=== PATIENT | male | born 1950 | race Caucasian/White ===

== ENCOUNTER 2017-04-18 18:11 | Inpatient (IN) | payer OTHER ==
[2017-04-18 19:18] LABS: ABS Basophils 0.1 10^3/ul (0-0.2); ABS Eosinophils 0.4 10^3/ul (0-0.6); ABS Lymphocytes 1.5 10^3/ul (1.0-4.8); ABS Monocytes 0.9 10^3/ul (0-0.8); ABS Neutrophils 6.5 10^3/ul (1.5-7.7); ABS Nucleated RBC 0 10^3/ul; Eosinophil % 4.6 % (0-6); Hematocrit 40 % (42-52); Hemoglobin 13.8 g/dl (14.0-18.0); Lymphocyte % 16.1 % (25-47); Mean Corpuscular HGB Conc 35 g/dl (31-36); Mean Corpuscular Hemoglobin 31 pg (27-31); Mean Corpuscular Volume 90 fL (80-94); Mean Platelet Volume 7 um3 (7.4-10.4); Nucleated Red Blood Cells % 0; Platelet Count 283 10^3/ul (150-450); Red Blood Count 4.44 10^6/ul (4.0-5.4); Red Cell Distribution Width 14 % (10.5-15); White Blood Count 9.4 10^3/ul (3.5-10.8)
[2017-04-18 19:33] LABS: EGFR Non-African American 71.7 (>60)
[2017-04-18 20:55] LABS: Urine Appearance Clear; Urine Blood Negative (Negative); Urine Color Yellow; Urine Ketones Negative (Negative); Urine Protein Negative (Negative); Urine Specific Gravity 1.019 (1.010-1.030); Urine Urobilinogen Negative (Negative)
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
[2017-04-19] MEDS ORDERED: Ibuprofen TAB* 600 MG PO PRN (11:33)
[2017-04-19] MEDS ORDERED: Nitroglycerin TAB 0.4 MG* 0.4 MG TAB SL PRN (11:33)
[2017-04-19] MEDS ORDERED: Haloperidol TAB* 5 MG PO PRN (11:35)
--- NOTE | 2017-04-19 12:16 | ED ---
Funmi Anderson Julia, scribed for Yehuda Santana MD on 04/19/17 at 1141 . Progress - Progress Note Progress Note: Patient is signed out from Dr. Salcedo at shift change. This patient will no longer require transfer and will be admitted to the mental health unit at [facility]. - Consult/PCP Time Called: 18:14 Re-Evaluation - Re-Evaluation First Eval (Dr. Salcedo) Re-Evaluation Time: 05:00 Change: Improved - resting comfortably at 0500 First Eval Change: Improved - resting comfortably at 0500 Course/Dx - Course Course Of Treatment: Patient was signed out from Dr. Salcedo at 07:00. At 11:45 , Patient is no longer being transferred and will be admitted to [facility] Mental Health Unit instead. - Diagnoses Provider Diagnoses: Acute psychosis, Chronic schizophrenia, Non compliance w medication regimen The documentation as recorded by the Funmi miranda Julia accurately reflects the service I personally performed and the decisions made by , Yehuda Santana MD.
[2017-04-19] MEDS: Acetaminophen TAB* 325 MG PO PRN (15:11)
--- NOTE | 2017-04-19 16:20 | PN ---
MHU: Group Therapy Note - Service Type Service Type: [id number] Group Psychotherapy - Medication Education Group: Patient joined group and was intermittently in room. Patient asked questions that were not particularly on topic.
[2017-04-19] MEDS: clonazePAM TAB(*) 0.5 MG PO SCH (20:54)
[2017-04-19] MEDS: Multivitamins/Minerals TAB PO SCH (20:54)
[2017-04-19] MEDS: Atorvastatin* 10 MG TAB PO SCH (20:54)
[2017-04-20] MEDS: Acetaminophen TAB* 325 MG PO PRN (03:56)
[2017-04-20] MEDS ORDERED: hydrOXYzine HCL TAB* 50 MG ONE (04:18)
[2017-04-20] MEDS: Multivitamins/Minerals TAB PO SCH ×2 (09:16→21:42)
[2017-04-20] MEDS: Aspirin Low Dose CHEW TAB* 81 MG PO SCH (09:16)
[2017-04-20] MEDS: Cholecalciferol TAB* 1000 UNITS PO SCH (09:16)
[2017-04-20] MEDS: clonazePAM TAB(*) 0.5 MG PO SCH ×2 (09:17→21:46)
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
[2017-04-20] MEDS ORDERED: hydrOXYzine HCL TAB* 50 MG PO PRN (11:38)
[2017-04-20] MEDS ORDERED: traZODone TAB* 50 MG TAB PO PRN (14:06)
[2017-04-20] MEDS: Paliperidone ER TAB* 1.5 MG TAB.ER PO SCH (21:41)
[2017-04-20] MEDS: Atorvastatin* 10 MG TAB PO SCH (21:42)
[2017-04-20] MEDS: traZODone TAB* 50 MG TAB PO SCH (21:42)
[2017-04-21] MEDS: Al Hydrox/Mg Hydrox/Simet LIQ* 30 ML UDC PO PRN (04:45)
[2017-04-21] MEDS: Cholecalciferol TAB* 1000 UNITS PO SCH (09:28)
[2017-04-21] MEDS: Aspirin Low Dose CHEW TAB* 81 MG PO SCH (09:28)
[2017-04-21] MEDS: Multivitamins/Minerals TAB PO SCH ×2 (09:28→21:04)
[2017-04-21] MEDS: clonazePAM TAB(*) 0.5 MG PO SCH ×3 (09:29→21:06)
--- NOTE | 2017-04-21 14:06 | PN ---
Subjective - Subjective Date of Service: 04/21/17 Service Type: [id number] Hosp care 15 min low complexity Subjective: Gutierrez is in the milieu pacing and at times on the phone. Intrussive with poor boundary. Says he is feeling depressed today and subdued. No reports of anger, SI, HI or aggression. Tolerating Invega well. Slept well but found to be playing with his lunch. Objective - Appearance Appearance: Obese Dysmorphic Features: No Hygiene: Mal-odorous Grooming: Disheveled - Behavior Psychomotor Activities: Abnormal-Increased Exhibits Abnormal Movement: No - Attitude and Relatedness Attitude and Relatedness: Guarded Eye Contact: Fair - Speech Quality: Unpressured Latencies: Normal Quantity: Terse - Mood Patient's Decription of Mood: "Fine" - Affect Observed Affect: Depressed Affect Consistent with: Dysphoria - Thought Process Patient's Thought Process: Coherent, Impoverished Thought Content: No Passive Wish, No Suicidal Planning, No Homicidal Ideation, No Paranoid Ideation - Sensorium Experiencing Hallucinations: No, Sensorium is Clear Type of Hallucinations: Visual: No, Auditory: No, Command: No - Level of Consciousness Level of Consciousness: Alert Orientation: Yes Intact, Yes Orientated to Time, Yes Orientated to Place, Yes Orientated to Person - Impulse Control Impulse Control: Tenuous - Insight and Judgement Insight and Judgement: Poor - Group Participation Particating in Group Activities: No - Medication Management Medication Management Adherence: Yes Assessment - Assessment Merits Inpatient Hospitalization: For Stabilization, Pending Safe DC Plan Clinical Impression: Still disorganized in thoughts and behavior but taking meds as prescribed. Plan - Plan Treatment Plan: Name: GUTIERREZ BOYD Birthdate: 1950 [id number] Continued Medication Management: Continue Outpt Medication Medications: Current Medications Acetaminophen (Tylenol Tab*) 650 mg PO Q6H PRN PRN Reason: PAIN - MILD Last Admin: 04/20/17 03:56 Dose: 650 mg Al Hydrox/Mg Hydrox/Simethicone (Maalox Plus*) 30 ml PO Q4H PRN PRN Reason: INDIGESTION Last Admin: 04/21/17 04:45 Dose: 30 ml Aspirin (Aspirin Low Dose Tab*) 81 mg PO DAILY [facility] Last Admin: 04/21/17 09:28 Dose: 81 mg Atorvastatin Calcium (Lipitor*) 10 mg PO BEDTIME [facility] Last Admin: 04/20/17 21:42 Dose: 10 mg Cholecalciferol (Vitamin D Tab*) 1,000 units PO DAILY [facility] Last Admin: 04/21/17 09:28 Dose: 1,000 units Clonazepam (Klonopin Tab(*)) 0.5 mg PO BID [facility] Last Admin: 04/21/17 09:29 Dose: Not Given Haloperidol (Haldol Tab*) 5 mg PO Q6H PRN PRN Reason: AGITATION Hydroxyzine HCl (Atarax Tab*) 50 mg PO Q4H PRN PRN Reason: anxiety/agitation Ibuprofen (Motrin Tab*) 600 mg PO Q6H PRN PRN Reason: PAIN Multivitamins/Minerals (Theragran/Minerals Tab*) 1 tab PO BID [facility] Last Admin: 04/21/17 09:28 Dose: 1 tab Nitroglycerin (Nitroglycerin Tab 0.4 Mg*) 0.4 mg SL Q5M PRN PRN Reason: PAIN - CHEST Paliperidone (Invega Er*) 1.5 mg PO BEDTIME [facility] Stop: 04/21/17 21:01 Last Admin: 04/20/17 21:41 Dose: 1.5 mg Paliperidone (Invega Er Tab*) 3 mg PO BEDTIME [facility] Trazodone HCl (Desyrel Tab*) 50 mg PO BEDTIME [facility] Last Admin: 04/20/17 21:42 Dose: 50 mg Trazodone HCl (Desyrel Tab*) 50 mg PO ONCE PRN PRN Reason: INSOMNIA - Discharge Plan Discharge Plan: Outpatient Follow Up Out[facility]
[2017-04-21] MEDS: Atorvastatin* 10 MG TAB PO SCH (21:03)
[2017-04-21] MEDS: traZODone TAB* 50 MG TAB PO SCH (21:04)
[2017-04-21] MEDS: Paliperidone ER TAB* 1.5 MG TAB.ER PO SCH (21:04)
[2017-04-22] MEDS: Cholecalciferol TAB* 1000 UNITS PO SCH (09:01)
[2017-04-22] MEDS: Multivitamins/Minerals TAB PO SCH ×2 (09:01→22:02)
[2017-04-22] MEDS: Aspirin Low Dose CHEW TAB* 81 MG PO SCH (09:01)
[2017-04-22] MEDS: clonazePAM TAB(*) 0.5 MG PO SCH ×2 (09:03→22:03)
[2017-04-22] MEDS: Al Hydrox/Mg Hydrox/Simet LIQ* 30 ML UDC PO PRN (19:04)
[2017-04-22] MEDS: Acetaminophen TAB* 325 MG PO PRN (19:04)
[2017-04-22] MEDS ORDERED: Paliperidone ER TAB* 3 MG TAB.ER PO SCH (21:00)
[2017-04-22] MEDS: traZODone TAB* 50 MG TAB PO SCH (22:02)
[2017-04-22] MEDS: Atorvastatin* 10 MG TAB PO SCH (22:02)
[2017-04-23] MEDS: Multivitamins/Minerals TAB PO SCH ×2 (08:54→20:57)
[2017-04-23] MEDS: Aspirin Low Dose CHEW TAB* 81 MG PO SCH (08:54)
[2017-04-23] MEDS: Cholecalciferol TAB* 1000 UNITS PO SCH (08:54)
[2017-04-23] MEDS: clonazePAM TAB(*) 0.5 MG PO SCH (08:56)
--- NOTE | 2017-04-23 09:51 | PN ---
Subjective - Subjective Subjective: Psychiatric Attending Progress Note: uneventful weekend. no aggressive behavior observed. Patient has been cooperative and attending groups. He continues to exhibit marked thought disorder. logical and relevant responses occurr equally with illogic, irrelevant constructs. no evidence of manic or depressed mood. denie auditory or visual hallucionations but can be seen mumbling to himself at times as if he were responding to internal stimuli. Patient is fully alert and oriented in all spheres. He has some over valued ideas with regard to the bad quality of air in the hospital. Patient denies suicidal or homicidal ideation. There are no overt persecutory delusions or bizarre delusions elicited during today's interview. He continues to have relatively poor hygiene. He is eating and drinking adequately. Patient is reported to be sleeping 2 to 3 hours per night but when asked patient states he has been sleeping 6 to 7 hours nightly Patient had visit from his Brother Timmy and brother's over the weekend. He also had phone contact with another brother of his. Patient wishes to return to [facility] without going to the [facility]. he agrees to take MORENO Invega Sustenna once we have titrated him up to 6 mg daily. Impression: Scizophrenia acute exacerbation Medication nonadherence PTSD (by history) Coronary artery Disease Hyperlipidemia Hypertension PLAN: currently on 2pc status Q15 min observation status individual, group, Milieu patient would like to return to [facility] if that is an option Invega 4.5 mg Tonight X 1 then go to 6 mg QHS Will give first dose of Invega Sustenna on . hydroxyzine 50 mg Q4h prn anxiety/insomnia Trazodone 50 mg QHS for insomnia. May repeat X 1 prn after one hour for persistent insomnia continue outpatient non psychiatric medications unchanged which include Lipitor, Vitamin D, Aspirin, NTG Tab PRN, tylenol and motrin Q4h prn pain d/c klonopin
[2017-04-23] MEDS: Acetaminophen TAB* 325 MG PO PRN (13:36)
[2017-04-23] MEDS: Atorvastatin* 10 MG TAB PO SCH (20:57)
[2017-04-23] MEDS: Paliperidone ER TAB* 6 MG TAB.ER PO SCH (20:57)
[2017-04-23] MEDS: traZODone TAB* 50 MG TAB PO SCH (20:58)
[2017-04-24] MEDS: Aspirin Low Dose CHEW TAB* 81 MG PO SCH (08:34)
[2017-04-24] MEDS: Multivitamins/Minerals TAB PO SCH ×2 (08:34→21:38)
[2017-04-24] MEDS: Cholecalciferol TAB* 1000 UNITS PO SCH (08:34)
--- NOTE | 2017-04-24 16:06 | PN ---
Subjective - Subjective Subjective: PSYCHIATRIC ATTENDING PROGRESS NOTE Compliant with Invega and denies any side effects. staff report patient paces throughout the unit and can be somewhat intrusive. no aggression, agitation, or bizarre behaviors Patient has good appetite and is taking adequate fluid intake. His brother has been visiting him regularly on the unit. I spoke with Brother Efraín Rodriguez today for 15 minute phone conversation. Brother reports that patient moved back in to the [facility] about one year ago after a lengthy hospitalization in [place]. Prior to that hospitalization he had stopped taking medication for many months which resulted in psychotic decompensation. Patient was started on Abilify Mantenna monthly MORENO which he took for about 8 to 9 months before discontinuing it about 4 months ago. Brother reports that he had a very good response to the monthly Abilify and was more stable then he had been in many years. Patient then met a woman at the Day program that he attends and stopped his Abilify because he attributed sexual performance difficulties incorrectly to his Abilify. Brother would like to see beth back on his Abilify. He is patient's conservator. He also asked me about "forced medication treatment against objection as an outpatient" I told him that a atmospheric physicist can order mandatory treatment but that he should speak with drug abuse social worker or a senior care provider about this option. MSE: unchanged from yesterday speech hyperverbal, normal rate and volume. mood: euthymic affect: blunted, bizarre TP: disorganized, irrelevant and at times illogic. at other times patient responds logically and relevantly. denies AH,VH, SI,HI Alert and fully oriented insight poor judgment: impaired Impression: Schizophrenia PTSD Plan: Invega 6 mg po QHS Trazodone 50 mg qhs patient is awaiting transfer to [facility].
[2017-04-24] MEDS: Paliperidone ER TAB* 6 MG TAB.ER PO SCH (21:38)
[2017-04-24] MEDS: traZODone TAB* 50 MG TAB PO SCH (21:38)
[2017-04-24] MEDS: Atorvastatin* 10 MG TAB PO SCH (21:38)
[2017-04-25] MEDS: Cholecalciferol TAB* 1000 UNITS PO SCH (08:54)
[2017-04-25] MEDS: Aspirin Low Dose CHEW TAB* 81 MG PO SCH (08:54)
[2017-04-25] MEDS: Multivitamins/Minerals TAB PO SCH ×2 (08:54→21:57)
[2017-04-25] MEDS ORDERED: Nicotine GUM* 2 MG PO PRN (10:24)
[2017-04-25] MEDS ORDERED: Nicotine Inhaler* 10 MG AMP INH PRN (10:24)
[2017-04-25] MEDS ORDERED: Mouth Piece, Nicotine* 1 EACH CARTRIDGE INH PRN (10:24)
--- NOTE | 2017-04-25 10:25 | PN ---
Subjective - Subjective Subjective: psychiatric attending progress note Per staff patient has been staring and making inappropriate remarks with sexual theme. This has made at least one female patient feel uncomfortable. patient continues to be disorganized in thought process, intrusive (walks up to people and begins talking about something randomly). denies side effects from medication at this time. per asphalt plant worker, [place] system does not have availability for this patient at this time. complains of left heel pain. PE: 1 to 2 + pitting edema bilaterally lower extemities left greater than right heel shows excoriation but no open sores or ulcers. mild swelling and redness of heel. no evidence of active infection. patient reports that he has had pitting edema left greater than right for many years. MSE; poor hygiene disheveled speech: at times dysarthric, poorly articulated mood: no evidence of dysphoria or aime. patient has not been irritible which was reported prior to admission affect: bizarre TP: disorganized, with illogic and irrelevant constructs. preoccupied with sexually related topics TC: denies AH,VH but can be seen muttering/mumling to self while pacing on unit. talks of air quality being poor here overvalued ideas fully alert and oriented insight fair. does agree he needs to be back on a medication for his mental illness judgment: impaired by psychosis Impression: Schizophrenia with acute exacerbation of both positive and negative symptoms since discontinuing MORENO Abilify 4 months ago Patient has significant thought disorder. Intrusiveness, and sexually inappropriate behaviors/verbalizations are target symptoms and patient cannot function in the community safely until those symptoms have remitted. Plan: Invega 6 mg po tonight tomorrow will give first Invega Sustenna injection of 234 mg IM moisturizing cream bilateral feet and heels BID Start HCTZ 12. 5 mg QAM for pitting edema and systolic hypertension behavioral contract with regard to refraining from inappropriate comments of a sexual nature. Plan - Plan Treatment Plan: Name: DEYANIRA BYOD Birthdate: 1950 [id number] Medications: Current Medications Acetaminophen (Tylenol Tab*) 650 mg PO Q6H PRN PRN Reason: PAIN - MILD Last Admin: 04/23/17 13:36 Dose: 650 mg Al Hydrox/Mg Hydrox/Simethicone (Maalox Plus*) 30 ml PO Q4H PRN PRN Reason: INDIGESTION Last Admin: 04/22/17 19:04 Dose: 30 ml Aspirin (Aspirin Low Dose Tab*) 81 mg PO DAILY [facility] Last Admin: 04/25/17 08:54 Dose: 81 mg Atorvastatin Calcium (Lipitor*) 10 mg PO BEDTIME [facility] Last Admin: 04/24/17 21:38 Dose: 10 mg Cholecalciferol (Vitamin D Tab*) 1,000 units PO DAILY [facility] Last Admin: 04/25/17 08:54 Dose: 1,000 units Device (Nicotine Mouth Piece*) 1 each INH .USE WITH NICOTROL PRN PRN Reason: CRAVING Haloperidol (Haldol Tab*) 5 mg PO Q6H PRN PRN Reason: AGITATION Hydroxyzine HCl (Atarax Tab*) 50 mg PO Q4H PRN PRN Reason: anxiety/agitation Ibuprofen (Motrin Tab*) 600 mg PO Q6H PRN PRN Reason: PAIN Multivitamins/Minerals (Theragran/Minerals Tab*) 1 tab PO BID [facility] Last Admin: 04/25/17 08:54 Dose: 1 tab Nicotine (Nicotine Inhaler*) 10 mg INH Q2H PRN PRN Reason: CRAVING Nicotine Polacrilex (Nicotine Gum*) 2 mg PO Q2H PRN PRN Reason: CRAVING Nitroglycerin (Nitroglycerin Tab 0.4 Mg*) 0.4 mg SL Q5M PRN PRN Reason: PAIN - CHEST Paliperidone (Invega Er Tab*) 6 mg PO BEDTIME [facility] Last Admin: 04/24/17 21:38 Dose: 6 mg Trazodone HCl (Desyrel Tab*) 50 mg PO BEDTIME [facility] Last Admin: 04/24/17 21:38 Dose: 50 mg Trazodone HCl (Desyrel Tab*) 50 mg PO ONCE PRN PRN Reason: INSOMNIA
[2017-04-25] MEDS: Atorvastatin* 10 MG TAB PO SCH (21:56)
[2017-04-25] MEDS: Paliperidone ER TAB* 6 MG TAB.ER PO SCH (21:57)
[2017-04-25] MEDS: traZODone TAB* 50 MG TAB PO SCH (21:57)
[2017-04-25] MEDS: Moisturizing CREAM* 120 GM JAR TOPICAL SCH (21:58)
[2017-04-26] MEDS: Al Hydrox/Mg Hydrox/Simet LIQ* 30 ML UDC PO PRN (06:47)
[2017-04-26] MEDS ORDERED: Paliperidone SUSTENNA* 234 MG/1.5 ML IM ONE (09:00)
[2017-04-26] MEDS: Hydrochlorothiazide TAB* 25 MG PO SCH (09:13)
[2017-04-26] MEDS: Cholecalciferol TAB* 1000 UNITS PO SCH (09:13)
[2017-04-26] MEDS: Aspirin Low Dose CHEW TAB* 81 MG PO SCH (09:14)
[2017-04-26] MEDS: Multivitamins/Minerals TAB PO SCH ×2 (09:14→20:27)
[2017-04-26] MEDS: Moisturizing CREAM* 120 GM JAR TOPICAL SCH (09:15)
--- NOTE | 2017-04-26 11:36 | PN ---
Subjective - Subjective Subjective: PSYCHIATRIC ATTENDING PROGRESS NOTE Continues to be disorganized, irrelevant, intrusive no aggressive behavior or agitation has been exhibited since patient was admitted to our unit. Patient is agreeable to current medication treatment plan of taking second Invega injection on Sunday04/03/2017 MSE: poor ADL's speech: low volume, dysarthric mood: euthymic affect: bizarre TP: disorganized, irrelevant and illogic constructs TC: denies AH,VH. denies SI,HI insight poor judgment impaired Impression: Schizophrenia: acute decompensation medication nonadherence Plan: as above
[2017-04-26] MEDS: Atorvastatin* 10 MG TAB PO SCH (20:28)
[2017-04-26] MEDS: traZODone TAB* 50 MG TAB PO SCH (20:28)
[2017-04-27] MEDS: Moisturizing CREAM* 120 GM JAR TOPICAL SCH ×3 (02:00→22:08)
[2017-04-27] MEDS: Al Hydrox/Mg Hydrox/Simet LIQ* 30 ML UDC PO PRN ×2 (06:25→10:32)
[2017-04-27] MEDS: Cholecalciferol TAB* 1000 UNITS PO SCH (08:51)
[2017-04-27] MEDS: Multivitamins/Minerals TAB PO SCH ×3 (08:51→22:34)
[2017-04-27] MEDS: Aspirin Low Dose CHEW TAB* 81 MG PO SCH (08:51)
[2017-04-27] MEDS: Hydrochlorothiazide TAB* 25 MG PO SCH (08:51)
--- NOTE | 2017-04-27 11:04 | PN ---
Subjective - Subjective Subjective: Psychiatric Attending progress note: continues to be quite disorganized and unable to engage in group due to being incoherent, and irrelevant which is disruptive to group. no hypersexual remarks or behavior noted today. continues to have poor insight about need for medication but gives consent to be treated with invega as he knows placement is contingent on him receiving MORENO antipsychotic treatment. MSE: as above edema diminished since starting HCTZ daily Vitals have been stable including BP Impression/Plan Schizophrenia To give Invega Sustenna injection number 2 on 04/30/2017 increase Trazodone to 100 mg qhs as patient is not sleeping through the night. continue all other meds unchanged.
[2017-04-27] MEDS: traZODone TAB* 50 MG TAB PO SCH ×2 (22:08→22:36)
[2017-04-27] MEDS: Atorvastatin* 10 MG TAB PO SCH ×2 (22:08→22:34)
[2017-04-28] MEDS: Multivitamins/Minerals TAB PO SCH ×2 (08:50→20:29)
[2017-04-28] MEDS: Aspirin Low Dose CHEW TAB* 81 MG PO SCH (08:50)
[2017-04-28] MEDS: Hydrochlorothiazide TAB* 25 MG PO SCH (08:50)
[2017-04-28] MEDS: Cholecalciferol TAB* 1000 UNITS PO SCH (08:50)
[2017-04-28] MEDS: Moisturizing CREAM* 120 GM JAR TOPICAL SCH ×2 (08:53→20:31)
[2017-04-28] MEDS: Al Hydrox/Mg Hydrox/Simet LIQ* 30 ML UDC PO PRN (11:11)
[2017-04-28] MEDS: traZODone TAB* 50 MG TAB PO SCH (20:29)
[2017-04-28] MEDS: Atorvastatin* 10 MG TAB PO SCH (20:30)
[2017-04-29 06:25] LABS: ABS Basophils 0.1 10^3/ul (0-0.2); ABS Eosinophils 0.5 10^3/ul (0-0.6); ABS Lymphocytes 1.3 10^3/ul (1.0-4.8); ABS Monocytes 0.9 10^3/ul (0-0.8); ABS Neutrophils 4.9 10^3/ul (1.5-7.7); ABS Nucleated RBC 0 10^3/ul; Eosinophil % 6.9 % (0-6); Hematocrit 39 % (42-52); Hemoglobin 13.4 g/dl (14.0-18.0); Lymphocyte % 16.9 % (25-47); Mean Corpuscular HGB Conc 34 g/dl (31-36); Mean Corpuscular Hemoglobin 31 pg (27-31); Mean Corpuscular Volume 90 fL (80-94); Mean Platelet Volume 7 um3 (7.4-10.4); Nucleated Red Blood Cells % 0; Platelet Count 268 10^3/ul (150-450); Red Blood Count 4.36 10^6/ul (4.0-5.4); Red Cell Distribution Width 14 % (10.5-15); White Blood Count 7.7 10^3/ul (3.5-10.8)
[2017-04-29 06:40] LABS: EGFR Non-African American 69.4 (>60)
[2017-04-29] MEDS: Moisturizing CREAM* 120 GM JAR TOPICAL SCH ×2 (09:15→19:23)
[2017-04-29] MEDS: Hydrochlorothiazide TAB* 25 MG PO SCH (09:15)
[2017-04-29] MEDS: Cholecalciferol TAB* 1000 UNITS PO SCH (09:15)
[2017-04-29] MEDS: Multivitamins/Minerals TAB PO SCH ×2 (09:15→19:23)
[2017-04-29] MEDS: Aspirin Low Dose CHEW TAB* 81 MG PO SCH (09:16)
[2017-04-29] MEDS: Al Hydrox/Mg Hydrox/Simet LIQ* 30 ML UDC PO PRN (10:54)
[2017-04-29] MEDS: Acetaminophen TAB* 325 MG PO PRN (19:21)
[2017-04-29] MEDS: traZODone TAB* 50 MG TAB PO SCH ×3 (19:22→19:28)
[2017-04-29] MEDS: Atorvastatin* 10 MG TAB PO SCH (19:22)
[2017-04-30] MEDS: Moisturizing CREAM* 120 GM JAR TOPICAL SCH ×2 (00:26→09:43)
[2017-04-30] MEDS: Multivitamins/Minerals TAB PO SCH ×2 (09:02→20:41)
[2017-04-30] MEDS: Hydrochlorothiazide TAB* 25 MG PO SCH (09:02)
[2017-04-30] MEDS: Cholecalciferol TAB* 1000 UNITS PO SCH (09:02)
[2017-04-30] MEDS: Aspirin Low Dose CHEW TAB* 81 MG PO SCH (09:03)
[2017-04-30] MEDS: Al Hydrox/Mg Hydrox/Simet LIQ* 30 ML UDC PO PRN (10:32)
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
[2017-04-30] MEDS: traZODone TAB* 50 MG TAB PO SCH (20:41)
[2017-04-30] MEDS: Atorvastatin* 10 MG TAB PO SCH (20:41)
[2017-05-01] MEDS: Moisturizing CREAM* 120 GM JAR TOPICAL SCH ×3 (01:15→20:55)
[2017-05-01] MEDS: Hydrochlorothiazide TAB* 25 MG PO SCH (09:08)
[2017-05-01] MEDS: Multivitamins/Minerals TAB PO SCH ×2 (09:09→20:54)
[2017-05-01] MEDS: Cholecalciferol TAB* 1000 UNITS PO SCH (09:09)
[2017-05-01] MEDS: Aspirin Low Dose CHEW TAB* 81 MG PO SCH (09:09)
[2017-05-01] MEDS: Acetaminophen TAB* 325 MG PO PRN ×2 (09:41→18:33)
[2017-05-01] MEDS: Al Hydrox/Mg Hydrox/Simet LIQ* 30 ML UDC PO PRN (16:16)
[2017-05-01] MEDS: traZODone TAB* 50 MG TAB PO SCH (20:54)
[2017-05-01] MEDS: Atorvastatin* 10 MG TAB PO SCH (20:54)
[2017-05-02] MEDS: Al Hydrox/Mg Hydrox/Simet LIQ* 30 ML UDC PO PRN ×2 (00:48→19:09)
[2017-05-02] MEDS: Moisturizing CREAM* 120 GM JAR TOPICAL SCH ×3 (01:23→21:21)
[2017-05-02] MEDS ORDERED: Paliperidone SUSTENNA* 156 MG/1 ML IM ONE (09:00)
[2017-05-02] MEDS: Hydrochlorothiazide TAB* 25 MG PO SCH (09:03)
[2017-05-02] MEDS: Multivitamins/Minerals TAB PO SCH ×2 (09:03→21:21)
[2017-05-02] MEDS: Aspirin Low Dose CHEW TAB* 81 MG PO SCH (09:03)
[2017-05-02] MEDS: Cholecalciferol TAB* 1000 UNITS PO SCH (09:03)
--- NOTE | 2017-05-02 12:05 | PN ---
Subjective - Subjective Subjective: psychiatric attending progress note s/p Invega Injection 156 mg IM today (injection number two) patient has been attending groups. He continues to be disorganized in his behavior, paces the halls, and indiscriminantly approaches people and begin talking about random topics. He has been less preoccupied with sexual theme. His mood is overall pleasant and not irritable. there has been no indication of explosive behavior,anger, or aggression. patient sleeping through the night since starting the Invega one week ago Gutierrez has not had any complaints of side effects. denies nausea, vomiting, abdomnial pain, muscle rigidity, agitation, dry mouth, constipation, dizziness, BP has been stable HR also has been stable patient has been somewhat more sedated during the day today and I noticed he fell asleep at afternoon group. This may be secondary to Invega injectinon which he received today still with pitting edema left greater than right leg no sob, chest pain, tachypnea, wheezing Impression: schizophrenia bilateral leg edema mild hypertension history of CAD not symptomatic Plan: s/p Invega injecton # 2 increase HCTZ to 25 mg daily likely patient will be ready to return to [facility] by next week Assessment - Assessment Inpatient DSM-V Dx: F25.0
[2017-05-02] MEDS: Acetaminophen TAB* 325 MG PO PRN (15:35)
[2017-05-02] MEDS: traZODone TAB* 50 MG TAB PO SCH (21:20)
[2017-05-02] MEDS: Atorvastatin* 10 MG TAB PO SCH (21:21)
[2017-05-03] MEDS: Aspirin Low Dose CHEW TAB* 81 MG PO SCH (08:20)
[2017-05-03] MEDS: Multivitamins/Minerals TAB PO SCH ×2 (08:20→20:45)
[2017-05-03] MEDS: Hydrochlorothiazide TAB* 25 MG PO SCH (08:20)
[2017-05-03] MEDS: Cholecalciferol TAB* 1000 UNITS PO SCH (08:20)
[2017-05-03] MEDS: Moisturizing CREAM* 120 GM JAR TOPICAL SCH ×2 (08:21→21:30)
--- NOTE | 2017-05-03 11:16 | PN ---
Subjective - Subjective Subjective: Psychiatric Attending Progress Note met with Gutierrez X 20 min today. He was somewhat more organized but then derails and begins talking about irrelevant and unrelated topic. He is easily brought back to topic. His hygiene remains very poor. His mood, thought continues to be pleasant, cheerful and not at all irritable or angry or agitated. Patient does report that he feels that his thoughts are "obsessive" and "racy". he reports that he is having difficulty staying on task because he will get a certain thought in his head and he will feel compelled to act on it. As an example he tells me that, while eating a meal he could not get the thought of painting with water colors out of his head. Very bothered by intrusive thoughts. We talked about klonopin which we stopped on admission. He reports that hewas on this medication for 14 years and that it was only in the past 8 months that he began to "cheek the medication" intermittently It has only been in the past two weeks that he has been off the klonopin completely. I suggested that patient's psychomotor increase may be withdrawal symptoms related to discontinuation of klonopin He was receptive to restarting klonopin at lower dose and tapering medication at a slower pace. Objective - Appearance Appearance: Well Developed/Nourished Dysmorphic Features: No Hygiene: Dirty Grooming: Disheveled - Behavior Psychomotor Activities: Abnormal-Increased - Attitude and Relatedness Attitude and Relatedness: Psychotically Related Eye Contact: Poor - Speech Quality: Unpressured Latencies: Normal Quantity: Copious - Mood Patient's Decription of Mood: "Good" - Affect Observed Affect: Non-labile Affect Consistent with: Euthymia - Thought Process Patient's Thought Process: Disorganized, Loose Associations, Tangential Thought Content: No Passive Wish, No Suicidal Planning, No Homicidal Ideation, No Paranoid Ideation - Sensorium Experiencing Hallucinations: No, Sensorium is Clear Type of Hallucinations: Visual: No, Auditory: No, Command: No - Level of Consciousness Level of Consciousness: Alert Orientation: Yes Intact, Yes Orientated to Time, Yes Orientated to Place, Yes Orientated to Person - Impulse Control Impulse Control: Intact - Insight and Judgement Insight and Judgement: Impaired - Group Participation Particating in Group Activities: Yes - Medication Management Medication Management Adherence: Yes Assessment - Assessment Inpatient DSM-V Dx: F25.0 Clinical Impression: 66 yo with schizophrenia. patient received 2 nd of two Invega injections yesterday. He is reporting racing thoughts, restlessness, excessive speech. This could represent hypomania or could be withdrawal effects of discontinuation of klonopin which he has been on for 14 years. Plan - Plan Treatment Plan: Plan: restart Klonopin 0.25 mg BID and 0.5 mg QHS Invega q 4 weeks. next dose of 117 mg due on 05/29/2017 HCTZ 25 mg daily for Lower extremity edema discharge planning per social work professor will be [facility] Medications: Current Medications Acetaminophen (Tylenol Tab*) 650 mg PO Q6H PRN PRN Reason: PAIN - MILD Last Admin: 05/02/17 15:35 Dose: 650 mg Al Hydrox/Mg Hydrox/Simethicone (Maalox Plus*) 30 ml PO Q4H PRN PRN Reason: INDIGESTION Last Admin: 05/02/17 19:09 Dose: 30 ml Aspirin (Aspirin Low Dose Tab*) 81 mg PO DAILY [facility] Last Admin: 05/03/17 08:20 Dose: 81 mg Atorvastatin Calcium (Lipitor*) 10 mg PO BEDTIME [facility] Last Admin: 05/02/17 21:21 Dose: 10 mg Cholecalciferol (Vitamin D Tab*) 1,000 units PO DAILY [facility] Last Admin: 05/03/17 08:20 Dose: 1,000 units Device (Nicotine Mouth Piece*) 1 each INH .USE WITH NICOTROL PRN PRN Reason: CRAVING Haloperidol (Haldol Tab*) 5 mg PO Q6H PRN PRN Reason: AGITATION Hydrochlorothiazide (Hydrodiuril Tab*) 25 mg PO DAILY [facility] Last Admin: 05/03/17 08:20 Dose: 25 mg Hydroxyzine HCl (Atarax Tab*) 50 mg PO Q4H PRN PRN Reason: anxiety/agitation Ibuprofen (Motrin Tab*) 600 mg PO Q6H PRN PRN Reason: PAIN Last Admin: 05/03/17 08:19 Dose: 600 mg Multi-Ingredient Ointment (Hydrocerin*) 1 applic TOPICAL BID@ [facility] Last Admin: 05/03/17 08:21 Dose: Not Given Multivitamins/Minerals (Theragran/Minerals Tab*) 1 tab PO BID [facility] Last Admin: 05/03/17 08:20 Dose: 1 tab Nicotine (Nicotine Inhaler*) 10 mg INH Q2H PRN PRN Reason: CRAVING Nicotine Polacrilex (Nicotine Gum*) 2 mg PO Q2H PRN PRN Reason: CRAVING Nitroglycerin (Nitroglycerin Tab 0.4 Mg*) 0.4 mg SL Q5M PRN PRN Reason: PAIN - CHEST Trazodone HCl (Desyrel Tab*) 50 mg PO ONCE PRN PRN Reason: INSOMNIA Trazodone HCl (Desyrel Tab*) 100 mg PO BEDTIME [facility] Last Admin: 05/02/17 21:20 Dose: 100 mg
[2017-05-03] MEDS: Acetaminophen TAB* 325 MG PO PRN (11:24)
--- NOTE | 2017-05-03 16:43 | PN ---
MHU: Group Therapy Note - Service Type Service Type: [id number] Group Psychotherapy - Medication Education Group: Patient joined group late, remained in behavioral control. Patient noted to be circumstantial about substances that were not particularly on topic.
[2017-05-03] MEDS: Al Hydrox/Mg Hydrox/Simet LIQ* 30 ML UDC PO PRN (16:48)
[2017-05-03] MEDS: Atorvastatin* 10 MG TAB PO SCH (20:45)
[2017-05-03] MEDS: traZODone TAB* 50 MG TAB PO SCH (20:45)
[2017-05-04] MEDS: Hydrochlorothiazide TAB* 25 MG PO SCH (08:57)
[2017-05-04] MEDS: Aspirin Low Dose CHEW TAB* 81 MG PO SCH (08:57)
[2017-05-04] MEDS: Multivitamins/Minerals TAB PO SCH ×2 (08:57→22:16)
[2017-05-04] MEDS: Cholecalciferol TAB* 1000 UNITS PO SCH (08:57)
[2017-05-04] MEDS: Moisturizing CREAM* 120 GM JAR TOPICAL SCH ×2 (08:58→22:16)
--- NOTE | 2017-05-04 10:38 | PN ---
Subjective - Subjective Subjective: Psychiatric attending progress note did not start klonopin yesterday as patient has history of binge alcohol use. in stead will treat restlessness, anxiety, psychomotor increase with Gabapentin which I will titrate up to 300 mg TID. patient gave informed consent to treatment with this medication Patient denies any side effects from medication at this time. Objective - Appearance Appearance: Healthy Appearing Dysmorphic Features: No Hygiene: Dirty Grooming: Disheveled - Behavior Psychomotor Activities: Abnormal-Increased Exhibits Abnormal Movement: No - Attitude and Relatedness Attitude and Relatedness: Needy Eye Contact: Fair - Speech Quality: Unpressured Latencies: Normal Quantity: Copious - Mood Patient's Decription of Mood: "Anxious" - Affect Observed Affect: Constricted Affect Consistent with: Euthymia - Thought Process Patient's Thought Process: Disorganized, Loose Associations, Tangential Thought Content: No Passive Wish, No Suicidal Planning, No Homicidal Ideation, No Paranoid Ideation - Sensorium Experiencing Hallucinations: Yes Type of Hallucinations: Visual: No, Auditory: Yes - seen talking to self by staff, Command: No - Level of Consciousness Level of Consciousness: Alert Orientation: Yes Intact, Yes Orientated to Time, Yes Orientated to Place, Yes Orientated to Person - Impulse Control Impulse Control: Tenuous - Insight and Judgement Insight and Judgement: Poor - Group Participation Particating in Group Activities: Yes Assessment - Assessment Clinical Impression: 66 yo with schizophrenia continuous admitted for mental status decompensation in the context of non compliance with psychiatric medications for 4 months. patient has been restarted on antipsychotic medication. 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 He is socially intrusive, at times, has poor hygiene, but no evidence of danger to self or others. preoccupation with sexual themes has diminished considerably. He continues to require inpatient level of care for ongoing stabalization. Plan - Plan Treatment Plan: Plan: start Gabapentin 100 mg TID X 1 day then 200 mg tid x 2 days then 300 mg tid Invega q 4 weeks. 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 will be [facility] Medications: Current Medications Acetaminophen (Tylenol Tab*) 650 mg PO Q6H PRN PRN Reason: PAIN - MILD Last Admin: 05/03/17 11:24 Dose: 650 mg Al Hydrox/Mg Hydrox/Simethicone (Maalox Plus*) 30 ml PO Q4H PRN PRN Reason: INDIGESTION Last Admin: 05/03/17 16:48 Dose: 30 ml Aspirin (Aspirin Low Dose Tab*) 81 mg PO DAILY [facility] Last Admin: 05/04/17 08:57 Dose: 81 mg Atorvastatin Calcium (Lipitor*) 10 mg PO BEDTIME [facility] Last Admin: 05/03/17 20:45 Dose: 10 mg Cholecalciferol (Vitamin D Tab*) 1,000 units PO DAILY [facility] Last Admin: 05/04/17 08:57 Dose: 1,000 units Device (Nicotine Mouth Piece*) 1 each INH .USE WITH NICOTROL PRN PRN Reason: CRAVING Haloperidol (Haldol Tab*) 5 mg PO Q6H PRN PRN Reason: AGITATION Hydrochlorothiazide (Hydrodiuril Tab*) 25 mg PO DAILY [facility] Last Admin: 05/04/17 08:57 Dose: 25 mg Hydroxyzine HCl (Atarax Tab*) 50 mg PO Q4H PRN PRN Reason: anxiety/agitation Ibuprofen (Motrin Tab*) 600 mg PO Q6H PRN PRN Reason: PAIN Last Admin: 05/03/17 08:19 Dose: 600 mg Multi-Ingredient Ointment (Hydrocerin*) 1 applic TOPICAL BID@ [facility] Last Admin: 05/04/17 08:58 Dose: Not Given Multivitamins/Minerals (Theragran/Minerals Tab*) 1 tab PO BID [facility] Last Admin: 05/04/17 08:57 Dose: 1 tab Nicotine (Nicotine Inhaler*) 10 mg INH Q2H PRN PRN Reason: CRAVING Nicotine Polacrilex (Nicotine Gum*) 2 mg PO Q2H PRN PRN Reason: CRAVING Nitroglycerin (Nitroglycerin Tab 0.4 Mg*) 0.4 mg SL Q5M PRN PRN Reason: PAIN - CHEST Trazodone HCl (Desyrel Tab*) 50 mg PO ONCE PRN PRN Reason: INSOMNIA Trazodone HCl (Desyrel Tab*) 100 mg PO BEDTIME [facility] Last Admin: 05/03/17 20:45 Dose: 100 mg
[2017-05-04] MEDS: Gabapentin CAP(*) 100 MG PO SCH ×2 (16:50→22:16)
[2017-05-04] MEDS: Acetaminophen TAB* 325 MG PO PRN (16:51)
[2017-05-04] MEDS: Atorvastatin* 10 MG TAB PO SCH (22:16)
[2017-05-04] MEDS: traZODone TAB* 50 MG TAB PO SCH (22:16)
[2017-05-05] MEDS: Atorvastatin* 10 MG TAB PO SCH ×2 (03:00→20:20)
[2017-05-05] MEDS: Gabapentin CAP(*) 100 MG PO SCH ×4 (03:00→20:23)
[2017-05-05] MEDS: Moisturizing CREAM* 120 GM JAR TOPICAL SCH ×2 (07:54→20:26)
[2017-05-05] MEDS: Multivitamins/Minerals TAB PO SCH ×2 (07:57→20:20)
[2017-05-05] MEDS: Acetaminophen TAB* 325 MG PO PRN (07:57)
[2017-05-05] MEDS: Aspirin Low Dose CHEW TAB* 81 MG PO SCH (07:57)
[2017-05-05] MEDS: Cholecalciferol TAB* 1000 UNITS PO SCH (07:57)
[2017-05-05] MEDS: Hydrochlorothiazide TAB* 25 MG PO SCH (07:58)
[2017-05-05] MEDS: Al Hydrox/Mg Hydrox/Simet LIQ* 30 ML UDC PO PRN (12:24)
[2017-05-05] MEDS: traZODone TAB* 50 MG TAB PO SCH (20:20)
[2017-05-06] MEDS: Cholecalciferol TAB* 1000 UNITS PO SCH (08:54)
[2017-05-06] MEDS: Multivitamins/Minerals TAB PO SCH ×2 (08:54→21:56)
[2017-05-06] MEDS: Hydrochlorothiazide TAB* 25 MG PO SCH (08:54)
[2017-05-06] MEDS: Aspirin Low Dose CHEW TAB* 81 MG PO SCH (08:54)
[2017-05-06] MEDS: Gabapentin CAP(*) 100 MG PO SCH ×3 (08:55→21:59)
[2017-05-06] MEDS: Moisturizing CREAM* 120 GM JAR TOPICAL SCH ×2 (09:00→21:56)
[2017-05-06] MEDS: traZODone TAB* 50 MG TAB PO SCH (21:56)
[2017-05-06] MEDS: Atorvastatin* 10 MG TAB PO SCH (21:56)
[2017-05-07] MEDS: Aspirin Low Dose CHEW TAB* 81 MG PO SCH (09:50)
[2017-05-07] MEDS: Multivitamins/Minerals TAB PO SCH ×2 (09:50→22:13)
[2017-05-07] MEDS: Cholecalciferol TAB* 1000 UNITS PO SCH (09:50)
[2017-05-07] MEDS: Hydrochlorothiazide TAB* 25 MG PO SCH (09:50)
[2017-05-07] MEDS: Gabapentin CAP(*) 100 MG PO SCH ×3 (09:50→22:15)
[2017-05-07] MEDS: Moisturizing CREAM* 120 GM JAR TOPICAL SCH ×2 (09:52→22:13)
[2017-05-07] MEDS: Atorvastatin* 10 MG TAB PO SCH (22:14)
[2017-05-07] MEDS: traZODone TAB* 50 MG TAB PO SCH (22:15)
[2017-05-08 08:33] VITALS: BP 133/71
[2017-05-08] MEDS: Aspirin Low Dose CHEW TAB* 81 MG PO SCH (08:53)
[2017-05-08] MEDS: Hydrochlorothiazide TAB* 25 MG PO SCH (08:53)
[2017-05-08] MEDS: Multivitamins/Minerals TAB PO SCH (08:53)
[2017-05-08] MEDS: Moisturizing CREAM* 120 GM JAR TOPICAL SCH (08:53)
[2017-05-08] MEDS: Cholecalciferol TAB* 1000 UNITS PO SCH (08:53)
[2017-05-08] MEDS: Gabapentin CAP(*) 100 MG PO SCH ×2 (08:53→14:00)
--- NOTE | 2017-05-08 12:42 | DS ---
Subjective - Subjective Subjective: DISCHARGE SUMMARY PATIENT: Gutierrez Rodriguez : 1950 AGE: 66 PROVIDER: Fausto Cotton D.O. DATE OF ADMISSION: 04/19/2017 DATE OF DISCHARGE: 05/08/2017 DISCHARGE DIAGNOSES: Schizophrenia continuous PTSD Medication noncompliance Coronary Artery Disease History of Hypertension CONDITION AT THE TIME OF DISCHARGE: medically stable From a psychiatric perspective patient's condition is fair/guarded MENTAL STATUS EXAM AT DISCHARGE: At the time of discharge patient is fairly well related. He is unshaven His hair was neatly brushed. He told me that he is looking forward to getting haircut Patient's ADL's have improved since admission. on day of discharge, he showered and washed is hair. eye contact is good. speech remains hyperverbal but overall psychomotor activity has diminished since day of admission Patient continues to have poor boundaries. He often begins conversations indiscriminantly with staff or patients without recognizing socialverbal cues which often signal mutual agreement to begin conversation. It should be noted that if limits placed with patient around this he has accepted the limits without showing anger or resentment. Patient was admitted due to affective instability in the community. Patient's mood has been stable since his admission. no evidence of irritabiity , depression, explosive behavior, low frustration tolerance. mood has been consistently hyperthymic/hypomanic but there has been no evidence of sustained aime (criteria not met for aime). Thought process reveals profound thought disorder which was present on admission. There has been some improvement in this regard in that Gutierrez is able to give appropriate responses and attend longer when engaged in conversation. he continues to evidence flight of ideas, tangentiality, illogic and irrelevant constructs. He denies AH and VH but intermittently can be seen responding to internal stimuli (low frequency of this behavior). Other than complaining rarely about the air quality in the hospital and the negative consequences that this can have onhealth, there has been no evidence of paranoid ideation, bizarre, persecutory, or somatic delusions. Patient has been consistently alert and fully oriented in all spheres. Patient's inappropriate staring at the opposite sex and making sexual comments (present on admission) have remitted. He still makes occasional statements about "his wish to have a sex life" or the previous effects of medication on his sexual performance. At no time during the admission did patient show evidence of suicidal ideation, intention or planning. insight is poor. judgment is impaired. patient remains disorganized and in need of supervision. However, he is not a danger to himself or others at time of admission. despite considerable opposition to restarting medication, therapeutic interventions and psychoeducation were successful in helping Gutierrez to particpate in his own treatment and to consent to restart MORENO antipsychotic medication. At time of discharge patient indicated that he wished to return to [place] and that he felt that he would be safe and would follow the rules which are required of all residents. DISCHARGE INSTRUCTIONS: A.MEDICATIONS: B.DIET: C. ACTIVITIES: TOLERATED NICOTINE REPLACEMENT THERAPY WAS OFFERED BUT THE PATIENT DECLINED IT, INDICATING THAT HIS PREFERENCE IS TO CONTINUE SMOOKING FOR THE TIME BEING. DESPITE THIS, HE WAS GIVEN THE [facility] QUITLINE WHICH IS [phone] THERE ARE NO LABORATORY OR DIAGNOSTIC STUDIES PENDING AT THE TIME OF DISCHARGE. D. FOLLOW UP CARE: E. SUBSTANCE ABUSE FOLLOWUP: ATTENDING PSYCHIATRIST HOSPITAL COURSE: PART A. REASON FOR ADMISSION: HOSPITAL COURSE : PART B PSYCHIATRIC TREATMENT RENDERED: FAUSTO COTTON DO Treatment Course & Assessment Clinical Course & Impression: 66 yo with schizophrenia continuous admitted for mental status decompensation in the context of non compliance with psychiatric medications for 4 months. patient has been restarted on antipsychotic medication. 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 He is socially intrusive, at times, has poor hygiene, but no evidence of danger to self or others. preoccupation with sexual themes has diminished considerably. He continues to require inpatient level of care for ongoing stabalization. Inpatient DSM-V Dx: F25.0 Discharge Planning - Discharge Planning Medications: Current Medications Acetaminophen (Tylenol Tab*) 650 mg PO Q6H PRN PRN Reason: PAIN - MILD Last Admin: 05/05/17 07:57 Dose: 650 mg Al Hydrox/Mg Hydrox/Simethicone (Maalox Plus*) 30 ml PO Q4H PRN PRN Reason: INDIGESTION Last Admin: 05/05/17 12:24 Dose: 30 ml Aspirin (Aspirin Low Dose Tab*) 81 mg PO DAILY [facility] Last Admin: 05/08/17 08:53 Dose: 81 mg Atorvastatin Calcium (Lipitor*) 10 mg PO BEDTIME [facility] Last Admin: 05/07/17 22:14 Dose: 10 mg Cholecalciferol (Vitamin D Tab*) 1,000 units PO DAILY [facility] Last Admin: 05/08/17 08:53 Dose: 1,000 units Device (Nicotine Mouth Piece*) 1 each INH .USE WITH NICOTROL PRN PRN Reason: CRAVING Gabapentin (Neurontin Cap(*)) 100 mg PO TID@,, [facility] Last Admin: 05/08/17 08:53 Dose: 100 mg Haloperidol (Haldol Tab*) 5 mg PO Q6H PRN PRN Reason: AGITATION Hydrochlorothiazide (Hydrodiuril Tab*) 25 mg PO DAILY [facility] Last Admin: 05/08/17 08:53 Dose: 25 mg Hydroxyzine HCl (Atarax Tab*) 50 mg PO Q4H PRN PRN Reason: anxiety/agitation Ibuprofen (Motrin Tab*) 600 mg PO Q6H PRN PRN Reason: PAIN Last Admin: 05/03/17 08:19 Dose: 600 mg Multi-Ingredient Ointment (Hydrocerin*) 1 applic TOPICAL BID@ [facility] Last Admin: 05/08/17 08:53 Dose: 1 applic Multivitamins/Minerals (Theragran/Minerals Tab*) 1 tab PO BID [facility] Last Admin: 05/08/17 08:53 Dose: 1 tab Nicotine (Nicotine Inhaler*) 10 mg INH Q2H PRN PRN Reason: CRAVING Nicotine Polacrilex (Nicotine Gum*) 2 mg PO Q2H PRN PRN Reason: CRAVING Nitroglycerin (Nitroglycerin Tab 0.4 Mg*) 0.4 mg SL Q5M PRN PRN Reason: PAIN - CHEST Trazodone HCl (Desyrel Tab*) 50 mg PO ONCE PRN PRN Reason: INSOMNIA Trazodone HCl (Desyrel Tab*) 100 mg PO BEDTIME [facility] Last Admin: 05/07/17 22:15 Dose: 100 mg Discharge Planning: Prescriptions provided for discharge [] Yes [] No Follow up care details as per social work arrangements. Patient response to discharge plan: [] eager for discharge [] agreeable with discharge plan [] ambivalent about discharge [] disagrees with discharge today
--- NOTE | 2017-05-08 12:44 | PN ---
Subjective - Subjective Date of Service: 05/07/17 Subjective: Psychiatric Attending Progress Note the following is progress note covering day of service 05/07/2017 uneventful weekend. remains disorganized less agitated and restless since starting low dose of Gabapentin. patient is ready for discharge tomorrow. Mental status is stable. thought disorder is baseline for this patient. sexually inappropriate behaviors have remitted. no evidence of aggression, agitation, irritability. patient is compliant with medication and agreeable to monthly injections of Invega. He is having no side effects. he denies dizziness, headache, sob, chest pain, tremor, constipation, diarrhea dystonia, muscle rigidity, tics, visual disturbances. Objective - Appearance Appearance: Well Developed/Nourished, Healthy Appearing Dysmorphic Features: No Hygiene: Normal Grooming: Fairly Well Kept - Behavior Psychomotor Activities: Normal Exhibits Abnormal Movement: No - Attitude and Relatedness Attitude and Relatedness: Cooperative - Speech Quality: Unpressured Latencies: Normal Quantity: Copious - Mood Patient's Decription of Mood: "Okay" - Affect Observed Affect: Non-labile - Thought Process Patient's Thought Process: Disorganized Thought Content: No Passive Wish, No Suicidal Planning, No Homicidal Ideation, No Paranoid Ideation - Sensorium Experiencing Hallucinations: Yes - patient denies but can be seen responding to internal stimuli Type of Hallucinations: Visual: No, Auditory: Yes, Command: No - Level of Consciousness Level of Consciousness: Alert Orientation: Yes Intact, Yes Orientated to Time, Yes Orientated to Place, Yes Orientated to Person - Impulse Control Impulse Control: Intact - Insight and Judgement Insight and Judgement: Poor - Group Participation Particating in Group Activities: Yes - Medication Management Medication Management Adherence: Yes Assessment - Assessment Inpatient DSM-V Dx: F25.0 Clinical Impression: 66 yo with schizophrenia continuous admitted for mental status decompensation in the context of non compliance with psychiatric medications for 4 months. Patient has been restarted on Invega MORENO. He no longer is showing sexually inappropriate behaviors and his mood is stable without evidence of aggression or irritability He is not a danger to self or others and is stable from a psychiatric perspective for discharge. Plan - Plan Treatment Plan: Plan: discharge to [facility] on 05/08/2017 Medications: Current Medications Acetaminophen (Tylenol Tab*) 650 mg PO Q6H PRN PRN Reason: PAIN - MILD Last Admin: 05/05/17 07:57 Dose: 650 mg Al Hydrox/Mg Hydrox/Simethicone (Maalox Plus*) 30 ml PO Q4H PRN PRN Reason: INDIGESTION Last Admin: 05/05/17 12:24 Dose: 30 ml Aspirin (Aspirin Low Dose Tab*) 81 mg PO DAILY [facility] Last Admin: 05/08/17 08:53 Dose: 81 mg Atorvastatin Calcium (Lipitor*) 10 mg PO BEDTIME [facility] Last Admin: 05/07/17 22:14 Dose: 10 mg Cholecalciferol (Vitamin D Tab*) 1,000 units PO DAILY [facility] Last Admin: 05/08/17 08:53 Dose: 1,000 units Device (Nicotine Mouth Piece*) 1 each INH .USE WITH NICOTROL PRN PRN Reason: CRAVING Gabapentin (Neurontin Cap(*)) 100 mg PO TID@,, [facility] Last Admin: 05/08/17 08:53 Dose: 100 mg Haloperidol (Haldol Tab*) 5 mg PO Q6H PRN PRN Reason: AGITATION Hydrochlorothiazide (Hydrodiuril Tab*) 25 mg PO DAILY [facility] Last Admin: 05/08/17 08:53 Dose: 25 mg Hydroxyzine HCl (Atarax Tab*) 50 mg PO Q4H PRN PRN Reason: anxiety/agitation Ibuprofen (Motrin Tab*) 600 mg PO Q6H PRN PRN Reason: PAIN Last Admin: 05/03/17 08:19 Dose: 600 mg Multi-Ingredient Ointment (Hydrocerin*) 1 applic TOPICAL BID@ [facility] Last Admin: 05/08/17 08:53 Dose: 1 applic Multivitamins/Minerals (Theragran/Minerals Tab*) 1 tab PO BID [facility] Last Admin: 05/08/17 08:53 Dose: 1 tab Nicotine (Nicotine Inhaler*) 10 mg INH Q2H PRN PRN Reason: CRAVING Nicotine Polacrilex (Nicotine Gum*) 2 mg PO Q2H PRN PRN Reason: CRAVING Nitroglycerin (Nitroglycerin Tab 0.4 Mg*) 0.4 mg SL Q5M PRN PRN Reason: PAIN - CHEST Trazodone HCl (Desyrel Tab*) 50 mg PO ONCE PRN PRN Reason: INSOMNIA Trazodone HCl (Desyrel Tab*) 100 mg PO BEDTIME [facility] Last Admin: 05/07/17 22:15 Dose: 100 mg
== END 2017-05-08 14:15 | disposition home or self-care (01) | DRG 885 ==
LOC: ED 18:11 → BSU 04-19 11:29
PROVIDERS: ADMIT Psychiatry & Neurology Psychiatry; ATTEND Psychiatry & Neurology Psychiatry
PROC: GZHZZZZ Group Psychotherapy (ICD-10-PCS; principal; 2017-04-19)
DX: F25.0 Schizoaffective disorder, bipolar type (principal); Z91.14 Patient's other noncompliance with medication regimen; E78.5 Hyperlipidemia, unspecified; F43.10 Post-traumatic stress disorder, unspecified; I25.10 Atherosclerotic heart disease of native coronary artery without angina pectoris; I10 Essential (primary) hypertension; K57.90 Diverticulosis of intestine, part unspecified, without perforation or abscess without bleeding; F41.9 Anxiety disorder, unspecified; R60.0 Localized edema; Z88.1 Allergy status to other antibiotic agents; Z88.8 Allergy status to other drugs, medicaments and biological substances; Z81.8 Family history of other mental and behavioral disorders; Z87.891 Personal history of nicotine dependence
CPT/HCPCS: 36415; 80053; 80061; 80307; 80320; 80329; 81003; 83036; 84443; 85025; 90853; 93005; 99222; 99231; 99238; 99285; A9270-GY; G0480; J2426

== ENCOUNTER 2017-05-10 23:34 | Inpatient (IN) | payer OTHER ==
[2017-05-11 01:00] LABS: ABS Basophils 0.1 10^3/ul (0-0.2); ABS Eosinophils 0.5 10^3/ul (0-0.6); ABS Monocytes 0.9 10^3/ul (0-0.8); ABS Neutrophils 4.1 10^3/ul (1.5-7.7); ABS Nucleated RBC 0 10^3/ul; Eosinophil % 7.9 % (0-6); Hematocrit 34 % (42-52); Hemoglobin 11.6 g/dl (14.0-18.0); Lymphocyte % 14.6 % (25-47); Mean Corpuscular HGB Conc 34 g/dl (31-36); Mean Corpuscular Hemoglobin 31 pg (27-31); Mean Corpuscular Volume 90 fL (80-94); Mean Platelet Volume 7 um3 (7.4-10.4); Nucleated Red Blood Cells % 0; Platelet Count 224 10^3/ul (150-450); Red Blood Count 3.76 10^6/ul (4.0-5.4); Red Cell Distribution Width 14 % (10.5-15); White Blood Count 6.6 10^3/ul (3.5-10.8)
--- NOTE | 2017-05-11 01:11 | ED ---
Psychiatric Complaint - HPI Summary HPI Summary: 66-year-old male presents from the [facility] for mental health exam. He has no complaints at this time. They states he picked a scab and it was bleeding. This. No active bleeding at this time. He denies any new injury. He denies any suicidal or homicidal thoughts., Stating that he is still very mentally unstable and they are requesting a mental health exam. Patient is sleeping quietly in the room. The home stated he is drunk and ripped off his scab. He states had one beer. brother wants a mental health exam for him. He was admitted a week ago. - History Of Current Complaint Chief Complaint: EDExtremityLower Time Seen by Provider: 05/11/17 00:15 - Allergies/Home Medications Allergies/Adverse Reactions: Allergies Allergy/AdvReac Type Severity Reaction Status Date / Time bacitracin Allergy Unknown Verified 04/19/17 09:07 Reaction Details neomycin Allergy Unknown Verified 04/19/17 09:07 [From Triple Antibiotic] Reaction Details polymyxin B Allergy Unknown Verified 04/19/17 09:07 [From Triple Antibiotic] Reaction Details thiothixene Allergy Unknown Verified 04/19/17 09:07 Reaction Details trifluoperazine Allergy Unknown Verified 04/20/17 12:00 [From Stelazine] Reaction Details trifluridine Allergy Unknown Verified 04/19/17 09:07 Reaction Details Stetlazine Allergy Unknown Unknown Uncoded 04/19/17 09:07 Reaction Details PMH/Surg Hx/FS Hx/Imm Hx Endocrine/Hematology History: Denies: Hx Anticoagulant Therapy, Hx Diabetes, Hx Thyroid Disease, Other Endocrine/Hematological Disorders Cardiovascular History: Reports: Hx Angina, Hx Coronary Artery Disease, Hx Hypercholesterolemia, Hx Hypertension Denies: Hx Congestive Heart Failure, Hx Pacemaker/ICD, Other Cardiovascular Problems/Disorders Respiratory History: Denies: Hx Asthma, Hx Chronic Obstructive Pulmonary Disease (COPD), Other Respiratory Problems/Disorders GI History: Reports: Hx Diverticulosis Denies: Other GI Disorders History: Denies: Hx Renal Disease, Other Problems/Disorders Musculoskeletal History: Denies: Other Musculoskeletal History Sensory History: Reports: Hx Contacts or Glasses Denies: Hx Hearing Aid, Other Sensory Impairments Opthamlomology History: Reports: Hx Contacts or Glasses Denies: Other Sensory Impairments Neurological History: Denies: Hx Dementia, Hx Seizures, Other Neuro Impairments/Disorders Psychiatric History: Reports: Hx Anxiety, Hx Post Traumatic Stress Disorder, Hx Inpatient Treatment, Hx Schizophrenia, Hx of Violent Episodes Against Others, Other Psychiatric Issues/Disorders - pt states strong clausterphobia, OCD Denies: Hx Eating Disorder, Hx Substance Abuse - Surgical History Surgery Procedure, Year, and Place: right forearm/ wrist break, pins placed - Immunization History Date of Tetanus Vaccine: UTD Date of Influenza Vaccine: NONE Infectious Disease History: No Infectious Disease History: Denies: Hx Hepatitis, Hx Human Immunodeficiency Virus (HIV), Traveled Outside the [place] in Last 30 Days - Family History Known Family History: Positive: Unknown - Social History Alcohol Use: Occasionally Alcohol Amount: 3 beers a week Substance Use Type: Reports: Marijuana Substance Use Comment - Amount & Last Used: states occassional marijuana use Hx Tobacco Use: No Smoking Status (MU): Current Some Day Smoker Type: Cigarettes Amount Used/How Often: 1/2 pack or less daily Length of Time of Smoking/Using Tobacco: states he quit in the '70's Have You Smoked in the Last Year: Yes Review of Systems Negative: Fever Negative: Chest Pain Negative: Shortness Of Breath Positive: Other - scab on right ankle All Other Systems Reviewed And Are Negative: Yes Physical Exam Triage Information Reviewed: Yes Vital Signs On Initial Exam: Initial Vitals Temp Pulse Resp BP Pulse Ox 98.9 F 78 16 138/64 95 05/10/17 23:43 05/10/17 23:43 05/10/17 23:43 05/10/17 23:43 05/10/17 23:43 Vital Signs Reviewed: Yes Appearance: Positive: Well-Appearing Skin: Positive: Warm, Dry, Other - scab on right ankle Head/Face: Positive: Normal Head/Face Inspection Eyes: Positive: Normal, Conjunctiva Clear Respiratory/Lung Sounds: Positive: Clear to Auscultation, Breath Sounds Present Cardiovascular: Positive: Normal, RRR Musculoskeletal: Positive: Strength/ROM Intact - right leg, Other - good pulses Neurological: Positive: Normal Psychiatric: Positive: Other - legatharic Diagnostics - Vital Signs Vital Signs Temp Pulse Resp BP Pulse Ox 05/10/17 23:43 98.9 F 78 16 138/64 95 - Laboratory Lab Results: Lab Results 05/11/17 Range/Units 00:50 WBC 6.6 (3.5-10.8) 10^3/ul RBC 3.76 L (4.0-5.4) 10^6/ul Hgb 11.6 L (14.0-18.0) g/dl Hct 34 L (42-52) % MCV 90 (80-94) fL MCH 31 (27-31) pg MCHC 34 (31-36) g/dl RDW 14 (10.5-15) % Plt Count 224 (150-450) 10^3/ul MPV 7 L (7.4-10.4) um3 Neut % (Auto) 62.5 (38-83) % Lymph % (Auto) 14.6 L (25-47) % Pope % (Auto) 13.9 H (0-7) % Eos % (Auto) 7.9 H (0-6) % Baso % (Auto) 1.1 (0-2) % Absolute Neuts (auto) 4.1 (1.5-7.7) 10^3/ul Absolute Lymphs (auto) 1.0 (1.0-4.8) 10^3/ul Absolute Monos (auto) 0.9 H (0-0.8) 10^3/ul Absolute Eos (auto) 0.5 (0-0.6) 10^3/ul Absolute Basos (auto) 0.1 (0-0.2) 10^3/ul Absolute Nucleated RBC 0 10^3/ul Nucleated RBC % 0 Result Diagrams: 05/11/17 00:50 05/11/17 00:50 Lab Statement: Any lab studies that have been ordered have been reviewed, and results considered in the medical decision making process. Course/Dx - Course Course Of Treatment: 66-year-old male presents from the house for mental health exam. He has no complaints at this time. They states he picked a scab and it was bleeding. This. No active bleeding at this time. He denies any new injury. He denies any suicidal or homicidal thoughts. Stating that he is still very mentally unstable and they are requesting a mental health exam. Patient is sleeping quietly in the room. on exam scab right ankle. patient is sleepy. no ETOH in system. will get mental health exam. sign out pending MHE to dr reed for dispo - Differential Dx/Clinical Impression Differential Diagnosis/HQI/PQRI: Positive: Other - psychosis, Provider Diagnosis: heeling wound right ankle Discharge - Discharge Plan Condition: Stable Disposition: OTHER Discharge Disposition Comment: signed out to dr reed pending E Referrals: No Primary Care Phys,NOPCP [Primary Care Provider] -
[2017-05-11 01:17] LABS: EGFR Non-African American 66.5 (>60)
[2017-05-11 06:29] LABS: Urine Appearance Clear; Urine Blood Negative (Negative); Urine Color Yellow; Urine Ketones Negative (Negative); Urine Protein Negative (Negative); Urine Specific Gravity 1.024 (1.010-1.030); Urine Urobilinogen Negative (Negative)
--- NOTE | 2017-05-11 10:37 | PN ---
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 Objective: Vitals: Most recent vital signs documented below. General NAD, Alert and oriented x3. Heart: rrr at 80 bpm Lungs: CTA or with rales, rhonchi, wheezing Laboratory: Current laboratory results documented below. Assessment: pending psych transfer Plan: Pending psychiatric transfer to the [place]. will follow up daily. Vital Signs Temp Pulse Resp BP Pulse Ox 98.9 F 80 16 127/57 96 05/10/17 23:43 05/11/17 07:04 05/10/17 23:43 05/11/17 07:03 05/11/17 07:04 Lab Results - Entire Visit 05/11/17 05/11/17 05/11/17 06:15 06:15 00:50 WBC 6.6 RBC 3.76 L Hgb 11.6 L Hct 34 L MCV 90 MCH 31 MCHC 34 RDW 14 Plt Count 224 MPV 7 L Neut % (Auto) 62.5 Lymph % (Auto) 14.6 L [place] % (Auto) 13.9 H Eos % (Auto) 7.9 H Baso % (Auto) 1.1 Absolute Neuts (auto) 4.1 Absolute Lymphs (auto) 1.0 Absolute Monos (auto) 0.9 H Absolute Eos (auto) 0.5 Absolute Basos (auto) 0.1 Absolute Nucleated RBC 0 Nucleated RBC % 0 Sodium Potassium Chloride Carbon Dioxide Anion Gap BUN Creatinine Est GFR ( Amer) Est GFR (Non-Af Amer) BUN/Creatinine Ratio Glucose Calcium Total Bilirubin AST ALT Alkaline Phosphatase Total Protein Albumin Globulin Albumin/Globulin Ratio TSH Urine Color Yellow Urine Appearance Clear Urine pH 5.0 Ur Specific [place] 1.024 Urine Protein Negative Urine Ketones Negative Urine Blood Negative Urine Nitrate Negative Urine Bilirubin Negative Urine Urobilinogen Negative Ur Leukocyte Esterase Negative Urine Glucose Negative Urine Ascorbic Acid * A Salicylates Urine Opiates Screen None detected Acetaminophen Ur Barbiturates Screen None detected Ur Phencyclidine Scrn None detected Ur Amphetamines Screen None detected U Benzodiazepines Scrn None detected Urine Cocaine Screen None detected U Cannabinoids Screen None detected Serum Alcohol 05/11/17 00:50 WBC RBC Hgb Hct MCV MCH MCHC RDW Plt Count MPV Neut % (Auto) Lymph % (Auto) [place] % (Auto) Eos % (Auto) Baso % (Auto) Absolute Neuts (auto) Absolute Lymphs (auto) Absolute Monos (auto) Absolute Eos (auto) Absolute Basos (auto) Absolute Nucleated RBC Nucleated RBC % Sodium 135 Potassium 3.7 Chloride 102 Carbon Dioxide 26 Anion Gap 7 BUN 30 H Creatinine 1.11 Est GFR ( Amer) 85.5 Est GFR (Non-Af Amer) 66.5 BUN/Creatinine Ratio 27.0 H Glucose 111 H Calcium 9.0 Total Bilirubin 0.40 AST 38 ALT 42 Alkaline Phosphatase 52 Total Protein 6.3 L Albumin 3.8 Globulin 2.5 Albumin/Globulin Ratio 1.5 TSH 1.79 Urine Color Urine Appearance Urine pH Ur Specific [place] Urine Protein Urine Ketones Urine Blood Urine Nitrate Urine Bilirubin Urine Urobilinogen Ur Leukocyte Esterase Urine Glucose Urine Ascorbic Acid Salicylates < 2.50 Urine Opiates Screen Acetaminophen < 15 Ur Barbiturates Screen Ur Phencyclidine Scrn Ur Amphetamines Screen U Benzodiazepines Scrn Urine Cocaine Screen U Cannabinoids Screen Serum Alcohol < 10
--- NOTE | 2017-05-11 12:58 | PN ---
Progress Note - Progress Note Date of Service: 05/11/17 Note: Psychiatric Attending Progress Note: Patient is 66 yo siingle male with a history of chronic and persistent psychotic illness with multiple psychiatric hospitalizations most of which have been [place] [facility]. Patient is 100 percent service connected and lives at [facility] in [facility]. patient was followed for years by Dr. Espitia at [facility] outpatient clinic who transferred his care to [facility] in [place] where patient received Abilify Mantenna for 8 to 10 month period of time in 2017. this was patient's first MORENO. patient had very good response with improved organization in both his behavior and thought process. patient stopped MORENO 4 to 5 months ago which led to deterioration in his mental status with hypersexuality, thought disorder, insomnia, poor judgment, mood swings from irritable to inflated, assaultive behaviors toward staff. as a result he was [place] [facility] [place] patient would not agree to restart ABilify but did agree to treatment with Invega Sustenna long acting injectable. he received the first two loading injections and showed some improvement in his mental status (more organized, following rules, no evidence of mood swings, no evidence of danger to self or others) and he was discharged three days ago back to [facility]. Upon his return staff at [facility] observed what they state was "manic" behaviors. these included: pacing, following people around the residence indiscriminantly and trying to talk with them, poor social judgment, brought beer back to house which is forbidden, seen yesterday standing in street and throwing a snowball at cars. night prior to admissin patient pulled a scab off a cut on his ankle which bled. staff were concerned that he intentionally harmed himself (which was not the case). per brother, patient's functioning on abilify was significantly better than it was for many years He describes patient has having long hospital stays up to 2 years at a time for disorganized, manic and at times agressive behaviors. past year he has been much more in touch with reality then he has been in many years. PAST PSYCHIATRIC HISTORY: limited as patient is poor historian. patient has history of psychiatric hospitalization on our [facility] at [facility] in both [place] and 2012. decompensations leading to hospitaliation appear to occur in the context of non adherance with medications. patient is known to cheek psychiatric medications. patient's usual presentation includes thought disorder, disorganized behaviors, hypersexuality including significant disinhibition (ie. masterbating openly, inappropriate touching or sexual advances towards staff), hostility, and paranoia. Patient has history of reporting sexual side effects from antipsychotic medications which he uses as basis to self discontinue. He has taken Risperdal Consta in past. Most Recently for the past year or less, he has been receiving Abilify Mantenna 300 mg IM monthly. He was also receiving Klonopin 0.5 mg BID. He stopped abilify 4 months ago He has been cheeking Klonopin for unknown period of time. It was not restarted during his recent [facility]. PATIENT HAS no known HISTORY OF SUICIDAL IDEATION or attempt in past. He has been aggressive when decompensated. . Most recently treated by psychiatrist Dr. Cummins at [facility]. Prior to that he was being treated by Dr. Espitia at [facility]. multiple psychiatric admissions at [facility]. Patient did not indicate what type trauma resulted in his diagnosis of PTSD. SUBSTANCE ABUSE HISTORY: reports history of Marijuana use in past Denies history of drug abuse reports "I like to have a beer every once in a while and that's why I dont want the Klonopin because the two dont mix" No tobacco use. PAST MEDICAL HISTORY: 1. Coronary artery disease with uknown history of [place]. (patient reports he only had abnormal EKG but no history of [place]) 2. Hyperlipidemia 3. Hypertension 4. History of Diverticulitis 5. unknown history of TBI or seizures CURRENT MEDICATIONS: Invega 117-234 mg Q montly due to be given on 06/05/2017 Hydrocortizone 1% cream TID Nitroglycerine tab 0.4 mg SL Q 5 min prn MDD (3 tabs) Ibuprofen 600 mg Q6H prn pain Multivitamin daily Lipitor 10 mg QHS Tylenol 650 mg Q4H prn pain Cholecalciferol 1000 units daily ASA 81 mg po Daily Gabapentin 100 mg TID HCTZ 25 mg QAM Trazodone 100 mg qhs ALLERGIES: bacitracin, neomycin, polymyxin B, Thiothixene, Trifluoperazine( Stelazine), Pramoxine, Thiothixene Trifluridine FAMILY PSYCHIATRIC HISTORY: Sister with Bipolar Disorder, Maternal Uncle and Maternal Aunt both completed suicide, cousing with bipolar disorder FAMILY/PSYCHOSOCIAL HISTORY: obtained partly from patient and partly from past record. Patient was born and raised outside of [place]. He has 8 siblings from same parents. For unknown reasons patient lived in six separate foster homes as a child. He graduated high school. He entered the [email or web address] at age 19 and was Stationed at [facility] in [facility] during the [place]. He had onset of psychosis (auditory hallucinations) at age 20 while serving in the [employer] and was discharged with 100 percent service connection with a diagnosis of Schizophrenia. Patient never and reports he has no children. He was incarcerated in a Forensic unit for about one year at the age of 50 for assaulting police captain with a piece of 2 by 4. He admits to being delusional and medication free at the time. MSE: met with Gutierrez X 20 min He presents like he did on discharge. He was mildly restless and hyperverbal. speech is not loud or rapid. he is not pressured. mood elevated but not euphoric. affect is congruent with mood thought process reveals tangentiality, irrelevant responses at times. mostly logical and coherent responses. does digress and begin to ramble but can be brought back to topic. TC: denies AH,VH,SI and HI. no evidence of depressive symtoms. followed me out after the interview requesting that we play card game. very pleasant when I declined. insight is poor. judgment is impaired by his psychotic illness. patient tells me that he does wish to return to [facility]. He likes the staff there. He tells me he will change his behavior. Alert and fully oriented to date, month, year, person and place. no evidence of memory impairment. Labs: cbc, cmp are both wnl urine tox screen and alcohol levels are negative UA is normal Impression: 66 yo presents with long standing psychotic illness. symptoms at present time are consistent with aime, making patient's diagnosis schizoaffective disorder bipolar type. Plan: will load patient with depakote at this time and start him back on a benzodiazepine which treats aime. I am not concerned about his use of alcohol as he reports he drinks infrequently and his liver enzymes are normal. Patient's behaviors at [facility] are unsafe and place him and others at risk, necessitating readmission for stabalization goal would be to treat aime. willnot give further neuroleptics at present time unless he doesnt improve with depakote and benzodiazepines [facility] is 100 percent service connected.
[2017-05-11] MEDS ORDERED: Divalproex DR TAB(*) 500 MG PO ONE (14:05)
[2017-05-11] MEDS ORDERED: Haloperidol TAB* 2 MG PO PRN (14:10)
[2017-05-11] MEDS: clonazePAM TAB(*) 0.5 MG PO SCH (16:27)
--- NOTE | 2017-05-11 18:54 | ED ---
Jam Anderson Nilda, scribed for Yehuda Gutiérrez MD on 05/11/17 at 0810 . Progress - Progress Note Progress Note: This patient was signed out from Dr. Barrios, pending disposition, awaiting MHE. The patient continues to be hemodynamically stable. Patient is still awaiting transfer. Patient will be s/o to Dr. Barrios, pending disposition, awaiting transfer. - Consult/PCP Time Called: 23:35 Course/Dx - Course Course Of Treatment: This patient was signed out from Dr. Barrios, pending disposition, awaiting MHE. The patient continues to be hemodynamically stable. Patient is still awaiting transfer. Patient will be s/o to Dr. Barrios, pending disposition, awaiting transfer. - Diagnoses Provider Diagnoses: heeling wound right ankle The documentation as recorded by the Jam miranda Nilda accurately reflects the service I personally performed and the decisions made by Brokc jeffrey Walter, MD.
[2017-05-11] MEDS ORDERED: traZODone TAB* 100 MG PO SCH (21:00)
[2017-05-11] MEDS ORDERED: traZODone TAB* 50 MG TAB PO SCH (22:17)
[2017-05-11] MEDS: Divalproex DR TAB(*) 500 MG PO ONE ×2 (22:39→22:50)
[2017-05-11] MEDS: chlorproMAZINE TAB* 25 MG PO SCH ×2 (22:39→22:50)
[2017-05-11] MEDS: traZODone TAB* 50 MG TAB PO SCH (22:51)
--- NOTE | 2017-05-12 09:13 | PN ---
ED Flex Patient Progress Note Date of Service: 05/12/17 Subjective: This is a 66 year-old M who is pending transfer to another psychiatric facility , [place] in [place] waiting on bed and acceptance likely on sunday. secondary to psychosis. Pt offers no complaints at this time and is getting ready to take a shower Objective: Vitals: Most recent vital signs documented below. General NAD, Alert and oriented x3. Heart: rrr at 80 bpm Lungs: CTA or with rales, rhonchi, wheezing Laboratory: Current laboratory results documented below. Assessment: pending psych transfer once bed available at [facility] Plan: Pending psychiatric transfer. will follow up daily. Vital Signs Temp Pulse Resp BP Pulse Ox 97.3 F 92 16 160/72 96 05/12/17 08:45 05/12/17 08:45 05/12/17 08:45 05/12/17 08:45 05/12/17 08:45 Lab Results - Entire Visit 05/11/17 05/11/17 05/11/17 06:15 06:15 00:50 WBC 6.6 RBC 3.76 L Hgb 11.6 L Hct 34 L MCV 90 MCH 31 MCHC 34 RDW 14 Plt Count 224 MPV 7 L Neut % (Auto) 62.5 Lymph % (Auto) 14.6 L [place] % (Auto) 13.9 H Eos % (Auto) 7.9 H Baso % (Auto) 1.1 Absolute Neuts (auto) 4.1 Absolute Lymphs (auto) 1.0 Absolute Monos (auto) 0.9 H Absolute Eos (auto) 0.5 Absolute Basos (auto) 0.1 Absolute Nucleated RBC 0 Nucleated RBC % 0 Sodium Potassium Chloride Carbon Dioxide Anion Gap BUN Creatinine Est GFR ( Amer) Est GFR (Non-Af Amer) BUN/Creatinine Ratio Glucose Calcium Total Bilirubin AST ALT Alkaline Phosphatase Total Protein Albumin Globulin Albumin/Globulin Ratio TSH Urine Color Yellow Urine Appearance Clear Urine pH 5.0 Ur Specific [place] 1.024 Urine Protein Negative Urine Ketones Negative Urine Blood Negative Urine Nitrate Negative Urine Bilirubin Negative Urine Urobilinogen Negative Ur Leukocyte Esterase Negative Urine Glucose Negative Urine Ascorbic Acid * A Salicylates Urine Opiates Screen None detected Acetaminophen Ur Barbiturates Screen None detected Ur Phencyclidine Scrn None detected Ur Amphetamines Screen None detected U Benzodiazepines Scrn None detected Urine Cocaine Screen None detected U Cannabinoids Screen None detected Serum Alcohol 05/11/17 00:50 WBC RBC Hgb Hct MCV MCH MCHC RDW Plt Count MPV Neut % (Auto) Lymph % (Auto) [place] % (Auto) Eos % (Auto) Baso % (Auto) Absolute Neuts (auto) Absolute Lymphs (auto) Absolute Monos (auto) Absolute Eos (auto) Absolute Basos (auto) Absolute Nucleated RBC Nucleated RBC % Sodium 135 Potassium 3.7 Chloride 102 Carbon Dioxide 26 Anion Gap 7 BUN 30 H Creatinine 1.11 Est GFR ( Amer) 85.5 Est GFR (Non-Af Amer) 66.5 BUN/Creatinine Ratio 27.0 H Glucose 111 H Calcium 9.0 Total Bilirubin 0.40 AST 38 ALT 42 Alkaline Phosphatase 52 Total Protein 6.3 L Albumin 3.8 Globulin 2.5 Albumin/Globulin Ratio 1.5 TSH 1.79 Urine Color Urine Appearance Urine pH Ur Specific [place] Urine Protein Urine Ketones Urine Blood Urine Nitrate Urine Bilirubin Urine Urobilinogen Ur Leukocyte Esterase Urine Glucose Urine Ascorbic Acid Salicylates < 2.50 Urine Opiates Screen Acetaminophen < 15 Ur Barbiturates Screen Ur Phencyclidine Scrn Ur Amphetamines Screen U Benzodiazepines Scrn Urine Cocaine Screen U Cannabinoids Screen Serum Alcohol < 10
--- NOTE | 2017-05-12 11:19 | PN ---
ED Flex Patient Progress Note Date of Service: 05/12/17 Subjective: This is a 66 year-old single, white male with a history of bipolar disorder [facility]. He remains manic, hyperverbal, hyperkinetic, trying to wander out of his room. Objective: aging white male with long graying hair; poor boundaries; hyperverbal, pressured , manic with expansive affect; denies SI or HI Assessment: Bipolar Lennie, severe with psychotic features Plan: [facility] Vital Signs Temp Pulse Resp BP Pulse Ox 97.3 F 92 16 160/72 96 05/12/17 08:45 05/12/17 08:45 05/12/17 08:45 05/12/17 08:45 05/12/17 08:45 Lab Results - Entire Visit 05/11/17 05/11/17 05/11/17 06:15 06:15 00:50 WBC 6.6 RBC 3.76 L Hgb 11.6 L Hct 34 L MCV 90 MCH 31 MCHC 34 RDW 14 Plt Count 224 MPV 7 L Neut % (Auto) 62.5 Lymph % (Auto) 14.6 L [place] % (Auto) 13.9 H Eos % (Auto) 7.9 H Baso % (Auto) 1.1 Absolute Neuts (auto) 4.1 Absolute Lymphs (auto) 1.0 Absolute Monos (auto) 0.9 H Absolute Eos (auto) 0.5 Absolute Basos (auto) 0.1 Absolute Nucleated RBC 0 Nucleated RBC % 0 Sodium Potassium Chloride Carbon Dioxide Anion Gap BUN Creatinine Est GFR ( Amer) Est GFR (Non-Af Amer) BUN/Creatinine Ratio Glucose Calcium Total Bilirubin AST ALT Alkaline Phosphatase Total Protein Albumin Globulin Albumin/Globulin Ratio TSH Urine Color Yellow Urine Appearance Clear Urine pH 5.0 Ur Specific [place] 1.024 Urine Protein Negative Urine Ketones Negative Urine Blood Negative Urine Nitrate Negative Urine Bilirubin Negative Urine Urobilinogen Negative Ur Leukocyte Esterase Negative Urine Glucose Negative Urine Ascorbic Acid * A Salicylates Urine Opiates Screen None detected Acetaminophen Ur Barbiturates Screen None detected Ur Phencyclidine Scrn None detected Ur Amphetamines Screen None detected U Benzodiazepines Scrn None detected Urine Cocaine Screen None detected U Cannabinoids Screen None detected Serum Alcohol 05/11/17 00:50 WBC RBC Hgb Hct MCV MCH MCHC RDW Plt Count MPV Neut % (Auto) Lymph % (Auto) [place] % (Auto) Eos % (Auto) Baso % (Auto) Absolute Neuts (auto) Absolute Lymphs (auto) Absolute Monos (auto) Absolute Eos (auto) Absolute Basos (auto) Absolute Nucleated RBC Nucleated RBC % Sodium 135 Potassium 3.7 Chloride 102 Carbon Dioxide 26 Anion Gap 7 BUN 30 H Creatinine 1.11 Est GFR ( Amer) 85.5 Est GFR (Non-Af Amer) 66.5 BUN/Creatinine Ratio 27.0 H Glucose 111 H Calcium 9.0 Total Bilirubin 0.40 AST 38 ALT 42 Alkaline Phosphatase 52 Total Protein 6.3 L Albumin 3.8 Globulin 2.5 Albumin/Globulin Ratio 1.5 TSH 1.79 Urine Color Urine Appearance Urine pH Ur Specific [place] Urine Protein Urine Ketones Urine Blood Urine Nitrate Urine Bilirubin Urine Urobilinogen Ur Leukocyte Esterase Urine Glucose Urine Ascorbic Acid Salicylates < 2.50 Urine Opiates Screen Acetaminophen < 15 Ur Barbiturates Screen Ur Phencyclidine Scrn Ur Amphetamines Screen U Benzodiazepines Scrn Urine Cocaine Screen U Cannabinoids Screen Serum Alcohol < 10
[2017-05-12] MEDS: clonazePAM TAB(*) 0.5 MG PO SCH ×2 (14:31→23:01)
[2017-05-12] MEDS: traZODone TAB* 50 MG TAB PO SCH (23:01)
[2017-05-12] MEDS: chlorproMAZINE TAB* 25 MG PO SCH (23:01)
[2017-05-13] MEDS: clonazePAM TAB(*) 0.5 MG PO SCH ×2 (08:03→22:27)
[2017-05-13] MEDS: Cholecalciferol TAB* 1000 UNITS PO SCH (09:05)
[2017-05-13] MEDS: Multivitamins/Minerals TAB PO SCH (09:05)
[2017-05-13] MEDS: Aspirin 81 mg CHEW TAB* 81 MG TAB.CHEW PO SCH (09:05)
[2017-05-13] MEDS: Atorvastatin* 40 MG TAB PO SCH (09:05)
[2017-05-13] MEDS: Hydrochlorothiazide TAB* 25 MG PO SCH (09:05)
[2017-05-13] MEDS: Gabapentin CAP(*) 100 MG PO SCH ×3 (09:05→22:28)
--- NOTE | 2017-05-13 09:18 | PN ---
ED Flex Patient Progress Note Date of Service: 05/13/17 Subjective: This is a 66 year-old M who is pending transfer to another psychiatric facility , [place] in [place] waiting on bed and acceptance likely on sunday. secondary to psychosis. Pt offers no complaints at this time and is getting ready to take a shower Objective: Vitals: Most recent vital signs documented below. General NAD, Alert and oriented x3. Heart: rrr at 78 bpm Lungs: CTA or with rales, rhonchi, wheezing Laboratory: Current laboratory results documented below. Assessment: pending psych transfer once bed available at [facility] Plan: Pending psychiatric transfer. will follow up daily. Vital Signs Temp Pulse Resp BP Pulse Ox 97.2 F 87 18 131/72 99 05/13/17 07:45 05/13/17 07:45 05/13/17 07:45 05/13/17 07:45 05/13/17 07:45 Lab Results - Entire Visit 05/11/17 05/11/17 05/11/17 06:15 06:15 00:50 WBC 6.6 RBC 3.76 L Hgb 11.6 L Hct 34 L MCV 90 MCH 31 MCHC 34 RDW 14 Plt Count 224 MPV 7 L Neut % (Auto) 62.5 Lymph % (Auto) 14.6 L [place] % (Auto) 13.9 H Eos % (Auto) 7.9 H Baso % (Auto) 1.1 Absolute Neuts (auto) 4.1 Absolute Lymphs (auto) 1.0 Absolute Monos (auto) 0.9 H Absolute Eos (auto) 0.5 Absolute Basos (auto) 0.1 Absolute Nucleated RBC 0 Nucleated RBC % 0 Sodium Potassium Chloride Carbon Dioxide Anion Gap BUN Creatinine Est GFR ( Amer) Est GFR (Non-Af Amer) BUN/Creatinine Ratio Glucose Calcium Total Bilirubin AST ALT Alkaline Phosphatase Total Protein Albumin Globulin Albumin/Globulin Ratio TSH Urine Color Yellow Urine Appearance Clear Urine pH 5.0 Ur Specific [place] 1.024 Urine Protein Negative Urine Ketones Negative Urine Blood Negative Urine Nitrate Negative Urine Bilirubin Negative Urine Urobilinogen Negative Ur Leukocyte Esterase Negative Urine Glucose Negative Urine Ascorbic Acid * A Salicylates Urine Opiates Screen None detected Acetaminophen Ur Barbiturates Screen None detected Ur Phencyclidine Scrn None detected Ur Amphetamines Screen None detected U Benzodiazepines Scrn None detected Urine Cocaine Screen None detected U Cannabinoids Screen None detected Serum Alcohol 05/11/17 00:50 WBC RBC Hgb Hct MCV MCH MCHC RDW Plt Count MPV Neut % (Auto) Lymph % (Auto) [place] % (Auto) Eos % (Auto) Baso % (Auto) Absolute Neuts (auto) Absolute Lymphs (auto) Absolute Monos (auto) Absolute Eos (auto) Absolute Basos (auto) Absolute Nucleated RBC Nucleated RBC % Sodium 135 Potassium 3.7 Chloride 102 Carbon Dioxide 26 Anion Gap 7 BUN 30 H Creatinine 1.11 Est GFR ( Amer) 85.5 Est GFR (Non-Af Amer) 66.5 BUN/Creatinine Ratio 27.0 H Glucose 111 H Calcium 9.0 Total Bilirubin 0.40 AST 38 ALT 42 Alkaline Phosphatase 52 Total Protein 6.3 L Albumin 3.8 Globulin 2.5 Albumin/Globulin Ratio 1.5 TSH 1.79 Urine Color Urine Appearance Urine pH Ur Specific [place] Urine Protein Urine Ketones Urine Blood Urine Nitrate Urine Bilirubin Urine Urobilinogen Ur Leukocyte Esterase Urine Glucose Urine Ascorbic Acid Salicylates < 2.50 Urine Opiates Screen Acetaminophen < 15 Ur Barbiturates Screen Ur Phencyclidine Scrn Ur Amphetamines Screen U Benzodiazepines Scrn Urine Cocaine Screen U Cannabinoids Screen Serum Alcohol < 10
--- NOTE | 2017-05-13 13:09 | PN ---
ED Flex Patient Progress Note Date of Service: 05/13/17 Subjective: This is ED day number 3 for this 66 year-old single, white male with a history of bipolar disorder [facility]. He remains manic, hyperverbal, hyperkinetic, trying to wander out of his room. Objective: aging white male with long graying hair; poor boundaries; hyperverbal, pressured , manic with expansive affect; denies SI or HI Assessment: Bipolar Lennie, severe with psychotic features Plan: [facility] Vital Signs Temp Pulse Resp BP Pulse Ox 97.2 F 87 18 131/72 99 05/13/17 07:45 05/13/17 07:45 05/13/17 07:45 05/13/17 07:45 05/13/17 07:45 Lab Results - Entire Visit 05/11/17 05/11/17 05/11/17 06:15 06:15 00:50 WBC 6.6 RBC 3.76 L Hgb 11.6 L Hct 34 L MCV 90 MCH 31 MCHC 34 RDW 14 Plt Count 224 MPV 7 L Neut % (Auto) 62.5 Lymph % (Auto) 14.6 L [place] % (Auto) 13.9 H Eos % (Auto) 7.9 H Baso % (Auto) 1.1 Absolute Neuts (auto) 4.1 Absolute Lymphs (auto) 1.0 Absolute Monos (auto) 0.9 H Absolute Eos (auto) 0.5 Absolute Basos (auto) 0.1 Absolute Nucleated RBC 0 Nucleated RBC % 0 Sodium Potassium Chloride Carbon Dioxide Anion Gap BUN Creatinine Est GFR ( Amer) Est GFR (Non-Af Amer) BUN/Creatinine Ratio Glucose Calcium Total Bilirubin AST ALT Alkaline Phosphatase Total Protein Albumin Globulin Albumin/Globulin Ratio TSH Urine Color Yellow Urine Appearance Clear Urine pH 5.0 Ur Specific [place] 1.024 Urine Protein Negative Urine Ketones Negative Urine Blood Negative Urine Nitrate Negative Urine Bilirubin Negative Urine Urobilinogen Negative Ur Leukocyte Esterase Negative Urine Glucose Negative Urine Ascorbic Acid * A Salicylates Urine Opiates Screen None detected Acetaminophen Ur Barbiturates Screen None detected Ur Phencyclidine Scrn None detected Ur Amphetamines Screen None detected U Benzodiazepines Scrn None detected Urine Cocaine Screen None detected U Cannabinoids Screen None detected Serum Alcohol 05/11/17 00:50 WBC RBC Hgb Hct MCV MCH MCHC RDW Plt Count MPV Neut % (Auto) Lymph % (Auto) [place] % (Auto) Eos % (Auto) Baso % (Auto) Absolute Neuts (auto) Absolute Lymphs (auto) Absolute Monos (auto) Absolute Eos (auto) Absolute Basos (auto) Absolute Nucleated RBC Nucleated RBC % Sodium 135 Potassium 3.7 Chloride 102 Carbon Dioxide 26 Anion Gap 7 BUN 30 H Creatinine 1.11 Est GFR ( Amer) 85.5 Est GFR (Non-Af Amer) 66.5 BUN/Creatinine Ratio 27.0 H Glucose 111 H Calcium 9.0 Total Bilirubin 0.40 AST 38 ALT 42 Alkaline Phosphatase 52 Total Protein 6.3 L Albumin 3.8 Globulin 2.5 Albumin/Globulin Ratio 1.5 TSH 1.79 Urine Color Urine Appearance Urine pH Ur Specific [place] Urine Protein Urine Ketones Urine Blood Urine Nitrate Urine Bilirubin Urine Urobilinogen Ur Leukocyte Esterase Urine Glucose Urine Ascorbic Acid Salicylates < 2.50 Urine Opiates Screen Acetaminophen < 15 Ur Barbiturates Screen Ur Phencyclidine Scrn Ur Amphetamines Screen U Benzodiazepines Scrn Urine Cocaine Screen U Cannabinoids Screen Serum Alcohol < 10
[2017-05-13] MEDS: Hydrocortisone 1% CREAM* 30 GM TUBE TOPICAL PRN (16:50)
--- NOTE | 2017-05-13 19:32 | RAD ---
HISTORY: Left lower leg swelling TECHNIQUE: Multiple transverse and longitudinal ultrasound images were obtained of the veins of the left lower extremity using grayscale, color Doppler, and spectral Doppler imaging with and without compression and with augmentation. FINDINGS: VEINS: The common femoral vein, deep femoral vein, femoral vein and popliteal vein are compressible throughout their course, with normal flow on color Doppler imaging and normal response to augmentation on spectral Doppler imaging. SOFT TISSUES: There is infiltration of the subcutaneous fat overlying the left lower leg. IMPRESSION: No sonographic evidence of deep vein thrombosis.
[2017-05-13] MEDS: chlorproMAZINE TAB* 25 MG PO SCH (22:27)
[2017-05-13] MEDS: traZODone TAB* 50 MG TAB PO SCH (22:29)
[2017-05-14] MEDS: Hydrocortisone 1% CREAM* 30 GM TUBE TOPICAL PRN ×2 (04:06→20:24)
--- NOTE | 2017-05-14 08:59 | PN ---
ED Flex Patient Progress Note Date of Service: 05/14/17 Subjective: This is a 66 year-old M who is pending transfer to another psychiatric facility secondary to psychosis. Pt offers no complaints at this time. He ate and slept well Objective: Vitals: Most recent vital signs documented below. General NAD, Alert and oriented x3. Heart: rrr at 80bpm Lungs: CTA or with rales, rhonchi, wheezing abd: soft nontender Laboratory: Current laboratory results documented below. Assessment: Psychosis Plan: Pending psychiatric to transfer will follow up daily until accepted at different facility condition: Stable disposition: transfer Vital Signs Temp Pulse Resp BP Pulse Ox 97.2 F 87 18 131/72 99 05/13/17 07:45 05/13/17 07:45 05/13/17 07:45 05/13/17 07:45 05/13/17 07:45 Lab Results - Entire Visit 05/11/17 05/11/17 05/11/17 06:15 06:15 00:50 WBC 6.6 RBC 3.76 L Hgb 11.6 L Hct 34 L MCV 90 MCH 31 MCHC 34 RDW 14 Plt Count 224 MPV 7 L Neut % (Auto) 62.5 Lymph % (Auto) 14.6 L [place] % (Auto) 13.9 H Eos % (Auto) 7.9 H Baso % (Auto) 1.1 Absolute Neuts (auto) 4.1 Absolute Lymphs (auto) 1.0 Absolute Monos (auto) 0.9 H Absolute Eos (auto) 0.5 Absolute Basos (auto) 0.1 Absolute Nucleated RBC 0 Nucleated RBC % 0 Sodium Potassium Chloride Carbon Dioxide Anion Gap BUN Creatinine Est GFR ( Amer) Est GFR (Non-Af Amer) BUN/Creatinine Ratio Glucose Calcium Total Bilirubin AST ALT Alkaline Phosphatase Total Protein Albumin Globulin Albumin/Globulin Ratio TSH Urine Color Yellow Urine Appearance Clear Urine pH 5.0 Ur Specific [place] 1.024 Urine Protein Negative Urine Ketones Negative Urine Blood Negative Urine Nitrate Negative Urine Bilirubin Negative Urine Urobilinogen Negative Ur Leukocyte Esterase Negative Urine Glucose Negative Urine Ascorbic Acid * A Salicylates Urine Opiates Screen None detected Acetaminophen Ur Barbiturates Screen None detected Ur Phencyclidine Scrn None detected Ur Amphetamines Screen None detected U Benzodiazepines Scrn None detected Urine Cocaine Screen None detected U Cannabinoids Screen None detected Serum Alcohol 05/11/17 00:50 WBC RBC Hgb Hct MCV MCH MCHC RDW Plt Count MPV Neut % (Auto) Lymph % (Auto) [place] % (Auto) Eos % (Auto) Baso % (Auto) Absolute Neuts (auto) Absolute Lymphs (auto) Absolute Monos (auto) Absolute Eos (auto) Absolute Basos (auto) Absolute Nucleated RBC Nucleated RBC % Sodium 135 Potassium 3.7 Chloride 102 Carbon Dioxide 26 Anion Gap 7 BUN 30 H Creatinine 1.11 Est GFR ( Amer) 85.5 Est GFR (Non-Af Amer) 66.5 BUN/Creatinine Ratio 27.0 H Glucose 111 H Calcium 9.0 Total Bilirubin 0.40 AST 38 ALT 42 Alkaline Phosphatase 52 Total Protein 6.3 L Albumin 3.8 Globulin 2.5 Albumin/Globulin Ratio 1.5 TSH 1.79 Urine Color Urine Appearance Urine pH Ur Specific [place] Urine Protein Urine Ketones Urine Blood Urine Nitrate Urine Bilirubin Urine Urobilinogen Ur Leukocyte Esterase Urine Glucose Urine Ascorbic Acid Salicylates < 2.50 Urine Opiates Screen Acetaminophen < 15 Ur Barbiturates Screen Ur Phencyclidine Scrn Ur Amphetamines Screen U Benzodiazepines Scrn Urine Cocaine Screen U Cannabinoids Screen Serum Alcohol < 10
--- NOTE | 2017-05-14 09:07 | PN ---
ED Flex Patient Progress Note Date of Service: 05/14/17 Subjective: This is ED day number 4 for this 66 year-old single, white male with a history of bipolar disorder who [facility]. He remains manic, hyperverbal, hyperkinetic, trying to wander out of his room. Objective: aging white male with long graying hair; poor boundaries; hyperverbal, pressured , manic with expansive affect; denies SI or HI Assessment: Bipolar Lennie, severe with psychotic features Plan: P[facility]. Vital Signs Temp Pulse Resp BP Pulse Ox 97.2 F 87 18 131/72 99 05/13/17 07:45 05/13/17 07:45 05/13/17 07:45 05/13/17 07:45 05/13/17 07:45 Lab Results - Entire Visit 05/11/17 05/11/17 05/11/17 06:15 06:15 00:50 WBC 6.6 RBC 3.76 L Hgb 11.6 L Hct 34 L MCV 90 MCH 31 MCHC 34 RDW 14 Plt Count 224 MPV 7 L Neut % (Auto) 62.5 Lymph % (Auto) 14.6 L [place] % (Auto) 13.9 H Eos % (Auto) 7.9 H Baso % (Auto) 1.1 Absolute Neuts (auto) 4.1 Absolute Lymphs (auto) 1.0 Absolute Monos (auto) 0.9 H Absolute Eos (auto) 0.5 Absolute Basos (auto) 0.1 Absolute Nucleated RBC 0 Nucleated RBC % 0 Sodium Potassium Chloride Carbon Dioxide Anion Gap BUN Creatinine Est GFR ( Amer) Est GFR (Non-Af Amer) BUN/Creatinine Ratio Glucose Calcium Total Bilirubin AST ALT Alkaline Phosphatase Total Protein Albumin Globulin Albumin/Globulin Ratio TSH Urine Color Yellow Urine Appearance Clear Urine pH 5.0 Ur Specific [place] 1.024 Urine Protein Negative Urine Ketones Negative Urine Blood Negative Urine Nitrate Negative Urine Bilirubin Negative Urine Urobilinogen Negative Ur Leukocyte Esterase Negative Urine Glucose Negative Urine Ascorbic Acid * A Salicylates Urine Opiates Screen None detected Acetaminophen Ur Barbiturates Screen None detected Ur Phencyclidine Scrn None detected Ur Amphetamines Screen None detected U Benzodiazepines Scrn None detected Urine Cocaine Screen None detected U Cannabinoids Screen None detected Serum Alcohol 05/11/17 00:50 WBC RBC Hgb Hct MCV MCH MCHC RDW Plt Count MPV Neut % (Auto) Lymph % (Auto) [place] % (Auto) Eos % (Auto) Baso % (Auto) Absolute Neuts (auto) Absolute Lymphs (auto) Absolute Monos (auto) Absolute Eos (auto) Absolute Basos (auto) Absolute Nucleated RBC Nucleated RBC % Sodium 135 Potassium 3.7 Chloride 102 Carbon Dioxide 26 Anion Gap 7 BUN 30 H Creatinine 1.11 Est GFR ( Amer) 85.5 Est GFR (Non-Af Amer) 66.5 BUN/Creatinine Ratio 27.0 H Glucose 111 H Calcium 9.0 Total Bilirubin 0.40 AST 38 ALT 42 Alkaline Phosphatase 52 Total Protein 6.3 L Albumin 3.8 Globulin 2.5 Albumin/Globulin Ratio 1.5 TSH 1.79 Urine Color Urine Appearance Urine pH Ur Specific [place] Urine Protein Urine Ketones Urine Blood Urine Nitrate Urine Bilirubin Urine Urobilinogen Ur Leukocyte Esterase Urine Glucose Urine Ascorbic Acid Salicylates < 2.50 Urine Opiates Screen Acetaminophen < 15 Ur Barbiturates Screen Ur Phencyclidine Scrn Ur Amphetamines Screen U Benzodiazepines Scrn Urine Cocaine Screen U Cannabinoids Screen Serum Alcohol < 10
[2017-05-14] MEDS: clonazePAM TAB(*) 0.5 MG PO SCH ×2 (09:13→15:36)
[2017-05-14] MEDS: Atorvastatin* 40 MG TAB PO SCH (09:23)
[2017-05-14] MEDS: Cholecalciferol TAB* 1000 UNITS PO SCH (09:23)
[2017-05-14] MEDS: Aspirin 81 mg CHEW TAB* 81 MG TAB.CHEW PO SCH (09:23)
[2017-05-14] MEDS: Gabapentin CAP(*) 100 MG PO SCH ×3 (09:24→20:16)
[2017-05-14] MEDS: Hydrochlorothiazide TAB* 25 MG PO SCH (09:24)
[2017-05-14] MEDS: Multivitamins/Minerals TAB PO SCH (09:28)
[2017-05-14] MEDS: chlorproMAZINE TAB* 25 MG PO SCH (20:00)
[2017-05-14] MEDS: traZODone TAB* 50 MG TAB PO SCH (20:17)
[2017-05-15] MEDS: Cholecalciferol TAB* 1000 UNITS PO SCH (08:33)
[2017-05-15] MEDS: Atorvastatin* 40 MG TAB PO SCH (08:33)
[2017-05-15] MEDS: Aspirin 81 mg CHEW TAB* 81 MG TAB.CHEW PO SCH (08:33)
[2017-05-15] MEDS: Hydrochlorothiazide TAB* 25 MG PO SCH (08:33)
[2017-05-15] MEDS: Gabapentin CAP(*) 100 MG PO SCH ×2 (08:33→19:58)
--- NOTE | 2017-05-15 08:58 | PN ---
ED Flex Patient Progress Note Date of Service: 05/15/17 Subjective: This is a 66 year-old M who is pending transfer to another psychiatric facility secondary to psychosis. Pt offers no complaints at this time. He ate and slept well Objective: Vitals: Most recent vital signs documented below. General NAD, Alert and oriented x3. Heart: rrr at 80bpm Lungs: CTA or with rales, rhonchi, wheezing abd: soft nontender Laboratory: Current laboratory results documented below. Assessment: Psychosis Plan: Pending psychiatric to transfer to [place] facility will follow up daily until accepted condition: Stable disposition: transfer Vital Signs Temp Pulse Resp BP Pulse Ox 98.3 F 86 14 128/75 97 05/15/17 01:18 05/15/17 01:18 05/15/17 01:18 05/15/17 01:18 05/15/17 01:18 Lab Results - Entire Visit 05/11/17 05/11/17 05/11/17 06:15 06:15 00:50 WBC 6.6 RBC 3.76 L Hgb 11.6 L Hct 34 L MCV 90 MCH 31 MCHC 34 RDW 14 Plt Count 224 MPV 7 L Neut % (Auto) 62.5 Lymph % (Auto) 14.6 L [place] % (Auto) 13.9 H Eos % (Auto) 7.9 H Baso % (Auto) 1.1 Absolute Neuts (auto) 4.1 Absolute Lymphs (auto) 1.0 Absolute Monos (auto) 0.9 H Absolute Eos (auto) 0.5 Absolute Basos (auto) 0.1 Absolute Nucleated RBC 0 Nucleated RBC % 0 Sodium Potassium Chloride Carbon Dioxide Anion Gap BUN Creatinine Est GFR ( Amer) Est GFR (Non-Af Amer) BUN/Creatinine Ratio Glucose Calcium Total Bilirubin AST ALT Alkaline Phosphatase Total Protein Albumin Globulin Albumin/Globulin Ratio TSH Urine Color Yellow Urine Appearance Clear Urine pH 5.0 Ur Specific [place] 1.024 Urine Protein Negative Urine Ketones Negative Urine Blood Negative Urine Nitrate Negative Urine Bilirubin Negative Urine Urobilinogen Negative Ur Leukocyte Esterase Negative Urine Glucose Negative Urine Ascorbic Acid * A Salicylates Urine Opiates Screen None detected Acetaminophen Ur Barbiturates Screen None detected Ur Phencyclidine Scrn None detected Ur Amphetamines Screen None detected U Benzodiazepines Scrn None detected Urine Cocaine Screen None detected U Cannabinoids Screen None detected Serum Alcohol 05/11/17 00:50 WBC RBC Hgb Hct MCV MCH MCHC RDW Plt Count MPV Neut % (Auto) Lymph % (Auto) [place] % (Auto) Eos % (Auto) Baso % (Auto) Absolute Neuts (auto) Absolute Lymphs (auto) Absolute Monos (auto) Absolute Eos (auto) Absolute Basos (auto) Absolute Nucleated RBC Nucleated RBC % Sodium 135 Potassium 3.7 Chloride 102 Carbon Dioxide 26 Anion Gap 7 BUN 30 H Creatinine 1.11 Est GFR ( Amer) 85.5 Est GFR (Non-Af Amer) 66.5 BUN/Creatinine Ratio 27.0 H Glucose 111 H Calcium 9.0 Total Bilirubin 0.40 AST 38 ALT 42 Alkaline Phosphatase 52 Total Protein 6.3 L Albumin 3.8 Globulin 2.5 Albumin/Globulin Ratio 1.5 TSH 1.79 Urine Color Urine Appearance Urine pH Ur Specific [place] Urine Protein Urine Ketones Urine Blood Urine Nitrate Urine Bilirubin Urine Urobilinogen Ur Leukocyte Esterase Urine Glucose Urine Ascorbic Acid Salicylates < 2.50 Urine Opiates Screen Acetaminophen < 15 Ur Barbiturates Screen Ur Phencyclidine Scrn Ur Amphetamines Screen U Benzodiazepines Scrn Urine Cocaine Screen U Cannabinoids Screen Serum Alcohol < 10
[2017-05-15] MEDS ORDERED: Multivitamins/Minerals TAB ONE (09:02)
[2017-05-15] MEDS: Multivitamins/Minerals TAB PO SCH (09:11)
[2017-05-15] MEDS: clonazePAM TAB(*) 0.5 MG PO SCH (09:14)
--- NOTE | 2017-05-15 11:00 | PN ---
ED Flex Patient Progress Note Date of Service: 05/15/17 Subjective: This is ED day number 5 for this 66 year-old single, white male with a history of bipolar disorder who [facility]. He remains manic, hyperverbal, hyperkinetic, trying to wander out of his room. Objective: aging white male with long graying hair; poor boundaries; hyperverbal, pressured , manic with expansive affect; denies SI or HI Assessment: Bipolar Lennie, severe with psychotic features Plan: Pending psychiatric transfer [facility] an appropriate [facility] or [facility]. Vital Signs Temp Pulse Resp BP Pulse Ox 98.3 F 86 14 128/75 97 05/15/17 01:18 05/15/17 01:18 05/15/17 01:18 05/15/17 01:18 05/15/17 01:18 Lab Results - Entire Visit 05/11/17 05/11/17 05/11/17 06:15 06:15 00:50 WBC 6.6 RBC 3.76 L Hgb 11.6 L Hct 34 L MCV 90 MCH 31 MCHC 34 RDW 14 Plt Count 224 MPV 7 L Neut % (Auto) 62.5 Lymph % (Auto) 14.[address] [place] % (Auto) 13.9 H Eos % (Auto) 7.9 H Baso % (Auto) 1.1 Absolute Neuts (auto) 4.1 Absolute Lymphs (auto) 1.0 Absolute Monos (auto) 0.9 H Absolute Eos (auto) 0.5 Absolute Basos (auto) 0.1 Absolute Nucleated RBC 0 Nucleated RBC % 0 Sodium Potassium Chloride Carbon Dioxide Anion Gap BUN Creatinine Est GFR ( Amer) Est GFR (Non-Af Amer) BUN/Creatinine Ratio Glucose Calcium Total Bilirubin AST ALT Alkaline Phosphatase Total Protein Albumin Globulin Albumin/Globulin Ratio TSH Urine Color Yellow Urine Appearance Clear Urine pH 5.0 Ur Specific [place] 1.024 Urine Protein Negative Urine Ketones Negative Urine Blood Negative Urine Nitrate Negative Urine Bilirubin Negative Urine Urobilinogen Negative Ur Leukocyte Esterase Negative Urine Glucose Negative Urine Ascorbic Acid * A Salicylates Urine Opiates Screen None detected Acetaminophen Ur Barbiturates Screen None detected Ur Phencyclidine Scrn None detected Ur Amphetamines Screen None detected U Benzodiazepines Scrn None detected Urine Cocaine Screen None detected U Cannabinoids Screen None detected Serum Alcohol 05/11/17 00:50 WBC RBC Hgb Hct MCV MCH MCHC RDW Plt Count MPV Neut % (Auto) Lymph % (Auto) [place] % (Auto) Eos % (Auto) Baso % (Auto) Absolute Neuts (auto) Absolute Lymphs (auto) Absolute Monos (auto) Absolute Eos (auto) Absolute Basos (auto) Absolute Nucleated RBC Nucleated RBC % Sodium 135 Potassium 3.7 Chloride 102 Carbon Dioxide 26 Anion Gap 7 BUN 30 H Creatinine 1.11 Est GFR ( Amer) 85.5 Est GFR (Non-Af Amer) 66.5 BUN/Creatinine Ratio 27.0 H Glucose 111 H Calcium 9.0 Total Bilirubin 0.40 AST 38 ALT 42 Alkaline Phosphatase 52 Total Protein 6.3 L Albumin 3.8 Globulin 2.5 Albumin/Globulin Ratio 1.5 TSH 1.79 Urine Color Urine Appearance Urine pH Ur Specific [place] Urine Protein Urine Ketones Urine Blood Urine Nitrate Urine Bilirubin Urine Urobilinogen Ur Leukocyte Esterase Urine Glucose Urine Ascorbic Acid Salicylates < 2.50 Urine Opiates Screen Acetaminophen < 15 Ur Barbiturates Screen Ur Phencyclidine Scrn Ur Amphetamines Screen U Benzodiazepines Scrn Urine Cocaine Screen U Cannabinoids Screen Serum Alcohol < 10
[2017-05-15] MEDS: Divalproex DR TAB(*) 250 MG PO SCH (14:07)
[2017-05-15] MEDS ORDERED: Acetaminophen TAB* 325 MG PO PRN (17:12)
[2017-05-15] MEDS ORDERED: Hydrocortisone 1% CREAM* 30 GM TUBE TOPICAL PRN (17:13)
[2017-05-15] MEDS ORDERED: Ibuprofen TAB* 600 MG PO PRN (17:13)
[2017-05-15] MEDS ORDERED: Nicotine GUM* 2 MG PO PRN (17:13)
[2017-05-15] MEDS ORDERED: Nitroglycerin TAB 0.4 MG* 0.4 MG TAB SL PRN (17:13)
[2017-05-15] MEDS: traZODone TAB* 50 MG TAB PO SCH (19:57)
[2017-05-15] MEDS: Atorvastatin* 10 MG TAB PO SCH (19:58)
[2017-05-15] MEDS ORDERED: chlorproMAZINE TAB* 50 MG PO SCH (21:00)
[2017-05-16] MEDS: Divalproex DR TAB(*) 250 MG PO SCH ×4 (00:39→21:59)
[2017-05-16] MEDS: traZODone TAB* 50 MG TAB PO SCH ×5 (00:40→23:56)
[2017-05-16] MEDS: Vitamin THERAPEUTIC TAB PO SCH (09:42)
[2017-05-16] MEDS: Cholecalciferol TAB* 1000 UNITS PO SCH (09:42)
[2017-05-16] MEDS: Hydrochlorothiazide TAB* 25 MG PO SCH (09:42)
[2017-05-16] MEDS: Aspirin 81 mg CHEW TAB* 81 MG TAB.CHEW PO SCH (09:42)
[2017-05-16] MEDS: Gabapentin CAP(*) 100 MG PO SCH ×2 (09:43→16:34)
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
[2017-05-16] MEDS ORDERED: Divalproex DR TAB(*) 250 MG PO ONE (11:46)
[2017-05-16] MEDS ORDERED: chlorproMAZINE TAB* 50 MG PO SCH (21:00)
[2017-05-16] MEDS: Atorvastatin* 10 MG TAB PO SCH (21:53)
[2017-05-16] MEDS: chlorproMAZINE TAB* 50 MG PO SCH (21:56)
[2017-05-17] MEDS: Divalproex DR TAB(*) 250 MG PO SCH ×3 (09:12→20:22)
[2017-05-17] MEDS: Vitamin THERAPEUTIC TAB PO SCH (09:14)
[2017-05-17] MEDS: Cholecalciferol TAB* 1000 UNITS PO SCH (09:14)
[2017-05-17] MEDS: Aspirin 81 mg CHEW TAB* 81 MG TAB.CHEW PO SCH (09:14)
[2017-05-17] MEDS: Hydrochlorothiazide TAB* 25 MG PO SCH (09:14)
[2017-05-17] MEDS: Paliperidone ER TAB* 3 MG TAB.ER PO SCH (09:17)
--- NOTE | 2017-05-17 11:25 | PN ---
Subjective - Subjective Subjective: psychiatric progress note: Gutierrez put in a letter requesting another physician which was denied by treatment team. he continues to selectively take the medications that I have prescribed to treat manic and psychotic symptoms which include depakote, Trazodone, Chlorpromazine and Invega. 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 accordingly, patient will be place on involuntary status through a 2 person committment. MSE: poor boundaries, indiscriminant socialization speech: hyperverbal, pressured, loud ADL's poor hygiene Thought process: disorganized with irrelevant and illogic constructs, tangentiality, aphasic errors Thought content: denies hallucinations, odd beliefs which at times are grandiose, often focuses on sexual issues which are irrelevant to conversation (hypersexual). insight and judgment very impaired. impression: will give invega sustenna 234 mg IM one week early on 05/22/2017 all other meds unchanged. likely patient will not take the majority of his oral medications. He has agreed to take his invega 234 mg one week early plan is to transfer him to [facility] when a bed becomes available. Plan - Plan Treatment Plan: Name: GUTIERREZ BOYD Birthdate: 1950 [id number] Medications: Current Medications Acetaminophen (Tylenol Tab*) 650 mg PO Q4H PRN PRN Reason: for pain; or Temp >101 F Al Hydrox/Mg Hydrox/Simethicone (Maalox Plus*) 30 ml PO Q4H PRN PRN Reason: INDIGESTION Aspirin (Aspirin Low Dose Tab*) 81 mg PO DAILY [facility] Last Admin: 05/17/17 09:14 Dose: 81 mg Atorvastatin Calcium (Lipitor*) 10 mg PO BEDTIME [facility] Last Admin: 05/16/17 21:53 Dose: 10 mg Chlorpromazine HCl (Thorazine Tab*) 50 mg PO BEDTIME [facility] Last Admin: 05/16/17 21:56 Dose: Not Given Cholecalciferol (Vitamin D Tab*) 1,000 units PO DAILY [facility] Last Admin: 05/17/17 09:14 Dose: 1,000 units Divalproex Sodium (Depakote Dr Tab(*)) 250 mg PO TID@08,14, [facility] Last Admin: 05/17/17 09:12 Dose: Not Given Haloperidol (Haldol Tab*) 2 mg PO Q4H PRN PRN Reason: agitation/psychosis Last Admin: 05/13/17 09:05 Dose: 2 mg Hydrochlorothiazide (Hydrodiuril Tab*) 25 mg PO DAILY [facility] Last Admin: 05/17/17 09:14 Dose: 25 mg Hydrocortisone (Hytone Cream 1%*) 1 applic TOPICAL TID PRN PRN Reason: RASH Ibuprofen (Motrin Tab*) 600 mg PO Q6H PRN PRN Reason: PAIN Multivitamins (Theragran Tab*) 1 tab PO DAILY [facility] Last Admin: 05/17/17 09:14 Dose: 1 tab Nicotine Polacrilex (Nicotine Gum*) 2 mg PO Q2H PRN PRN Reason: CRAVING Nitroglycerin (Nitroglycerin Tab 0.4 Mg*) 0.4 mg SL Q5M PRN PRN Reason: PAIN - CHEST Paliperidone (Invega Er Tab*) 3 mg PO DAILY [facility] Last Admin: 05/17/17 09:17 Dose: Not Given Trazodone HCl (Desyrel Tab*) 150 mg PO 2100 [facility] Last Admin: 05/16/17 22:01 Dose: Not Given Trazodone HCl (Desyrel Tab*) 100 mg PO BEDTIME [facility] Last Admin: 05/16/17 23:52 Dose: 100 mg
--- NOTE | 2017-05-17 16:26 | PN ---
MHU: Group Therapy Note - Service Type Service Type: [id number] Group Psychotherapy - Medication Education Group: Patient joined group late, remained in behavioral control. Patient noted to be circumstantial about substances that were not particularly on topic.
[2017-05-17] MEDS: traZODone TAB* 50 MG TAB PO SCH ×2 (20:20→21:27)
[2017-05-17] MEDS: Atorvastatin* 10 MG TAB PO SCH (20:20)
[2017-05-17] MEDS: chlorproMAZINE TAB* 50 MG PO SCH (20:22)
[2017-05-18] MEDS: traZODone TAB* 50 MG TAB PO SCH (02:30)
[2017-05-18] MEDS: Paliperidone ER TAB* 3 MG TAB.ER PO SCH ×3 (02:30→21:14)
[2017-05-18] MEDS: Divalproex DR TAB(*) 250 MG PO SCH ×2 (09:27→14:15)
[2017-05-18] MEDS: Cholecalciferol TAB* 1000 UNITS PO SCH (09:28)
[2017-05-18] MEDS: Hydrochlorothiazide TAB* 25 MG PO SCH (09:28)
[2017-05-18] MEDS: Vitamin THERAPEUTIC TAB PO SCH (09:28)
[2017-05-18] MEDS: Aspirin 81 mg CHEW TAB* 81 MG TAB.CHEW PO SCH (09:28)
--- NOTE | 2017-05-18 11:18 | PN ---
Subjective - Subjective Subjective: PSYCHIATRIC ATTENDING PROGRESS NOTE Gutierrez and I had discussion today. He was much more organized than usual. He would like to avoid having to return to [facility] psychiatric. He showed improved insight. He stated: "do you think that If I take the depakote and other medications you ordered that I wouldn't be so manicy" We talked about how his manic symptoms caused him to display behaviors that were inappropriate and disruptive at [facility]. He attempted to justify the behaviors and minimize them but I confronted him about this and required him to take ownership for making sure that his illness was managed well enough so that his mental status was stable. This includes strict adherance to his medication regimen Not sure that he was able to appreciate and internalize this concept completely but he did agree to take Depakote for his aime, Invega oral supplementation 3 mg for his psychotic symptoms, trazodone 200 mg for sleep. We were also able to come to an understanding about his next invega injection. He agreed to accept his next scheduled invega injection one week early and I explained that I would be giving him a higher dose than originally planned (156 mg rather than 117 mg ). EKG today shows QTc of 446 ms right bundle branch present otherwise normal Objective - Appearance Appearance: Well Developed/Nourished Dysmorphic Features: No Hygiene: Normal Grooming: Disheveled - Behavior Psychomotor Activities: Normal Exhibits Abnormal Movement: No - Attitude and Relatedness Attitude and Relatedness: Cooperative Eye Contact: Good - Speech Quality: Unpressured Latencies: Normal Quantity: Copious - Mood Patient's Decription of Mood: "Great" - Affect Observed Affect: Expansive Affect Consistent with: Euphoria - Thought Process Patient's Thought Process: Disorganized, Tangential Thought Content: No Passive Wish, No Suicidal Planning, No Homicidal Ideation, No Paranoid Ideation - Sensorium Type of Hallucinations: Visual: No, Auditory: No, Command: No - Level of Consciousness Level of Consciousness: Alert Orientation: Yes Intact, Yes Orientated to Time, Yes Orientated to Place, Yes Orientated to Person - Impulse Control Impulse Control: Tenuous - Insight and Judgement Insight and Judgement: Fair - Group Participation Particating in Group Activities: Yes - Medication Management Medication Management Adherence: Yes Plan - Plan Medications: Plan: Change Trazodone to 200 mg QHS was receiving 100 or 150 mg nightly Change Invega 3 mg po to QHS D/C depakote DR 250 mg TID Start Depakote ER 500 mg qhs to target manic symptoms Invega Sustenna 156 mg to be given one week early on 05/22/2017 [place] [facility] application pending if patient's mse improves with above antimanic regimen which patient is agreeing to take now then I think it is reasonable to request that [facility] reconsider discharge back to their facility.
[2017-05-18] MEDS: traZODone TAB* 100 MG PO SCH (21:14)
[2017-05-18] MEDS: Atorvastatin* 10 MG TAB PO SCH (21:14)
[2017-05-18] MEDS: Divalproex ER TAB(*) 500 MG PO SCH (21:14)
[2017-05-19] MEDS: Hydrochlorothiazide TAB* 25 MG PO SCH (10:20)
[2017-05-19] MEDS: Aspirin 81 mg CHEW TAB* 81 MG TAB.CHEW PO SCH (10:20)
[2017-05-19] MEDS: Cholecalciferol TAB* 1000 UNITS PO SCH (10:21)
[2017-05-19] MEDS: Vitamin THERAPEUTIC TAB PO SCH (10:21)
--- NOTE | 2017-05-19 14:51 | PN ---
Subjective - Subjective Date of Service: 05/19/17 Service Type: [id number] Hosp care 15 min low complexity Subjective: Gutierrez remains the same. Somewhat hypomanic with pressured but slurred speech, intrussiveness, circumstantiality and flight of ideas. Otherwise easily redirectable. Objective - Appearance Appearance: Healthy Appearing Dysmorphic Features: No Hygiene: Mal-odorous Grooming: Disheveled - Behavior Psychomotor Activities: Abnormal-Increased Exhibits Abnormal Movement: No - Attitude and Relatedness Attitude and Relatedness: Cooperative Eye Contact: Good - Speech Quality: Pressured Latencies: Short Quantity: Terse - Mood Patient's Decription of Mood: "Good" - Affect Observed Affect: Expansive - Thought Process Patient's Thought Process: Coherent, Filght of Ideas, Circumstantial, Over Inclusive Thought Content: No Passive Wish, No Suicidal Planning, No Homicidal Ideation, No Paranoid Ideation - Sensorium Experiencing Hallucinations: No, Sensorium is Clear Type of Hallucinations: Visual: No, Auditory: No, Command: No - Level of Consciousness Level of Consciousness: Alert Orientation: Yes Intact, Yes Orientated to Time, Yes Orientated to Place, Yes Orientated to Person - Impulse Control Impulse Control: Tenuous - Insight and Judgement Insight and Judgement: Poor - Group Participation Particating in Group Activities: Yes - Medication Management Medication Management Adherence: Yes Assessment - Assessment Merits Inpatient Hospitalization: For Immediate Safety, For Stabilization, Pending Safe DC Plan Clinical Impression: Still hypomanic and unable to safely care for self in the community. Continue hospitalization and transfer to [facility] if possible. Plan - Plan Treatment Plan: Name: GUTIERREZ BOYD Birthdate: 1950 [id number] Continued Medication Management: Continue Outpt Medication Medications: Current Medications Acetaminophen (Tylenol Tab*) 650 mg PO Q4H PRN PRN Reason: for pain; or Temp >101 F Al Hydrox/Mg Hydrox/Simethicone (Maalox Plus*) 30 ml PO Q4H PRN PRN Reason: INDIGESTION Aspirin (Aspirin Low Dose Tab*) 81 mg PO DAILY [facility] Last Admin: 05/19/17 10:20 Dose: 81 mg Atorvastatin Calcium (Lipitor*) 10 mg PO BEDTIME [facility] Last Admin: 05/18/17 21:14 Dose: 10 mg Cholecalciferol (Vitamin D Tab*) 1,000 units PO DAILY [facility] Last Admin: 05/19/17 10:21 Dose: 1,000 units Divalproex Sodium (Depakote Er Tab(*)) 500 mg PO BEDTIME [facility] Last Admin: 05/18/17 21:14 Dose: 500 mg Haloperidol (Haldol Tab*) 2 mg PO Q4H PRN PRN Reason: agitation/psychosis Last Admin: 05/13/17 09:05 Dose: 2 mg Hydrochlorothiazide (Hydrodiuril Tab*) 25 mg PO DAILY [facility] Last Admin: 05/19/17 10:20 Dose: 25 mg Hydrocortisone (Hytone Cream 1%*) 1 applic TOPICAL TID PRN PRN Reason: RASH Ibuprofen (Motrin Tab*) 600 mg PO Q6H PRN PRN Reason: PAIN Multivitamins (Theragran Tab*) 1 tab PO DAILY [facility] Last Admin: 05/19/17 10:21 Dose: 1 tab Nicotine Polacrilex (Nicotine Gum*) 2 mg PO Q2H PRN PRN Reason: CRAVING Nitroglycerin (Nitroglycerin Tab 0.4 Mg*) 0.4 mg SL Q5M PRN PRN Reason: PAIN - CHEST Paliperidone (Invega Er Tab*) 3 mg PO BEDTIME [facility] Last Admin: 05/18/17 21:14 Dose: 3 mg Paliperidone Palmitate (Invega Sustenna*) 156 mg IM ONCE ONE Stop: 05/22/17 09:01 Trazodone HCl (Desyrel Tab*) 200 mg PO BEDTIME [facility] Last Admin: 05/18/17 21:14 Dose: 200 mg - Discharge Plan Discharge Plan: Consider Longer Term Tx
[2017-05-19] MEDS: Divalproex ER TAB(*) 500 MG PO SCH (20:47)
[2017-05-19] MEDS: Paliperidone ER TAB* 3 MG TAB.ER PO SCH (20:47)
[2017-05-19] MEDS: Atorvastatin* 10 MG TAB PO SCH (20:47)
[2017-05-19] MEDS: traZODone TAB* 100 MG PO SCH (20:47)
[2017-05-20] MEDS: Vitamin THERAPEUTIC TAB PO SCH (09:42)
[2017-05-20] MEDS: Cholecalciferol TAB* 1000 UNITS PO SCH (09:42)
[2017-05-20] MEDS: Hydrochlorothiazide TAB* 25 MG PO SCH (09:42)
[2017-05-20] MEDS: Aspirin 81 mg CHEW TAB* 81 MG TAB.CHEW PO SCH (09:42)
[2017-05-20] MEDS: Al Hydrox/Mg Hydrox/Simet LIQ* 30 ML UDC PO PRN (17:11)
[2017-05-20] MEDS: traZODone TAB* 100 MG PO SCH (20:52)
[2017-05-20] MEDS: Paliperidone ER TAB* 3 MG TAB.ER PO SCH (20:52)
[2017-05-20] MEDS: Divalproex ER TAB(*) 500 MG PO SCH (20:52)
[2017-05-20] MEDS: Atorvastatin* 10 MG TAB PO SCH (20:52)
[2017-05-21] MEDS: Vitamin THERAPEUTIC TAB PO SCH (09:28)
[2017-05-21] MEDS: Hydrochlorothiazide TAB* 25 MG PO SCH (09:28)
[2017-05-21] MEDS: Cholecalciferol TAB* 1000 UNITS PO SCH (09:28)
[2017-05-21] MEDS: Aspirin 81 mg CHEW TAB* 81 MG TAB.CHEW PO SCH (09:28)
--- NOTE | 2017-05-21 14:02 | PN ---
Subjective - Subjective Subjective: Psychiatric Attending Progress Note: Reviewed notes over the weekend. patient's mental status showing new gains. Patient considerably more organized, less intrusive, having greater clarity of thought. more goal directed and no longer irrelevant or illogic. patient is also not as intrusive and has made no seuxalized comments in several days. speech no longer pressured. I met with Gutierrez for 15 minutes and although his thought process was more organized and goal directed, I noticed that he was not his jovial self. whereas he usually wishes to engage in conversation with me, he was inpatient and looked oversedated. I asked him how he felt. He asked to go take a nap. he didn't feel like talking I checked on him about 15 minutes later and found him lying supine in bed but very agiated. he was in constant motion with restless legs. He could not articulate how he felt. Nurse and I felt that he was having severe akithisia likely from Invega. 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 Will not give regularly scheduled one month Invega Sustenna injection tomorrow ( one week early) will Give it on 05/29/2017 which is when it is actually due and will give lowest dose of 117 mg will D/C oral Invega. Cogentin 0.5 mg Q4h prn akithisia Ativan 1 mg Q4h prn akithisia both to be given together depakote ER 500 mg qhs. will not increase
[2017-05-21] MEDS ORDERED: LORazepam TAB(*) 1 MG PO ONE (18:49)
[2017-05-21] MEDS ORDERED: Benztropine TAB* 1 MG PO ONE (18:50)
[2017-05-21] MEDS: traZODone TAB* 100 MG PO SCH (21:26)
[2017-05-21] MEDS: Atorvastatin* 10 MG TAB PO SCH (21:26)
[2017-05-21] MEDS: Divalproex ER TAB(*) 500 MG PO SCH (21:26)
[2017-05-22] MEDS ORDERED: Paliperidone SUSTENNA* 156 MG/1 ML IM ONE (09:00)
[2017-05-22] MEDS: Hydrochlorothiazide TAB* 25 MG PO SCH (09:10)
[2017-05-22] MEDS: Cholecalciferol TAB* 1000 UNITS PO SCH (09:10)
[2017-05-22] MEDS: Vitamin THERAPEUTIC TAB PO SCH (09:10)
[2017-05-22] MEDS: Aspirin 81 mg CHEW TAB* 81 MG TAB.CHEW PO SCH (09:10)
[2017-05-22] MEDS ORDERED: Benztropine TAB* 1 MG PO ONE (10:40)
[2017-05-22] MEDS ORDERED: LORazepam TAB(*) 1 MG PO ONE (10:40)
[2017-05-22] MEDS: LORazepam TAB(*) 0.5 MG PO SCH (16:37)
[2017-05-22] MEDS: Benztropine TAB* 1 MG PO SCH (16:37)
[2017-05-22] MEDS: Atorvastatin* 10 MG TAB PO SCH (20:29)
[2017-05-22] MEDS: Divalproex ER TAB(*) 500 MG PO SCH (20:29)
[2017-05-22] MEDS: traZODone TAB* 100 MG PO SCH (20:29)
[2017-05-22] MEDS: Al Hydrox/Mg Hydrox/Simet LIQ* 30 ML UDC PO PRN (22:28)
[2017-05-23] MEDS: Hydrochlorothiazide TAB* 25 MG PO SCH (09:46)
[2017-05-23] MEDS: Cholecalciferol TAB* 1000 UNITS PO SCH (09:47)
[2017-05-23] MEDS: Aspirin 81 mg CHEW TAB* 81 MG TAB.CHEW PO SCH (09:47)
[2017-05-23] MEDS: Vitamin THERAPEUTIC TAB PO SCH (09:47)
[2017-05-23] MEDS: Benztropine TAB* 1 MG PO SCH ×3 (09:49→15:52)
[2017-05-23] MEDS: LORazepam TAB(*) 0.5 MG PO SCH ×2 (09:50→15:52)
--- NOTE | 2017-05-23 10:41 | PN ---
Subjective - Subjective Subjective: Psychiatric Attending Progress Note: Since our discussion early in the week, Deyanira has taken all oral medications which we agreed he would take. This includes depakote ER 500 mg and Trazodone 100 mg for manic symptoms and insomnia respectively and more recently cogentin 0.5 mg and ativan 0.5 mg for akithisia/EPS secondary to MORENO Invega Sustenna. Patient was being supplemented with 3 mg of oral invega during this current admission but when he developed akithisia, the oral invega was discontinued and ativan/cogentin added with excellent effect. Manic symptoms have remitted with depakote and sleep is more than it has ever been with trazodone/depakote ER at bedtime. Patient has not exhibited disruptive, aggressive, or inappropriate behaviors during the current stay. Patient performs ADL's. His manic symptoms have resolved. no further pressured speech. He is able to wait to meet with the doctor rather than impulsively accosting the doctor in [place]. Current active symptoms include poor hygiene, and thought disorder including irrelevant responses at times. patient mostly is able to respond in a goal directed manner. There is no indication of hypersexuality. patient makes comments which are odd but there is no evidence that he has hannah paranoid or persecutory delusions. There are no ideas of reference. Patient is pleasant and friendly and mostly just wants to play a game of cards and talk to someone about his life. There is no indication from this admission or past admissions that patient is danger to self or others. no SI or HI. He denies AH and VH. He is not observed responding to internal stimuli. insight is fair. Deyanira does acknowledge that he has mental illness but has difficulty recognizing when he is sick and when he is well. Judgment is tenuous as it would be with anyone who has a chronic psychotic illness. Impression: Schizoaffective bipolar type most recently manic mild currently euthymic Plan: Deyanira would very much like to return to [facility] I think this should be explored. a meeting with [facility] during which [facility] delineates what the expectations will be for Deyanira and seeing how he reacts would be helpful ultimately, I feel it is worth trying him back in the community Alternatively, If [facility] will not accept him back at this time as not enough time has elapsed, then I would move forward with transfer to [facility] where he can have longer term psychiatric rehabilitation and treatment in a residential facility that specializes in treating patients with persistent mental illness. Plan - Plan Treatment Plan: Name: DEYANIRA BOYD Birthdate: 1950 [id number] Medications: Current Medications Acetaminophen (Tylenol Tab*) 650 mg PO Q4H PRN PRN Reason: for pain; or Temp >101 F Al Hydrox/Mg Hydrox/Simethicone (Maalox Plus*) 30 ml PO Q4H PRN PRN Reason: INDIGESTION Last Admin: 05/22/17 22:28 Dose: 30 ml Aspirin (Aspirin Low Dose Tab*) 81 mg PO DAILY [facility] Last Admin: 05/23/17 09:47 Dose: 81 mg Atorvastatin Calcium (Lipitor*) 10 mg PO BEDTIME [facility] Last Admin: 05/22/17 20:29 Dose: 10 mg Benztropine Mesylate (Cogentin Tab*) 0.5 mg PO TID@0800,1200,1600 [facility] Last Admin: 05/23/17 09:49 Dose: 0.5 mg Cholecalciferol (Vitamin D Tab*) 1,000 units PO DAILY [facility] Last Admin: 05/23/17 09:47 Dose: 1,000 units Divalproex Sodium (Depakote Er Tab(*)) 500 mg PO BEDTIME [facility] Last Admin: 05/22/17 20:29 Dose: 500 mg Haloperidol (Haldol Tab*) 2 mg PO Q4H PRN PRN Reason: agitation/psychosis Last Admin: 05/13/17 09:05 Dose: 2 mg Hydrochlorothiazide (Hydrodiuril Tab*) 25 mg PO DAILY [facility] Last Admin: 05/23/17 09:46 Dose: 25 mg Hydrocortisone (Hytone Cream 1%*) 1 applic TOPICAL TID PRN PRN Reason: RASH Ibuprofen (Motrin Tab*) 600 mg PO Q6H PRN PRN Reason: PAIN Lorazepam (Ativan Tab(*)) 0.5 mg PO TID@0800,1200,1600 [facility] Last Admin: 05/23/17 09:50 Dose: 0.5 mg Multivitamins (Theragran Tab*) 1 tab PO DAILY [facility] Last Admin: 05/23/17 09:47 Dose: 1 tab Nicotine Polacrilex (Nicotine Gum*) 2 mg PO Q2H PRN PRN Reason: CRAVING Nitroglycerin (Nitroglycerin Tab 0.4 Mg*) 0.4 mg SL Q5M PRN PRN Reason: PAIN - CHEST Trazodone HCl (Desyrel Tab*) 200 mg PO BEDTIME [facility] Last Admin: 05/22/17 20:29 Dose: 200 mg
[2017-05-23] MEDS: Divalproex ER TAB(*) 500 MG PO SCH (20:21)
[2017-05-23] MEDS: traZODone TAB* 100 MG PO SCH (20:21)
[2017-05-23] MEDS: Atorvastatin* 10 MG TAB PO SCH (20:21)
[2017-05-24] MEDS: Al Hydrox/Mg Hydrox/Simet LIQ* 30 ML UDC PO PRN (05:32)
[2017-05-24] MEDS: LORazepam TAB(*) 0.5 MG PO SCH ×4 (07:48→16:50)
[2017-05-24] MEDS: Cholecalciferol TAB* 1000 UNITS PO SCH (08:32)
[2017-05-24] MEDS: Aspirin 81 mg CHEW TAB* 81 MG TAB.CHEW PO SCH (08:32)
[2017-05-24] MEDS: Vitamin THERAPEUTIC TAB PO SCH (08:32)
[2017-05-24] MEDS: Hydrochlorothiazide TAB* 25 MG PO SCH (08:32)
[2017-05-24] MEDS: Benztropine TAB* 1 MG PO SCH ×3 (08:36→16:51)
[2017-05-24] MEDS: Atorvastatin* 10 MG TAB PO SCH (21:51)
[2017-05-24] MEDS: Divalproex ER TAB(*) 500 MG PO SCH (21:51)
[2017-05-24] MEDS: traZODone TAB* 100 MG PO SCH (21:51)
--- NOTE | 2017-05-25 08:00 | ED ---
Moisés Anderson Gabriel, scribed for Rashid Reed MD on 05/11/17 at 0332 . Progress - Progress Note Progress Note: This patient was signed out from [facility] pending disposition, awaiting a MHE. The patient will be held in the ED in the until the morning when the [facility] can be contacted. The patient has a history of psychiatric issues that is handled by the [facility] and they will consult in the morning. - Consult/PCP Time Called: 23:35 Course/Dx - Course Course Of Treatment: 66-year-old male presents from the [facility] for mental health exam. He has no complaints at this time. They states he picked a scab and it was bleeding. This. No active bleeding at this time. He denies any new injury. He denies any suicidal or homicidal thoughts. Stating that he is still very mentally unstable and they are requesting a mental health exam. Patient is sleeping quietly in the room. on exam scab right ankle. patient is sleepy. no ETOH in system. will get mental health exam. sign out pending MHE to dr reed for dispo - Diagnoses Provider Diagnoses: heeling wound right ankle, Mood disorder Discharge - Sign-Out/Discharge Documenting (check all that apply): Discharge - Discharge Plan Condition: Stable Disposition: PSYCHIATRIC FACILITY-[facility] [place] - Billing Disposition and Condition Condition: STABLE Disposition: PSY-[facility] The documentation as recorded by the Moisés miranda Gabriel accurately reflects the service I personally performed and the decisions made by , Rashid Reed MD.
[2017-05-25 08:12] VITALS: BP 137/73
[2017-05-25] MEDS: Benztropine TAB* 1 MG PO SCH ×2 (09:07→12:05)
[2017-05-25] MEDS: LORazepam TAB(*) 0.5 MG PO SCH ×2 (09:07→12:06)
[2017-05-25] MEDS: Hydrochlorothiazide TAB* 25 MG PO SCH (09:08)
[2017-05-25] MEDS: Cholecalciferol TAB* 1000 UNITS PO SCH (09:08)
[2017-05-25] MEDS: Aspirin 81 mg CHEW TAB* 81 MG TAB.CHEW PO SCH (09:08)
[2017-05-25] MEDS: Vitamin THERAPEUTIC TAB PO SCH (09:09)
[2017-05-25] MEDS: Al Hydrox/Mg Hydrox/Simet LIQ* 30 ML UDC PO PRN (10:33)
--- NOTE | 2017-05-25 12:20 | DS ---
Subjective - Subjective Subjective: DISCHARGE SUMMARY PATIENT: : AGE: PROVIDER: DATE OF ADMISSION: DATE OF DISCHARGE: DISCHARGE DIAGNOSES: CONDITION AT THE TIME OF DISCHARGE: MENTAL STATUS EXAM AT DISCHARGE: DISCHARGE INSTRUCTIONS: A. MEDICATIONS: B. DIET: C. ACTIVITIES: TOLERATED NICOTINE REPLACEMENT THERAPY WAS OFFERED BUT THE PATIENT DECLINED IT, INDICATING THAT HIS PREFERENCE IS TO CONTINUE SMOOKING FOR THE TIME BEING. DESPITE THIS, HE WAS GIVEN THE [facility] QUITLINE WHICH IS [phone] THERE ARE NO LABORATORY OR DIAGNOSTIC STUDIES PENDING AT THE TIME OF DISCHARGE. D. FOLLOW UP CARE: E. SUBSTANCE ABUSE FOLLOWUP: ATTENDING PSYCHIATRIST HOSPITAL COURSE: PART A. REASON FOR ADMISSION: HOSPITAL COURSE : PART B PSYCHIATRIC TREATMENT RENDERED: MARK TAO DO Discharge Planning - Discharge Planning Medications: Current Medications Acetaminophen (Tylenol Tab*) 650 mg PO Q4H PRN PRN Reason: for pain; or Temp >101 F Al Hydrox/Mg Hydrox/Simethicone (Maalox Plus*) 30 ml PO Q4H PRN PRN Reason: INDIGESTION Last Admin: 05/25/17 10:33 Dose: 30 ml Aspirin (Aspirin Low Dose Tab*) 81 mg PO DAILY [facility] Last Admin: 05/25/17 09:08 Dose: 81 mg Atorvastatin Calcium (Lipitor*) 10 mg PO BEDTIME [facility] Last Admin: 05/24/17 21:51 Dose: 10 mg Benztropine Mesylate (Cogentin Tab*) 0.5 mg PO TID@0800,1200,1600 [facility] Last Admin: 05/25/17 12:05 Dose: 0.5 mg Cholecalciferol (Vitamin D Tab*) 1,000 units PO DAILY [facility] Last Admin: 05/25/17 09:08 Dose: 1,000 units Divalproex Sodium (Depakote Er Tab(*)) 500 mg PO BEDTIME [facility] Last Admin: 05/24/17 21:51 Dose: 500 mg Haloperidol (Haldol Tab*) 2 mg PO Q4H PRN PRN Reason: agitation/psychosis Last Admin: 05/13/17 09:05 Dose: 2 mg Hydrochlorothiazide (Hydrodiuril Tab*) 25 mg PO DAILY [facility] Last Admin: 05/25/17 09:08 Dose: 25 mg Hydrocortisone (Hytone Cream 1%*) 1 applic TOPICAL TID PRN PRN Reason: RASH Ibuprofen (Motrin Tab*) 600 mg PO Q6H PRN PRN Reason: PAIN Lorazepam (Ativan Tab(*)) 0.5 mg PO TID@0800,1200,1600 [facility] Last Admin: 05/25/17 12:06 Dose: 0.5 mg Multivitamins (Theragran Tab*) 1 tab PO DAILY [facility] Last Admin: 05/25/17 09:09 Dose: 1 tab Nicotine Polacrilex (Nicotine Gum*) 2 mg PO Q2H PRN PRN Reason: CRAVING Nitroglycerin (Nitroglycerin Tab 0.4 Mg*) 0.4 mg SL Q5M PRN PRN Reason: PAIN - CHEST Trazodone HCl (Desyrel Tab*) 200 mg PO BEDTIME [facility] Last Admin: 05/24/17 21:51 Dose: 200 mg Discharge Planning: Prescriptions provided for discharge [] Yes [] No Follow up care details as per social work arrangements. Patient response to discharge plan: [] eager for discharge [] agreeable with discharge plan [] ambivalent about discharge [] disagrees with discharge today
== END 2017-05-25 11:35 | DRG 885 ==
LOC: ED 23:34 → BSU 05-15 19:13 → ED 05-15 19:25 → BSU 05-22 10:50
PROVIDERS: ADMIT Psychiatry & Neurology Psychiatry; ATTEND Psychiatry & Neurology Psychiatry
PROC: GZHZZZZ Group Psychotherapy (ICD-10-PCS; principal; 2017-05-17)
DX: F31.2 Bipolar disorder, current episode manic severe with psychotic features (principal); F17.200 Nicotine dependence, unspecified, uncomplicated; I25.10 Atherosclerotic heart disease of native coronary artery without angina pectoris; E78.5 Hyperlipidemia, unspecified; I10 Essential (primary) hypertension; F41.9 Anxiety disorder, unspecified; F43.10 Post-traumatic stress disorder, unspecified; Z87.820 Personal history of traumatic brain injury; Z88.1 Allergy status to other antibiotic agents; I25.2 Old myocardial infarction; Z91.14 Patient's other noncompliance with medication regimen; Z88.8 Allergy status to other drugs, medicaments and biological substances; Z81.8 Family history of other mental and behavioral disorders; G25.71 Drug induced akathisia; T44.995A Adverse effect of other drug primarily affecting the autonomic nervous system, initial encounter; Y92.239 Unspecified place in hospital as the place of occurrence of the external cause
CPT/HCPCS: 36415; 80053; 80164; 80307; 80320; 80329; 81003; 84443; 85025; 90853; 93005; 99222; 99231; 99238; 99285; 99406; A9270-GY; G0480; J2426

== ENCOUNTER 2017-10-02 14:09 | Emergency (ER) | payer MEDICARE, OTHER ==
[2017-10-02 15:14] LABS: ABS Basophils 0.1 10^3/ul (0-0.2); ABS Eosinophils 0.2 10^3/ul (0-0.6); ABS Lymphocytes 1.8 10^3/ul (1.0-4.8); ABS Monocytes 0.7 10^3/ul (0-0.8); ABS Neutrophils 5.3 10^3/ul (1.5-7.7); ABS Nucleated RBC 0 10^3/ul; Eosinophil % 2.1 % (0-6); Hematocrit 41 % (42-52); Hemoglobin 14.2 g/dl (14.0-18.0); Mean Corpuscular HGB Conc 34 g/dl (31-36); Mean Corpuscular Hemoglobin 30 pg (27-31); Mean Corpuscular Volume 88 fL (80-94); Mean Platelet Volume 6.7 um3 (7.4-10.4); Nucleated Red Blood Cells % 0; Platelet Count 209 10^3/ul (150-450); Red Cell Distribution Width 16 % (10.5-15); White Blood Count 8.1 10^3/ul (3.5-10.8)
--- NOTE | 2017-10-02 15:15 | RAD ---
Indication: Chest pain. Single frontal view of the chest performed at 1459 hours was reviewed. Comparison is made with previous exam dated July 25, 2014. No mediastinal shift is noted. Heart is of normal size and configuration. Lung vallejo appear clear. IMPRESSION: NO ACTIVE CARDIOPULMONARY DISEASE IS NOTED.
[2017-10-02 15:25] LABS: INR 1.01 (0.77-1.02)
[2017-10-02 15:58] LABS: EGFR Non-African American 71.5 (>60)
[2017-10-02 16:49] LABS: Urine Appearance Cloudy; Urine Blood Negative (Negative); Urine Color Yellow; Urine Ketones Trace (Negative); Urine Protein Negative (Negative); Urine Specific Gravity 1.027 (1.010-1.030); Urine Urobilinogen Negative (Negative)
--- NOTE | 2017-10-02 17:05 | ED ---
HPI Chest Pain - HPI Summary HPI Summary: The patient is a 67 y/o male with a PMHx of anxiety attacks BIBA to the [facility] c/ o CP from 12:00 noon today. The pain is rated 2/10 and is described as "a pressure against the chest." He thought he was having a TN. The pt reports that the sx are not similar to any in his past panic attacks. He notes anxiety, difficulty breathing, and lightheadedness but denies nausea and vomiting. This is teofiloibe Susie Dempsey documenting for attending Dr. Brock MD. - History of Current Complaint Chief Complaint: EDChestPainROMI Time Seen by Provider: 10/02/17 14:49 Hx Obtained From: Patient Onset/Duration: Started Hours Ago - 2 hrs [employer] Time of Onset: 12:00 Timing: Constant Initial Severity: Mild - 4 Current Severity: Mild Pain Intensity: 2 Pain Scale Used: 0-10 Numeric Chest Pain Location: Diffuse Character: Pressure/Squeezing Associated Signs and Symptoms: Positive: Chest Pain, Anxiety, Shortness of Breath, Lightheadedness. Negative: Nausea, Vomiting - Additional Pertinent History Primary Care Physician: [id number] - Allergy/Home Medications Allergies/Adverse Reactions: Allergies Allergy/AdvReac Type Severity Reaction Status Date / Time bacitracin Allergy Unknown Verified 10/02/17 14:34 Reaction Details neomycin Allergy Unknown Verified 10/02/17 14:34 [From Triple Antibiotic] Reaction Details polymyxin B Allergy Unknown Verified 10/02/17 14:34 [From Triple Antibiotic] Reaction Details thiothixene Allergy Unknown Verified 10/02/17 14:34 Reaction Details trifluoperazine Allergy Unknown Verified 10/02/17 14:34 [From Stelazine] Reaction Details trifluridine Allergy Unknown Verified 10/02/17 14:34 Reaction Details Stetlazine Allergy Unknown Unknown Uncoded 05/11/17 09:29 Reaction Details Home Medications: Home Medications Aspirin EC TAB* [Ecotrin EC Low Dose 81 MG*] 81 mg PO DAILY 10/02/17 [History Confirmed 10/02/17] Atorvastatin* [Lipitor*] 5 mg PO DAILY 10/02/17 [History Confirmed 10/02/17] Cholecalciferol (Vitamin D3) [Vitamin D3] 1,000 unit PO DAILY 10/02/17 [History Confirmed 10/02/17] Divalproex Sprinkle CAP* [Depakote Sprinkle CAP*] 250 mg PO QAM 10/02/17 [ History Confirmed 10/02/17] Divalproex Sprinkle CAP* [Depakote Sprinkle CAP*] 500 mg PO BEDTIME 10/02/17 [ History Confirmed 10/02/17] Hydrochlorothiazide TAB* [Hydrodiuril TAB*] 25 mg PO QAM 10/02/17 [History Confirmed 10/02/17] LORazepam TAB(*) [Ativan 1 MG TAB (*)] 1 mg PO DAILY PRN 10/02/17 [History Confirmed 10/02/17] Sodium Fluoride/Potassium Nit [Prevident 5000 Enamel Pro] 1 pst PO BID 10/02/17 [History Confirmed 10/02/17] traZODone TAB* [Desyrel TAB*] 100 mg PO BEDTIME 10/02/17 [History Confirmed 09/12] PMH/Surg Hx/FS Hx/Imm Hx Previously Healthy: No Endocrine/Hematology History: Denies: Hx Anticoagulant Therapy, Hx Diabetes, Hx Thyroid Disease, Other Endocrine/Hematological Disorders Cardiovascular History: Reports: Hx Angina, Hx Coronary Artery Disease, Hx Hypercholesterolemia, Hx Hypertension Denies: Hx Congestive Heart Failure, Hx Pacemaker/ICD, Other Cardiovascular Problems/Disorders Respiratory History: Denies: Hx Asthma, Hx Chronic Obstructive Pulmonary Disease (COPD), Other Respiratory Problems/Disorders GI History: Reports: Hx Diverticulosis Denies: Other GI Disorders History: Denies: Hx Renal Disease, Other Problems/Disorders Musculoskeletal History: Denies: Other Musculoskeletal History Sensory History: Denies: Hx Contacts or Glasses, Hx Hearing Aid, Other Sensory Impairments Opthamlomology History: Denies: Hx Contacts or Glasses, Other Sensory Impairments Neurological History: Denies: Hx Dementia, Hx Seizures, Other Neuro Impairments/Disorders Psychiatric History: Reports: Hx Anxiety, Hx Post Traumatic Stress Disorder, Hx Inpatient Treatment, Hx Community Mental Health Tx, Hx Schizophrenia, Hx of Violent Episodes Against Others, Other Psychiatric Issues/Disorders - pt states strong clausterphobia, OCD Denies: Hx Eating Disorder, Hx Substance Abuse - Surgical History Surgery Procedure, Year, and Place: right forearm/ wrist break, pins placed - Immunization History Date of Tetanus Vaccine: UTD Date of Influenza Vaccine: NONE Infectious Disease History: No Infectious Disease History: Denies: Hx Hepatitis, Hx Human Immunodeficiency Virus (HIV), Traveled Outside the [place] in Last 30 Days - Family History Known Family History: Positive: Unknown - Social History Occupation: Disabled Lives: Alone Alcohol Use: None Alcohol Amount: 3 beers a week Substance Use Type: Reports: None Substance Use Comment - Amount & Last Used: states occassional marijuana use Hx Tobacco Use: No Smoking Status (MU): Former Smoker Type: Cigarettes Amount Used/How Often: 1/2 pack or less daily Length of Time of Smoking/Using Tobacco: states he quit in the ''s Have You Smoked in the Last Year: Yes Review of Systems Constitutional: Negative - Lightheadedness Positive: Chest Pain Positive: Shortness Of Breath Negative: Vomiting, Nausea Positive: Anxious All Other Systems Reviewed And Are Negative: Yes Physical Exam - Summary Physical Exam Summary: VITAL SIGNS: Reviewed. GENERAL: Patient is a well-developed and nourished male who is lying comfortable in the stretcher. Patient is not in any acute respiratory distress. HEAD AND FACE: Normocephalic EYES: PERRLA, EOMI x 2. EARS: Hearing grossly intact. MOUTH: Oropharynx within normal limits. NECK: Supple, trachea is midline, no adenopathy, no JVD, no carotid bruit. CHEST: Symmetric, no tenderness at palpation LUNGS: Clear to auscultation bilaterally. No wheezing or crackles. CVS: Regular rate and rhythm, S1 and S2 present, no murmurs or gallops appreciated. ABDOMEN: Soft, non-tender. Bowel sounds are normal. No abdominal abnormal pulsations. EXTREMITIES: Full ROM in all major joints, no edema, no cyanosis or clubbing. NEURO: Alert and oriented x 3. No acute neurological deficits. Speech is normal and follows commands. SKIN: Dry and warm Triage Information Reviewed: Yes Vital Signs On Initial Exam: Initial Vitals Temp Pulse Resp BP Pulse Ox 98.4 F 65 16 105/70 97 10/02/17 14:21 10/02/17 14:21 10/02/17 14:21 10/02/17 14:21 10/02/17 14:21 Vital Signs Reviewed: Yes Diagnostics - Vital Signs Vital Signs Temp Pulse Resp BP Pulse Ox 10/02/17 16:52 69 10 131/66 96 10/02/17 16:38 70 15 97 10/02/17 16:37 71 17 119/66 97 10/02/17 15:22 63 16 117/91 98 10/02/17 15:01 97 10/02/17 15:00 59 15 98 10/02/17 14:52 60 14 110/71 96 10/02/17 14:21 98.4 F 65 16 105/70 97 - Laboratory Lab Results: Lab Results 10/02/17 10/02/17 10/02/17 Range/Units 15:02 15:02 15:02 WBC 8.1 (3.5-10.8) 10^3/ul RBC 4.70 (4.00-5.40) 10^6/ul Hgb 14.2 (14.0-18.0) g/dl Hct 41 L (42-52) % MCV 88 (80-94) fL MCH 30 (27-31) pg MCHC 34 (31-36) g/dl RDW 16 H (10.5-15) % Plt Count 209 (150-450) 10^3/ul MPV 6.7 L (7.4-10.4) um3 Neut % (Auto) 66.1 (38-83) % Lymph % (Auto) 22.0 L (25-47) % Erath % (Auto) 9.1 H (0-7) % Eos % (Auto) 2.1 (0-6) % Baso % (Auto) 0.7 (0-2) % Absolute Neuts (auto) 5.3 (1.5-7.7) 10^3/ul Absolute Lymphs (auto) 1.8 (1.0-4.8) 10^3/ul Absolute Monos (auto) 0.7 (0-0.8) 10^3/ul Absolute Eos (auto) 0.2 (0-0.6) 10^3/ul Absolute Basos (auto) 0.1 (0-0.2) 10^3/ul Absolute Nucleated RBC 0 10^3/ul Nucleated RBC % 0 INR (Anticoag Therapy) 1.01 (0.77-1.02) APTT 29.6 (26.0-36.3) seconds Sodium 141 (135-145) mmol/L Potassium 3.9 (3.5-5.0) mmol/L Chloride 108 (101-111) mmol/L Carbon Dioxide 24 (22-32) mmol/L Anion Gap 9 (2-11) mmol/L BUN 31 H (6-24) mg/dL Creatinine 1.04 (0.67-1.17) mg/dL Est GFR ( Amer) 86.5 (>60) Est GFR (Non-Af Amer) 71.5 (>60) BUN/Creatinine Ratio 29.8 H (8-20) Glucose 83 (70-100) mg/dL Lactic Acid (0.5-2.0) mmol/L Calcium 9.3 (8.6-10.3) mg/dL Magnesium 2.1 (1.9-2.7) mg/dL Total Bilirubin 0.60 (0.2-1.0) mg/dL AST 18 (13-39) U/L ALT 18 (7-52) U/L Alkaline Phosphatase 75 (34-104) U/L Total Creatine Kinase 121 (10-223) U/L CK-MB (CK-2) 1.7 (0.6-6.3) ng/mL Troponin I 0.00 (<0.04) ng/mL B-Natriuretic Peptide ( - 100) pg/mL Total Protein 7.1 (6.4-8.9) g/dL Albumin 4.1 (3.2-5.2) g/dL Globulin 3.0 (2-4) g/dL Albumin/Globulin Ratio 1.4 (1-3) TSH 1.90 (0.34-5.60) mcIU/mL Urine Color Urine Appearance Urine pH (5-9) Ur Specific [place] (1.010-1.030) Urine Protein (Negative) Urine Ketones (Negative) Urine Blood (Negative) Urine Nitrate (Negative) Urine Bilirubin (Negative) Urine Urobilinogen (Negative) Ur Leukocyte Esterase (Negative) Urine Glucose (Negative) Urine Ascorbic Acid (Negative) 10/02/17 10/02/17 10/02/17 Range/Units 15:02 15:02 16:35 WBC (3.5-10.8) 10^3/ul RBC (4.00-5.40) 10^6/ul Hgb (14.0-18.0) g/dl Hct (42-52) % MCV (80-94) fL MCH (27-31) pg MCHC (31-36) g/dl RDW (10.5-15) % Plt Count (150-450) 10^3/ul MPV (7.4-10.4) um3 Neut % (Auto) (38-83) % Lymph % (Auto) (25-47) % Erath % (Auto) (0-7) % Eos % (Auto) (0-6) % Baso % (Auto) (0-2) % Absolute Neuts (auto) (1.5-7.7) 10^3/ul Absolute Lymphs (auto) (1.0-4.8) 10^3/ul Absolute Monos (auto) (0-0.8) 10^3/ul Absolute Eos (auto) (0-0.6) 10^3/ul Absolute Basos (auto) (0-0.2) 10^3/ul Absolute Nucleated RBC 10^3/ul Nucleated RBC % INR (Anticoag Therapy) (0.77-1.02) APTT (26.0-36.3) seconds Sodium (135-145) mmol/L Potassium (3.5-5.0) mmol/L Chloride (101-111) mmol/L Carbon Dioxide (22-32) mmol/L Anion Gap (2-11) mmol/L BUN (6-24) mg/dL Creatinine (0.67-1.17) mg/dL Est GFR ( Amer) (>60) Est GFR (Non-Af Amer) (>60) BUN/Creatinine Ratio (8-20) Glucose (70-100) mg/dL Lactic Acid 0.9 (0.5-2.0) mmol/L Calcium (8.6-10.3) mg/dL Magnesium (1.9-2.7) mg/dL Total Bilirubin (0.2-1.0) mg/dL AST (13-39) U/L ALT (7-52) U/L Alkaline Phosphatase (34-104) U/L Total Creatine Kinase (10-223) U/L CK-MB (CK-2) (0.6-6.3) ng/mL Troponin I (<0.04) ng/mL B-Natriuretic Peptide 25 ( - 100) pg/mL Total Protein (6.4-8.9) g/dL Albumin (3.2-5.2) g/dL Globulin (2-4) g/dL Albumin/Globulin Ratio (1-3) TSH (0.34-5.60) mcIU/mL Urine Color Yellow Urine Appearance Cloudy Urine pH 6.0 (5-9) Ur Specific [place] 1.027 (1.010-1.030) Urine Protein Negative (Negative) Urine Ketones Trace A (Negative) Urine Blood Negative (Negative) Urine Nitrate Negative (Negative) Urine Bilirubin Negative (Negative) Urine Urobilinogen Negative (Negative) Ur Leukocyte Esterase Negative (Negative) Urine Glucose Negative (Negative) Urine Ascorbic Acid * A (Negative) Result Diagrams: 10/02/17 15:02 10/02/17 15:02 Lab Statement: Any lab studies that have been ordered have been reviewed, and results considered in the medical decision making process. - Radiology CXR Radiology Interpretation Completed By: Radiologist - IMPRESSION: NO ACTIVE CARDIOPULMONARY DISEASE IS NOTED. The ED physician has reviewed this radiology report. - EKG 14:38 Cardiac Rate: NL - 60 bpm EKG Rhythm: Sinus Rhythm - Normal EKG Interpretation: No STEMI Chest Pain Course/Dx - Course Assessment/Plan: This patient is a 67-year-old male who presents to the emergency department with a chief complaint of having shortness of breath and chest pain. He reports that he is feeling that she is having panic attacks. The patient denies any nausea vomiting, palpitations or diaphoresis. Blood test results without any significant abnormality. 2 troponins 4 hours apart as 0.00. EKG shows no ST elevation. Chest x-ray shows no acute pathology. In the ED course and the patient has been stable. His chest pain and shortness of breath subsided. The patient is eating and drinking without any nausea vomiting or any other complaint. Therefore the patient will be discharged home with follow-up with PCP. Patients hemoglobin medically stable alert and to 3. - Diagnoses Provider Diagnoses: Atypical chest pain Discharge - Sign-Out/Discharge Documenting (check all that apply): Patient Departure - DC - Discharge Plan Condition: Stable Disposition: HOME Patient Education Materials: Chest Pain (ED) Referrals: No Primary Care Phys,NOPCP [Primary Care Provider] - 3 Days Additional Instructions: RETURN TO THE ED FOR ANY WORSENING OR NEW SYMPTOMS. Attestation Statement Scribe Attestation: This is ruth Dempsey documenting for attending Dr. Brock MD User Type: Provider with Scribe - I, Dr. Yehuda Gutiérrez MD , personally performed the services described in this documentation as scribed in my presence and it is both accurate and complete. Provider Attestation: The documentation recorded by the scribe accurately reflects the service I personally performed and the decisions made by me.
[2017-10-02 18:42] VITALS: BP 144/70
== END 2017-10-02 18:40 | disposition home or self-care (01) ==
LOC: ED 14:09
DX: R07.89 Other chest pain (principal); R06.02 Shortness of breath; F41.9 Anxiety disorder, unspecified; I10 Essential (primary) hypertension; Z79.899 Other long term (current) drug therapy; Z87.891 Personal history of nicotine dependence; Z88.3 Allergy status to other anti-infective agents; Z88.8 Allergy status to other drugs, medicaments and biological substances
CPT/HCPCS: 36415; 71045; 80053; 81003; 82550; 82553; 83605; 83735; 83880; 84443; 84484; 85025; 85610; 85730; 93005; 99284

== ENCOUNTER 2017-10-08 13:44 | Emergency (ER) | payer MEDICARE ==
--- NOTE | 2017-10-08 14:08 | ED ---
Altered Mental Status - HPI Summary HPI Summary: This is scribe Sulaiman Fernandes documenting for attending Yehuda Gutiérrez MD. This patient is a 67 year old M presenting to [facility] with a chief complaint of a panic attack since [employer]. Patient reports SOB and CP. He was given a nitroglycerin tablet which did not alleviate his symptoms, but after being given Ativan, his symptoms resolved. Patient no longer has any complaints. He lives in [facility]. I, Dr. Gutiérrez, personally performed the services described in this documentation as scribed in my presence, and it is both accurate and complete. - History Of Current Complaint Chief Complaint: EDShortnessOfBreath Stated Complaint: CHEST PAIN Time Seen by Provider: 10/08/17 13:55 Hx Obtained From: Patient Onset/Duration: Resolved Timing: Lasting Minutes Severity Initially: Moderate Severity Currently: None Aggravating Factor(s): Nothing Alleviating Factor(s): Medication - Ativan - Allergies/Home Medications Allergies/Adverse Reactions: Allergies Allergy/AdvReac Type Severity Reaction Status Date / Time bacitracin Allergy Unknown Verified 10/02/17 14:34 Reaction Details neomycin Allergy Unknown Verified 10/02/17 14:34 [From Triple Antibiotic] Reaction Details polymyxin B Allergy Unknown Verified 10/02/17 14:34 [From Triple Antibiotic] Reaction Details thiothixene Allergy Unknown Verified 10/02/17 14:34 Reaction Details trifluoperazine Allergy Unknown Verified 10/02/17 14:34 [From Stelazine] Reaction Details trifluridine Allergy Unknown Verified 10/02/17 14:34 Reaction Details Stetlazine Allergy Unknown Unknown Uncoded 05/11/17 09:29 Reaction Details Home Medications: Home Medications Aspirin EC TAB* [Ecotrin EC Low Dose 81 MG*] 81 mg PO DAILY 10/08/17 [History Confirmed 10/08/17] Cholecalciferol TAB* [Vitamin D TAB*] 1,000 unit PO DAILY 10/08/17 [History Confirmed 10/08/17] Divalproex Sprinkle CAP* [Depakote Sprinkle CAP*] 250 mg PO QAM 10/08/17 [ History Confirmed 10/08/17] Divalproex Sprinkle CAP* [Depakote Sprinkle CAP*] 500 mg PO BEDTIME 10/08/17 [ History Confirmed 10/08/17] LORazepam TAB(*) [Ativan 0.5 MG TAB (*)] 0.5 mg PO TID MDD 1.5 mg 10/08/17 [ History Confirmed 10/08/17] traZODone TAB* [Desyrel TAB*] 100 mg PO BEDTIME 10/08/17 [History Confirmed ] PMH/Surg Hx/FS Hx/Imm Hx Endocrine/Hematology History: Denies: Hx Anticoagulant Therapy, Hx Diabetes, Hx Thyroid Disease, Other Endocrine/Hematological Disorders Cardiovascular History: Reports: Hx Angina, Hx Coronary Artery Disease, Hx Hypercholesterolemia, Hx Hypertension Denies: Hx Congestive Heart Failure, Hx Pacemaker/ICD, Other Cardiovascular Problems/Disorders Respiratory History: Denies: Hx Asthma, Hx Chronic Obstructive Pulmonary Disease (COPD), Other Respiratory Problems/Disorders GI History: Reports: Hx Diverticulosis Denies: Other GI Disorders History: Denies: Hx Renal Disease, Other Problems/Disorders Musculoskeletal History: Denies: Other Musculoskeletal History Sensory History: Denies: Hx Contacts or Glasses, Hx Hearing Aid, Other Sensory Impairments Opthamlomology History: Denies: Hx Contacts or Glasses, Other Sensory Impairments Neurological History: Denies: Hx Dementia, Hx Seizures, Other Neuro Impairments/Disorders Psychiatric History: Reports: Hx Anxiety, Hx Post Traumatic Stress Disorder, Hx Inpatient Treatment, Hx Community Mental Health Tx, Hx Schizophrenia, Hx of Violent Episodes Against Others, Other Psychiatric Issues/Disorders - pt states strong clausterphobia, OCD Denies: Hx Eating Disorder, Hx Substance Abuse - Surgical History Surgery Procedure, Year, and Place: right forearm/ wrist break, pins placed - Immunization History Date of Tetanus Vaccine: UTD Date of Influenza Vaccine: NONE Infectious Disease History: No Infectious Disease History: Denies: Hx Hepatitis, Hx Human Immunodeficiency Virus (HIV), Traveled Outside the [place] in Last 30 Days - Family History Known Family History: Negative: Diabetes - Social History Occupation: Disabled Lives: At [facility] [employer] Alcohol Use: None Alcohol Amount: 3 beers a week Substance Use Type: Reports: None Substance Use Comment - Amount & Last Used: states occassional marijuana use Hx Tobacco Use: No Smoking Status (MU): Former Smoker Type: Cigarettes Amount Used/How Often: 1/2 pack or less daily Length of Time of Smoking/Using Tobacco: states he quit in the '70's Have You Smoked in the Last Year: Yes Review of Systems Positive: Chest Pain Positive: Shortness Of Breath Neurological: Other - Panic attack All Other Systems Reviewed And Are Negative: Yes Physical Exam - Summary Physical Exam Summary: VITAL SIGNS: Reviewed. GENERAL: Patient is a well-developed and nourished MALE who is lying comfortable in the stretcher. Patient is not in any acute respiratory distress. HEAD AND FACE: No signs of trauma. No ecchymosis, hematomas or skull depressions. No sinus tenderness. EYES: PERRLA, EOMI x 2, No injected conjunctiva, no nystagmus. EARS: Hearing grossly intact. Ear canals and tympanic membranes are within normal limits. MOUTH: Oropharynx within normal limits. NECK: Supple, trachea is midline, no adenopathy, no JVD, no carotid bruit, no c- spine tenderness, neck with full ROM. CHEST: Symmetric, no tenderness at palpation LUNGS: Clear to auscultation bilaterally. No wheezing or crackles. CVS: Regular rate and rhythm, S1 and S2 present, no murmurs or gallops appreciated. ABDOMEN: Soft, non-tender. No signs of distention. No rebound no guarding, and no masses palpated. Bowel sounds are normal. EXTREMITIES: FROM in all major joints, no edema, no cyanosis or clubbing. NEURO: Alert and oriented x 3. No acute neurological deficits. Speech is normal and follows commands. SKIN: Dry and warm Triage Information Reviewed: Yes Vital Signs On Initial Exam: Initial Vitals Temp Pulse Resp BP Pulse Ox 98.7 F 70 17 120/65 94 10/08/17 13:49 10/08/17 13:49 10/08/17 13:49 10/08/17 13:49 10/08/17 13:49 Vital Signs Reviewed: Yes Diagnostics - Vital Signs Vital Signs Temp Pulse Resp BP Pulse Ox 10/08/17 13:49 98.7 F 70 17 120/65 94 - Laboratory Result Diagrams: 10/08/17 14:21 10/08/17 14:21 Lab Statement: Any lab studies that have been ordered have been reviewed, and results considered in the medical decision making process. - Radiology Chest X-Ray Radiology Interpretation Completed By: Radiologist - 14:30. NO ACTIVE CARDIOPULMONARY DISEASE. ED Physician has reviewed this report. - EKG No standard instances Cardiac Rate: NL - 61 BPM EKG Rhythm: Sinus Rhythm EKG Interpretation: 14:07. Right bundle branch block. Altered Mental Statu Course/Dx - Course Assessment/Plan: This patient is a 67-year-old male who presents to the emergency department with a chief complaint of having chest pain and shortness of breath. Patient also reports that he has history of panic attacks and anxiety and dyspnea like his usual panic attacks. He reports that he was given nitroglycerin without any improvement symptoms. Then the patient was given Ativan the symptoms resolved. Right now in the emergency department the patient is asymptomatic. All blood test results without any significant abnormality. The patients troponin is 0.00. EKG shows no ST elevations. I believe that his symptoms are secondary to the anxiety. I discussed all the findings and test results with the patient. Patient was instructed to return to the emergency room immediately if any of the symptoms return or worsens. Plan of care was discussed with the patient and understands and agrees. All questions were answered at patient satisfaction. There were no further complaints or concerns. Lung exam before discharge: CTA B/L. Good air exchange. No wheezing or crackles heard. CVS: S1 and S2 present. No murmurs appreciated. Patient is alert and oriented x 3. Patient is hemodynamically stable. Patient will be discharged home with follow up PCP in the next 2-3 days - Diagnoses Differential Diagnosis/HQI/PQRI: Hypoglycemia, Metabolic Disorder, Other - Angina, anxiety, panic attacks Provider Diagnoses: Panic attack Discharge - Sign-Out/Discharge Documenting (check all that apply): Patient Departure - D/C - Discharge Plan Condition: Stable Disposition: HOME Patient Education Materials: Panic Attack (ED) Referrals: No Primary Care Phys,NOPCP [Primary Care Provider] - (Follow up with [facility] in 3 days.) Additional Instructions: RETURN TO THE ED FOR ANY WORSENING OR NEW SYMPTOMS. Follow up with [facility] in 3 days time.
--- NOTE | 2017-10-08 14:33 | RAD ---
HISTORY: CP, chest pain COMPARISONS: October 02, 2014 VIEWS: 1: frontal portable view of the chest at 2:15 PM FINDINGS: LINES AND TUBES: None. CARDIOMEDIASTINAL SILHOUETTE: The cardiomediastinal silhouette is normal for portable technique. PLEURA: The costophrenic angles are sharp. No pleural abnormalities are noted. LUNG PARENCHYMA: The lungs are clear. ABDOMEN: The upper abdomen is clear. There is no subphrenic gas. BONES AND SOFT TISSUES: No bone or soft tissue abnormalities are noted. IMPRESSION: NO ACTIVE CARDIOPULMONARY DISEASE.
[2017-10-08 14:37] LABS: ABS Basophils 0 10^3/ul (0-0.2); ABS Eosinophils 0.2 10^3/ul (0-0.6); ABS Lymphocytes 1.5 10^3/ul (1.0-4.8); ABS Monocytes 0.5 10^3/ul (0-0.8); ABS Neutrophils 4.9 10^3/ul (1.5-7.7); ABS Nucleated RBC 0 10^3/ul; Eosinophil % 2.1 % (0-6); Hematocrit 40 % (42-52); Hemoglobin 13.9 g/dl (14.0-18.0); Lymphocyte % 21.8 % (25-47); Mean Corpuscular HGB Conc 34 g/dl (31-36); Mean Corpuscular Hemoglobin 30 pg (27-31); Mean Corpuscular Volume 88 fL (80-94); Mean Platelet Volume 6.8 um3 (7.4-10.4); Nucleated Red Blood Cells % 0.1; Platelet Count 214 10^3/ul (150-450); Red Cell Distribution Width 16 % (10.5-15); White Blood Count 7.1 10^3/ul (3.5-10.8)
[2017-10-08 14:55] LABS: EGFR Non-African American 72.3 (>60)
[2017-10-08 15:52] VITALS: BP 112/75
== END 2017-10-08 16:00 | disposition home or self-care (01) ==
LOC: ED 13:44
DX: F41.0 Panic disorder [episodic paroxysmal anxiety] (principal); R07.9 Chest pain, unspecified; R06.02 Shortness of breath; F20.9 Schizophrenia, unspecified; F43.10 Post-traumatic stress disorder, unspecified; F42.9 Obsessive-compulsive disorder, unspecified; F40.240 Claustrophobia; I45.10 Unspecified right bundle-branch block; Z79.899 Other long term (current) drug therapy; Z87.891 Personal history of nicotine dependence; Z88.3 Allergy status to other anti-infective agents; Z88.8 Allergy status to other drugs, medicaments and biological substances
CPT/HCPCS: 36415; 71045; 80053; 82553; 83605; 83735; 83880; 84484; 85025; 93005; 99283

== ENCOUNTER 2017-10-19 15:08 | Emergency (ER) | payer MEDICARE ==
--- NOTE | 2017-10-19 15:38 | ED ---
Psychiatric Complaint - HPI Summary HPI Summary: The pt is a 67 y/o male BIBA to [facility] co racing thoughts and anxiety since 15: 15 today. He notes sniffling, CP, dyspnea, PHAN, SOB, CP, and epigastric pain but denies ear ache , dysuria , and hallucinations. He thinks that his medications are not working and requests a MHE. He has previously been admitted to to a psychiatric unit. - History Of Current Complaint Chief Complaint: EDMentalHealth Hx Obtained From: Patient Onset/Duration: Gradual Onset, Still Present, Worse Since - 15:15 today Character: Anxious Associated Signs And Symptoms: Positive: Negative - ear ache , dysuria , and hallucinations. Negative: Hallucinating Related History: Positive For: Prior Psychiatric Issues - Allergies/Home Medications Allergies/Adverse Reactions: Allergies Allergy/AdvReac Type Severity Reaction Status Date / Time bacitracin Allergy Unknown Verified 10/19/17 15:14 Reaction Details neomycin Allergy Unknown Verified 10/19/17 15:14 [From Triple Antibiotic] Reaction Details polymyxin B Allergy Unknown Verified 10/19/17 15:14 [From Triple Antibiotic] Reaction Details thiothixene Allergy Unknown Verified 10/19/17 15:14 Reaction Details trifluoperazine Allergy Unknown Verified 10/19/17 15:14 [From Stelazine] Reaction Details trifluridine Allergy Unknown Verified 10/19/17 15:14 Reaction Details Stetlazine Allergy Unknown Unknown Uncoded 10/19/17 15:14 Reaction Details PMH/Surg Hx/FS Hx/Imm Hx Previously Healthy: No Endocrine/Hematology History: Denies: Hx Anticoagulant Therapy, Hx Diabetes, Hx Thyroid Disease, Other Endocrine/Hematological Disorders Cardiovascular History: Reports: Hx Angina, Hx Coronary Artery Disease, Hx Hypercholesterolemia, Hx Hypertension Denies: Hx Congestive Heart Failure, Hx Pacemaker/ICD, Other Cardiovascular Problems/Disorders Respiratory History: Denies: Hx Asthma, Hx Chronic Obstructive Pulmonary Disease (COPD), Other Respiratory Problems/Disorders GI History: Reports: Hx Diverticulosis Denies: Other GI Disorders History: Denies: Hx Renal Disease, Other Problems/Disorders Musculoskeletal History: Denies: Other Musculoskeletal History Sensory History: Denies: Hx Contacts or Glasses, Hx Hearing Aid, Other Sensory Impairments Opthamlomology History: Denies: Hx Contacts or Glasses, Other Sensory Impairments Neurological History: Denies: Hx Dementia, Hx Seizures, Other Neuro Impairments/Disorders Psychiatric History: Reports: Hx Anxiety, Hx Post Traumatic Stress Disorder, Hx Inpatient Treatment, Hx Community Mental Health Tx, Hx Schizophrenia, Hx of Violent Episodes Against Others, Other Psychiatric Issues/Disorders - pt states strong clausterphobia, OCD Denies: Hx Eating Disorder, Hx Substance Abuse - Surgical History Surgery Procedure, Year, and Place: right forearm/ wrist break, pins placed - Immunization History Date of Tetanus Vaccine: UTD Date of Influenza Vaccine: NONE Infectious Disease History: No Infectious Disease History: Denies: Hx Hepatitis, Hx Human Immunodeficiency Virus (HIV), Traveled Outside the [place] in Last 30 Days - Family History Known Family History: Positive: Unknown Negative: Diabetes - Social History Occupation: Disabled Lives: Alone Alcohol Use: Occasionally Alcohol Amount: 3 beers a week Substance Use Type: Reports: Marijuana Substance Use Comment - Amount & Last Used: states occassional marijuana use Hx Tobacco Use: No Smoking Status (MU): Former Smoker Type: Cigarettes Amount Used/How Often: 1/2 pack or less daily Length of Time of Smoking/Using Tobacco: states he quit in the '70's Have You Smoked in the Last Year: Yes Review of Systems Negative: Fever, Chills Negative: Blurred Vision Negative: Ear Ache Positive: Chest Pain Positive: Shortness Of Breath, Other - Positive: sniffling, dyspnea Positive: Abdominal Pain - At the epigastric Negative: dysuria Negative: Rash, Bruising Positive: Headache Positive: Anxious, Other - Positive: Racing thoughts Negative: Hallucinations All Other Systems Reviewed And Are Negative: No Physical Exam - Summary Physical Exam Summary: Appearance: Alert, conversive, nontoxic appearing Skin: Warm, dry, no mottling, no rashes, no contusions HEENT: EOMI, PERRL, moist mucous membranes Neck: No masses on the neck, supple Respiratory: Clear to auscultation, breath sounds present, no rales, no rhonchi , no wheezes Cardiovascular: RRR, pulses are symmetrical in both lower and upper extremities Abdomen: Soft, non-tender Bowel Sounds: Present Musculoskeletal: No CVA tenderness, no obvious deformity, moving all extremities in a grossly normal manner Neurological: A&Ox3, CN II-XII Intact, moving all extremities symmetrically Psychiatric: Normal affect and mood Triage Information Reviewed: Yes Vital Signs On Initial Exam: Initial Vitals Temp Pulse Resp BP Pulse Ox 98 F 70 12 140/80 100 08/24/18 15:15 10/19/17 15:15 10/19/17 15:15 10/19/17 15:15 10/19/17 15:15 Vital Signs Reviewed: Yes Diagnostics - Vital Signs Vital Signs Temp Pulse Resp BP Pulse Ox 10/19/17 15:15 98 F 70 12 140/80 100 - Laboratory Result Diagrams: 10/19/17 16:40 10/19/17 16:40 Lab Statement: Any lab studies that have been ordered have been reviewed, and results considered in the medical decision making process. - EKG 1555 Cardiac Rate: NL - 73 bpm EKG Interpretation: Prolonged QRS; Normal QTC; Normal Axes; RBBB Course/Dx - Course Course Of Treatment: A 67 year-old M presents to the ED with a CC of anxiety and racing thoughts since 15:15 today. He notes sniffling, CP, dyspnea, PHAN, SOB , CP, and epigastric pain. An EKG reveals prolonged QRS, normal QTC, normal axes and RBBB. In the ED course, pt was given Acetaminophen, Atorvastatin, Divalproex, Lorazepam and Trazodone which improved the sx. A physical exam was unremarkable. The patient has been cleared for a MHE. The pt is agreeable with this plan. Allergies noted. 22:00- The pt is awaitig aMHE and has been signed out to Dr. Dragan Valero MD. - Differential Dx/Clinical Impression Provider Diagnosis: Anxiety Discharge - Sign-Out/Discharge Documenting (check all that apply): Sign-Out Patient Signing out patient TO: Dragan Valero - Discharge Plan Condition: Stable Disposition: HOME Referrals: No Primary Care Phys,NOPCP [Primary Care Provider] - - Billing Disposition and Condition Condition: STABLE Disposition: Home - Attestation Statements Document Initiated by Scribe: Yes Documenting Scribe: Susie Dempsey Provider For Whom Kayibrolando is Documenting (Include Credential): Dr. Josephine Hansen MD Scribe Attestation: Susie Anderson , scribed for Dr. Josephine Hansen MD on 10/24/17 at 0952. Scribe Documentation Reviewed: Yes Provider Attestation: The documentation as recorded by the scribe, Susie Chepkemoi accurately reflects the service I personally performed and the decisions made by me, Dr. Josephine Hansen MD
[2017-10-19 16:50] LABS: ABS Basophils 0.1 10^3/ul (0-0.2); ABS Eosinophils 0.3 10^3/ul (0-0.6); ABS Lymphocytes 2.2 10^3/ul (1.0-4.8); ABS Monocytes 0.7 10^3/ul (0-0.8); ABS Neutrophils 4.8 10^3/ul (1.5-7.7); ABS Nucleated RBC 0 10^3/ul; Eosinophil % 3.4 % (0-6); Hematocrit 42 % (42-52); Hemoglobin 14.1 g/dl (14.0-18.0); Lymphocyte % 27.4 % (25-47); Mean Corpuscular HGB Conc 34 g/dl (31-36); Mean Corpuscular Hemoglobin 30 pg (27-31); Mean Corpuscular Volume 89 fL (80-94); Mean Platelet Volume 6.8 um3 (7.4-10.4); Nucleated Red Blood Cells % 0; Platelet Count 194 10^3/ul (150-450); Red Blood Count 4.69 10^6/ul (4.00-5.40); Red Cell Distribution Width 16 % (10.5-15); White Blood Count 7.9 10^3/ul (3.5-10.8)
[2017-10-19 17:07] LABS: EGFR Non-African American 74.8 (>60)
[2017-10-19 20:10] LABS: Urine Appearance Clear; Urine Blood Negative (Negative); Urine Color Yellow; Urine Ketones Negative (Negative); Urine Protein Negative (Negative); Urine Specific Gravity 1.016 (1.010-1.030); Urine Urobilinogen Negative (Negative)
[2017-10-19] MEDS ORDERED: Acetaminophen TAB* 325 MG PO ONE (23:00)
[2017-10-19] MEDS ORDERED: LORazepam TAB(*) 1 MG PO ONE (23:11)
[2017-10-19] MEDS ORDERED: Atorvastatin* 20 MG TAB PO ONE (23:11)
[2017-10-19] MEDS ORDERED: traZODone TAB* 100 MG PO ONE (23:12)
[2017-10-19] MEDS ORDERED: Divalproex ER TAB(*) 500 MG PO ONE (23:12)
--- NOTE | 2017-10-20 03:39 | ED ---
Progress - Progress Note Progress Note: This patient is signed out from Dr. Hansen, awaiting MHE, pending dispo. - Consult/PCP Time Called: 15:15 Course/Dx - Diagnoses Provider Diagnoses: Anxiety Discharge - Sign-Out/Discharge Documenting (check all that apply): Patient Departure - Discharge Plan Condition: Stable Disposition: HOME Referrals: No Primary Care Phys,NOPCP [Primary Care Provider] - - Billing Disposition and Condition Condition: STABLE Disposition: Home - Attestation Statements Document Initiated by Scribe: Yes Documenting Scribe: Shilpi Kenny Provider For Whom Govind is Documenting (Include Credential): Dragan Valero MD Scribe Attestation: Shilpi Anderson, scribed for Dragan Valero MD on 10/21/17 at 0246. Scribe Documentation Reviewed: Yes Provider Attestation: The documentation as recorded by the scribe, Shilpi Kenny accurately reflects the service I personally performed and the decisions made by me, Dragan Valero MD
[2017-10-20 07:17] VITALS: BP 135/70
[2017-10-20] MEDS ORDERED: LORazepam TAB(*) 1 MG PO ONE (07:55)
[2017-10-20] MEDS ORDERED: Hydrochlorothiazide TAB* 25 MG PO ONE (07:55)
[2017-10-20] MEDS ORDERED: Divalproex Sprinkle CAP* 125 MG PO ONE (07:55)
[2017-10-20] MEDS ORDERED: Aspirin EC TAB* 81 MG TAB.EC PO ONE (07:56)
--- NOTE | 2017-10-20 07:59 | PN ---
ED Flex Patient Progress Note Date of Service: 10/19/17 Subjective: This is a 67 year-old M who is pending admission to [facility] / transfer to another psychiatric facility / discharge to home / or being observed secondary to anxiety. Pt. examined in F4 around 0750. He is lying in bed resting. He offers no complaints other than feeling anxious. Objective: Vitals: Most recent vital signs documented below. General NAD, Alert and oriented x3. Laboratory: Current laboratory results documented below. Assessment: Pending MHE. Plan: Pending psychiatric or medical consultation to observe / transfer / admit / discharge will follow up daily. Morning mediations ordered. Vital Signs Temp Pulse Resp BP Pulse Ox 98.2 F 82 16 135/70 100 10/20/17 07:16 10/20/17 07:16 10/20/17 07:16 10/20/17 07:16 10/20/17 07:16 Lab Results - Entire Visit 10/19/17 10/19/17 10/19/17 20:00 20:00 16:40 WBC RBC Hgb Hct MCV MCH MCHC RDW Plt Count MPV Neut % (Auto) Lymph % (Auto) Lee % (Auto) Eos % (Auto) Baso % (Auto) Absolute Neuts (auto) Absolute Lymphs (auto) Absolute Monos (auto) Absolute Eos (auto) Absolute Basos (auto) Absolute Nucleated RBC Nucleated RBC % Sodium 138 Potassium 4.0 Chloride 103 Carbon Dioxide 28 Anion Gap 7 BUN 17 Creatinine 1.00 Est GFR ( Amer) 90.5 Est GFR (Non-Af Amer) 74.8 BUN/Creatinine Ratio 17.0 Glucose 86 Calcium 9.9 Magnesium 2.1 Total Bilirubin 0.60 AST 17 ALT 15 Alkaline Phosphatase 78 Total Protein 7.3 Albumin 4.4 Globulin 2.9 Albumin/Globulin Ratio 1.5 TSH 2.32 Urine Color Yellow Urine Appearance Clear Urine pH 7.0 Ur Specific Draper 1.016 Urine Protein Negative Urine Ketones Negative Urine Blood Negative Urine Nitrate Negative Urine Bilirubin Negative Urine Urobilinogen Negative Ur Leukocyte Esterase Negative Urine Glucose Negative Urine Opiates Screen None detected Acetaminophen < 15 Ur Barbiturates Screen None detected Valproic Acid 63.0 Ur Phencyclidine Scrn None detected Ur Amphetamines Screen None detected U Benzodiazepines Scrn None detected Urine Cocaine Screen None detected U Cannabinoids Screen None detected Serum Alcohol < 10 10/19/17 16:40 WBC 7.9 RBC 4.69 Hgb 14.1 Hct 42 MCV 89 MCH 30 MCHC 34 RDW 16 H Plt Count 194 MPV 6.8 L Neut % (Auto) 60.0 Lymph % (Auto) 27.4 Lee % (Auto) 8.4 H Eos % (Auto) 3.4 Baso % (Auto) 0.8 Absolute Neuts (auto) 4.8 Absolute Lymphs (auto) 2.2 Absolute Monos (auto) 0.7 Absolute Eos (auto) 0.3 Absolute Basos (auto) 0.1 Absolute Nucleated RBC 0 Nucleated RBC % 0 Sodium Potassium Chloride Carbon Dioxide Anion Gap BUN Creatinine Est GFR ( Amer) Est GFR (Non-Af Amer) BUN/Creatinine Ratio Glucose Calcium Magnesium Total Bilirubin AST ALT Alkaline Phosphatase Total Protein Albumin Globulin Albumin/Globulin Ratio TSH Urine Color Urine Appearance Urine pH Ur Specific Draper Urine Protein Urine Ketones Urine Blood Urine Nitrate Urine Bilirubin Urine Urobilinogen Ur Leukocyte Esterase Urine Glucose Urine Opiates Screen Acetaminophen Ur Barbiturates Screen Valproic Acid Ur Phencyclidine Scrn Ur Amphetamines Screen U Benzodiazepines Scrn Urine Cocaine Screen U Cannabinoids Screen Serum Alcohol
--- NOTE | 2017-10-20 09:47 | ED ---
Progress - Progress Note Progress Note: Patient is signed out from Dr. Valero awaiting disposition while on mental health hold. - Consult/PCP Time Called: 15:15 Course/Dx - Course Course Of Treatment: At 09:35 Dr Verdugo informs that patient, who presents with anxiety, will be discharged. He states he will call [facility], where patient is staying, to see what prescriptions he regularly gets through the [place]. He will then discharge the patient. - Diagnoses Provider Diagnoses: Anxiety Discharge - Sign-Out/Discharge Documenting (check all that apply): Patient Departure - discharge - Discharge Plan Condition: Stable Disposition: HOME Referrals: No Primary Care Phys,NOPCP [Primary Care Provider] - - Attestation Statements Document Initiated by Scribe: Yes Documenting Scribe: Josie Choudhary Provider For Whom Scribe is Documenting (Include Credential): Oriana Leon MD Scribe Attestation: Josie Anderson, scribed for Oriana Leon MD on 10/20/17 at 0947.
== END 2017-10-20 11:45 | disposition home or self-care (01) ==
LOC: ED 15:08
DX: F41.9 Anxiety disorder, unspecified (principal); R10.13 Epigastric pain; Z87.891 Personal history of nicotine dependence; R07.9 Chest pain, unspecified; R06.02 Shortness of breath
CPT/HCPCS: 36415; 80053; 80164; 80307; 80320; 80329; 81003; 83735; 84443; 85025; 93005; 99283; A9270-GY; G0480

== ENCOUNTER 2017-11-27 15:54 | Emergency (ER) | payer MEDICARE ==
--- NOTE | 2017-11-27 16:21 | ED ---
Psychiatric Complaint - HPI Summary HPI Summary: This patient is a 67 year old M BIBA to [facility] with a chief complaint of anxiety and racing thoughts that began this morning. Patient reports chest tightness and SOB, secondary to anxiety. Pt arrives wearing NC O2 for comfort and pt reports this alleviated SOB. Patient denies SI and HI. He states he gets these sx often but today it was too much. He lives in a residential senior living. - History Of Current Complaint Chief Complaint: EDMentalHealth Time Seen by Provider: 11/27/17 16:10 Hx Obtained From: Patient Onset/Duration: Lasting Hours, Still Present Timing: Constant Severity Initially: Moderate Severity Currently: Moderate Character: Anxious Related History: Positive For: Prior Psychiatric Issues Has Suicidal: Denies: Thoughts, With A Plan Has Homicidal: Denies: Thoughts, With A Plan - Allergies/Home Medications Allergies/Adverse Reactions: Allergies Allergy/AdvReac Type Severity Reaction Status Date / Time bacitracin Allergy Unknown Verified 10/19/17 15:14 Reaction Details neomycin Allergy Unknown Verified 10/19/17 15:14 [From Triple Antibiotic] Reaction Details polymyxin B Allergy Unknown Verified 10/19/17 15:14 [From Triple Antibiotic] Reaction Details thiothixene Allergy Unknown Verified 10/19/17 15:14 Reaction Details trifluoperazine Allergy Unknown Verified 10/19/17 15:14 [From Stelazine] Reaction Details trifluridine Allergy Unknown Verified 10/19/17 15:14 Reaction Details Stetlazine Allergy Unknown Unknown Uncoded 10/19/17 15:14 Reaction Details PMH/Surg Hx/FS Hx/Imm Hx Endocrine/Hematology History: Denies: Hx Anticoagulant Therapy, Hx Diabetes, Hx Thyroid Disease, Other Endocrine/Hematological Disorders Cardiovascular History: Reports: Hx Angina, Hx Coronary Artery Disease, Hx Hypercholesterolemia, Hx Hypertension Denies: Hx Congestive Heart Failure, Hx Pacemaker/ICD, Other Cardiovascular Problems/Disorders Respiratory History: Denies: Hx Asthma, Hx Chronic Obstructive Pulmonary Disease (COPD), Other Respiratory Problems/Disorders GI History: Reports: Hx Diverticulosis Denies: Other GI Disorders History: Denies: Hx Renal Disease, Other Problems/Disorders Musculoskeletal History: Denies: Other Musculoskeletal History Sensory History: Denies: Hx Contacts or Glasses, Hx Hearing Aid, Other Sensory Impairments Opthamlomology History: Denies: Hx Contacts or Glasses, Other Sensory Impairments Neurological History: Denies: Hx Dementia, Hx Seizures, Other Neuro Impairments/Disorders Psychiatric History: Reports: Hx Anxiety, Hx Post Traumatic Stress Disorder, Hx Inpatient Treatment, Hx Community Mental Health Tx, Hx Schizophrenia, Hx of Violent Episodes Against Others, Other Psychiatric Issues/Disorders - pt states strong clausterphobia, OCD Denies: Hx Eating Disorder, Hx Substance Abuse - Surgical History Surgery Procedure, Year, and Place: right forearm/ wrist break, pins placed - Immunization History Date of Tetanus Vaccine: UTD Date of Influenza Vaccine: NONE Infectious Disease History: No Infectious Disease History: Denies: Hx Hepatitis, Hx Human Immunodeficiency Virus (HIV), Traveled Outside the [place] in Last 30 Days - Family History Known Family History: Negative: Diabetes, Seizure Disorder - Social History Alcohol Use: Occasionally Alcohol Amount: 3 beers a week Substance Use Type: Reports: Marijuana, Other - crack Substance Use Comment - Amount & Last Used: states occassional marijuana use Hx Tobacco Use: No Smoking Status (MU): Former Smoker Type: Cigarettes Amount Used/How Often: 1/2 pack or less daily Length of Time of Smoking/Using Tobacco: states he quit in the '70's Have You Smoked in the Last Year: Yes Review of Systems Negative: Fever Positive: Anxious, Other - NEGATIVE SI and HI All Other Systems Reviewed And Are Negative: Yes Physical Exam - Summary Physical Exam Summary: Appearance: Well-appearing, Well-nourished, lying in bed comfortably Skin: Warm, dry, no obvious rash Eyes: sclera anicteric, no conjunctival pallor ENT: mucous membranes moist, pharynx appears normal Neck: Supple, nontender Respiratory: Clear to auscultation, no signs of respiratory distress Cardiovascular: Normal S1, S2. No murmurs. Normal distal pulses in tibial and radial bilaterally. Abdomen: Soft, nontender, normal active bowel sounds present Musculoskeletal: Normal, Strength/ROM Intact Neurological: A&Ox3, awake and alert, Psychiatric: Voice is soft, there is tangential thinking, Triage Information Reviewed: Yes Vital Signs On Initial Exam: Initial Vitals Temp Pulse Resp BP Pulse Ox 98.4 F 81 18 145/78 99 11/27/17 16:09 11/27/17 16:09 11/27/17 16:09 11/27/17 16:09 11/27/17 16:09 Vital Signs Reviewed: Yes Diagnostics - Vital Signs Vital Signs Temp Pulse Resp BP Pulse Ox 11/27/17 16:09 98.4 F 81 18 145/78 99 - Laboratory Result Diagrams: 11/27/17 16:51 11/27/17 16:51 Lab Statement: Any lab studies that have been ordered have been reviewed, and results considered in the medical decision making process. - EKG 1652 Cardiac Rate: NL EKG Rhythm: Sinus Rhythm - at 69 BPM EKG Interpretation: RBBB EKG Comparison: No Significant Change - 10-19-17 Course/Dx - Course Course Of Treatment: This is a 67-year-old man with a history of anxiety and possibly schizoaffective disorder who presents with recurrent problems with anxiety. His thoughts appears somewhat disordered this time, though he does not appear suicidal or homicidal. I think consideration should be given to a psychiatric hospitalization and have asked for mental health consult. The patient is medically cleared. This patient will be signed out to Dr. Santo awaiting MHE. - Differential Dx/Clinical Impression Provider Diagnosis: Anxiety, Schizoaffective disorder Discharge - Sign-Out/Discharge Documenting (check all that apply): Sign-Out Patient Signing out patient TO: Anel Santo Receiving patient FROM: Dragan Valero - Discharge Plan Condition: Stable Disposition: HOME Patient Education Materials: Anxiety (ED) Referrals: No Primary Care Phys,NOPCP [Medical Doctor] - - Billing Disposition and Condition Condition: STABLE Disposition: Home - Attestation Statements Document Initiated by Govind: Yes Documenting Scribe: Quintin Curiel Provider For Whom Govind is Documenting (Include Credential): Dragan Valero MD Scribe Attestation: Quintin Anderson scribed for Dragan Valero MD on 12/01/17 at 0504. Scribe Documentation Reviewed: Yes Provider Attestation: The documentation as recorded by the Quintin miranda accurately reflects the service I personally performed and the decisions made by me, Dragan Valero MD
[2017-11-27 17:05] LABS: ABS Basophils 0 10^3/ul (0-0.2); ABS Eosinophils 0 10^3/ul (0-0.6); ABS Lymphocytes 1.6 10^3/ul (1.0-4.8); ABS Monocytes 0.7 10^3/ul (0-0.8); ABS Neutrophils 4.8 10^3/ul (1.5-7.7); ABS Nucleated RBC 0 10^3/ul; Eosinophil % 0.5 % (0-6); Hematocrit 39 % (42-52); Hemoglobin 13.3 g/dl (14.0-18.0); Lymphocyte % 22.3 % (25-47); Mean Corpuscular HGB Conc 34 g/dl (31-36); Mean Corpuscular Hemoglobin 31 pg (27-31); Mean Corpuscular Volume 91 fL (80-94); Mean Platelet Volume 6.9 um3 (7.4-10.4); Nucleated Red Blood Cells % 0.1; Platelet Count 203 10^3/ul (150-450); Red Blood Count 4.29 10^6/ul (4.00-5.40); Red Cell Distribution Width 15 % (10.5-15); White Blood Count 7.2 10^3/ul (3.5-10.8)
[2017-11-27 17:21] LABS: EGFR Non-African American 73.9 (>60)
--- NOTE | 2017-11-27 22:45 | ED ---
Progress - EKG/XRAY/CT EKG: NSR - 74, RBBB, no ST T wave changes Comments: No change from previous. Nl axis, nl interval, no ischemic changes. Re-Evaluation - Re-Evaluation First Eval Re-Evaluation Time: 02:21 Change: Worse Comment: Per LAURA Coreas, the pt doesn't feel well and would like to speak to a doctor. He complains of chest pressure, will check vitals, get EKG. Course/Dx - Course Course Of Treatment: This is a 67-year-old man with a history of anxiety and possibly schizoaffective disorder who presents with recurrent problems with anxiety. His thoughts appears somewhat disordered this time, though he does not appear suicidal or homicidal. I think consideration should be given to a psychiatric hospitalization and have asked for mental health consult. The patient is medically cleared. This patient will be signed out to Dr. Santo awaiting MHE. Pt c/o chest pressure, feels like he needs O2, as he was on O2 in his room in the ED. His vitals are stable, O2 at 100%. EKG is unchanged from previous, with NSR at 74 BPM and a RBBB. Sx likely secondary to anxiety. will treat anxiety. - Diagnoses Provider Diagnoses: Anxiety, Schizoaffective disorder - Provider Notifications Discussed Care Of Patient With: Edinson Angulo Time Discussed With Above Provider: 06:05 Instructed by Provider To: Other - Per LAURA Coreas, [facility] with a dx of anxiety and schizoaffective disorder. Discharge - Sign-Out/Discharge Documenting (check all that apply): Patient Departure - discharge, Receiving Sign-Out Receiving patient FROM: Dragan Valero - Discharge Plan Condition: Stable Disposition: HOME Referrals: No Primary Care Phys,NOPCP [Medical Doctor] - - Attestation Statements Document Initiated by Scribe: Yes Documenting Scribe: Destin Stephenson Provider For Whom Kayibrolando is Documenting (Include Credential): Dr. Anel Santo MD Scribe Attestation: Destin Anderson, scribed for Dr. Anel Santo MD on 11/28/17 at 0604.
[2017-11-28] MEDS ORDERED: LORazepam TAB(*) 1 MG PO ONE (02:44)
[2017-11-28 07:25] VITALS: BP 108/62
== END 2017-11-28 07:49 | disposition home or self-care (01) ==
LOC: ED 15:54
DX: F41.9 Anxiety disorder, unspecified (principal); F25.9 Schizoaffective disorder, unspecified; R06.02 Shortness of breath; R07.9 Chest pain, unspecified; I25.119 Atherosclerotic heart disease of native coronary artery with unspecified angina pectoris; F43.10 Post-traumatic stress disorder, unspecified; Z87.891 Personal history of nicotine dependence; Z88.1 Allergy status to other antibiotic agents; Z88.8 Allergy status to other drugs, medicaments and biological substances; Z79.899 Other long term (current) drug therapy; I45.10 Unspecified right bundle-branch block
CPT/HCPCS: 36415; 80053; 80307; 80320; 84484; 85025; 93005; 99284; A9270-GY; G0480

== ENCOUNTER → 2018-01-02 13:41 | Emergency (ER) | payer MEDICARE ==
[2018-01-02 15:41] LABS: ABS Basophils 0 10^3/ul (0-0.2); ABS Eosinophils 0.1 10^3/ul (0-0.6); ABS Monocytes 0.6 10^3/ul (0-0.8); ABS Neutrophils 3.7 10^3/ul (1.5-7.7); ABS Nucleated RBC 0 10^3/ul; Eosinophil % 0.8 % (0-6); Hematocrit 40 % (42-52); Hemoglobin 13.7 g/dl (14.0-18.0); Lymphocyte % 31.5 % (25-47); Mean Corpuscular HGB Conc 35 g/dl (31-36); Mean Corpuscular Hemoglobin 32 pg (27-31); Mean Corpuscular Volume 91 fL (80-94); Mean Platelet Volume 6.8 fL (7.4-10.4); Nucleated Red Blood Cells % 0.1; Platelet Count 216 10^3/ul (150-450); Red Blood Count 4.34 10^6/ul (4.00-5.40); Red Cell Distribution Width 14 % (10.5-15); White Blood Count 6.4 10^3/ul (3.5-10.8)
[2018-01-02 16:01] LABS: INR 1.01 (0.77-1.02)
[2018-01-02 16:33] LABS: EGFR Non-African American 84.4 (>60)
--- NOTE | 2018-01-02 17:36 | ED ---
Psychiatric Complaint - HPI Summary HPI Summary: Patient is a 67 y/o M arriving by ambulance from [place] w/ c/o increased anxiety , paranoia, chest tightness, and SOB. He states Sx onset a couple of hours before EMS. N/V, hallucinations, SI and HI are denied. PMHx of schizoaffective disorder. Patient denies fever, chills, PHAN, ear pain, sore throat, blurred vision, double vision, neck pain, ABD pain, back pain, dysuria, hematuria, blood in the stool, constipation, edema, bruising, rashes. On triage, pain is rated 2/10, nothing is noted to aggravate/alleviate Sx, and it is noted that EMS gave 324 mg ASA and established IV. - History Of Current Complaint Chief Complaint: EDChestPainROMI Hx Obtained From: Patient Onset/Duration: Lasting Hours - a few hours prior to EMS arrival, Still Present Timing: Hours Severity Currently: Mild - pain 2/10 on triage Character: Anxious Aggravating Factor(s): Nothing Alleviating Factor(s): Nothing Associated Signs And Symptoms: Positive: Negative Has Suicidal: Denies: Thoughts Has Homicidal: Denies: Thoughts - Allergies/Home Medications Allergies/Adverse Reactions: Allergies Allergy/AdvReac Type Severity Reaction Status Date / Time bacitracin Allergy Unknown Verified 10/19/17 15:14 Reaction Details neomycin Allergy Unknown Verified 10/19/17 15:14 [From Triple Antibiotic] Reaction Details polymyxin B Allergy Unknown Verified 10/19/17 15:14 [From Triple Antibiotic] Reaction Details thiothixene Allergy Unknown Verified 10/19/17 15:14 Reaction Details trifluoperazine Allergy Unknown Verified 10/19/17 15:14 [From Stelazine] Reaction Details trifluridine Allergy Unknown Verified 10/19/17 15:14 Reaction Details Stetlazine Allergy Unknown Unknown Uncoded 10/19/17 15:14 Reaction Details Home Medications: Home Medications Acetaminophen TAB* [Tylenol TAB*] 650 mg PO Q4H PRN 01/02/18 [History Confirmed 01/02/18] Atorvastatin* [Lipitor*] 20 mg PO BEDTIME 01/02/18 [History Confirmed 01/02/18] Hydrocortisone 1% CREAM* [Hytone Cream 1%*] 1 applic TOPICAL TID PRN 01/02/18 [ History Confirmed 01/02/18] LORazepam TAB(*) [Ativan 1 MG TAB (*)] 1 mg PO DAILY PRN 01/02/18 [History Confirmed 01/02/18] Magnesium Hydroxide LIQ* [Milk of Magnesia LIQ*] 30 ml PO BEDTIME 01/02/18 [ History Confirmed 01/02/18] Multivitamins/Minerals TAB* [Theragran/minerals TAB*] 1 tab PO DAILY 01/02/18 [ History Confirmed 01/02/18] Nitroglycerin TAB 0.4 MG* 0.4 mg SL Q5M PRN 01/02/18 [History Confirmed 01/02/18 ] traZODone TAB* [Desyrel TAB*] 100 mg PO BEDTIME 01/02/18 [History Confirmed 09/12] PMH/Surg Hx/FS Hx/Imm Hx Endocrine/Hematology History: Denies: Hx Anticoagulant Therapy, Hx Diabetes, Hx Thyroid Disease, Other Endocrine/Hematological Disorders Cardiovascular History: Reports: Hx Angina, Hx Coronary Artery Disease, Hx Hypercholesterolemia, Hx Hypertension Denies: Hx Congestive Heart Failure, Hx Pacemaker/ICD, Other Cardiovascular Problems/Disorders Respiratory History: Denies: Hx Asthma, Hx Chronic Obstructive Pulmonary Disease (COPD), Other Respiratory Problems/Disorders GI History: Reports: Hx Diverticulosis Denies: Other GI Disorders History: Denies: Hx Renal Disease, Other Problems/Disorders Musculoskeletal History: Denies: Other Musculoskeletal History Sensory History: Denies: Hx Contacts or Glasses, Hx Hearing Aid, Other Sensory Impairments Opthamlomology History: Denies: Hx Contacts or Glasses, Other Sensory Impairments Neurological History: Denies: Hx Dementia, Hx Seizures, Other Neuro Impairments/Disorders Psychiatric History: Reports: Hx Anxiety, Hx Post Traumatic Stress Disorder, Hx Inpatient Treatment, Hx Community Mental Health Tx, Hx Schizophrenia, Hx of Violent Episodes Against Others, Other Psychiatric Issues/Disorders - pt states strong clausterphobia, OCD Denies: Hx Eating Disorder, Hx Substance Abuse - Surgical History Surgery Procedure, Year, and Place: right forearm/ wrist break, pins placed - Immunization History Date of Tetanus Vaccine: UTD Date of Influenza Vaccine: NONE Infectious Disease History: No Infectious Disease History: Denies: Hx Hepatitis, Hx Human Immunodeficiency Virus (HIV), Traveled Outside the [place] in Last 30 Days - Family History Known Family History: Negative: Diabetes, Seizure Disorder - Social History Alcohol Use: Occasionally Alcohol Amount: 3 beers a week Substance Use Type: Reports: Cocaine, Marijuana, Other Substance Use Comment - Amount & Last Used: states occassional marijuana use Hx Tobacco Use: No Smoking Status (MU): Former Smoker Type: Cigarettes Amount Used/How Often: 1/2 pack or less daily Length of Time of Smoking/Using Tobacco: states he quit in the '70's Have You Smoked in the Last Year: Yes Review of Systems Negative: Fever, Chills Positive: Other - NEGATIVE: double vision . Negative: Blurred Vision Negative: Sore Throat, Ear Ache Positive: Chest Pain Positive: Shortness Of Breath Negative: Vomiting, Nausea Positive: other - NEGATIVE: blood in stool, constipation . Negative: dysuria, hematuria Positive: Other - NEGATIVE: back/neck pain . Negative: Edema Negative: Rash, Bruising Negative: Headache Psychological: Other - POSITIVE: increased paranoia NEGATIVE: SI, HI, hallucinations Positive: Anxious All Other Systems Reviewed And Are Negative: No Physical Exam - Summary Physical Exam Summary: Appearance: Alert, conversive, nontoxic appearing Skin: Warm, dry, no mottling, no rashes, no contusions HEENT: EOMI, PERRL, moist mucous membranes Neck: No masses on the neck, supple Respiratory: Clear to auscultation, breath sounds present, no rales, no rhonchi , no wheezes Cardiovascular: RRR, pulses are symmetrical in both lower and upper extremities Abdomen: Soft, non-tender Bowel Sounds: Present Musculoskeletal: No CVA tenderness, no obvious deformity, moving all extremities in a grossly normal manner Neurological: A&Ox3, CN II-XII Intact, moving all extremities symmetrically Psychiatric: Poor insight, judgment and eye contact. Flat affect Triage Information Reviewed: Yes Vital Signs On Initial Exam: Initial Vitals Temp Pulse Resp BP Pulse Ox 99.2 F 75 17 116/69 97 01/02/18 14:01 01/02/18 14:01 01/02/18 14:01 01/02/18 14:01 01/02/18 14:01 Vital Signs Reviewed: Yes Diagnostics - Vital Signs Vital Signs Temp Pulse Resp BP Pulse Ox 01/02/18 14:01 99.2 F 75 17 116/69 97 - Laboratory Lab Results: Lab Results 11/07/18 11/07/18 11/07/18 Range/Units 15:25 15:25 15:25 WBC 6.4 (3.5-10.8) 10^3/ul RBC 4.34 (4.00-5.40) 10^6/ul Hgb 13.7 L (14.0-18.0) g/dl Hct 40 L (42-52) % MCV 91 (80-94) fL MCH 32 H (27-31) pg MCHC 35 (31-36) g/dl RDW 14 (10.5-15) % Plt Count 216 (150-450) 10^3/ul MPV 6.8 L (7.4-10.4) fL Neut % (Auto) 58.0 (38-83) % Lymph % (Auto) 31.5 (25-47) % Dickson % (Auto) 9.0 H (0-7) % Eos % (Auto) 0.8 (0-6) % Baso % (Auto) 0.7 (0-2) % Absolute Neuts (auto) 3.7 (1.5-7.7) 10^3/ul Absolute Lymphs (auto) 2.0 (1.0-4.8) 10^3/ul Absolute Monos (auto) 0.6 (0-0.8) 10^3/ul Absolute Eos (auto) 0.1 (0-0.6) 10^3/ul Absolute Basos (auto) 0 (0-0.2) 10^3/ul Absolute Nucleated RBC 0 10^3/ul Nucleated RBC % 0.1 INR (Anticoag Therapy) 1.01 (0.77-1.02) APTT 29.8 (26.0-36.3) seconds Sodium 139 (135-145) mmol/L Potassium 3.8 (3.5-5.0) mmol/L Chloride 105 (101-111) mmol/L Carbon Dioxide 26 (22-32) mmol/L Anion Gap 8 (2-11) mmol/L BUN 23 (6-24) mg/dL Creatinine 0.90 (0.67-1.17) mg/dL Est GFR ( Amer) 102.2 (>60) Est GFR (Non-Af Amer) 84.4 (>60) BUN/Creatinine Ratio 25.6 H (8-20) Glucose 85 (70-100) mg/dL Calcium 9.4 (8.6-10.3) mg/dL Magnesium 2.3 (1.9-2.7) mg/dL Total Bilirubin 0.50 (0.2-1.0) mg/dL AST 25 (13-39) U/L ALT 16 (7-52) U/L Alkaline Phosphatase 59 (34-104) U/L Troponin I 0.00 (<0.04) ng/mL Total Protein 7.1 (6.4-8.9) g/dL Albumin 4.2 (3.2-5.2) g/dL Globulin 2.9 (2-4) g/dL Albumin/Globulin Ratio 1.4 (1-3) TSH 2.15 (0.34-5.60) mcIU/mL Result Diagrams: 01/02/18 15:25 01/02/18 15:25 Lab Statement: Any lab studies that have been ordered have been reviewed, and results considered in the medical decision making process. - Radiology CXR Radiology Interpretation Completed By: Radiologist Summary of Radiographic Findings: IMPRESSION: Left basilar discoid atelectasis without definite evidence of pneumonia. This report was reviewed by ed physician. - EKG 1605 Cardiac Rate: NL - rate of 62 bpm EKG Rhythm: Sinus Rhythm Summary of EKG Findings: prolonged QRS, normal QTC, RBBB, normal ST-T waves. Re-Evaluation - Re-Evaluation First Eval Re-Evaluation Time: 17:19 Comment: Medically cleared for MHE. Course/Dx - Course Course Of Treatment: Patient is a 67 y/o M arriving by ambulance from [place] w/ c /o increased anxiety, paranoia, chest tightness, and SOB. He states Sx onset a couple of hours before EMS. N/V, hallucinations, SI and HI are denied. PMHx of schizoaffective disorder. Patient denies fever, chills, PHAN, ear pain, sore throat, blurred vision, double vision, neck pain, ABD pain, back pain, dysuria, hematuria, blood in the stool, constipation, edema, bruising, rashes. On physical exam, patient is noted to have poor eye contact, poor judgment and poor insight as well as flat affect. Tox screen was negative. UA showed ascorbic acid. Labs showed trop 0, TSH 2.15. EKG showed sinus rhythm with rate of 62 BPM, prolonged QRS, normal QTC, RBBB, normal ST-T waves. CXR IMPRESSION: Left basilar discoid atelectasis without definite evidence of pneumonia. Patient was medically cleared for MHE. Patient was signed out to Dr. Santo pending MHE and disposition. Dx of chest pain and schzioaffective disorder. - Differential Dx/Clinical Impression Provider Diagnosis: Anxiety Discharge - Sign-Out/Discharge Documenting (check all that apply): Sign-Out Patient Signing out patient TO: Anel Santo Receiving patient FROM: Josephine Hansen - Discharge Plan Condition: Stable Disposition: HOME Patient Education Materials: Anxiety (ED) Referrals: Cristopher Gardner MD [Primary Care Provider] - Kacey Cummins NP [Nurse Practitioner] - (Please follow up with Kacey Cummins and Dr Leonardo as soon as possible) - Billing Disposition and Condition Condition: STABLE Disposition: Home - Attestation Statements Document Initiated by Scribe: Yes Documenting Scribe: Jagdeep Saucedo Provider For Whom Scribe is Documenting (Include Credential): Josephine Hansen MD Scribe Attestation: IJagdeep , scribed for Josephine Hansen MD on 01/03/18 at 1209. Scribe Documentation Reviewed: Yes Provider Attestation: The documentation as recorded by the Jagdeep miranda accurately reflects the service I personally performed and the decisions made by me, Josephine Hansen MD
[2018-01-02 17:54] LABS: Urine Appearance Cloudy; Urine Blood Negative (Negative); Urine Color Amber; Urine Ketones Negative (Negative); Urine Protein Negative (Negative); Urine Specific Gravity 1.026 (1.010-1.030); Urine Urobilinogen Negative (Negative)
--- NOTE | 2018-01-02 19:10 | ED ---
Progress - Progress Note Progress Note: Pt signed out from Dr. Hansen to Dr. Santo pending MHE. Per drive man the pt will be discharged. Per Dr. Jordan Dx: anxiety. Course/Dx - Course Course Of Treatment: Pt signed out from Dr. Hansen to Dr. Santo pending MHE. Per drive man the pt will be discharged. Dx: anxiety. - Diagnoses Provider Diagnoses: Anxiety - Provider Notifications Discussed Care Of Patient With: Robert Jordan Time Discussed With Above Provider: 20:00 Instructed by Provider To: Other - per Dr. Jordan, Dx: anxiety Discharge - Sign-Out/Discharge Documenting (check all that apply): Patient Departure - DC - Discharge Plan Condition: Stable Disposition: HOME Patient Education Materials: Anxiety (ED) Referrals: Cristopher Gardner MD [Primary Care Provider] - Kacey Cummins NP [Nurse Practitioner] - (Please follow up with Kacey Cummins and Dr Leonardo as soon as possible) - Attestation Statements Document Initiated by Scribe: Yes Documenting Scribe: Hira Kramer Provider For Whom Scribe is Documenting (Include Credential): Anel Santo MD Scribe Attestation: Hira Anderson, scribed for Anel Santo MD on 01/02/18 at 2105.
[2018-01-02 23:02] VITALS: BP 112/78
== END | disposition home or self-care (01) ==
LOC: ED 13:41
DX: F41.9 Anxiety disorder, unspecified (principal); I25.119 Atherosclerotic heart disease of native coronary artery with unspecified angina pectoris; I10 Essential (primary) hypertension; Z88.3 Allergy status to other anti-infective agents; Z88.8 Allergy status to other drugs, medicaments and biological substances; Z87.891 Personal history of nicotine dependence
CPT/HCPCS: 36415; 71045; 80053; 80307; 80329; 81003; 83735; 84443; 84484; 85025; 85610; 85730; 93005; 99284; G0480

== ENCOUNTER 2018-01-20 21:53 | Inpatient (IN) | payer MEDICARE ==
--- NOTE | 2018-01-20 22:21 | ED ---
HPI Chest Pain - HPI Summary HPI Summary: Level 5 caveat: Unable to obtain complete HPI due to AMS The pt is a 67 y/o male presenting to [facility] c/o sudden onset CP since today evening while home. He notes SOB, dizziness, and confusion but denies LE pain. He describes it as " though he is having a heart attack. The pt reports an aneurysm 6 years ago for which he was treated at [place]. Home Medications Medication Instructions Recorded Confirmed Type Hydrochlorothiazide TAB* 25 mg PO QAM 10/02/17 01/02/18 History [Hydrodiuril TAB*] Sodium Fluoride/Potassium Nit 1 pst PO BID 10/02/17 01/02/18 History [Prevident 5000 Enamel Pro] Aspirin EC TAB* [Ecotrin EC Low 81 mg PO DAILY 10/08/17 01/02/18 History Dose 81 MG*] Cholecalciferol TAB* [Vitamin D 1,000 unit PO DAILY 10/08/17 01/02/18 History TAB*] Divalproex Sprinkle CAP* [Depakote 500 mg PO BID 10/08/17 01/02/18 History Sprinkle CAP*] LORazepam TAB(*) [Ativan 0.5 MG 0.5 mg PO TID MDD 1.5 mg 10/08/17 01/02/18 History TAB (*)] Acetaminophen TAB* [Tylenol TAB*] 650 mg PO Q4H PRN 01/02/18 01/02/18 History Atorvastatin* [Lipitor*] 20 mg PO BEDTIME 01/02/18 01/02/18 History Hydrocortisone 1% CREAM* [Hytone 1 applic TOPICAL TID PRN 01/02/18 01/02/18 History Cream 1%*] LORazepam TAB(*) [Ativan 1 MG TAB 1 mg PO DAILY PRN 01/02/18 01/02/18 History (*)] Magnesium Hydroxide LIQ* [Milk of 30 ml PO BEDTIME 01/02/18 01/02/18 History Magnesia LIQ*] Multivitamins/Minerals TAB* 1 tab PO DAILY 01/02/18 01/02/18 History [Theragran/minerals TAB*] Nitroglycerin TAB 0.4 MG* 0.4 mg SL Q5M PRN 01/02/18 01/02/18 History traZODone TAB* [Desyrel TAB*] 100 mg PO BEDTIME 01/02/18 01/02/18 History - History of Current Complaint Chief Complaint: EDGeneral Time Seen by Provider: 01/20/18 22:17 Hx Obtained From: Patient Hx From Patient Unobtainable Due To: Altered Mental Status Onset/Duration: Started Hours Ago, Still Present Timing: Constant Current Severity: None Pain Intensity: 0 Pain Scale Used: 0-10 Numeric - Additional Pertinent History Primary Care Physician: [email or web address] - Allergy/Home Medications Allergies/Adverse Reactions: Allergies Allergy/AdvReac Type Severity Reaction Status Date / Time bacitracin Allergy Unknown Verified 10/19/17 15:14 Reaction Details neomycin Allergy Unknown Verified 10/19/17 15:14 [From Triple Antibiotic] Reaction Details polymyxin B Allergy Unknown Verified 10/19/17 15:14 [From Triple Antibiotic] Reaction Details thiothixene Allergy Unknown Verified 10/19/17 15:14 Reaction Details trifluoperazine Allergy Unknown Verified 10/19/17 15:14 [From Stelazine] Reaction Details trifluridine Allergy Unknown Verified 10/19/17 15:14 Reaction Details Stetlazine Allergy Unknown Unknown Uncoded 10/19/17 15:14 Reaction Details PMH/Surg Hx/FS Hx/Imm Hx Previously Healthy: No - Level 5 caveat: Unable to obtain complete PMHx due to AMS Endocrine/Hematology History: Denies: Hx Anticoagulant Therapy, Hx Diabetes, Hx Thyroid Disease, Other Endocrine/Hematological Disorders Cardiovascular History: Reports: Hx Aneurysm - 2012, Hx Angina, Hx Coronary Artery Disease, Hx Hypercholesterolemia, Hx Hypertension Denies: Hx Congestive Heart Failure, Hx Pacemaker/ICD, Other Cardiovascular Problems/Disorders Respiratory History: Denies: Hx Asthma, Hx Chronic Obstructive Pulmonary Disease (COPD), Other Respiratory Problems/Disorders GI History: Reports: Hx Diverticulosis Denies: Other GI Disorders History: Denies: Hx Renal Disease, Other Problems/Disorders Musculoskeletal History: Denies: Other Musculoskeletal History Sensory History: Denies: Hx Contacts or Glasses, Hx Hearing Aid, Other Sensory Impairments Opthamlomology History: Denies: Hx Contacts or Glasses, Other Sensory Impairments Neurological History: Denies: Hx Dementia, Hx Seizures, Other Neuro Impairments/Disorders Psychiatric History: Reports: Hx Anxiety, Hx Post Traumatic Stress Disorder, Hx Inpatient Treatment, Hx Community Mental Health Tx, Hx Schizophrenia, Hx of Violent Episodes Against Others, Other Psychiatric Issues/Disorders - pt states strong clausterphobia, OCD Denies: Hx Eating Disorder, Hx Substance Abuse - Cancer History Cancer Type, Location and Year: None reported - Surgical History Surgery Procedure, Year, and Place: right forearm/ wrist break, pins placed - Immunization History Date of Tetanus Vaccine: UTD Date of Influenza Vaccine: NONE Immunizations Up to Date: Unable to Obtain/Confirm Infectious Disease History: Unable to Obtain/Confirm Infectious Disease History: Denies: Hx Hepatitis, Hx Human Immunodeficiency Virus (HIV), Traveled Outside the [place] in Last 30 Days - Family History Known Family History: Negative: Diabetes, Seizure Disorder - Social History Occupation: Disabled Lives: Alone Alcohol Use: Occasionally Alcohol Amount: 3 beers a week Substance Use Type: Reports: Cocaine, Marijuana, Other Substance Use Comment - Amount & Last Used: states occassional marijuana use Hx Tobacco Use: No Smoking Status (MU): Former Smoker Type: Cigarettes Amount Used/How Often: 1/2 pack or less daily Length of Time of Smoking/Using Tobacco: states he quit in the '70's Have You Smoked in the Last Year: Yes Review of Systems - ROS Summary Review of Systems Summary: Level 5 caveat: Unable to obtain complete ROS due to AMS Constitutional: Other - Positive: Confusion, Dizziness Positive: Chest Pain Positive: Shortness Of Breath Musculoskeletal: Negative - Bilateral LE pain All Other Systems Reviewed And Are Negative: No Physical Exam - Summary Physical Exam Summary: Level 5 caveat: Unable to obtain complete PE due to AMS Appearance: Well-appearing, Well-nourished, lying in bed comfortable Skin: Warm, dry, no obvious rash Eyes: sclera anicteric, no conjunctival pallor ENT: mucous membranes moist Neck: deferred Respiratory: No signs of respiratory distress Cardiovascular: Appears well perfused, pulses are nml Abdomen: deferred Musculoskeletal: Moving all 4 extremities without obvious discomfort Neurological: Awake and alert, mentation is normal, speech is fluent and appropriate Psychiatric: The patient is awake, alert and makes eye contact. He can attend to the conversation but has tangential mentation. He does not seem to be respondent to internal stimuli Triage Information Reviewed: Yes Vital Signs On Initial Exam: Initial Vitals Temp Pulse Resp BP Pulse Ox 98.7 F 84 16 118/70 98 01/20/18 22:01 01/20/18 22:01 01/20/18 22:01 01/20/18 22:01 01/20/18 22:01 Vital Signs Reviewed: Yes Completion Of Physical Exam Limited Due To: Altered Mental Status Diagnostics - Vital Signs Vital Signs Temp Pulse Resp BP Pulse Ox 01/20/18 22:01 98.7 F 84 16 118/70 98 - Laboratory Result Diagrams: 01/20/18 22:28 01/20/18 22:28 Lab Statement: Any lab studies that have been ordered have been reviewed, and results considered in the medical decision making process. - Radiology CXR Radiology Interpretation Completed By: ED Physician - IMPRESSION: No acute disease - EKG 22:31 Cardiac Rate: NL - 73 bpm EKG Rhythm: Sinus Rhythm Summary of EKG Findings: RBBB Chest Pain Course/Dx - Course Course Of Treatment: A 67 year-old M with an altered mental status presents to the ED with a CC of sudden onset CP since today evening while home. He notes SOB , dizziness, and confusion but denies LE pain. The patient is awake, alert and makes eye contact. He can attend to the conversation but has tangential mentation. He does not seem to be respondent to internal stimuli. A CXR is unremarkable. An EKG reveals RBBB. In the ED course, pt was given Lorazepam 1mg PO which improved the symptoms. Patient will be discharged with a final Dx of psychosis not otherwise specified. Pt is agreeable with this plan. Allergies noted. - Diagnoses Provider Diagnoses: Unspecified psychosis Discharge - Sign-Out/Discharge Documenting (check all that apply): Patient Departure - Discharge Plan Condition: Stable Disposition: HOME Referrals: Cristopher Gardner MD [Primary Care Provider] - - Attestation Statements Document Initiated by Scribe: Yes Documenting Scribe: Susie Dempsey Provider For Whom Scribe is Documenting (Include Credential): Dr. Dragan Valero MD Scribe Attestation: Susie Anderson scribed for Dr. Dragan Valero MD on 01/21/18 at 0410.
[2018-01-20] MEDS ORDERED: LORazepam TAB(*) 1 MG PO ONE (22:42)
[2018-01-20 22:45] LABS: ABS Basophils 0.1 10^3/ul (0-0.2); ABS Eosinophils 0.1 10^3/ul (0-0.6); ABS Lymphocytes 1.7 10^3/ul (1.0-4.8); ABS Monocytes 0.8 10^3/ul (0-0.8); ABS Neutrophils 4.7 10^3/ul (1.5-7.7); ABS Nucleated RBC 0 10^3/ul; Eosinophil % 1.3 % (0-6); Hematocrit 39 % (42-52); Hemoglobin 13.3 g/dl (14.0-18.0); Lymphocyte % 22.8 % (25-47); Mean Corpuscular HGB Conc 34 g/dl (31-36); Mean Corpuscular Hemoglobin 31 pg (27-31); Mean Corpuscular Volume 92 fL (80-94); Mean Platelet Volume 6.9 fL (7.4-10.4); Nucleated Red Blood Cells % 0; Platelet Count 224 10^3/ul (150-450); Red Blood Count 4.27 10^6/ul (4.00-5.40); Red Cell Distribution Width 14 % (10.5-15); White Blood Count 7.3 10^3/ul (3.5-10.8)
[2018-01-20 22:56] LABS: EGFR Non-African American 78.4 (>60)
[2018-01-21] MEDS ORDERED: Nitroglycerin TAB 0.4 MG* 0.4 MG TAB SL PRN (09:55)
[2018-01-21] MEDS ORDERED: Hydrocortisone 1% CREAM* 30 GM TUBE TOPICAL PRN (09:55)
[2018-01-21] MEDS ORDERED: Acetaminophen TAB* 325 MG PO PRN (09:55)
[2018-01-21] MEDS: Aspirin EC TAB* 81 MG TAB.EC PO SCH (10:35)
[2018-01-21] MEDS: Vitamin THERAPEUTIC TAB PO SCH (10:35)
[2018-01-21] MEDS: Hydrochlorothiazide TAB* 25 MG PO SCH (10:35)
[2018-01-21] MEDS: Divalproex Sprinkle CAP* 125 MG PO SCH ×2 (10:35→20:47)
[2018-01-21] MEDS: Cholecalciferol TAB* 1000 UNITS PO SCH (10:35)
[2018-01-21] MEDS: LORazepam TAB(*) 0.5 MG PO SCH ×3 (10:35→20:46)
[2018-01-21] MEDS ORDERED: Saline NASAL DROPS 0.65%* 1 DROP BTL BOTH NARES PRN (14:40)
--- NOTE | 2018-01-21 15:47 | HP ---
HISTORY AND PHYSICAL: DATE OF ADMISSION: 01/20/18 SUPERVISING PSYCHIATRIST: Ray Cho MD.* (DICTATED BY ALTAF BORJAS NP) PRIMARY CARE PROVIDER: Dr. Cristopher Gardner. JUSTIFICATION FOR ADMISSION: The patient presented to the emergency department with complaints of chest pain. While in the emergency department, he was found to be disorganized and tangential. He did not appear safe to be discharged and was admitted involuntarily to adult BSU due to unspecified psychosis. 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 This is his fifth life-time hospitalization at [facility] since 2010. Since that time, he has lived at the [facility] in [place]. He has been stabilized on MORENO Abilify in the past. However, he stopped accepting the medication due to complaints of sexual side effects. He is periodically non-adherent to medications. During those times, he is impulsive and makes dangerous choices including being outside the home throwing snowballs at cars or not being dressed appropriate for weather. The patient also history of intrusiveness and hypersexuality. None of the above symptoms are observed at this time. The patient presents as disorganized, tangential, but is cooperative and not seeking out female staff as he has in the past. During his last hospitalizations in March and April of this year, the patient was started on long-acting injectable (MORENO) of Invega Sustenna. He also presented with symptoms of aime and was started on Depakote. From [facility], he was transferred to [facility] for longer term hospitalization. While there, he was court-mandated for Treatment Over Objection. Since then, his family advocated that he be removed from [place] service connection. He is now a client of [facility]. Due to his history of cheeking medicines and medication noncompliance, it is uncertain at this time what medications he has actually been taking. I am awaiting collateral information from [facility] in regards to current psychiatric medications. The patient appears anxious. His topic of conversation is tangential and disorganized. He denies physical pains or anxiety or mood disruption. PAST MEDICAL HISTORY: 1. CAD with potential history of [place]. 2. Hyperlipidemia. 3. Hypertension. 4. Diverticulitis. 5. History of aneurysm in 2011. SURGICAL HISTORY: Right forearm wrist break, pins placed. PAST PSYCHIATRIC HISTORY: As stated above, the patient has been hospitalized at [facility] 4 previous times, 2010, 2013, and twice this year in 2018 in March and April. He has past diagnosis of Schizophrenia, paranoid type, and PTSD. During his last hospitalization, he presented with aime and diagnosis was changed to schizoaffective disorder bipolar type. 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 He sees Dr. Nayak at [facility]. CURRENT MEDICATIONS: That we are aware of, 1. Lorazepam, unsure of dose, we will continue 0.5 mg p.o. t.i.d. for now. 2. Depakote Sprinkles 500 mg p.o. b.i.d. 3. Trazodone 100 mg p.o. q.h.s. 4. Aspirin EC 81 mg p.o. daily. 5. Hydrochlorothiazide 25 mg p.o. daily. 6. Hydrocortisone cream topical 3 times daily p.r.n. itching. 7. Lipitor 20 mg p.o. daily. 8. Milk of mag 30 mL p.o. q.h.s. 9. Nitroglycerin 0.5 mg sublingual p.r.n. chest pain. 10. Enamel protect dental cream b.i.d. 11. Multivitamin daily. 12. Acetaminophen 650 mg p.o. q. 4h p.r.n. pain. 13. Vitamin D 1000 units p.o. daily. I am unsure about his Invega prescription and we will follow up on this. PAST PSYCHIATRIC MEDICATIONS: 1. Artane. 2. Stelazine. 3. Olanzapine. 4. Risperidone. 5. Risperdal Consta. 6. Mirtazapine. 7. Aripiprazole. 8. Paliperidone. ALLERGIES: BACITRACIN, NEOMYCIN, POLYMYXIN B, THIOTHIXENE, TRIFLURIDINE, and STELAZINE. SUICIDE OR SELF-HARM BEHAVIORS: Not known. There is no documented evidence of lethality. 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 SOCIAL HISTORY: The patient was born and raised in [place], [place]. He is one of 9 siblings. The patient was in foster care as a child. He graduated high school. 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 He had onset of psychosis at age 20 and discharged with 100% service connection. The patient never and does not have children. 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 REVIEW OF SYSTEMS: Constitutional: Negative. No fever, chills, or fatigue. ENT: Negative. Respiratory: Negative. Denies shortness of breath or cough. Cardiovascular: Negative. Denies chest pain or palpitations. Genitourinary: Negative. Musculoskeletal: Negative. Neurological: Negative. PHYSICAL EXAMINATION Height 6.2, weight 160 pounds. The patient was examined in the emergency department and medical concerns were ruled out. For further exam data please see ED provider report. Most recent vital signs, T 98.3, P 85, respiratory rate 16, O2 saturation 99%, BP 120/57. LABORATORY DATA: In the emergency department, CBC noteworthy for low H and H at 13.3 and 39 respectively. Chemistry: Generally unremarkable. Toxicology: Negative for salicylates, acetaminophen, or alcohol. MENTAL STATUS EXAM: George is a 67-year-old white male with medium long salt and pepper hair. He appears his stated age. He is adequately groomed, wearing a button down a flannel shirt that he is able to button himself. He is alert and oriented x3. His eye contact is fair. Speech is soft, mumbled at times. Mood is euthymic with guarded affect. No abnormal psychomotor activity noted. Thought process is disorganized and tangential. Thought content is negative for SI, HI, or or passive wish. The patient denies AH, VH and does not appear to respond to internal stimuli. His insight and judgment are impaired. Fund of knowledge is adequate. DIAGNOSES: Kirksey I: Schizoaffective disorder, bipolar type; Posttraumatic stress disorder by history. Kirksey III: Coronary artery disease, hyperlipidemia, hypertension, history of diverticulosis. ASSESSMENT: Mr. 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 He has lived at the [facility] in [place] for at least 7 years. He is questionable with medication adherence and often presents to the ED with anxiety and psychotic behavior. It is unclear at this time, if he is in the midst of an MORENO or when the last dose was given. PLAN: We will resume known medications and await collateral information from [facility]. We will obtain a urine specimen to rule out urinary tract infection. Hospitalization will focus on brief stabilization and return patient to his usual dwelling. The patient is admitted to adult behavioral service unit on involuntary status. His code status is full. He is placed on 15-minute checks for safety. He is encouraged to participate in supportive, milieu, individual sessions with staff and psychoeducational groups as he is able to. ESTIMATED LENGTH OF STAY: 3 to 5 days. ALTAF BORJAS NP [id number]/CPS #: [id number] LEAH
[2018-01-21 17:25] LABS: Urine Appearance Cloudy; Urine Blood Negative (Negative); Urine Color Yellow; Urine Ketones Trace (Negative); Urine Protein Negative (Negative); Urine Specific Gravity 1.016 (1.010-1.030); Urine Urobilinogen Negative (Negative)
[2018-01-21] MEDS ORDERED: SALINE 0.65% BOTH NARES PRN (18:08)
[2018-01-21] MEDS: Atorvastatin* 20 MG TAB PO SCH (20:46)
[2018-01-21] MEDS ORDERED: traZODone TAB* 100 MG PO SCH (21:00)
[2018-01-21] MEDS ORDERED: Magnesium Hydroxide LIQ* 30 ML UDC PO SCH (21:00)
[2018-01-21] MEDS: POTASSIUM NITRATE PO SCH (21:00)
[2018-01-21] MEDS: [UNRECOGNIZED DRUG - OTHER] PO SCH (21:00)
[2018-01-21] MEDS: SODIUM FLUORIDE PO SCH (21:00)
[2018-01-22] MEDS: Divalproex Sprinkle CAP* 125 MG PO SCH ×2 (10:47→20:52)
[2018-01-22] MEDS: Hydrochlorothiazide TAB* 25 MG PO SCH (10:47)
[2018-01-22] MEDS: Vitamin THERAPEUTIC TAB PO SCH (10:48)
[2018-01-22] MEDS: LORazepam TAB(*) 0.5 MG PO SCH ×3 (10:48→20:53)
[2018-01-22] MEDS: Aspirin EC TAB* 81 MG TAB.EC PO SCH (10:48)
[2018-01-22] MEDS: Cholecalciferol TAB* 1000 UNITS PO SCH (10:48)
[2018-01-22] MEDS: [UNRECOGNIZED DRUG - OTHER] PO SCH ×2 (10:53→21:22)
[2018-01-22] MEDS: POTASSIUM NITRATE PO SCH ×2 (10:53→21:22)
[2018-01-22] MEDS: SODIUM FLUORIDE PO SCH ×2 (10:53→21:22)
--- NOTE | 2018-01-22 11:27 | PN ---
Subjective - Subjective Service Type: 69747 Hosp care 25 min moderate complexity Subjective: Patient is noted to stand near ventilation, either looking into and/or sniffing air output. He is soft-spoken, difficult to understand. He states he is "not crazy, I never was." He endorses anxiety and racing thoughts. He denies AH or VH or intrusive thoughts. During conversation, he quickly changes topics without seeming to notice. He is avoidant of discussion re: antipsychotics and barriers to compliance. He inquires about hydroxyzine for anxiety. Per staff, patient slept intermittently last night. He and a male peer are both psychotically related and tend to have tense interactions. Objective - Appearance Appearance: Well Developed/Nourished Dysmorphic Features: No Hygiene: Normal Grooming: Fairly Well Kept - Behavior Psychomotor Activities: Normal Exhibits Abnormal Movement: No - Attitude and Relatedness Attitude and Relatedness: Psychotically Related Eye Contact: Fair - Speech Quality: Unpressured Latencies: Short - soft-spoken Quantity: Copious - Mood Patient's Decription of Mood: "peeved" - Affect Observed Affect: Expansive Affect Consistent with: Euphoria - Thought Process Patient's Thought Process: Disorganized, Loose Associations, Impoverished Thought Content: No Passive Wish, No Suicidal Planning, No Homicidal Ideation, No Paranoid Ideation - Sensorium Experiencing Hallucinations: No, Sensorium is Clear Type of Hallucinations: Visual: No, Auditory: No, Command: No - Level of Consciousness Level of Consciousness: Alert Orientation: Yes Intact, Yes Orientated to Time, Yes Orientated to Place, Yes Orientated to Person - Impulse Control Impulse Control: Tenuous - Insight and Judgement Insight and Judgement: Impaired - Group Participation Particating in Group Activities: No - Medication Management Medication Management Adherence: Partial Assessment - Assessment Merits Inpatient Hospitalization: For Immediate Safety, For Stabilization Inpatient DSM-V Dx: F25.0 Clinical Impression: 67yo wm, domiciled, mentally disabled with history of schizoaffective d/o, bipolar type. He has been stabilized on MORENO antipsychotics in the past. Recently, he has been refusing the injection and cheeking medications. He presents as disorganized with impaired insight. He merits hospitalization for immediate safety and stabilization. MHU: Problem List - Patient Problems (1) Schizoaffective disorder, bipolar type Current Visit: No Status: Chronic Priority: High Code(s): F25.0 - SCHIZOAFFECTIVE DISORDER, BIPOLAR TYPE SNOMED Code(s): 56660343 Comment: identify antipsychotic that patient consents to take (2) Anxiety Current Visit: Yes Status: Acute Priority: Medium Code(s): F41.9 - ANXIETY DISORDER, UNSPECIFIED SNOMED Code(s): 08047670 Comment: utilize scheduled sedative, trial hydroxyzine per patient request Plan - Plan Treatment Plan: Name: DEYANIRA BOYD Birthdate: 1950 [id number] continue acute intensive psychiatric treatment. add hydroxyzine prn for anxiety per patient request. obtain valproic acid trough in AM. Continued Medication Management: Consider Medication Medications: Current Medications Acetaminophen (Tylenol Tab*) 650 mg PO Q4H PRN PRN Reason: PAIN Aspirin (Aspirin Ec Tab*) 81 mg PO DAILY [facility] Last Admin: 01/22/18 10:48 Dose: 81 mg Atorvastatin Calcium (Lipitor*) 20 mg PO BEDTIME [facility] Last Admin: 01/21/18 20:46 Dose: 20 mg Cholecalciferol (Vitamin D Tab*) 1,000 units PO DAILY [facility] Last Admin: 01/22/18 10:48 Dose: 1,000 units Divalproex Sodium (Depakote Sprinkle Cap*) 500 mg PO BID [facility] Hydrochlorothiazide (Hydrodiuril Tab*) 25 mg PO QAM [facility] Last Admin: 01/22/18 10:47 Dose: 25 mg Hydrocortisone (Hytone Cream 1%*) 1 applic TOPICAL TID PRN PRN Reason: ITCHING Last Admin: 01/21/18 20:47 Dose: 1 applic Lorazepam (Ativan Tab(*)) 0.5 mg PO TID [facility] Last Admin: 01/22/18 10:48 Dose: 0.5 mg Magnesium Hydroxide (Milk Of Magnesia Liq*) 30 ml PO BEDTIME [facility] Last Admin: 01/21/18 20:47 Dose: Not Given Multivitamins (Theragran Tab*) 1 tab PO DAILY [facility] Last Admin: 01/22/18 10:48 Dose: 1 tab Nitroglycerin (Nitroglycerin Tab 0.4 Mg*) 0.4 mg SL Q5M PRN PRN Reason: PAIN - CHEST Non-Formulary Medication (Sodium Fluoride/Potassium Nit [Prevident 5000 Enamel Protect]) 1 pst PO BID [facility] Last Admin: 01/22/18 10:53 Dose: Not Given Sodium Chloride (Sodium Chloride 0.65% Nasal [place]*) 1 spray BOTH NARES Q4H PRN PRN Reason: CONGESTION Trazodone HCl (Desyrel Tab*) 100 mg PO BEDTIME [facility] Last Admin: 01/21/18 20:46 Dose: 100 mg add hydroxyzine 50mg TID prn anxiety - Discharge Plan Discharge Plan: Outpatient Follow Up Outpatient Program: [facility]
[2018-01-22] MEDS ORDERED: Magnesium Hydroxide LIQ* 30 ML UDC PO PRN (14:05)
[2018-01-22] MEDS: Atorvastatin* 20 MG TAB PO SCH (20:52)
[2018-01-22] MEDS: QUEtiapine TAB* 100 MG PO SCH (20:53)
[2018-01-23] MEDS ORDERED: Divalproex Sprinkle CAP* 125 MG PO SCH (09:00)
[2018-01-23] MEDS: Aspirin EC TAB* 81 MG TAB.EC PO SCH (10:03)
[2018-01-23] MEDS: Cholecalciferol TAB* 1000 UNITS PO SCH (10:03)
[2018-01-23] MEDS: LORazepam TAB(*) 0.5 MG PO SCH ×4 (10:03→23:30)
[2018-01-23] MEDS: Vitamin THERAPEUTIC TAB PO SCH (10:03)
[2018-01-23] MEDS: Hydrochlorothiazide TAB* 25 MG PO SCH (10:04)
[2018-01-23] MEDS: Divalproex Sprinkle CAP* 125 MG PO SCH ×3 (10:04→23:30)
[2018-01-23] MEDS: SODIUM FLUORIDE PO SCH ×2 (10:14→22:14)
[2018-01-23] MEDS: [UNRECOGNIZED DRUG - OTHER] PO SCH ×2 (10:14→22:14)
[2018-01-23] MEDS: POTASSIUM NITRATE PO SCH ×2 (10:14→22:14)
--- NOTE | 2018-01-23 11:39 | PN ---
Subjective - Subjective Service Type: 72968 Hosp care 25 min moderate complexity Subjective: Patient presents as pleasantly disorganized and confused with periods of lucidity. 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 Patient denies side effects or physical complaints. He is wearing a button- down shirt that he tied into a knot at the waist. He states he wanted to have "nice threads." Per staff, his sleep was improved last night. Patient tolerated blood draw this morning. Valproic acid level of 70.0. Objective - Appearance Appearance: Well Developed/Nourished Dysmorphic Features: No Hygiene: Dirty Grooming: Disheveled - Behavior Psychomotor Activities: Normal Exhibits Abnormal Movement: No - Attitude and Relatedness Attitude and Relatedness: Cooperative Eye Contact: Fair - Speech Quality: Unpressured Latencies: Short Quantity: Copious - Mood Patient's Decription of Mood: "Okay" - Affect Observed Affect: Expansive Affect Consistent with: Euphoria - Thought Process Patient's Thought Process: Disorganized, Loose Associations Thought Content: No Passive Wish, No Suicidal Planning, No Homicidal Ideation, No Paranoid Ideation - Sensorium Experiencing Hallucinations: No, Sensorium is Clear Type of Hallucinations: Visual: No, Auditory: No, Command: No - Level of Consciousness Level of Consciousness: Alert Orientation: Yes Intact, Yes Orientated to Time, Yes Orientated to Place, Yes Orientated to Person - Impulse Control Impulse Control: Tenuous - Insight and Judgement Insight and Judgement: Impaired - Group Participation Particating in Group Activities: No - Medication Management Medication Management Adherence: Yes Assessment - Assessment Merits Inpatient Hospitalization: For Immediate Safety, For Stabilization Inpatient DSM-V Dx: F25.0 Clinical Impression: 67yo wm, domiciled, mentally disabled with history of schizoaffective d/o, bipolar type. He has been stabilized on MORENO antipsychotics in the past. Recently, he has been refusing the injection and cheeking medications. He presents as disorganized with impaired insight. He merits hospitalization for immediate safety and stabilization. MHU: Problem List - Patient Problems (1) Schizoaffective disorder, bipolar type Current Visit: No Status: Chronic Priority: High Code(s): F25.0 - SCHIZOAFFECTIVE DISORDER, BIPOLAR TYPE SNOMED Code(s): 79418353 Comment: increased dose of depakote; continue trial of quetiapine (2) Anxiety Current Visit: Yes Status: Acute Priority: Medium Code(s): F41.9 - ANXIETY DISORDER, UNSPECIFIED SNOMED Code(s): 03438765 Comment: utilize scheduled sedative, trial hydroxyzine per patient request Plan - Plan Treatment Plan: Name: DEYANIRA BOYD Birthdate: 1950 [id number] continue acute intensive psychiatric treatment. add hydroxyzine prn for anxiety per patient request. continue current medications. discharge planning to include residence and outpatient providers Continued Medication Management: Start Medication Medications: Current Medications Acetaminophen (Tylenol Tab*) 650 mg PO Q4H PRN PRN Reason: PAIN Aspirin (Aspirin Ec Tab*) 81 mg PO DAILY [facility] Last Admin: 01/23/18 10:03 Dose: 81 mg Atorvastatin Calcium (Lipitor*) 20 mg PO BEDTIME [facility] Last Admin: 01/22/18 20:52 Dose: 20 mg Cholecalciferol (Vitamin D Tab*) 1,000 units PO DAILY [facility] Last Admin: 01/23/18 10:03 Dose: 1,000 units Divalproex Sodium (Depakote Sprinkle Cap*) 500 mg PO BID [facility] Last Admin: 01/23/18 10:04 Dose: 500 mg Hydrochlorothiazide (Hydrodiuril Tab*) 25 mg PO QAM [facility] Last Admin: 01/23/18 10:04 Dose: 25 mg Hydrocortisone (Hytone Cream 1%*) 1 applic TOPICAL TID PRN PRN Reason: ITCHING Last Admin: 01/21/18 20:47 Dose: 1 applic Lorazepam (Ativan Tab(*)) 0.5 mg PO TID [facility] Last Admin: 01/23/18 10:03 Dose: 0.5 mg Magnesium Hydroxide (Milk Of Magnesia Liq*) 30 ml PO BEDTIME PRN PRN Reason: CONSTIPATION Multivitamins (Theragran Tab*) 1 tab PO DAILY [facility] Last Admin: 01/23/18 10:03 Dose: 1 tab Nitroglycerin (Nitroglycerin Tab 0.4 Mg*) 0.4 mg SL Q5M PRN PRN Reason: PAIN - CHEST Non-Formulary Medication (Sodium Fluoride/Potassium Nit [Prevident 5000 Enamel Protect]) 1 pst PO BID [facility] Last Admin: 01/23/18 10:14 Dose: Not Given Quetiapine Fumarate (Seroquel Tab*) 100 mg PO BEDTIME [facility] Last Admin: 01/22/18 20:53 Dose: 100 mg Sodium Chloride (Sodium Chloride 0.65% Nasal [place]*) 1 spray BOTH NARES Q4H PRN PRN Reason: CONGESTION - Discharge Plan Discharge Plan: Inpatient Hospitalization Outpatient Program: Angel ARAUZ
[2018-01-23] MEDS: Atorvastatin* 20 MG TAB PO SCH (21:59)
[2018-01-23] MEDS: QUEtiapine TAB* 100 MG PO SCH ×2 (21:59→23:30)
[2018-01-24] MEDS: [UNRECOGNIZED DRUG - OTHER] PO SCH ×2 (08:14→22:14)
[2018-01-24] MEDS: SODIUM FLUORIDE PO SCH ×2 (08:14→22:14)
[2018-01-24] MEDS: POTASSIUM NITRATE PO SCH ×2 (08:14→22:14)
[2018-01-24] MEDS: Divalproex Sprinkle CAP* 125 MG PO SCH (08:25)
[2018-01-24] MEDS: Hydrochlorothiazide TAB* 25 MG PO SCH (08:25)
[2018-01-24] MEDS: Cholecalciferol TAB* 1000 UNITS PO SCH (08:25)
[2018-01-24] MEDS: Aspirin EC TAB* 81 MG TAB.EC PO SCH (08:25)
[2018-01-24] MEDS: Vitamin THERAPEUTIC TAB PO SCH (08:25)
[2018-01-24] MEDS: LORazepam TAB(*) 0.5 MG PO SCH ×3 (08:26→22:07)
[2018-01-24] MEDS: Divalproex DR TAB(*) 500 MG PO SCH ×2 (09:12→22:07)
--- NOTE | 2018-01-24 09:57 | PN ---
Subjective - Subjective Date of Service: 01/24/18 Service Type: 62388 Hosp care 15 min low complexity Subjective: Patient continues to spend the majority of time standing in hallway near ventilation ducts. He tells people he is trying to get fresh air. Patient changed into jeans, otherwise he is still wearing a button down shirt tied into a knot near the waist. His speech is mumbled and difficult to understand. He is periodically on topic and inquires about increased dose of depakote. Objective - Appearance Appearance: Well Developed/Nourished Dysmorphic Features: No Hygiene: Normal Grooming: Disheveled - Behavior Psychomotor Activities: Normal Exhibits Abnormal Movement: No - Attitude and Relatedness Attitude and Relatedness: Guarded Eye Contact: Poor - Speech Quality: Unpressured Latencies: Short Quantity: Terse - Mood Patient's Decription of Mood: "Okay" - Affect Observed Affect: Unvariable Affect Consistent with: Euthymia - Thought Process Patient's Thought Process: Disorganized, Loose Associations Thought Content: No Passive Wish, No Suicidal Planning, No Homicidal Ideation, No Paranoid Ideation - Sensorium Experiencing Hallucinations: No, Sensorium is Clear Type of Hallucinations: Visual: No, Auditory: No, Command: No - Level of Consciousness Level of Consciousness: Alert Orientation: Yes Intact, Yes Orientated to Time, Yes Orientated to Place, Yes Orientated to Person - Impulse Control Impulse Control: Tenuous - Insight and Judgement Insight and Judgement: Impaired - Group Participation Particating in Group Activities: No - Medication Management Medication Management Adherence: Yes Assessment - Assessment Merits Inpatient Hospitalization: For Immediate Safety, For Stabilization Inpatient DSM-V Dx: F25.0 Clinical Impression: 67yo wm, domiciled, mentally disabled with history of schizoaffective d/o, bipolar type. He has been stabilized on MORENO antipsychotics in the past. Recently, he has been refusing the injection and cheeking medications. He presents as disorganized with impaired insight. He merits hospitalization for immediate safety and stabilization. MHU: Problem List - Patient Problems (1) Schizoaffective disorder, bipolar type Current Visit: No Status: Chronic Priority: High Code(s): F25.0 - SCHIZOAFFECTIVE DISORDER, BIPOLAR TYPE SNOMED Code(s): 07945739 Comment: increased dose of depakote; continue titration of quetiapine (2) Anxiety Current Visit: Yes Status: Acute Priority: Medium Code(s): F41.9 - ANXIETY DISORDER, UNSPECIFIED SNOMED Code(s): 75127070 Comment: utilize scheduled sedative, trial hydroxyzine per patient request Plan - Plan Treatment Plan: Name: DEYANIRA BOYD Birthdate: 1950 [id number] continue acute intensive psychiatric treatment. increase quetiapine and obtain orthostatic VS BID discharge planning to include residence and outpatient providers Continued Medication Management: Different Medication Medications: Current Medications Acetaminophen (Tylenol Tab*) 650 mg PO Q4H PRN PRN Reason: PAIN Aspirin (Aspirin Ec Tab*) 81 mg PO DAILY [facility] Last Admin: 01/24/18 08:25 Dose: 81 mg Atorvastatin Calcium (Lipitor*) 20 mg PO BEDTIME [facility] Last Admin: 01/23/18 21:59 Dose: 20 mg Cholecalciferol (Vitamin D Tab*) 1,000 units PO DAILY [facility] Last Admin: 01/24/18 08:25 Dose: 1,000 units Divalproex Sodium (Depakote Dr Tab(*)) 500 mg PO BID [facility] Last Admin: 01/24/18 09:12 Dose: Not Given Hydrochlorothiazide (Hydrodiuril Tab*) 25 mg PO QAM [facility] Last Admin: 01/24/18 08:25 Dose: 25 mg Hydrocortisone (Hytone Cream 1%*) 1 applic TOPICAL TID PRN PRN Reason: ITCHING Last Admin: 01/21/18 20:47 Dose: 1 applic Lorazepam (Ativan Tab(*)) 0.5 mg PO TID [facility] Last Admin: 01/24/18 08:26 Dose: 0.5 mg Magnesium Hydroxide (Milk Of Magnesia Liq*) 30 ml PO BEDTIME PRN PRN Reason: CONSTIPATION Multivitamins (Theragran Tab*) 1 tab PO DAILY [facility] Last Admin: 01/24/18 08:25 Dose: 1 tab Nitroglycerin (Nitroglycerin Tab 0.4 Mg*) 0.4 mg SL Q5M PRN PRN Reason: PAIN - CHEST Non-Formulary Medication (Sodium Fluoride/Potassium Nit [Prevident 5000 Enamel Protect]) 1 pst PO BID [facility] Last Admin: 01/24/18 08:14 Dose: Not Given Quetiapine Fumarate (Seroquel Tab*) 100 mg PO BEDTIME [facility] Last Admin: 01/23/18 23:30 Dose: 100 mg Sodium Chloride (Sodium Chloride 0.65% Nasal [place]*) 1 spray BOTH NARES Q4H PRN PRN Reason: CONGESTION - Discharge Plan Discharge Plan: Inpatient Hospitalization Outpatient Program: Angel ARAUZ
[2018-01-24] MEDS: QUEtiapine TAB* 100 MG PO SCH (22:07)
[2018-01-24] MEDS: Atorvastatin* 20 MG TAB PO SCH (22:07)
[2018-01-25] MEDS: Vitamin THERAPEUTIC TAB PO SCH (09:41)
[2018-01-25] MEDS: LORazepam TAB(*) 0.5 MG PO SCH ×3 (09:41→21:01)
[2018-01-25] MEDS: Hydrochlorothiazide TAB* 25 MG PO SCH (09:41)
[2018-01-25] MEDS: Aspirin EC TAB* 81 MG TAB.EC PO SCH (09:41)
[2018-01-25] MEDS: Divalproex DR TAB(*) 500 MG PO SCH ×2 (09:41→21:01)
[2018-01-25] MEDS: Cholecalciferol TAB* 1000 UNITS PO SCH (09:41)
[2018-01-25] MEDS: POTASSIUM NITRATE PO SCH ×2 (09:42→21:06)
[2018-01-25] MEDS: [UNRECOGNIZED DRUG - OTHER] PO SCH ×2 (09:42→21:06)
[2018-01-25] MEDS: SODIUM FLUORIDE PO SCH ×2 (09:42→21:06)
--- NOTE | 2018-01-25 15:01 | PN ---
Subjective - Subjective Date of Service: 01/25/18 Service Type: 70137 Hosp care 15 min low complexity Subjective: Patient presents with more organization with periods of confusion. He slept nearly 6 hours last night. Patient is wearing appropriate attire without bizarre knots. Patient is no longer observed standing in the middle of the hallway, sniffing air from ventilation. Objective - Appearance Appearance: Well Developed/Nourished Dysmorphic Features: Yes Hygiene: Normal Grooming: Fairly Well Kept - Behavior Psychomotor Activities: Normal Exhibits Abnormal Movement: No - Attitude and Relatedness Attitude and Relatedness: Cooperative Eye Contact: Fair - Speech Quality: Unpressured Latencies: Short Quantity: Terse - Mood Patient's Decription of Mood: "Okay" - Affect Observed Affect: Constricted Affect Consistent with: Dysphoria - Thought Process Patient's Thought Process: Loose Associations Thought Content: No Passive Wish, No Suicidal Planning, No Homicidal Ideation, No Paranoid Ideation - Sensorium Experiencing Hallucinations: No, Sensorium is Clear Type of Hallucinations: Visual: No, Auditory: No, Command: No - Level of Consciousness Level of Consciousness: Alert Orientation: Yes Intact, Yes Orientated to Time, Yes Orientated to Place, Yes Orientated to Person - Impulse Control Impulse Control: Intact - Insight and Judgement Insight and Judgement: Poor - Group Participation Particating in Group Activities: No - Medication Management Medication Management Adherence: Yes Assessment - Assessment Merits Inpatient Hospitalization: For Immediate Safety, For Stabilization Inpatient DSM-V Dx: F25.0 Clinical Impression: 67yo wm, domiciled, mentally disabled with history of schizoaffective d/o, bipolar type. He has been stabilized on MORENO antipsychotics in the past. Recently, he has been refusing the injection and cheeking medications. He presents as disorganized with impaired insight. He merits hospitalization for immediate safety and stabilization. MHU: Problem List - Patient Problems (1) Schizoaffective disorder, bipolar type Current Visit: No Status: Chronic Priority: High Code(s): F25.0 - SCHIZOAFFECTIVE DISORDER, BIPOLAR TYPE SNOMED Code(s): 67623516 Comment: increased dose of depakote; continue titration of quetiapine (2) Anxiety Current Visit: Yes Status: Acute Priority: Medium Code(s): F41.9 - ANXIETY DISORDER, UNSPECIFIED SNOMED Code(s): 82361584 Comment: utilize scheduled sedative, trial hydroxyzine per patient request Plan - Plan Treatment Plan: Name: DEYANIRA BOYD Birthdate: 1950 [id number] continue acute intensive psychiatric treatment. increase quetiapine and obtain orthostatic VS BID discharge planning to include residence and outpatient providers Medications: Current Medications Acetaminophen (Tylenol Tab*) 650 mg PO Q4H PRN PRN Reason: PAIN Aspirin (Aspirin Ec Tab*) 81 mg PO DAILY [facility] Last Admin: 01/25/18 09:41 Dose: 81 mg Atorvastatin Calcium (Lipitor*) 20 mg PO BEDTIME [facility] Last Admin: 01/24/18 22:07 Dose: 20 mg Cholecalciferol (Vitamin D Tab*) 1,000 units PO DAILY [facility] Last Admin: 01/25/18 09:41 Dose: 1,000 units Divalproex Sodium (Depakote Dr Tab(*)) 500 mg PO BID [facility] Last Admin: 01/25/18 09:41 Dose: 500 mg Hydrochlorothiazide (Hydrodiuril Tab*) 25 mg PO QAM [facility] Last Admin: 01/25/18 09:41 Dose: 25 mg Hydrocortisone (Hytone Cream 1%*) 1 applic TOPICAL TID PRN PRN Reason: ITCHING Last Admin: 01/21/18 20:47 Dose: 1 applic Lorazepam (Ativan Tab(*)) 0.5 mg PO TID [facility] Last Admin: 01/25/18 13:58 Dose: 0.5 mg Magnesium Hydroxide (Milk Of Magnesia Liq*) 30 ml PO BEDTIME PRN PRN Reason: CONSTIPATION Multivitamins (Theragran Tab*) 1 tab PO DAILY [facility] Last Admin: 01/25/18 09:41 Dose: 1 tab Nitroglycerin (Nitroglycerin Tab 0.4 Mg*) 0.4 mg SL Q5M PRN PRN Reason: PAIN - CHEST Non-Formulary Medication (Sodium Fluoride/Potassium Nit [Prevident 5000 Enamel Protect]) 1 pst PO BID [facility] Last Admin: 01/25/18 09:42 Dose: Not Given Quetiapine Fumarate (Seroquel Tab*) 200 mg PO BEDTIME [facility] Last Admin: 01/24/18 22:07 Dose: 200 mg Sodium Chloride (Sodium Chloride 0.65% Nasal [place]*) 1 spray BOTH NARES Q4H PRN PRN Reason: CONGESTION - Discharge Plan Discharge Plan: Outpatient Follow Up Outpatient Program: wanda rodriguez
[2018-01-25] MEDS: Atorvastatin* 20 MG TAB PO SCH (21:01)
[2018-01-25] MEDS: QUEtiapine TAB* 100 MG PO SCH (21:01)
[2018-01-26] MEDS: Aspirin EC TAB* 81 MG TAB.EC PO SCH (09:32)
[2018-01-26] MEDS: LORazepam TAB(*) 0.5 MG PO SCH ×3 (09:32→20:38)
[2018-01-26] MEDS: Hydrochlorothiazide TAB* 25 MG PO SCH (09:32)
[2018-01-26] MEDS: Vitamin THERAPEUTIC TAB PO SCH (09:33)
[2018-01-26] MEDS: POTASSIUM NITRATE PO SCH ×2 (09:33→20:51)
[2018-01-26] MEDS: Divalproex DR TAB(*) 500 MG PO SCH ×2 (09:33→20:38)
[2018-01-26] MEDS: [UNRECOGNIZED DRUG - OTHER] PO SCH ×2 (09:33→20:51)
[2018-01-26] MEDS: SODIUM FLUORIDE PO SCH ×2 (09:33→20:51)
[2018-01-26] MEDS: Cholecalciferol TAB* 1000 UNITS PO SCH (09:33)
[2018-01-26] MEDS: Atorvastatin* 20 MG TAB PO SCH (20:38)
[2018-01-26] MEDS: QUEtiapine TAB* 100 MG PO SCH (20:38)
[2018-01-27 08:02] VITALS: BP 115/69
[2018-01-27] MEDS: Cholecalciferol TAB* 1000 UNITS PO SCH (10:14)
[2018-01-27] MEDS: Divalproex DR TAB(*) 500 MG PO SCH ×2 (10:14→21:35)
[2018-01-27] MEDS: Vitamin THERAPEUTIC TAB PO SCH (10:14)
[2018-01-27] MEDS: LORazepam TAB(*) 0.5 MG PO SCH ×3 (10:14→21:35)
[2018-01-27] MEDS: POTASSIUM NITRATE PO SCH ×2 (10:14→21:57)
[2018-01-27] MEDS: [UNRECOGNIZED DRUG - OTHER] PO SCH ×2 (10:14→21:57)
[2018-01-27] MEDS: SODIUM FLUORIDE PO SCH ×2 (10:14→21:57)
[2018-01-27] MEDS: Aspirin EC TAB* 81 MG TAB.EC PO SCH (10:14)
[2018-01-27] MEDS: Hydrochlorothiazide TAB* 25 MG PO SCH (10:14)
[2018-01-27] MEDS: QUEtiapine TAB* 100 MG PO SCH (21:35)
[2018-01-27] MEDS: Atorvastatin* 20 MG TAB PO SCH (21:35)
[2018-01-28] MEDS: POTASSIUM NITRATE PO SCH (09:46)
[2018-01-28] MEDS: SODIUM FLUORIDE PO SCH (09:46)
[2018-01-28] MEDS: [UNRECOGNIZED DRUG - OTHER] PO SCH (09:46)
[2018-01-28] MEDS: Aspirin EC TAB* 81 MG TAB.EC PO SCH (09:48)
[2018-01-28] MEDS: LORazepam TAB(*) 0.5 MG PO SCH (09:48)
[2018-01-28] MEDS: Cholecalciferol TAB* 1000 UNITS PO SCH (09:48)
[2018-01-28] MEDS: Vitamin THERAPEUTIC TAB PO SCH (09:48)
[2018-01-28] MEDS: Divalproex DR TAB(*) 500 MG PO SCH (09:48)
[2018-01-28] MEDS: Hydrochlorothiazide TAB* 25 MG PO SCH (09:50)
--- NOTE | 2018-01-29 09:59 | DS ---
CC: [facility]; [facility]; Dr. Cristopher Gardner DISCHARGE SUMMARY: DATE OF ADMISSION: 01/20/18 DATE OF DISCHARGE: 01/28/18 SUPERVISING PSYCHIATRIST: Dr. Ray Cho. DISCHARGE DIAGNOSES: [place] I: Schizoaffective disorder bipolar type, posttraumatic stress disorder by history. [place] III: Coronary artery disease, hyperlipidemia, hypertension, history of diverticulosis. CONDITION AT TIME OF DISCHARGE: Improved. The patient is no longer complaining of anxiety. He has improved sleep. He is no longer exhibiting psychotic thinking. He continues to present as confused at times. This is not a new finding as he is showing signs of cognitive decline; however the patient is participating in ADLs. He is pleasant and cooperative. He states readiness to return home to [facility]. It is the opinion of the treatment team that the patient will decompensate with continued hospitalization and would behoove him return to his usual surroundings. The patient denies suicidal ideations. He denies auditory or visual hallucinations. He has been predominantly medication compliant. At times, he refuses h.s. Seroquel. He is adherent to his other medications. MENTAL STATUS EXAM: George is a 67-year-old white male with medium-long salt and pepper hair. He appears stated age. He is adequately groomed and ADLs are completed. At the time of conversation, he was alert and oriented x3. Eye contact is fair. Speech is soft, mumbled at times. Mood is euthymic with full range of affect. No abnormal psychomotor activity noted. Thought process is coherent with periods of loose associations. Thought content is negative for SI , HI, , or passive wish. The patient denies AH, VH and does not appear to respond to internal stimuli. Insight and judgment are fair. Fund of knowledge is adequate. INSTRUCTIONS GIVEN TO PATIENT: A. Medications: The following medications are changed, 1. Depakote ER 500 mg p.o. b.i.d. 2. Lorazepam 1 mg p.o. daily p.r.n. anxiety. 3. Lorazepam 0.5 mg p.o. t.i.d. 4. Quetiapine 200 mg p.o. q.h.s. The following medications will be resumed by primary care. 1. Aspirin EC 81 mg p.o. daily. 2. Lipitor 20 mg p.o. q.h.s. 3. Vitamin D tablet 1000 units p.o. daily. 4. Hydrochlorothiazide 25 mg p.o. q.a.m. 5. Hydrocortisone 1% cream topical t.i.d. p.r.n. itching. 6. Milk of magnesia 30 mL p.o. bedtime p.r.n. constipation. 7. Multivitamin 1 daily. 8. Nitroglycerin 0.4 mg sublingual q.5 minutes p.r.n. chest pain. 9. Saline nasal spray both nares q.4 h. p.r.n. sinus congestion. 10. PreviDent 5000 paste b.i.d. B. Diet: Regular. C. Activity: As tolerated. Tobacco cessation is declined by patient. He states he is not a tobacco user at discharge. There are no pending labs or diagnostic studies. D. Followup Care: The patient will follow up at [facility] and has an appointment with therapist, Dr. Silvestre Crowley, on Sunday, . The patient will follow up with primary care provider, Dr. Cristopher Gardner, as needed. E. Substance use followup is not applicable. HOSPITAL COURSE: Part A. Reason for admission: The patient presented to the emergency department with complaints of chest pain. While in the emergency department, he was found to be disorganized and tangential. He did not appear to be safe to be discharged and was admitted involuntarily to the adult BSU due to unspecified psychosis. The patient was admitted on a 939 status. Code status is full. He was placed on 15-minute checks for his safety. Part B. Psychiatric treatment rendered: The patient's records and mental health admissions were reviewed. He was most recently admitted to [facility] in April of this year. From there, he was transferred to [facility] for longer-term hospitalization. The patient was receiving a long-acting injectable of paliperidone. According to collateral information from [facility] where the patient has resided since 2010, he stopped antipsychotic due to sexual side effects. He was noted to be cheeking medicines at [facility]. While on the unit, the patient was disorganized and tangential. He was bizarre in his appearance and often stood in the hallway near ventilation either looking into and/or sniffing air output. He was avoidant of discussion regarding medications. He did inquire about hydroxyzine for anxiety. He and other male peers had tense interactions when psychotically related. The patient was noted to attempt to avoid interactions primarily. He also was disorganized in thought topic. He quickly changed topics without seeming to notice. Due to the patient's age, we started a low dose of quetiapine as an antipsychotic. He was noted to have improved sleep. We increased Depakote to 500 mg b.i.d. from 250 mg b.i.d. He tolerated this well. He had a blood draw on 01/23/18, valproic acid level of 70.0. The patient was primarily seclusive on the unit. He was pleasant upon approach. Any meaningful interaction usually surrounded playing cards. The patient was able to demonstrate organized thinking and ability to teach staff and peers various card games. Gutierrez's presentation improved. He was dressing himself without bizarre combination. He was participating in ADLs. He avoided groups but was present for meals. At times, he presented with periods of confusion including seemingly not knowing what to do with his lunch tray. Staff assisted him in times of confusion. The patient reported readiness to return to [facility] as stated above. Continuing hospitalization could be problematic due to patient's confusion. He is presenting as organized and would likely decompensate if hospitalization continues. He denies suicidal ideations. He is calm and in behavioral control. He has been safe on all checks. We hope that George does well and return should he need further stabilization. ALTAF BORJAS, JAS [id number]/CPS #: [id number] LEAH
== END 2018-01-28 11:45 | disposition home or self-care (01) | DRG 885 ==
LOC: ED 21:53 → BSU 01-21 03:39
PROVIDERS: ADMIT Psychiatry & Neurology Psychiatry; ATTEND Psychiatry & Neurology Psychiatry
DX: F25.0 Schizoaffective disorder, bipolar type (principal); Z91.14 Patient's other noncompliance with medication regimen; I11.9 Hypertensive heart disease without heart failure; F43.10 Post-traumatic stress disorder, unspecified; I25.10 Atherosclerotic heart disease of native coronary artery without angina pectoris; E78.5 Hyperlipidemia, unspecified; F41.9 Anxiety disorder, unspecified; Z79.1 Long term (current) use of non-steroidal anti-inflammatories (NSAID); Z79.82 Long term (current) use of aspirin; Z79.899 Other long term (current) drug therapy; Z88.1 Allergy status to other antibiotic agents; Z88.8 Allergy status to other drugs, medicaments and biological substances
CPT/HCPCS: 36415; 71045; 80053; 80061; 80164; 80307; 81003; 83036; 84484; 85025; 93005; 99222; 99231; 99232; 99238; 99284; A9270-GY

== ENCOUNTER 2018-02-08 01:42 | Observation (INO) | payer MEDICARE ==
--- NOTE | 2018-02-08 02:01 | ED ---
HPI Chest Pain - HPI Summary HPI Summary: This pt is a 67 y/o male presenting to [facility] via EMS for chest pain today. EMS reports pt was found walking down the street and c/o chest pain. 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 He describes substernal chest pain without radiation. Pt denies associated symptoms, denies nausea, vomiting, SOB, palpitations. He currently rates his pain 4/10 in severity. Pt is reluctant to give much history. EMS administered 324 mg ASA MINI LAB OPERATOR. Pt recently discharged from [facility] facility on 01/28/18. - History of Current Complaint Hx Obtained From: Patient Onset/Duration: Started Minutes Ago - about 30 minutes ago, Still Present Timing: Lasting Minutes Current Severity: Moderate Pain Intensity: 4 Pain Scale Used: 0-10 Numeric Chest Pain Location: Mid Sternal Chest Pain Radiates: No Aggravating Factor(s): Nothing Alleviating Factor(s): Nothing Associated Signs and Symptoms: Positive: Chest Pain. Negative: Shortness of Breath, Fever, Chills, Nausea, Palpitations, Vomiting - Additional Pertinent History Primary Care Physician: [id number] - Allergy/Home Medications Allergies/Adverse Reactions: Allergies Allergy/AdvReac Type Severity Reaction Status Date / Time bacitracin Allergy Unknown Verified 10/19/17 15:14 Reaction Details neomycin Allergy Unknown Verified 10/19/17 15:14 [From Triple Antibiotic] Reaction Details polymyxin B Allergy Unknown Verified 10/19/17 15:14 [From Triple Antibiotic] Reaction Details thiothixene Allergy Unknown Verified 10/19/17 15:14 Reaction Details trifluoperazine Allergy Unknown Verified 10/19/17 15:14 [From Stelazine] Reaction Details trifluridine Allergy Unknown Verified 10/19/17 15:14 Reaction Details PMH/Surg Hx/FS Hx/Imm Hx Endocrine/Hematology History: Denies: Hx Anticoagulant Therapy, Hx Diabetes, Hx Thyroid Disease, Other Endocrine/Hematological Disorders Cardiovascular History: Reports: Hx Aneurysm - 2012, Hx Angina, Hx Coronary Artery Disease, Hx Hypercholesterolemia, Hx Hypertension Denies: Hx Congestive Heart Failure, Hx Pacemaker/ICD, Other Cardiovascular Problems/Disorders Respiratory History: Denies: Hx Asthma, Hx Chronic Obstructive Pulmonary Disease (COPD), Other Respiratory Problems/Disorders GI History: Reports: Hx Diverticulosis Denies: Other GI Disorders History: Denies: Hx Renal Disease, Other Problems/Disorders Musculoskeletal History: Denies: Other Musculoskeletal History Sensory History: Denies: Hx Contacts or Glasses, Hx Hearing Aid, Other Sensory Impairments Opthamlomology History: Denies: Hx Contacts or Glasses, Other Sensory Impairments Neurological History: Denies: Hx Dementia, Hx Seizures, Other Neuro Impairments/Disorders Psychiatric History: Reports: Hx Anxiety, Hx Post Traumatic Stress Disorder, Hx Inpatient Treatment, Hx Community Mental Health Tx, Hx Schizophrenia, Hx of Violent Episodes Against Others, Other Psychiatric Issues/Disorders - pt states strong clausterphobia, OCD Denies: Hx Eating Disorder, Hx Substance Abuse - Cancer History Cancer Type, Location and Year: None reported - Surgical History Surgery Procedure, Year, and Place: right forearm/ wrist break, pins placed - Immunization History Date of Tetanus Vaccine: UTD Date of Influenza Vaccine: NONE Infectious Disease History: Denies: Hx Hepatitis, Hx Human Immunodeficiency Virus (HIV) - Family History Known Family History: Negative: Diabetes, Seizure Disorder - Social History Alcohol Use: Occasionally Alcohol Amount: 3 beers a week Substance Use Type: Reports: Cocaine, Marijuana, Other Substance Use Comment - Amount & Last Used: states occassional marijuana use Hx Tobacco Use: No Smoking Status (MU): Former Smoker Type: Cigarettes Amount Used/How Often: 1/2 pack or less daily Length of Time of Smoking/Using Tobacco: states he quit in the '70's Have You Smoked in the Last Year: Yes Review of Systems Negative: Fever, Chills Positive: Chest Pain. Negative: Palpitations Negative: Shortness Of Breath Negative: Vomiting, Nausea Psychological: Other - POSITIVE: at times seems confused All Other Systems Reviewed And Are Negative: Yes Physical Exam - Summary Physical Exam Summary: VITAL SIGNS: Reviewed. GENERAL: Patient is a well-developed and nourished male who is lying comfortable in the stretcher. Patient is not in any acute respiratory distress. HEAD AND FACE: No signs of trauma. No ecchymosis, hematomas or skull depressions. No sinus tenderness. EYES: PERRLA, EOMI x 2, No injected conjunctiva, no nystagmus. EARS: Hearing grossly intact. Ear canals and tympanic membranes are within normal limits. MOUTH: Oropharynx within normal limits. NECK: Supple, trachea is midline, no adenopathy, no JVD, no carotid bruit, no c- spine tenderness, neck with full ROM. CHEST: Symmetric, no tenderness at palpation LUNGS: Clear to auscultation bilaterally. No wheezing or crackles. CVS: Regular rate and rhythm, S1 and S2 present, no murmurs or gallops appreciated. ABDOMEN: Soft, non-tender. No signs of distention. No rebound no guarding, and no masses palpated. Bowel sounds are normal. EXTREMITIES: FROM in all major joints, no edema, no cyanosis or clubbing. NEURO: Alert and oriented x 3. No acute neurological deficits. Speech is normal and follows commands. SKIN: Dry and warm PSYCH: pt seems to have a flight of ideas Triage Information Reviewed: Yes Vital Signs Reviewed: Yes Diagnostics - Laboratory Result Diagrams: 02/08/18 02:12 02/08/18 02:12 Lab Statement: Any lab studies that have been ordered have been reviewed, and results considered in the medical decision making process. - Radiology Chest XR Radiology Interpretation Completed By: ED Physician Summary of Radiographic Findings: negative chest XR. Pending official radiology report. - EKG 01:50 Cardiac Rate: NL - at 78 bpm EKG Rhythm: Sinus Rhythm Summary of EKG Findings: RBBB. Chest Pain Course/Dx - Course Assessment/Plan: Pt is a 67 y/o male who presents to the ED for substernal chest pain today. 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 Pt denies associated symptoms and rates his pain 4/10 in severity. Pt is reluctant to give much history. EMS administered 324 mg ASA MINI LAB OPERATOR. Labs show hemoglobin of 13.1, hematocrit of 39, BUN is 31, valproic acid is 29. EKG shows normal sinus rhythm at 78 bpm with RBBB. Chest XR per ED physician, negative chest XR. Pending official radiology report. I discussed the case with Dr. Lopez, hospitalist, who accepted the pt for admission. - Diagnoses Provider Diagnoses: Chest pain - Provider Notifications Discussed Care Of Patient With: Antonieta Lopez - hospitalist Time Discussed With Above Provider: 03:11 Instructed by Provider To: Admit As Inpatient Discharge - Sign-Out/Discharge Documenting (check all that apply): Patient Departure - Admit to [facility] - Discharge Plan Condition: Stable Disposition: ADMITTED TO [facility] Referrals: Cristopher Gardner MD [Primary Care Provider] - - Attestation Statements Document Initiated by Scribe: Yes Documenting Scribe: Yi Christianson Provider For Whom Scribe is Documenting (Include Credential): Anel Santo MD Scribe Attestation: I, Yi Christianson, scribed for Anel Santo MD on 02/08/18 at 0317. Status of Scribe Document: Ready
[2018-02-08] MEDS ORDERED: Ondansetron INJ* 2 MG/ML VIAL IV ONE (02:03)
[2018-02-08] MEDS ORDERED: Aspirin 81 mg CHEW TAB* 81 MG TAB.CHEW PO ONE (02:04)
[2018-02-08] MEDS ORDERED: Morphine VIAL* 4 MG/ML VIAL (1 ml vial) IV ONE (02:04)
[2018-02-08 02:22] LABS: ABS Basophils 0.1 10^3/ul (0-0.2); ABS Eosinophils 0.1 10^3/ul (0-0.6); ABS Lymphocytes 1.2 10^3/ul (1.0-4.8); ABS Monocytes 0.9 10^3/ul (0-0.8); ABS Neutrophils 6.8 10^3/ul (1.5-7.7); ABS Nucleated RBC 0 10^3/ul; Eosinophil % 0.8 %; Hematocrit 39 % (42-52); Hemoglobin 13.1 g/dl (14.0-18.0); Lymphocyte % 13.7 %; Mean Corpuscular HGB Conc 34 g/dl (31-36); Mean Corpuscular Hemoglobin 31 pg (27-31); Mean Corpuscular Volume 93 fL (80-94); Mean Platelet Volume 6.6 fL (7.4-10.4); Nucleated Red Blood Cells % 0; Platelet Count 290 10^3/ul (150-450); Red Blood Count 4.21 10^6/ul (4.00-5.40); Red Cell Distribution Width 14 % (10.5-15)
[2018-02-08 02:30] LABS: INR 1.03 (0.77-1.02)
[2018-02-08 02:45] LABS: EGFR Non-African American 81.3 (>60)
[2018-02-08] MEDS ORDERED: Nitroglycerin TAB 0.4 MG* 0.4 MG TAB SL PRN ×2 (03:28→03:31)
[2018-02-08] MEDS ORDERED: Hydrocortisone 1% CREAM* 30 GM TUBE TOPICAL PRN (03:29)
[2018-02-08] MEDS ORDERED: NS 0.9% 1000 ML* 1,000 ML IV SCH (03:30)
[2018-02-08] MEDS ORDERED: Saline NASAL SPRAY 0.65%* BTL BOTH NARES PRN (03:31)
[2018-02-08] MEDS ORDERED: LORazepam TAB(*) 1 MG PO PRN (03:31)
--- NOTE | 2018-02-08 03:45 | ADMNOTE ---
Subjective Date of Service: 02/08/18 Interval History: code status full pt is a very poor historian due to his schezoaffective disorder---> pt wants a male provider in am hpi this is 67 yr old wm with hx of schezoaffective disorder who was just dc/d from psy ly one week ago presented to er with chest pain this evening while walking. pt described as epigastric localized pressured type severe ---> called 911 and was cherry picker operator by ems from streets. pt got asa from ems his chest pain is down to 2.5/10 when seen. PT WANTS TO HAVE A MALE PROVIDER AND WANTS TO STAY IN THE ER. IS VERY UPSET THAT HE WILL GO TO FLOOR TO SEE A FEMALE PROVIDER OR A NURSE WANTS TO SEE HIS PSY NOW ---> WILL CALL PSY IN AM ---> he does not have the capacity to leave ama delusional and fixed upon certain aspect ( pt was seen by my coworker who is a colleen based upon pt's request ---> pt was unable to state the reason why he came to the er but fixed upon other irrelevant issues ) phx schezophrenia htn cad with possible hx of mi last nuclear was 2014 hyperlipidemia diverticulosis hx of aneurysm 2011 pshx denied social hx no cig no etoh able to walk indep lives alone fhx denied hx of htn/dm/cad/cva Review of Systems - Measurements Intake and Output: Intake and Output Last 24 Hours 02/05/18 02/06/18 02/07/18 02/08/18 06:59 06:59 06:59 06:59 Weight 180 lb - Review of Systems General Comments: pertinent as per hpi Objective Active Medications: Aspirin (Ecotrin Ec Tab*) 325 mg PO DAILY JEANINE Atorvastatin Calcium (Lipitor*) 20 mg PO BEDTIME JEANINE Cholecalciferol (Vitamin D Tab*) 1,000 units PO DAILY JEANINE Divalproex Sodium (Depakote Dr Tab(*)) 500 mg PO BID JEANINE Hydrocortisone (Hytone Cream 1%*) 1 applic TOPICAL TID PRN PRN Reason: ITCHING Sodium Chloride (Ns 0.9% 1000 Ml*) 1,000 mls @ 125 mls/hr IV PER RATE JEANINE Lorazepam (Ativan Tab(*)) 0.5 mg PO TID JEANINE Lorazepam (Ativan Tab(*)) 1 mg PO DAILY PRN PRN Reason: ANXIETY Magnesium Hydroxide (Milk Of Magnesia Liq*) 30 ml PO BEDTIME JEANINE Multivitamins/Minerals (Theragran/Minerals Tab*) 1 tab PO DAILY JEANINE Nitroglycerin (Nitroglycerin Tab 0.4 Mg*) 0.4 mg SL Q5M PRN PRN Reason: ANGINA Nitroglycerin (Nitroglycerin Tab 0.4 Mg*) 0.4 mg SL Q5M PRN PRN Reason: PAIN - CHEST Quetiapine Fumarate (Seroquel Tab*) 200 mg PO BEDTIME JEANINE Sodium Chloride (Sodium Chloride 0.65% Nasal Hobson*) 1 spray BOTH NARES Q4H PRN PRN Reason: CONGESTION Vital Signs - 8 hr 02/08/18 02/08/18 02/08/18 01:44 01:54 01:55 Temperature 100 F Pulse Rate 80 80 81 Respiratory 22 28 18 Rate Blood Pressure 145/98 145/98 (mmHg) O2 Sat by Pulse 98 98 99 Oximetry 02/08/18 02/08/18 02/08/18 02:00 02:14 02:45 Temperature Pulse Rate Respiratory 17 25 19 Rate Blood Pressure 155/83 123/68 (mmHg) O2 Sat by Pulse Oximetry 02/08/18 02/08/18 03:00 03:15 Temperature Pulse Rate Respiratory 20 14 Rate Blood Pressure 147/68 (mmHg) O2 Sat by Pulse Oximetry Appearance: nad Eyes: No Scleral Icterus, PERRLA Ears/Nose/Mouth/Throat: - - oral mucosa dry Neck: NL Appearance and Movements; NL JVP, Trachea Midline, No Thyroid Enlargement, Masses Respiratory: Symmetrical Chest Expansion and Respiratory Effort, Clear to Auscultation Cardiovascular: NL Sounds; No Murmurs; No JVD, No Edema, - - no reproducible tenderness when anterior chest is pressured Abdominal: NL Sounds; No Tenderness; No Distention Extremities: No Edema, - - able to raise ue and le against gravity Skin: No Rash or Ulcers Neurological: NL Sensation, NL Muscle Strength and Tone, - - poor judgement due to his schezophrenia hx knows he is in a hopsital the yr Result Diagrams: 02/08/18 02:12 02/08/18 02:12 EKG Data: ns rbbb otheriwse no other acute st t change Assess/Plan/Problems-Billing Assessment: this is a 67 yr old wm with hx of schezoaffective disorder hx of cad and other medical problem presented to er with cp. pt has hx of cad last nuclear stress was 2014 but has been on sl nitro ---> got asa 325 ---> wants to leave ama but does not have capacity and wants to a MALE PROVIDER. WILL ASK PSY TO SEE HIM IN AM - Patient Problems (1) Chest pain Current Visit: Yes Status: Acute Code(s): R07.9 - CHEST PAIN, UNSPECIFIED SNOMED Code(s): 19419847 Comment: tele with estee consider nuclear stress if he is stable (2) Schizoaffective disorder Current Visit: Yes Status: Acute Code(s): F25.9 - SCHIZOAFFECTIVE DISORDER, UNSPECIFIED SNOMED Code(s): 69305772 Comment: will continue his outpt psy meds this investigative writer will call psy to see him at 6 am (3) HTN (hypertension) Current Visit: Yes Status: Acute Code(s): I10 - ESSENTIAL (PRIMARY) HYPERTENSION SNOMED Code(s): 28464988 Comment: stable continue his outpt meds (4) Hyperlipidemia Current Visit: Yes Status: Acute Code(s): E78.5 - HYPERLIPIDEMIA, UNSPECIFIED SNOMED Code(s): 36260661 Comment: lft wnl continue lipitor but ck fasting lipid in am (5) Dehydration Current Visit: Yes Status: Acute Code(s): E86.0 - DEHYDRATION SNOMED Code( s): 28379590 Comment: ivf for now ( elevated bun/creatinine ratio )
[2018-02-08] MEDS ORDERED: OLANzapine TAB*ODT* 5 MG PO ONE (04:40)
[2018-02-08 06:09] LABS: ABS Basophils 0 10^3/ul (0-0.2); ABS Eosinophils 0.1 10^3/ul (0-0.6); ABS Lymphocytes 1.5 10^3/ul (1.0-4.8); ABS Monocytes 0.8 10^3/ul (0-0.8); ABS Neutrophils 6.4 10^3/ul (1.5-7.7); ABS Nucleated RBC 0 10^3/ul; Eosinophil % 0.7 %; Hematocrit 39 % (42-52); Lymphocyte % 17.3 %; Mean Corpuscular HGB Conc 34 g/dl (31-36); Mean Corpuscular Hemoglobin 31 pg (27-31); Mean Corpuscular Volume 93 fL (80-94); Mean Platelet Volume 6.5 fL (7.4-10.4); Nucleated Red Blood Cells % 0; Platelet Count 282 10^3/ul (150-450); Red Blood Count 4.18 10^6/ul (4.00-5.40); Red Cell Distribution Width 14 % (10.5-15); White Blood Count 8.8 10^3/ul (3.5-10.8)
[2018-02-08] MEDS: LORazepam TAB(*) 0.5 MG PO SCH ×2 (07:46→15:28)
[2018-02-08] MEDS ORDERED: Cholecalciferol TAB* 1000 UNITS PO SCH (09:00)
[2018-02-08] MEDS ORDERED: Divalproex DR TAB(*) 500 MG PO SCH (09:00)
[2018-02-08] MEDS ORDERED: Multivitamins/Minerals TAB PO SCH (09:00)
[2018-02-08 11:49] VITALS: BP 124/69
--- NOTE | 2018-02-08 20:47 | CONS ---
CC: [facility]; Dr. Acevedo * CONSULTATION SUMMARY: DATE OF CONSULT: 02/08/18. SUPERVISING PSYCHIATRIST: Ray Cho MD. ATTENDING PHYSICIAN: Dr. Acevedo. CONSULTING PROVIDER: Sakina Borjas NP REASON FOR CONSULTATION: Schizophrenia, capacity. PSYCHIATRY HISTORY: Gutierrez is a 67-year-old white male, who resides at the [facility] in [place]. He is well known to this functional tester typewriters due to previous admissions on the [facility]. He was last here on 01/20/18 until 01/28/18. The patient has a known history of schizoaffective disorder, bipolar type. He is observed to have increased confusion and cognitive decline both at [facility] and while in the hospital. The patient has been presenting to the emergency department often for anxiety. Last night, he presented with chest pain and was admitted for monitoring on telemetry. Today upon presentation, the patient is standing next to his bed, dressed in a hospital gown and his own jeans. He recognizes functional tester typewriters and writes that he does not want to talk. We attempted to play a card game, as he has done so in the past with this functional tester typewriters on the mental health unit. It is noted that he is unable to organize the cards or deal the cards as he has in the past. He was eventually asked to go for a walk. We walked around the unit and directly after leaving his room, he is cooperative and talkative. He states frustration with the hospital ventilation system, which has been an ongoing delusion in multiple recent hospitalizations. He prefers to stand near vents and assesses them for the air quality. He denies feeling depressed or anxious. He denies suicidal ideation. He is cooperative and understanding when this functional tester typewriters needs to conclude the visit. He returns to his room and engages in some conversation. He states that he wants to meet with a social worker aide and then at some point his conversation becomes disorganized and tangential; however, this is brief. The patient denies wanting to be observed on the mental health unit. He states preference to go home as soon as possible. He has been n.p.o. in case they were going to do a stress echocardiogram. He reports feeling hungry and has specific request for food and drinks. PAST PSYCHIATRIC HISTORY: As stated before, the patient has been hospitalized at [facility] multiple times, most recently less than 1 month ago. He has past diagnosis of schizophrenia, paranoid type, and PTSD. During a hospitalization earlier this year, he presents with aime and the diagnosis was changed to schizoaffective disorder, bipolar type. He is a [place] war vet and was 100% service connected. However, he and his power of trademark attorney, his brother have [facility] for a more consistent medical care. The patient is now seen at [facility]. SOCIAL HISTORY: The patient was born and raised in [place], [place]. He is one of 9 siblings. The patient was in foster care as a child. He graduated high school. 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 He had onset of psychosis at age 20 and was discharged with 100% service connection. The patient never and does not have children. He was incarcerated in a forensic unit for about 1 year at the age of 50 for assaulting a police captain precinct during which time he was delusional and not taking medications. MENTAL HEALTH EXAM: Gutierrez is a 67-year-old white male, with medium long salt and pepper hair. He appears his stated age. He is poorly groomed with long hair and a posada, although he is requesting to be able to shower. He is wearing a hospital gown and his own jeans. The patient is alert and oriented x3. Eye contact is fair. Speech is selectively mute or soft and mumbled. Mood is euthymic with full range of affect. No abnormal psychomotor activity noted. Thought process is sometimes disorganized and sometimes coherent and logical. Thought content is negative for SI, HI, or passive wish. He denies AH, VH and does not appear to respond to internal stimuli. Insight and judgment are fair. Fund of knowledge is adequate. DIAGNOSES: Schizoaffective disorder bipolar type, posttraumatic stress disorder. ASSESSMENT AND PLAN: Mr. 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 He has lived at the [facility] for at least 7 years. He is sometimes questionable with medication adherence and often presents to the ED with anxiety and delusional behavior. At this time, he is cooperative and reports desires to return home. Due to knowledge of him and his stable housing, it is our recommendation that he is allowed to be discharged when medically stable. I reviewed the above with Dr. Acevedo. SAKINA BORJAS, JAS [id number]/[facility] #: [id number] LEAH
[2018-02-08] MEDS ORDERED: Magnesium Hydroxide LIQ* 30 ML UDC PO SCH (21:00)
[2018-02-08] MEDS ORDERED: Atorvastatin* 20 MG TAB PO SCH (21:00)
[2018-02-08] MEDS ORDERED: QUEtiapine TAB* 100 MG PO SCH (21:00)
[2018-02-09] MEDS ORDERED: Aspirin EC TAB* 325 MG PO SCH (09:00)
--- NOTE | 2018-02-09 09:08 | DS ---
CC: Dr. Cristopher Gardner DISCHARGE SUMMARY: DATE OF ADMISSION: 02/08/18 DATE OF DISCHARGE: 02/08/18 HOSPITAL COURSE: This 67-year-old man was admitted because of chest pain. He is a very poor histori an. I am not sure if he recalled this chest pain. He was not having chest pain when he saw me. He could not really give any meaningful history. Other people who knew him well, particularly from the sychiatric unit, felt that he has had advancing dementia. The patient was monitored on a telemetry unit. He had 3 troponin levels, all of which were within no rmal limits. EKG showed right bundle-branch block, but was otherwise unremarkable. The patient seem ed quite comfortable. I do not think it is worthwhile pursuing any further cardiac workup at this ti mn. FINAL DIAGNOSES: 1. Schizoaffective disorder. 2. History of coronary artery disease. 3. Hypertension. 4. Hyperlipidemia. DISCHARGE MEDICATIONS: 1. PreviDent 1 pack daily. 2. Hydrochlorothiazide 25 mg daily. 3. Vitamin D 1000 units daily. 4. Aspirin 81 mg daily. 5. Multivitamin with mineral 1 daily. 6. Atorvastatin 20 mg h.s. 7. Hydrocortisone 1% cream t.i.d. p.r.n. itching. 8. Nitroglycerin 0.4 mg sublingual every 5 minutes p.r.n. 9. Magnesium hydroxide 30 mL at bedtime. 10. Acetaminophen 650 mg every 4 hours p.r.n. 11. Divalproex DR 500 mg b.i.d. 12. Quetiapine 200 mg h.s. 13. Saline nasal spray 0.65% 1 spray every 4 hours both nares p.r.n. 14. Theragran 1 daily. 15. Lorazepam 0.5 mg t.i.d. p.r.n. 16. Lorazepam 1 mg daily p.r.n. CONDITION ON DISCHARGE: Stable. DISPOSITION ON DISCHARGE: Discharged home to the [facility]. [id number]/[facility] #: [id number]
== END 2018-02-08 16:11 | disposition home or self-care (01) ==
LOC: ED 01:42 → MEDTELE 03:22
PROVIDERS: ADMIT Internal Medicine; ATTEND Internal Medicine
DX: R07.9 Chest pain, unspecified (principal); Z87.891 Personal history of nicotine dependence; Z88.6 Allergy status to analgesic agent
CPT/HCPCS: 36415; 71045; 80053; 80164; 83605; 83735; 83880; 84484; 85025; 85610; 85730; 93005; 96361; 96374; 96375; 99284; A9270-GY; G0378; J2270; J2405

== ENCOUNTER 2018-02-09 10:11 | Emergency (ER) | payer MEDICARE ==
--- NOTE | 2018-02-09 10:54 | ED ---
Shortness of Breath - HPI Summary HPI Summary: A 67 y/o male brought in by ambulance presents to the ED c/o SOB. Currently, the patient is still feeling SOB. In the ED room, the patient has a pulse of 83 BPM and O2 saturation of 98%. As per triage, "sudden shortness of breath today without any explanation. pt was seen yesterday for chest pain and was on a 24 hour observation. states that he wants oxygen and needs it because he is labored but he does not present this way. 99% on room air, nurse putting him on 1 liter just for anxiety comfort. pt is mumbling and talking about strange things. reported long mental health history and lives at [facility]". According to the patient, he called the ambulance because he had trouble breathing. Additionally, he has chest pain. He characterized his pain as tightness in his rib cage and "it is frightening". He denies any cough, fever or SI/HI. He noted that he was here yesterday and has been refusing to take his Seroquel because it can give erectile dysfunction. Patient requests O2. Patient gives verbal consent to be treated. Patient is soft-spoken. As per nurse note, [facility] labor service representative called to report that the patient left the house to call ambulance earlier today. He did it because he didnt want to inform staff that he had done this and they believe his reason behind doing such a action is because they had a conversation with him about his medication compliance. They noted that he knows the side effects of his medications and refuses to take his medications, especially the ones with a side effect of erectile dysfunction. They further noted that the patient is reclusive and use non-verbal communication such as a grunt/mumble. The patient has been locking himself in the bathroom to breathe fresh air through a window. The patient has been agitated quite a bit lately with [facility] staff including complaints about fans and vents. These changes were increased since his last medication change approximately 1-2 months ago. No physical changes/ problems noted by Alberta acuña. Mental health evaluation by Sakina Santana NP (supervising , Dr. Cho), and notes by Dr. Lopez and Dr. Acevedo from 02/08/18 reviewed. LEVEL 5 CAVEAT. Home Medications Medication Instructions Recorded Confirmed Type Hydrochlorothiazide TAB* 25 mg PO QAM 10/02/17 02/09/18 History [Hydrodiuril TAB*] Aspirin EC TAB* [Ecotrin EC Low 81 mg PO DAILY 10/08/17 02/09/18 History Dose 81 MG*] Acetaminophen TAB* [Tylenol TAB*] 650 mg PO Q4H PRN 01/02/18 02/09/18 History Atorvastatin* [Lipitor 20 MG*] 20 mg PO BEDTIME 01/02/18 02/09/18 History Nitroglycerin TAB 0.4 MG* 0.4 mg SL Q5M PRN 01/02/18 02/09/[address] TAB(*) [Depakote DR 500 mg PO BID #60 tab.dr 01/28/18 02/09/18 Rx TAB(*)] LORazepam TAB(*) [Ativan 0.5 MG 0.5 mg PO TID #90 tab MDD 1.5 mg 01/28/18 Rx TAB (*)] LORazepam TAB(*) [Ativan 1 MG TAB 1 mg PO DAILY PRN #30 tab MDD 1 tab 01/28/18 02/09/18 Rx (*)] QUEtiapine TAB* [Seroquel 100 MG *] 200 mg PO BEDTIME #60 tab 01/28/18 02/09/18 Rx - History of Current Complaint Chief Complaint: EDShortnessOfBreath Time Seen by Provider: 02/09/18 10:52 Hx Obtained From: Patient, Medical Records - 02/08 ADMISSION., Other: - [place] house staff spoke with RN Onset/Duration: Sudden Onset, Still Present Timing: Constant Current Severity: None Dyspnea At: Rest Aggrevating Factors: Nothing Alleviating Factors: Nothing Associated Signs & Symptoms: Chest Pain Unrelated to Cough - Allergy/Home Medications Allergies/Adverse Reactions: Allergies Allergy/AdvReac Type Severity Reaction Status Date / Time bacitracin Allergy Unknown Verified 02/09/18 10:45 Reaction Details neomycin Allergy Unknown Verified 02/09/18 10:45 [From Triple Antibiotic] Reaction Details polymyxin B Allergy Unknown Verified 02/09/18 10:45 [From Triple Antibiotic] Reaction Details thiothixene Allergy Unknown Verified 02/09/18 10:45 Reaction Details trifluoperazine Allergy Unknown Verified 02/09/18 10:45 [From Stelazine] Reaction Details trifluridine Allergy Unknown Verified 02/09/18 10:45 Reaction Details PMH/Surg Hx/FS Hx/Imm Hx Previously Healthy: No Endocrine/Hematology History: Denies: Hx Anticoagulant Therapy, Hx Diabetes, Hx Thyroid Disease, Other Endocrine/Hematological Disorders Cardiovascular History: Reports: Hx Aneurysm - 2012, Hx Angina, Hx Coronary Artery Disease, Hx Hypercholesterolemia, Hx Hypertension Denies: Hx Congestive Heart Failure, Hx Pacemaker/ICD, Other Cardiovascular Problems/Disorders Respiratory History: Denies: Hx Asthma, Hx Chronic Obstructive Pulmonary Disease (COPD), Other Respiratory Problems/Disorders GI History: Reports: Hx Diverticulosis Denies: Other GI Disorders History: Denies: Hx Renal Disease, Other Problems/Disorders Musculoskeletal History: Denies: Other Musculoskeletal History Sensory History: Reports: Hx Contacts or Glasses Denies: Hx Hearing Aid, Other Sensory Impairments Opthamlomology History: Reports: Hx Contacts or Glasses Denies: Other Sensory Impairments Neurological History: Denies: Hx Dementia, Hx Seizures, Other Neuro Impairments/Disorders Psychiatric History: Reports: Hx Anxiety, Hx Post Traumatic Stress Disorder, Hx Inpatient Treatment, Hx Community Mental Health Tx, Hx Schizophrenia, Hx of Violent Episodes Against Others, Other Psychiatric Issues/Disorders - pt states strong clausterphobia, OCD Denies: Hx Eating Disorder, Hx Substance Abuse - Cancer History Cancer Type, Location and Year: None reported - Surgical History Surgery Procedure, Year, and Place: right forearm/ wrist break, pins placed - Immunization History Date of Tetanus Vaccine: UTD Date of Influenza Vaccine: NONE Infectious Disease History: No Infectious Disease History: Denies: Hx Hepatitis, Hx Human Immunodeficiency Virus (HIV), Traveled Outside the US in Last 30 Days - Family History Known Family History: Negative: Diabetes, Seizure Disorder - Social History Lives: [place]way - [place] house Alcohol Use: None Alcohol Amount: 3 beers a week Substance Use Type: Reports: None Substance Use Comment - Amount & Last Used: states occassional marijuana use Hx Tobacco Use: No Smoking Status (MU): Former Smoker Type: Cigarettes Amount Used/How Often: 1/2 pack or less daily Length of Time of Smoking/Using Tobacco: states he quit in the '70's Have You Smoked in the Last Year: Yes Review of Systems Negative: Fever Positive: Chest Pain Positive: Shortness Of Breath. Negative: Cough Gastrointestinal: Negative Skin: Negative Neurological: Negative Positive: Other - withdrawn, mumbles, avoids eye contact, denies SI/HI All Other Systems Reviewed And Are Negative: No Physical Exam - Summary Physical Exam Summary: Appearance: chronically ill-appearing, no pain distress, well-nourished Skin: Warm, color reflects adequate perfusion, dry Head: Normal Head/Face inspection, atraumatic Eyes: Conjunctiva clear ENT: Normal inspection Neck: Supple, no nodes, no JVD Respiratory: no respiratory distress, decreased breath sounds throughout, O2 sat 100% on room air. Cardio: RRR, No murmur, pulses normal, brisk capillary refill Abdomen: Soft, nontender Bowel sounds: Present Musculoskeletal: Strength Intact/ROM intact, no calf tenderness, no edema. Psychological: mumbles, avoids eye contact, denies SI/HI, denies visual or auditory hallucinations Neuro: Alert, muscle tone normal, no focal deficit Triage Information Reviewed: Yes Vital Signs On Initial Exam: Initial Vitals Temp Pulse Resp BP Pulse Ox 98.2 F 75 16 137/70 99 02/09/18 10:16 02/09/18 10:16 02/09/18 10:16 02/09/18 10:16 02/09/18 10:16 Vital Signs Reviewed: Yes Diagnostics - Vital Signs Vital Signs Temp Pulse Resp BP Pulse Ox 02/09/18 10:16 98.2 F 75 16 137/70 99 - Laboratory Result Diagrams: 02/09/18 11:26 02/09/18 11:26 Lab Statement: Any lab studies that have been ordered have been reviewed, and results considered in the medical decision making process. - Radiology CXR Radiology Interpretation Completed By: Radiologist Summary of Radiographic Findings: NO ACTIVE CARDIOPULMONARY DISEASE. ED PHYSICIAN REVIEWED THIS RADIOLOGY REPORT. - EKG 1124 Cardiac Rate: NL - 83 BPM EKG Rhythm: Sinus Rhythm - [address] Segment: Non-Specific Ectopy: None EKG Comparison: No Significant Change - COMPARED WITH 02/08/2018. Summary of EKG Findings: nl AV CT, nl QTc, prolonged IV CT, RBBB, no acute changes Re-Evaluation - Re-Evaluation First Eval Re-Evaluation Time: 12:25 Change: Improved Comment: No pain. Feels better after eating some lunch. BP 131/87 P 91 O2 sat 99% room air, Resps 18. No SOB. No CP. Oxygen is not in place. PATRIA Serrano will evaluate pt for mental health. Second Eval Re-Evaluation Time: 13:35 Change: Unchanged Comment: Discussed with PATRIA Serrano from [facility]. Per Dr. Cho, pt may be DC'd. Discussed with Dr. Cho to question if injectable med or other med can be tried. Dr. Cho states pt has refused all injectable meds in the past. I re-evaluated pt and he denied chest pain or SOB, and did refuse any injection or oral medication, stating "I have my rights". Pt may be discharged. Course/Dx - Course Course Of Treatment: A 67 y/o male presents to the ED c/o SOB. The patient is currently still having trouble breathing. It was noted that the patient was seen yesterday for chest pain and admitted to [facility] for a 24 hour observation. In the ED room, the patient has a pulse of 83 BPM and O2 saturation of 98%-100% on room air. The patient stated that he was O2 and needs it because he is labored, but the patient is not showing any signs of need for O2. The patient was placed on 1 L of O2 just for anxiety and comfort. Patient received Aspirin 324mg in the ambulance. Throughout examination, the patient was mumbling and talking randomly. Patient has a long mental health history of schizophrenia. The patient stated that he called the ambulance due to his troubled breathing and chest pain. He characterized the pain as tightness in his rib cage. He denies any fever, cough, or SI/HI. Patient stated that he has been refusing Seroquel. Physical examination findings were significant for decreased breath sounds. A CXR revealed no active cardiopulmonary disease. An EKG revealed NSR of 83 BPM, nl AV CT, nl QTc, prolonged IV CT, RBBB. There was no significant change from an EKG completed on 02/08/2018. No significant laboratory abnormalities were found, specifically, troponin was zero, d-dimer was normal, procalcitonin was normal. ABG did not show hypoxia. In the ED course, the patient received oxygen prn for anxiety. He refused any oral or injectable meds for mental health. Patient was evaluated by [facility], PATRIA Serrano, and pt was discussed by phone by me with Dr. Cho. Patient will be discharged with a diagnosis of SOB, chronic schizophrenia, and medication noncompliance. There was no hypoxia or any serious cause of patients SOB. Patient declined any medications. Patient is to follow up with primary care provider, Dr. Cristopher Gardner, in 2 days. Patient is to return to ED for any new or worsening symptoms. Patient is agreeable with this plan. - Diagnoses Provider Diagnoses: SOB (shortness of breath), Chronic schizophrenia, Noncompliance with medications Discharge - Sign-Out/Discharge Documenting (check all that apply): Patient Departure - DC - Discharge Plan Condition: Stable Disposition: HOME Patient Education Materials: Shortness of Breath (ED) Referrals: Cristopher Gardner MD [Primary Care Provider] - Additional Instructions: We did not find any hypoxia or any serious cause of your shortness of breath today. You were evaluated by mental health. You have declined taking any medications. Return to the ER if you have any new or worsening symptoms. - Billing Disposition and Condition Condition: STABLE Disposition: Home - Attestation Statements Document Initiated by Govind: Yes Documenting Scribe: Ronen Tsai Provider For Whom Govind is Documenting (Include Credential): Solia Hou MD Scribe Attestation: Ronen Anderson scribed for Soila Hou MD on 02/09/18 at 2127. Scribe Documentation Reviewed: Yes Provider Attestation: The documentation as recorded by the Ronen miranda accurately reflects the service I personally performed and the decisions made by me, Soila Hou MD Status of Scribe Document: Viewed
[2018-02-09 11:38] LABS: ABS Basophils 0 10^3/ul (0-0.2); ABS Eosinophils 0 10^3/ul (0-0.6); ABS Lymphocytes 1.2 10^3/ul (1.0-4.8); ABS Monocytes 0.7 10^3/ul (0-0.8); ABS Neutrophils 7.1 10^3/ul (1.5-7.7); ABS Nucleated RBC 0 10^3/ul; Eosinophil % 0.4 %; Hematocrit 39 % (42-52); Lymphocyte % 13.2 %; Mean Corpuscular HGB Conc 33 g/dl (31-36); Mean Corpuscular Hemoglobin 31 pg (27-31); Mean Corpuscular Volume 93 fL (80-94); Mean Platelet Volume 6.8 fL (7.4-10.4); Nucleated Red Blood Cells % 0.1; Platelet Count 289 10^3/ul (150-450); Red Blood Count 4.18 10^6/ul (4.00-5.40); Red Cell Distribution Width 14 % (10.5-15); White Blood Count 9.2 10^3/ul (3.5-10.8)
[2018-02-09 11:45] LABS: INR 0.99 (0.77-1.02)
[2018-02-09 11:49] LABS: EGFR Non-African American 82.3 (>60)
[2018-02-09] MEDS ORDERED: Paliperidone SUSTENNA* 234 MG/1.5 ML IM ONE (13:39)
[2018-02-09 14:23] VITALS: BP 136/78
== END 2018-02-09 14:22 | disposition home or self-care (01) ==
LOC: ED 10:11
DX: F20.9 Schizophrenia, unspecified (principal); Z91.14 Patient's other noncompliance with medication regimen; Z87.891 Personal history of nicotine dependence; R06.02 Shortness of breath; R07.9 Chest pain, unspecified
CPT/HCPCS: 36415; 71045; 80053; 80320; 80329; 82140; 82550; 82553; 82803; 83605; 83735; 83880; 84145; 84443; 84484; 85025; 85379; 85610; 85730; 86140; 93005; 96372; 99283; G0480; J2426

== ENCOUNTER 2018-02-09 20:03 | Emergency (ER) | payer MEDICARE ==
[2018-02-09] MEDS ORDERED: LORazepam INJ* 2 MG/ML 1 ML VIAL IM ONE (20:23)
[2018-02-09] MEDS ORDERED: diPHENhydraMINE IV* 50 MG/ML 1 ml VIAL (BENADRYL) IM ONE (20:24)
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
[2018-02-09 20:33] LABS: ABS Basophils 0.1 10^3/ul (0-0.2); ABS Eosinophils 0.1 10^3/ul (0-0.6); ABS Lymphocytes 1.6 10^3/ul (1.0-4.8); ABS Monocytes 0.9 10^3/ul (0-0.8); ABS Neutrophils 4.7 10^3/ul (1.5-7.7); ABS Nucleated RBC 0 10^3/ul; Eosinophil % 1.3 %; Hematocrit 39 % (42-52); Hemoglobin 13.1 g/dl (14.0-18.0); Lymphocyte % 21.6 %; Mean Corpuscular HGB Conc 34 g/dl (31-36); Mean Corpuscular Hemoglobin 31 pg (27-31); Mean Corpuscular Volume 93 fL (80-94); Mean Platelet Volume 6.4 fL (7.4-10.4); Nucleated Red Blood Cells % 0; Platelet Count 328 10^3/ul (150-450); Red Blood Count 4.22 10^6/ul (4.00-5.40); Red Cell Distribution Width 14 % (10.5-15); White Blood Count 7.4 10^3/ul (3.5-10.8)
[2018-02-09] MEDS ORDERED: diPHENhydraMINE PO* 25 MG PO ONE (20:51)
[2018-02-09 20:53] LABS: EGFR Non-African American 84.4 (>60)
[2018-02-09] MEDS ORDERED: Haloperidol Decanoate* 50 MG/ML AMP IM SCH (21:00)
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
[2018-02-10 06:55] VITALS: BP 118/76
== END 2018-02-10 06:54 | disposition home or self-care (01) ==
LOC: ED 20:03
DX: F20.9 Schizophrenia, unspecified (principal); R07.89 Other chest pain; R06.00 Dyspnea, unspecified; Z88.3 Allergy status to other anti-infective agents; Z88.8 Allergy status to other drugs, medicaments and biological substances; Z87.891 Personal history of nicotine dependence
CPT/HCPCS: 36415; 70450; 80053; 80320; 80329; 82550; 82553; 83605; 83735; 83880; 84484; 85025; 85379; 93005; 96372; 99285; A9270-GY; G0480; J1631; J2060

== ENCOUNTER 2018-02-10 14:22 | Inpatient (IN) | payer MEDICARE ==
--- NOTE | 2018-02-10 14:57 | ED ---
Psychiatric Complaint - HPI Summary HPI Summary: 67 year old M brought in by [facility] from [facility] on 941 to [facility] for wandering the streets and for making multiple inappropriate statements since this afternoon. Symptoms aggravated by nothing. Symptoms alleviated by nothing. Patient is unable to answer whether he is having suicidal or homicidal thoughts. Pt denies CP, SOB on arrival to ED and is in no respiratory or pain distress on arrival. Patient is a very poor historian due to his extensive psychiatric history of schizoaffective disorder. Pt has been noncompliant with his oral medications recently due to fear of erectile dysfunction side effects. Efrain Foley from [facility], where patient stays, called [facility] [place] at 14:36. Per Mr. Foley, patient never showed up at [facility] after being discharged from [facility] [place] am at 0700. [facility] received a call from 911 dispatch this afternoon that pt was being transported to [facility], after pt called 911 from [place] school [place] Per [facility] Patient was unable to tell his location to 911 dispatch and was babbling incoherently. He stated he had "crushing chest pain". He told dispatch to "shoot him in the head". Patient also told [facility] that he wanted to kiss and touch a female staff member of [facility]. Ms Aliza Pinzon from [facility] called at 14:53. Ms. Pinzon has known patient for 16 years. She notes that he has been deteriorating in his mental status and feels that patient is a danger to himself. Per Ms. Pinzon, patient called dispatch from his cell phone. This is pt's third visit to the ED in 30hrs. Pt had two psychiatric evaluations on 02/09/18, and was DC'd from [facility] [place]. Patient was also admitted overnight for observation on 02/08/18 for chest pain. He had a psychiatric eval on also. He was given Haldol decanoate 100mg on second ED visit yesterday, with ativan 2mg IM and benadryl 50mg po at pt's request to remain calm. Pt had labs, CXR and EKG's on both ED visits on 02/09/18 for complaints of chest pain and SOB , and all testing was negative. Pt had CT brain last pm that was unremarkable, for further evaluation of possible dementia in pt, noted by staff who know pt well. Dr. Cho was consulted immediately upon pt's presentation to the ED today and Dr. Cho recommended 9.39 admission to [facility]. Home Medications Medication Instructions Recorded Confirmed Type Hydrochlorothiazide TAB* 25 mg PO QAM 10/02/17 02/10/18 History [Hydrodiuril TAB*] Aspirin EC TAB* [Ecotrin EC Low 81 mg PO DAILY 10/08/17 02/10/18 History Dose 81 MG*] Acetaminophen TAB* [Tylenol TAB*] 650 mg PO Q4H PRN 01/02/18 02/10/18 History Atorvastatin* [Lipitor 20 MG*] 20 mg PO BEDTIME 01/02/18 02/10/18 History Nitroglycerin TAB 0.4 MG* 0.4 mg SL Q5M PRN 01/02/18 02/10/[address] TAB(*) [Depakote DR 500 mg PO BID #60 tab.dr 01/28/18 02/10/18 Rx TAB(*)] LORazepam TAB(*) [Ativan 0.5 MG 0.5 mg PO TID #90 tab MDD 1.5 mg 01/28/18 Rx TAB (*)] LORazepam TAB(*) [Ativan 1 MG TAB 1 mg PO DAILY PRN #30 tab MDD 1 tab 01/28/18 02/10/18 Rx (*)] QUEtiapine TAB* [Seroquel 100 MG *] 200 mg PO BEDTIME #60 tab 01/28/18 02/10/18 Rx - History Of Current Complaint Chief Complaint: EDMentalHealth Time Seen by Provider: 02/10/18 14:34 Hx Obtained From: Patient, Medical Records - [facility] [place], 2 ED adms , Other: - [facility] staff, [facility], pt known to me from two ED visits 02/09/18 where I cared for him Hx From Patient Unobtainable Due To: Altered Mental Status - disorganized thoughts, rambling speech, tangential answers Onset/Duration: Gradual Onset, Lasting Hours - this afternoon, Still Present Timing: Constant Severity Initially: Moderate Severity Currently: None Aggravating Factor(s): Medication Non-compliance, Therapy Non-compliance Alleviating Factor(s): Nothing Associated Signs And Symptoms: Positive: Confused, Hallucinating, Sleep Disturbance, Social Isolation - pt keeps leaving [facility], isolates himself when there Related History: Positive For: Prior Psychiatric Issues - Allergies/Home Medications Allergies/Adverse Reactions: Allergies Allergy/AdvReac Type Severity Reaction Status Date / Time bacitracin Allergy Unknown Verified 02/10/18 15:58 Reaction Details neomycin Allergy Unknown Verified 02/10/18 15:58 [From Triple Antibiotic] Reaction Details polymyxin B Allergy Unknown Verified 02/10/18 15:58 [From Triple Antibiotic] Reaction Details thiothixene Allergy Unknown Verified 02/10/18 15:58 Reaction Details trifluoperazine Allergy Unknown Verified 02/10/18 15:58 [From Stelazine] Reaction Details trifluridine Allergy Unknown Verified 02/10/18 15:58 Reaction Details PMH/Surg Hx/FS Hx/Imm Hx Previously Healthy: No Endocrine/Hematology History: Denies: Hx Anticoagulant Therapy, Hx Diabetes, Hx Thyroid Disease, Other Endocrine/Hematological Disorders Cardiovascular History: Reports: Hx Aneurysm - 2012, Hx Angina, Hx Coronary Artery Disease, Hx Hypercholesterolemia, Hx Hypertension Denies: Hx Congestive Heart Failure, Hx Pacemaker/ICD, Other Cardiovascular Problems/Disorders Respiratory History: Denies: Hx Asthma, Hx Chronic Obstructive Pulmonary Disease (COPD), Other Respiratory Problems/Disorders GI History: Reports: Hx Diverticulosis Denies: Other GI Disorders History: Denies: Hx Renal Disease, Other Problems/Disorders Musculoskeletal History: Denies: Other Musculoskeletal History Sensory History: Reports: Hx Contacts or Glasses Denies: Hx Hearing Aid, Other Sensory Impairments Opthamlomology History: Reports: Hx Contacts or Glasses Denies: Other Sensory Impairments Neurological History: Denies: Hx Dementia, Hx Seizures, Other Neuro Impairments/Disorders Psychiatric History: Reports: Hx Anxiety, Hx Post Traumatic Stress Disorder, Hx Inpatient Treatment, Hx Community Mental Health Tx, Hx Schizophrenia, Hx of Violent Episodes Against Others, Other Psychiatric Issues/Disorders - pt states strong claustrophobia, OCD Denies: Hx Eating Disorder, Hx Substance Abuse - Cancer History Cancer Type, Location and Year: None reported - Surgical History Surgery Procedure, Year, and Place: right forearm/ wrist break, pins placed - Immunization History Date of Tetanus Vaccine: UTD Date of Influenza Vaccine: NONE Infectious Disease History: No Infectious Disease History: Denies: Hx Hepatitis, Hx Human Immunodeficiency Virus (HIV), Traveled Outside the [place] in Last 30 Days - Family History Known Family History: Negative: Diabetes, Seizure Disorder - Social History Occupation: Disabled Lives: [facility] Alcohol Use: None Hx Substance Use: Yes Substance Use Type: Reports: Marijuana Substance Use Comment - Amount & Last Used: states occassional marijuana use Hx Tobacco Use: Yes Smoking Status (MU): Former Smoker Type: Cigarettes Amount Used/How Often: 1/2 pack or less daily Length of Time of Smoking/Using Tobacco: states he quit in the '70's Have You Smoked in the Last Year: Yes Review of Systems - ROS Summary Review of Systems Summary: LEVEL 5 CAVEAT: ROS is limited d/t patient's disorganized, rambling thoughts and speech Positive: Chest Pain - resolved Positive: Shortness Of Breath - resolved Skin: Negative Neurological: Negative Positive: Other - making inappropriate statements, unable to answer whether he is having suicidal or homicidal thoughts All Other Systems Reviewed And Are Negative: No Physical Exam - Summary Physical Exam Summary: Appearance: Chronically ill-appearing, ambulatory, no respiratory or pain distress, rambling speech Skin: Warm, color reflects adequate perfusion, dry Head: Normal Head/Face inspection, atraumatic Eyes: Conjunctiva clear ENT: Normal inspection Neck: Supple, no nodes, no JVD Respiratory: Lungs clear, normal breath sounds, no respiratory distress Cardio: RRR, No murmur, pulses normal, brisk capillary refill Abdomen: Soft, nontender Bowel sounds: Present Musculoskeletal: Strength Intact/ROM intact, no calf tenderness, no edema. Psychological: Rambling thoughts, mumbling, inappropriate lunging at al during exam Neuro: Alert, muscle tone normal, no focal deficit Triage Information Reviewed: Yes Vital Signs On Initial Exam: Initial Vitals Temp Pulse Resp BP Pulse Ox 98.6 F 85 18 126/73 95 02/10/18 14:23 02/10/18 14:23 02/10/18 14:23 02/10/18 14:23 02/10/18 14:23 Vital Signs Reviewed: Yes Diagnostics - Vital Signs Vital Signs Temp Pulse Resp BP Pulse Ox 02/10/18 14:23 98.6 F 85 18 126/73 95 - Laboratory Lab Statement: Any lab studies that have been ordered have been reviewed, and results considered in the medical decision making process. Re-Evaluation - Re-Evaluation First Eval Re-Evaluation Time: 15:00 Change: Unchanged Comment: remains standing in room, in mental health scrubs, in no respiratory distress. Remains in behavioral control. Q 15min observation in place. Course/Dx - Course Course Of Treatment: Pt presents 941 status via [facility] for his third fourth visit to [facility] since 02/08/18 with statements to [facility] stating "shoot me hin the head " and pt stating inappropriate wishes to kiss and touch female staff at [facility] where he resides. Patient medications reviewed this visit. He has been noncompliant with meds, and with returning to [facility] and calling 911 each time he has been discharged, to return to the [facility]. Medical evaluations for chest pain and SOB x 3 since 02/08/18 have all been negative. A CT brain last pm was negative. Pt Received Haldol decanoate 100mg IM on 02/09/18 with ativan 2mg IM and benadryl 50mg po. Allergies noted. Discussed with Dr. Cho, psychiatry, at 14:54 who agrees to admit patient. He does not request new labs or new psychiatric evaluation. Patient will be admitted to psychiatric facility at [facility] - Differential Dx/Clinical Impression Provider Diagnosis: Schizo affective schizophrenia Discharge - Sign-Out/Discharge Documenting (check all that apply): Patient Departure - Admit - Discharge Plan Condition: Stable Disposition: [place]CHIATRIC FACILITY[place] - Billing Disposition and Condition Condition: STABLE Disposition: Psychiatric Facility [facility] - Attestation Statements Document Initiated by Scribe: Yes Documenting Scribe: Shilpi Kenny Provider For Whom Scribe is Documenting (Include Credential): Soila Hou MD Scribe Attestation: Shilpi Anderson, scribed for Soila Hou MD on 02/11/18 at 0147. Scribe Documentation Reviewed: Yes Provider Attestation: The documentation as recorded by the scribeShilpi accurately reflects the service I personally performed and the decisions made by me, Soila Hou MD Status of Scribe Document: Viewed
[2018-02-11] MEDS ORDERED: Nitroglycerin TAB 0.4 MG* 0.4 MG TAB SL PRN (11:10)
[2018-02-11] MEDS ORDERED: Acetaminophen TAB* 325 MG PO PRN (11:10)
[2018-02-11] MEDS: Hydrochlorothiazide TAB* 25 MG PO SCH ×2 (12:01→13:10)
[2018-02-11] MEDS: Aspirin EC TAB* 81 MG TAB.EC PO SCH ×2 (12:01→13:10)
[2018-02-11] MEDS: Divalproex DR TAB(*) 500 MG PO SCH ×3 (12:01→21:11)
[2018-02-11] MEDS: LORazepam TAB(*) 0.5 MG PO SCH ×2 (13:09→21:11)
[2018-02-11] MEDS: Ciprofloxacin 0.3% OPTH.SOL* 2.5 ML BTL BOTH EYES SCH ×3 (13:09→21:43)
--- NOTE | 2018-02-11 16:27 | HP ---
HISTORY AND PHYSICAL: DATE OF ADMISSION: 02/10/18 SUPERVISING PSYCHIATRIST: Ray Cho MD.* (DICTATED BY ALTAF BORJAS NP) JUSTIFICATION FOR ADMISSION: The patient presented to the emergency department via police for wandering and making hypersexual statements to peers. The patient has been acting bizarre and calling 911 dispatch multiple times. He told dispatch to "shoot him in the head". The patient merits hospitalization for immediate safety and stabilization. CHIEF COMPLAINT: The patient mumbles something not quite audible and incoherent. HISTORY OF PRESENT ILLNESS: Gutierrez is a 67-year-old male, well-known to this unit and this com writer due to previous hospitalizations. This is his sixth lifetime hospitalization at [facility] since 2010. This particular year has shown an increase in both medical and psychiatric presentations at [facility]. According to ED collateral, the patient has been to the ED 3 times within 30 hours. He was also admitted for overnight observation on telemetry and seen by this com writer during that admission last week. The patient is periodically nonadherent to medications. During those times, he is hypersexual, intrusive, and makes dangerous choices, including being outside of the home, not dressed appropriate for weather. According to EMR, the patient has been hypersexual and making unwanted sexual advances towards female staff both in the ER and on the mental health unit. Today, the patient is standing in the hallway, underneath ventilation. He has exhibited this behavior consistently while in the hospital. Today, I asked him about not taking medications and asked about sexual side effects specifically. He endorses erectile dysfunction after receiving decanoate shot of Invega. His timeline is poor as he was started on MORENO of Invega Sustenna in the spring of this year, while at [facility] for longer term hospitalization. While there, he was court mandated for treatment over objection. The patient tells me that he wants to "go together and shoot Dr. Hou in the appendix with a water gun". Since his last admission to this unit, the patient had two psychiatric evaluations on 02/09 and was consulted by this com writer on 02/08, while he was a telemetry patient. On the second ED visit, on 02/09 he was given Haldol decanoate 100 mg. PAST PSYCHIATRIC HISTORY: The patient has been hospitalized at [facility] multiple times since 2010. He resides at [facility]. This year he was hospitalized in March and April on the [facility]. He was diagnosed with schizoaffective, bipolar type, after presenting with symptoms of aime and was started on Depakote. From [facility], he was transferred to [facility] for longer term hospitalization. While there, he was court mandated for treatment over objection. Since then his family advocated that he be removed from the [place] service connection and he is now a client of [facility]. CURRENT MEDICATIONS: 1. Lorazepam 0.5 mg p.o. t.i.d. 2. PreviDent 1 pack daily. 3. Hydrochlorothiazide 25 mg daily. 4. Vitamin D 1000 units daily. 5. Aspirin 81 mg daily. 6. Multivitamin with minerals 1 daily. 7. Atorvastatin 20 mg q.h.s. 8. Hydrocortisone cream 1% t.i.d. p.r.n. itching. 9. Nitroglycerin 0.5 mg sublingual q.5 minutes p.r.n. chest pain. 10. Milk of magnesia 30 mL p.o. q.h.s. p.r.n. constipation. 11. Acetaminophen 650 mg p.o. q.4 hours p.r.n. pain, fever, temp over [address] 12[address] 500 mg b.i.d. 13. Quetiapine 200 mg q.h.s. 14. Saline nasal spray 1 spray q.4 hours p.r.n. to both nares. 15. Lorazepam 1 mg daily p.r.n. anxiety. As stated above, he received Haldol decanoate 100 mg IM on 02/09/18. PAST PSYCHIATRIC MEDICATIONS: Include: 1. Artane. 2. Stelazine. 3. Olanzapine. 4. Risperidone. 5. Risperidone Consta. 6. Mirtazapine. 7. Aripiprazole, including aripiprazole Maintena. 8. Paliperidone, including Invega Sustenna. TRAUMA/ABUSE HISTORY: As stated above, the patient is a from [place] [employer] and was active during the [place] conflict. SUICIDE OR SELF-HARM BEHAVIORS: There is no known documentation of attempts. MEDICAL HISTORY: 1. CAD with potential history of OR. 2. Hyperlipidemia. 3. Hypertension. 4. Diverticulitis. 5. History of aneurysm in 2011. SURGICAL HISTORY: Right forearm wrist break, pins placed. FAMILY PSYCHIATRIC HISTORY: Sister with bipolar disorder. Maternal aunt and uncle both completed suicide. SOCIAL HISTORY: The patient was born and raised in [place], [place]. He is one of 9 siblings. The patient was in foster care as a child. He graduated high school. 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 He had onset of psychosis at age 20 and was discharged with a 100% service connection. The patient never and does not have children. He was incarcerated in a forensic unit for about 1 year at the age of 50 for assaulting a [employer] police officer during which episode he was delusional and not taking medications. The patient denies current alcohol, tobacco or other drug use. REVIEW OF SYSTEMS: Constitutional: Negative. No fever, chills or fatigue. Eyes: Positive for erythema and purulent drainage. ENT: Negative. Cardiovascular: Negative. Denies chest pain or palpitations. Respiratory: Negative. Denies shortness of breath or cough. Genitourinary: Negative. Musculoskeletal: Negative. Neurological: Negative. PHYSICAL EXAMINATION The patient was examined in the emergency department. For further exam data, please see ED provider report. VITAL SIGNS: T 98.8, P 101, respirations 16, O2 saturation 94%, BP 130/42. I will ask that these be repeated to clarify heart rate. MENTAL STATUS EXAM: Gutierrez is a 67-year-old white male with medium long salt and pepper hair. He appears his stated age. He is adequately groomed, wearing his own casual clothing. He is alert and oriented x3. Eye contact is inconsistent. Speech is soft, mumbled at times. Mood is euthymic with a bright affect. No abnormal psychomotor activity noted. Though process is disorganized and tangential. Thought content is negative for SI or SIB. He voices vague, violent ideation. The patient denies auditory or visual hallucinations and does not appear to respond to internal stimuli. His insight and judgment are impaired. Fund of knowledge is adequate. LABORATORY DATA: CBC noted to have a low H and H of 13.3 and 39 respectively. MPV 6.9, lymph percent 22.8, mono percent 10.9. Chemistry: Generally unremarkable. Hemoglobin A1c 5.4. Lipid panel within normal limits and consistent with previous results. Urinalysis negative with the exception of trace ketones and toxicology negative for salicylates, acetaminophen or alcohol. Urine drug screen negative. DIAGNOSES: 1. Schizoaffective disorder, bipolar type. 2. Posttraumatic stress disorder by history. Cro[place] III: Coronary artery disease, hyperlipidemia, hypertension, history of diverticulosis. ASSESSMENT: Mr. 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 He has lived at the [facility] for at least 7 years. He continues to be questionable with medication adherence and is presenting more frequently to the [facility] either by police or EMS due to his own use of 911. Due to frequent presentations, longer hospitalization may be warranted. PLAN: The patient is admitted to adult behavioral services unit on involuntary status. His code status is full. He is placed on 15-minute checks for his safety. We will reinstate outpatient medications with the exception of quetiapine as he received Haldol decanoate 2 days ago. We will attempt to identify cognitive impairment with psychological testing, if the patient is able to participate. Due to multiple brief hospitalizations, we will likely refer to state for longer term hospitalization. ALTAF BORJAS NP [id number]/CPS #: [id number] LEAH
[2018-02-11] MEDS: Atorvastatin* 20 MG TAB PO SCH (21:11)
[2018-02-11] MEDS: Saline NASAL DROPS 0.65%* 1 DROP BTL BOTH NARES PRN (21:14)
[2018-02-12] MEDS: Divalproex DR TAB(*) 500 MG PO SCH ×2 (09:39→21:15)
[2018-02-12] MEDS: LORazepam TAB(*) 0.5 MG PO SCH ×3 (09:39→21:16)
[2018-02-12] MEDS: Aspirin EC TAB* 81 MG TAB.EC PO SCH (09:40)
[2018-02-12] MEDS: Hydrochlorothiazide TAB* 25 MG PO SCH (09:42)
[2018-02-12] MEDS: Ciprofloxacin 0.3% OPTH.SOL* 2.5 ML BTL BOTH EYES SCH ×4 (09:43→22:23)
--- NOTE | 2018-02-12 12:30 | PN ---
Subjective - Subjective Date of Service: 02/12/18 Service Type: 19239 Hosp care 25 min moderate complexity Subjective: Patient gave clearance to [facility] for referral to [facility]. Patient noted to have poor memory of events leading to hospitalization. Patient attempts to play cards with music writer. He has difficulty with addition and recalling rules of games. He states he had questions regarding medications but cannot recall them now. Objective - Appearance Appearance: Well Developed/Nourished Dysmorphic Features: No Hygiene: Normal Grooming: Fairly Well Kept - Behavior Psychomotor Activities: Normal Exhibits Abnormal Movement: No - Attitude and Relatedness Attitude and Relatedness: Psychotically Related Eye Contact: Good - Speech Quality: Unpressured Latencies: Short Quantity: Copious - Mood Patient's Decription of Mood: "Okay" - Affect Observed Affect: Expansive Affect Consistent with: Euphoria - Thought Process Patient's Thought Process: Disorganized Thought Content: Yes Paranoid Ideation, No Passive Wish, No Suicidal Planning, No Homicidal Ideation - Sensorium Experiencing Hallucinations: No, Sensorium is Clear Type of Hallucinations: Visual: No, Auditory: No, Command: No - Level of Consciousness Level of Consciousness: Alert Orientation: Yes Intact, Yes Orientated to Time, Yes Orientated to Place, Yes Orientated to Person - Impulse Control Impulse Control: Poor - Insight and Judgement Insight and Judgement: Impaired - Group Participation Particating in Group Activities: No - Medication Management Medication Management Adherence: Yes Assessment - Assessment Merits Inpatient Hospitalization: For Immediate Safety, For Stabilization Inpatient DSM-V Dx: F25.0 Clinical Impression: 67yo wm with known history of schizoaffective d/o, who presents to ED via police due to disorganized and bizarre behavior. He called 911 dispatch and asked someone to shoot him. Patient has been hospitalized multiple times this year and merits longer term hospitalization for safety and stabilization. Plan - Plan Treatment Plan: Name: DEYANIRA BOYD Birthdate: 1950 [id number] continue intensive psychiatric treatment. received haldol decanoate 100mg IM in ED on 02/09/18. convert to 2pc and refer to [facility]. Continued Medication Management: Start Medication Medications: Current Medications Acetaminophen (Tylenol Tab*) 650 mg PO Q4H PRN PRN Reason: PAIN Aspirin (Aspirin Ec Tab*) 81 mg PO DAILY JEANINE Last Admin: 02/12/18 09:40 Dose: Not Given Atorvastatin Calcium (Lipitor*) 20 mg PO BEDTIME [facility] Last Admin: 02/11/18 21:11 Dose: 20 mg Ciprofloxacin HCl (Cipro 0.3% Opth*) 2 drop BOTH EYES QID [facility] Last Admin: 02/12/18 09:43 Dose: 2 drop Divalproex Sodium (Depakote Dr Tab(*)) 500 mg PO BID [facility] Last Admin: 02/12/18 09:39 Dose: 500 mg Hydrochlorothiazide (Hydrodiuril Tab*) 25 mg PO QAM [facility] Last Admin: 02/12/18 09:42 Dose: Not Given Lorazepam (Ativan Tab(*)) 0.5 mg PO TID [facility] Last Admin: 02/12/18 09:39 Dose: 0.5 mg Nitroglycerin (Nitroglycerin Tab 0.4 Mg*) 0.4 mg SL Q5M PRN PRN Reason: PAIN - CHEST Sodium Chloride (Sodium Chloride 0.65% Nasal Drops*) 1 drop BOTH NARES Q4H PRN PRN Reason: CONGESTION Last Admin: 02/11/18 21:14 Dose: 1 spray - Discharge Plan Discharge Plan: Inpatient Hospitalization
[2018-02-12] MEDS: Atorvastatin* 20 MG TAB PO SCH (21:14)
[2018-02-12] MEDS: Haloperidol TAB* 1 MG PO SCH (21:15)
[2018-02-13] MEDS: Saline NASAL DROPS 0.65%* 1 DROP BTL BOTH NARES PRN ×2 (07:43→13:25)
[2018-02-13] MEDS: Hydrochlorothiazide TAB* 25 MG PO SCH ×2 (07:44→09:56)
[2018-02-13] MEDS: LORazepam TAB(*) 0.5 MG PO SCH ×3 (07:44→21:04)
[2018-02-13] MEDS: Divalproex DR TAB(*) 500 MG PO SCH ×2 (07:44→21:05)
[2018-02-13] MEDS: Aspirin EC TAB* 81 MG TAB.EC PO SCH ×2 (07:44→09:56)
[2018-02-13] MEDS: Ciprofloxacin 0.3% OPTH.SOL* 2.5 ML BTL BOTH EYES SCH ×2 (09:56→13:59)
[2018-02-13 10:45] VITALS: BP 118/82
--- NOTE | 2018-02-13 13:53 | PN ---
Subjective - Subjective Date of Service: 02/13/18 Service Type: 19111 Hosp care 15 min low complexity Subjective: Patient continues to exhibit disorganized and hypersexual behaviors. He intermittently sleeps and is primarily seclusive. However, due to standing under vent near entry door he converses briefly with multiple staff. Objective - Appearance Appearance: Thin Framed Dysmorphic Features: No Hygiene: Normal Grooming: Well Kept - Behavior Psychomotor Activities: Normal Exhibits Abnormal Movement: No - Attitude and Relatedness Attitude and Relatedness: Psychotically Related Eye Contact: Fair - Speech Quality: Unpressured Latencies: Long Quantity: Terse - Mood Patient's Decription of Mood: "Okay" - Affect Observed Affect: Expansive Affect Consistent with: Euphoria - Thought Process Patient's Thought Process: Disorganized Thought Content: Yes Paranoid Ideation, No Passive Wish, No Suicidal Planning, No Homicidal Ideation - Sensorium Experiencing Hallucinations: No, Sensorium is Clear Type of Hallucinations: Visual: No, Auditory: No, Command: No - Level of Consciousness Level of Consciousness: Alert Orientation: No Intact, No Orientated to Time, No Orientated to Place, No Orientated to Person - Impulse Control Impulse Control: Impaired - Insight and Judgement Insight and Judgement: Impaired - Group Participation Particating in Group Activities: No - Medication Management Medication Management Adherence: Yes Assessment - Assessment Merits Inpatient Hospitalization: For Immediate Safety, For Stabilization Inpatient DSM-V Dx: F25.0 Clinical Impression: 67yo wm with known history of schizoaffective d/o, who presents to ED via police due to disorganized and bizarre behavior. He called 911 dispatch and asked someone to shoot him. Patient has been hospitalized multiple times this year and merits longer term hospitalization for safety and stabilization. Plan - Plan Treatment Plan: Name: DEYANIRA BOYD Birthdate: 1950 [id number] continue intensive psychiatric treatment. received haldol decanoate 100mg IM in ED on 02/09/18. add haldol 2mg qhs and hydroxyzine 50mg prn anxiety. referred to [facility], pending acceptance. Continued Medication Management: Start Medication Medications: Current Medications Acetaminophen (Tylenol Tab*) 650 mg PO Q4H PRN PRN Reason: PAIN Aspirin (Aspirin Ec Tab*) 81 mg PO DAILY JEANINE Last Admin: 02/13/18 09:56 Dose: Not Given Atorvastatin Calcium (Lipitor*) 20 mg PO BEDTIME [facility] Last Admin: 02/12/18 21:14 Dose: 20 mg Ciprofloxacin HCl (Cipro 0.3% Opth*) 2 drop BOTH EYES QID [facility] Last Admin: 02/13/18 09:56 Dose: Not Given Divalproex Sodium (Depakote Dr Tab(*)) 500 mg PO BID [facility] Last Admin: 02/13/18 07:44 Dose: 500 mg Haloperidol (Haldol Tab*) 2 mg PO BEDTIME [facility] Last Admin: 02/12/18 21:15 Dose: 2 mg Hydrochlorothiazide (Hydrodiuril Tab*) 25 mg PO QAM [facility] Last Admin: 02/13/18 09:56 Dose: Not Given Lorazepam (Ativan Tab(*)) 0.5 mg PO TID [facility] Last Admin: 02/13/18 13:29 Dose: 0.5 mg Nitroglycerin (Nitroglycerin Tab 0.4 Mg*) 0.4 mg SL Q5M PRN PRN Reason: PAIN - CHEST Sodium Chloride (Sodium Chloride 0.65% Nasal Drops*) 1 drop BOTH NARES Q4H PRN PRN Reason: CONGESTION Last Admin: 02/13/18 13:25 Dose: 2 spray - Discharge Plan Discharge Plan: Consider Longer Term Tx
[2018-02-13] MEDS: Atorvastatin* 20 MG TAB PO SCH (21:04)
[2018-02-13] MEDS: Haloperidol TAB* 1 MG PO SCH ×2 (21:04→22:26)
--- NOTE | 2018-02-14 05:02 | PN ---
Progress Note - Progress Note Date of Service: 02/14/18 Note: CAT call for CP. Patient yelled out to nurse stating that he felt like he was having a heart attack. Hasn't slept all night and is planning to be discharged today. States he has a history of an AK in the past. Poor historian. States he is SOB. No nausea or diaphoresis. EKG unchanged. Vitals stable. SL NTG given. Recommend patient be ruled out in ER for ACS. Will up date etl consultant psychiatrist.
[2018-02-14] MEDS ORDERED: LORazepam TAB(*) 1 MG PO ONE (08:10)
[2018-02-14] MEDS ORDERED: LORazepam TAB(*) 1 MG ONE (08:14)
[2018-02-14] MEDS: LORazepam TAB(*) 0.5 MG PO SCH (08:15)
[2018-02-14] MEDS: Aspirin EC TAB* 81 MG TAB.EC PO SCH (08:15)
[2018-02-14] MEDS: Divalproex DR TAB(*) 500 MG PO SCH (08:15)
[2018-02-14] MEDS: Hydrochlorothiazide TAB* 25 MG PO SCH (08:19)
--- NOTE | 2018-02-14 11:48 | DS ---
CC: [facility]; [facility]; Dr. Cristopher Gardner.* DISCHARGE SUMMARY: DATE OF ADMISSION: 02/10/18 DATE OF DISCHARGE: 02/14/18 SUPERVISING PSYCHIATRIST: Dr. Ray Cho.* (DICTATED BY ALTAF BORJAS NP) DISCHARGE DIAGNOSES: 1. Schizoaffective disorder, bipolar type. 2. Unspecified anxiety disorder. CONDITION AT THE TIME OF DISCHARGE: Guarded. The patient continues to exhibit disorganized bizarre behavior. He stands under the vent and he states that, "I got to get myself right and make it even." The patient has been pleasantly disorganized. He is not aggressive. During the overnight shift, he complained of chest pain and was evaluated in the ED. EKG was unchanged from previous EKGs. Vital signs stable. The patient is alert and oriented today, states understanding of transfer to [facility]. He denies that this is distressing or anxiety producing. MENTAL STATUS EXAM: Gutierrez is a 67-year-old white male with medium length salt and pepper hair. He appears stated age. He is thin framed, poorly groomed and moderately disheveled. He is alert and oriented x3. Eye contact is fair. Speech is soft, mumbled at times. Mood is euthymic with flat affect. No abnormal psychomotor activity noted. Thought process is disorganized and tangential at times. Thought content is negative for SI or SIB. The patient denies auditory or visual hallucinations. He has fixed delusions regarding air quality and sexual side effects of medication. Insight and judgment are impaired. Fund of knowledge is adequate. INSTRUCTIONS GIVEN TO PATIENT: The patient will continue on the following medications pending evaluation [facility]. A. Medications: 1. Aspirin EC 81 mg p.o. daily. 2. Atorvastatin 20 mg p.o. q.h.s. 3. Depakote [address] p[address]o. b.i.d. 4. Haloperidol 2 mg p.o. q.h.s. This is an addition to haloperidol decanoate 100 mg IM, he received on 02/09/18. 5. Hydrochlorothiazide 25 mg p.o. q.a.m. 6. Lorazepam 0.5 mg p.o. t.i.d. 7. Nitroglycerin 0.4 mg sublingual p.r.n. chest pain. 8. Saline nasal drops q.4 hours p.r.n. congestion. B. Diet: Regular C. Activity: Ambulation as tolerated. Tobacco cessation is not applicable as the patient declines that he is a smoker. There are no pending labs or diagnostic studies. D. Followup care: The patient will follow up with [facility]. His outpatient providers are [facility] and Dr. Cristopher Gardner , for primary care. E. Substance use followup is not applicable. HOSPITAL COURSE: Part A. Reason for admission: The patient presented to the emergency department via police for wandering and making hypersexual statements to peers. The patient has been acting bizarre and calling 911 Dispatch multiple times. He told Dispatch to "shoot him in the head." This particular year has shown an increase in both medical and psychiatric presentations at [facility]. This is his 6th lifetime hospitalization at [facility] since 2010. According to ED collateral, the patient had been to the ED 3 times within 30 hours. He was also admitted for overnight observation on telemetry and seen by this principal technical writer during that admission last week. The patient is periodically nonadherent to medications. During those times, he was hypersexual, intrusive and makes dangerous choices, including being outside of the home, not dressed appropriate for weather. He was hypersexual making unwanted sexual advances towards female staff both in the ER and on the mental health unit upon arrival. Since his last admission to this unit, the patient had 2 psychiatric evaluations on 02/09/18 and was consulted by this principal technical writer on 02/08/18 as a telemetry patient. On the 2nd ED visit on 02/09/18, he was given Haldol Decanoate 100 mg IM. Part B. Psychiatric treatment rendered: The patient was admitted to adult behavioral services on involuntary status. His code status is full. He remains on 15-minute checks for his safety. We discontinued quetiapine as he had received Haldol Decanoate. We resumed known outpatient medications including Depakote. Due to his multiple presentations, the patient was referred to hospitalization quickly after presentation. He has been medication adherent since being on the unit. He has been primarily seclusive to self either resting throughout the day or standing underneath the vent outside of his room. He presented with purulent discharge from the eyes and red in the eyes. He complained of itching and burning. We prophylactically treated him with Cipro eye drops due to being hospitalized in a small unit with multiple peers. Today, the patient has been discharged pending transfer to [facility]. ALTAF BORJAS, ENVIRONMENTAL INSPECTOR [id number]/CPS #: [id number] LEAH
== END 2018-02-14 08:30 | DRG 885 ==
LOC: ED 14:22 → BSU 15:38
PROVIDERS: ADMIT Psychiatry & Neurology Psychiatry; ATTEND Psychiatry & Neurology Psychiatry
DX: F25.0 Schizoaffective disorder, bipolar type (principal); F41.9 Anxiety disorder, unspecified; I25.10 Atherosclerotic heart disease of native coronary artery without angina pectoris; E78.5 Hyperlipidemia, unspecified; I10 Essential (primary) hypertension; F43.10 Post-traumatic stress disorder, unspecified; K57.90 Diverticulosis of intestine, part unspecified, without perforation or abscess without bleeding; Z79.82 Long term (current) use of aspirin; Z91.14 Patient's other noncompliance with medication regimen; Z81.8 Family history of other mental and behavioral disorders; I25.2 Old myocardial infarction; Z87.891 Personal history of nicotine dependence; Z88.8 Allergy status to other drugs, medicaments and biological substances; Z88.1 Allergy status to other antibiotic agents
CPT/HCPCS: 36415; 80061; 83036; 93005; 99222; 99231; 99232; 99238; 99284; A9270-GY

== ENCOUNTER 2018-02-14 04:59 | Emergency (ER) | payer MEDICARE ==
--- NOTE | 2018-02-14 05:08 | ED ---
HPI Chest Pain - HPI Summary HPI Summary: A 67 y/o M presents to ED from upstairs with c/o intermittent episodes of mid- sternal chest discomfort and SOB throughout the night. Pt is an in-patient in psych at [facility]. He has not slept tonight, he is anxious at bedside, and rehashing details repeatedly. Pt states he is going to be discharged from the [facility] today and that he is OK with that. He mentions feeling claustrophobic at times if the air quality isnt good. Former smoker. PMHx: 5 previous admissions to psych; schizo-affective disorder (paranoid); PTSD; aime; CAD with potential KS; HDL; HTN; aneurysm. Pt is a [place] vet. - History of Current Complaint Hx Obtained From: Patient Onset/Duration: Started Hours Ago, Still Present Timing: Intermittent Pain Intensity: 0 Pain Scale Used: 0-10 Numeric - at bedside Chest Pain Location: Mid Sternal Associated Signs and Symptoms: Positive: Anxiety, Shortness of Breath - Additional Pertinent History Primary Care Physician: Cristopher Gardner MD - Allergy/Home Medications Allergies/Adverse Reactions: Allergies Allergy/AdvReac Type Severity Reaction Status Date / Time bacitracin Allergy Unknown Verified 02/10/18 15:58 Reaction Details neomycin Allergy Unknown Verified 02/10/18 15:58 [From Triple Antibiotic] Reaction Details polymyxin B Allergy Unknown Verified 02/10/18 15:58 [From Triple Antibiotic] Reaction Details thiothixene Allergy Unknown Verified 02/10/18 15:58 Reaction Details trifluoperazine Allergy Unknown Verified 02/10/18 15:58 [From Stelazine] Reaction Details trifluridine Allergy Unknown Verified 02/10/18 15:58 Reaction Details PMH/Surg Hx/FS Hx/Imm Hx Previously Healthy: No Endocrine/Hematology History: Denies: Hx Anticoagulant Therapy, Hx Diabetes, Hx Thyroid Disease, Other Endocrine/Hematological Disorders Cardiovascular History: Reports: Hx Aneurysm - 2012, Hx Angina, Hx Coronary Artery Disease, Hx Hypercholesterolemia, Hx Hypertension Denies: Hx Congestive Heart Failure, Hx Pacemaker/ICD, Other Cardiovascular Problems/Disorders Respiratory History: Denies: Hx Asthma, Hx Chronic Obstructive Pulmonary Disease (COPD), Other Respiratory Problems/Disorders GI History: Reports: Hx Diverticulosis Denies: Other GI Disorders History: Denies: Hx Renal Disease, Other Problems/Disorders Musculoskeletal History: Denies: Other Musculoskeletal History Sensory History: Reports: Hx Contacts or Glasses Denies: Hx Hearing Aid, Other Sensory Impairments Opthamlomology History: Reports: Hx Contacts or Glasses Denies: Other Sensory Impairments Neurological History: Denies: Hx Dementia, Hx Seizures, Other Neuro Impairments/Disorders Psychiatric History: Reports: Hx Anxiety, Hx Post Traumatic Stress Disorder, Hx Inpatient Treatment, Hx Community Mental Health Tx, Hx Schizophrenia, Hx of Violent Episodes Against Others, Other Psychiatric Issues/Disorders - pt states strong claustrophobia, OCD Denies: Hx Eating Disorder, Hx Substance Abuse - Cancer History Cancer Type, Location and Year: None reported - Surgical History Surgery Procedure, Year, and Place: right forearm/ wrist break, pins placed - Immunization History Date of Tetanus Vaccine: UTD Date of Influenza Vaccine: NONE Infectious Disease History: Denies: Hx Hepatitis, Hx Human Immunodeficiency Virus (HIV) - Family History Known Family History: Negative: Diabetes, Seizure Disorder - Social History Occupation: Disabled Lives: Alone Alcohol Use: None Alcohol Amount: 3 beers a week Hx Substance Use: Yes Substance Use Type: Reports: Marijuana Substance Use Comment - Amount & Last Used: states occassional marijuana use Hx Tobacco Use: Yes Smoking Status (MU): Current Every Day Smoker Type: Cigarettes Amount Used/How Often: 1/2 pack or less daily Length of Time of Smoking/Using Tobacco: states he quit in the '70's Have You Smoked in the Last Year: Yes Review of Systems Positive: Chest Pain Positive: Shortness Of Breath Positive: Anxious All Other Systems Reviewed And Are Negative: Yes Physical Exam - Summary Physical Exam Summary: Appearance: Well appearing, no pain distress Skin: warm, dry, reflects adequate perfusion Head/face: normal Eyes: EOMI, DANA ENT: mucous membranes moist Neck: supple, non-tender, no JVD Respiratory: CTA, breath sounds globally, no rales, rhonchi nor wheezing Cardiovascular: RRR, pulses symmetrical Abdomen: non-tender, soft Bowel Sounds: present Musculoskeletal: normal, strength/ROM intact; restlessness bilateral LE; no LE edema Neuro: normal, sensory motor intact, A&Ox3 Psych: tangential speech, mild agitation Triage Information Reviewed: Yes Vital Signs Reviewed: Yes Diagnostics - Laboratory Result Diagrams: 02/14/18 05:28 02/14/18 05:28 Lab Statement: Any lab studies that have been ordered have been reviewed, and results considered in the medical decision making process. - Radiology CXR Radiology Interpretation Completed By: ED Physician Summary of Radiographic Findings: No acute cardiopulmonary disease. - EKG 0508 Cardiac Rate: NL - 73bpm EKG Rhythm: Sinus Rhythm ST Segment: Non-Specific Summary of EKG Findings: NSR: 73bpm; Normal [place]; RBBB; Normal Interval; Non- specific ST Re-Evaluation - Re-Evaluation 1 Re-Evaluation Time: 06:00 Change: Improved Comment: Pt is improved after the Ativan, he still c/o a little difficulty breathing but has no chest related discomfort at this time. Chest Pain Course/Dx - Course Course Of Treatment: Nurse's note reviewed. Medical assessment call was made to the [facility] for the patient wasn't in patient. He had been experiencing insomnia, anxiety, shortness of breath and some chest pressure. Chest pressure is a small portion of the symptoms that he is experiencing. He reports mostly some shortness of breath which he has had many times in the past. He does have a history of coronary artery disease and hypertension as well as dyslipidemia. EKG 2 is negative. Troponin is nondetectable. He has had these discomforts for greater than 8 hours. His d-dimer is not detected his O2 sats are normal and he has no distress. X-ray shows no infiltrate or congestive heart failure. He was treated for anxiety, given Pepcid and a breathing treatment with improvement. He was discharged from the ER back to inpatient status in [facility]. - Chest Pain Differential Diagnosis/HQI/PQRI: ACS, CHF, Chest Wall, GI Disease, Lower Respiratory Infection, Pulmonary Edema, Pulmonary Embolism, Other: - Psychiatric to include insomnia, anxiety, conversion disorder - Diagnoses Provider Diagnoses: Anxiety, Atypical chest pain, Insomnia, Schizoaffective disorder Discharge - Sign-Out/Discharge Documenting (check all that apply): Patient Departure - DC - Discharge Plan Condition: Improved [facility] Patient Education Materials: Chest Pain (ED) Referrals: Cristopher Gardner MD [Primary Care Provider] - Additional Instructions: Return to behavioral health. Return if worse or other concerns. - Billing Disposition and Condition Condition: IMPROVED Disposition: Psychiatric Facility [facility] - Attestation Statements Document Initiated by Scribe: Yes Documenting Scribe: SooYoung [facility]DK[facility] Provider For Whom Scribe is Documenting (Include Credential): Dr. Anil Salcedo MD Scribe Attestation: I, teofilo Gomesibed for Dr. Anil Salcedo MD on 02/14/18 at 0643. Scribe Documentation Reviewed: Yes Provider Attestation: The documentation as recorded by the teofiloibe, Jessenia Wolff accurately reflects the service I personally performed and the decisions made by me, Dr. Anil Salcedo MD Status of Scribe Document: Viewed
[2018-02-14] MEDS ORDERED: Aspirin 81 mg CHEW TAB* 81 MG TAB.CHEW PO ONE (05:14)
[2018-02-14] MEDS ORDERED: LORazepam INJ* 2 MG/ML 1 ML VIAL IV PUSH ONE (05:15)
--- OUTSIDE RECORDS SUMMARY | 2018-02-14 05:17 | XMS REPORT | Continuity of Care Document ---
:1950 External Reference #:[id number] Author Name Wendi Ramos Care Team Providers Name Role Phone Armando Pandya M.D. Care Team Information Window Display Designer Unavailable Payers Type Date Identification Numbers Payment Provider Subscriber Policy Number: [id number] Medicare Gutierrez Rodriguez PayID: [id number] [address] [place] [address] Advance Directives Description No Information Available Problems Description No Information Family History Description No Information Available Social History Type Date Description Comments Sex Unknown Allergies, Adverse Reactions, Alerts Description No Information Medications Description No Information Immunizations Description No Information Available Vital Signs Description No Information Available Results Description No Information Available Procedures Date Code Description Status 05/18/2017 41982 EKG, Interpretation Only Completed 07/08/2014 46890 Treadmill Interp/Report Only Completed 07/08/2014 40760 Stress Test Supervsn W/Out I/R Completed 07/08/2014 64548 EKG, Interpretation Only Completed 07/07/2014 54185 EKG, Interpretation Only Completed 08/16/2012 24558 Treadmill Interp/Report Only Completed 08/16/2012 38940 Stress Test Supervsn W/Out I/R Completed Encounters Type Date Location Provider Dx Diagnosis Office Visit 07/10/2014 [facility] 790.7 Bacteremia 5:41p Assoc,pc Hospitalists Sanjuana, N.P. 786.50 Pain Chest Unspec 401.9 Hypertension Unspec 295.90 Schizophrenia Unspec Office Visit 07/09/2014 [facility] 790.7 Bacteremia 5:40p Assoc,pc Sanjuana, N.P. Hospitalists 786.50 Pain Chest Unspec 401.9 Hypertension Unspec 295.90 Schizophrenia Unspec Office Visit 07/07/2014 5:38p [facility] Juanita S. 786.50 Pain Chest Assoc,pc Jeremy N.P. Unspec Hospitalists 295.90 Schizophrenia Unspec 401.9 Hypertension Unspec 272.1 Hypertriglyceridemia Pure Office Visit 08/16/2012 11:20[facility] 786.51 Pain Precordial Assoc,meka Acevedo M.D. Hospitalists 401.9 Hypertension Unspec Office Visit 08/15/2012 11:20a [facility] 786.51 Pain Precordial Assoc,meka Acevedo M.D. Hospitalists 401.9 Hypertension Unspec Plan of Treatment No Information Available
[2018-02-14 05:34] LABS: ABS Basophils 0.1 10^3/ul (0-0.2); ABS Eosinophils 0.2 10^3/ul (0-0.6); ABS Lymphocytes 1.7 10^3/ul (1.0-4.8); ABS Monocytes 0.9 10^3/ul (0-0.8); ABS Neutrophils 3.1 10^3/ul (1.5-7.7); ABS Nucleated RBC 0 10^3/ul; Eosinophil % 3.5 %; Hematocrit 38 % (42-52); Hemoglobin 13.1 g/dl (14.0-18.0); Lymphocyte % 28.3 %; Mean Corpuscular HGB Conc 34 g/dl (31-36); Mean Corpuscular Hemoglobin 31 pg (27-31); Mean Corpuscular Volume 92 fL (80-94); Mean Platelet Volume 6.4 fL (7.4-10.4); Nucleated Red Blood Cells % 0; Platelet Count 312 10^3/ul (150-450); Red Blood Count 4.16 10^6/ul (4.00-5.40); Red Cell Distribution Width 14 % (10.5-15); White Blood Count 5.9 10^3/ul (3.5-10.8)
[2018-02-14 05:58] LABS: Albumin 3.6 g/dL (3.2-5.2); Albumin/Globulin Ratio 1.2 (1-3); Calcium 9.2 mg/dL (8.6-10.3); EGFR Non-African American 81.3 (>60); Globulin 2.9 g/dL (2-4); Potassium 4.2 mmol/L (3.5-5.0); Total Bilirubin 0.3 mg/dL (0.2-1.0); Total Protein 6.5 g/dL (6.4-8.9)
[2018-02-14] MEDS ORDERED: Famotidine TAB* 20 MG PO ONE (06:01)
[2018-02-14] MEDS ORDERED: Albuterol/Ipratropium NEB.SOL* Albuterol 2.5 MG/Ipratropium 0.5 MG 3 ML INH ONE (06:01)
[2018-02-14 06:30] VITALS: BP 109/53
== END 2018-02-14 06:31 ==
LOC: ED 04:59
DX: F41.9 Anxiety disorder, unspecified (principal); R07.89 Other chest pain; G47.00 Insomnia, unspecified; F20.9 Schizophrenia, unspecified; F17.210 Nicotine dependence, cigarettes, uncomplicated; I45.10 Unspecified right bundle-branch block
CPT/HCPCS: 36415; 71045; 80053; 80164; 82550; 83605; 83880; 84484; 85025; 85379; 93005; 96374; 99282; A9270-GY; J2060

== ENCOUNTER 2018-05-22 12:46 | Emergency (ER) | payer MEDICARE ==
[2018-05-22] MEDS ORDERED: Nicotine Inhaler* 10 MG AMP INH PRN (12:58)
[2018-05-22] MEDS ORDERED: Mouth Piece, Nicotine* 1 EACH CARTRIDGE INH PRN (14:20)
[2018-05-22 14:42] LABS: Urine Appearance Clear; Urine Bilirubin Negative (Negative); Urine Blood Negative (Negative); Urine Color Yellow; Urine Glucose Negative (Negative); Urine Ketones Negative (Negative); Urine Nitrite Negative (Negative); Urine Protein Negative (Negative); Urine Specific Gravity 1.015 (1.010-1.030); Urine Urobilinogen Negative (Negative)
[2018-05-22 14:54] LABS: ABS Basophils 0 10^3/ul (0-0.2); ABS Eosinophils 0.1 10^3/ul (0-0.6); ABS Lymphocytes 1.1 10^3/ul (1.0-4.8); ABS Monocytes 0.5 10^3/ul (0-0.8); ABS Neutrophils 4.9 10^3/ul (1.5-7.7); ABS Nucleated RBC 0 10^3/ul; Eosinophil % 1.4 %; Hematocrit 42 % (36-46); Hemoglobin 14.1 g/dL (14.0-18.0); Lymphocyte % 16.6 %; Mean Corpuscular HGB Conc 34 g/dL (31-36); Mean Corpuscular Hemoglobin 31 pg (27-31); Mean Corpuscular Volume 92 fL (80-94); Mean Platelet Volume 6.6 fL (7.4-10.4); Nucleated Red Blood Cells % 0; Platelet Count 265 10^3/uL (150-450); Red Blood Count 4.55 10^6 /uL (4.18-5.48); Red Cell Distribution Width 14 % (10.5-15); White Blood Count 6.6 10^3/uL (3.5-10.8)
[2018-05-22 15:07] LABS: Barbiturates Urine Screen None Detected (None Detect); Benzodiazepine Urine Screen None Detected (None Detect); Urine Cannabinoids Screen None Detected (None Detect)
[2018-05-22 15:08] LABS: ALT 32 U/L (7-52); AST 44 U/L (13-39); Albumin 4.6 g/dL (3.2-5.2); Albumin/Globulin Ratio 1.6 (1-3); Alkaline Phosphatase 61 U/L (34-104); Anion Gap 7 mmol/L (2-11); BUN/Creatinine Ratio 28.4 (8-20); Blood Urea Nitrogen 25 mg/dL (6-24); CO2 Carbon Dioxide 30 mmol/L (22-32); Calcium 9.5 mg/dL (8.6-10.3); Chloride 101 mmol/L (101-111); EGFR African American 104.8 (>60); EGFR Non-African American 86.6 (>60); Globulin 2.9 g/dL (2-4); Glucose 108 mg/dL (70-100); Sodium 138 mmol/L (135-145); Total Protein 7.5 g/dL (6.4-8.9)
[2018-05-22 15:23] LABS: Acetaminophen < 15 mcg/mL; Alcohol < 10 mg/dL (<10); Salicylate < 2.50 mg/dL (<30)
[2018-05-22] MEDS ORDERED: hydrOXYzine HCL TAB* 50 MG PO ONE (15:24)
[2018-05-22 15:37] LABS: TSH (Thyroid Stimulating Horm) 2.05 mcIU/mL (0.34-5.60)
--- NOTE | 2018-05-22 15:40 | ED ---
Psychiatric Complaint - HPI Summary HPI Summary: Patient is a 67-year-old male presenting to the ED with police with concern for manic episodes. Patient was outside at school banging on windows and acting abnormally. On arrival, patient is mumbling, with no obvious other neuro deficits. On arrival, I had called Dorene Calderon, who is the act senior stereo compiler team lead for him and states she was on her way to see him today to restart his Abilify, a medication he is done with well in the past, however patient was not there. It appears the patient is declining with his psychosis and does not have accurate medications on board. He was previously on several antipsychotics, Abilify was the medication that had worked in the past. 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 He denies any SI or HI. Denies any self-harm. Denies any drug or alcohol use. - History Of Current Complaint Chief Complaint: [facility] Time Seen by Provider: 05/22/18 12:56 Hx Obtained From: Patient Onset/Duration: Gradual Onset Timing: Constant Severity Initially: Moderate Severity Currently: Moderate Character: Manic Aggravating Factor(s): Nothing Alleviating Factor(s): Nothing Associated Signs And Symptoms: Positive: Confused, Paranoid Behavior, Social Withdrawal, Social Isolation Related History: Positive For: Prior Psychiatric Issues - Risk Factor(s) Completed Suicide Risk Factors: Negative - Allergies/Home Medications Allergies/Adverse Reactions: Allergies Allergy/AdvReac Type Severity Reaction Status Date / Time bacitracin Allergy Unknown Verified 02/10/18 15:58 Reaction Details neomycin Allergy Unknown Verified 02/10/18 15:58 [From Triple Antibiotic] Reaction Details polymyxin B Allergy Unknown Verified 02/10/18 15:58 [From Triple Antibiotic] Reaction Details thiothixene Allergy Unknown Verified 02/10/18 15:58 Reaction Details trifluoperazine Allergy Unknown Verified 02/10/18 15:58 [From Stelazine] Reaction Details trifluridine Allergy Unknown Verified 02/10/18 15:58 Reaction Details Home Medications: Home Medications Divalproex DR TAB(*) [Depakote DR TAB(*)] 500 mg PO BID 05/22/18 [History Confirmed 05/22/18] Magnesium Oxide TAB* [MagOx 400 TAB*] 400 mg PO BEDTIME 05/22/18 [History Confirmed 05/22/18] Sodium Fluoride/Potassium Nit [Prevident 5000 Sensitive] 1 pst PO BID 05/22/18 [ History Confirmed 05/22/18] Tamsulosin CAP* [Flomax CAP*] 0.4 mg PO BEDTIME 05/22/18 [History Confirmed ] Vitamin E CAP* 400 unit PO DAILY 05/22/18 [History Confirmed 05/22/18] PMH/Surg Hx/FS Hx/Imm Hx Previously Healthy: Yes Endocrine/Hematology History: Denies: Hx Anticoagulant Therapy, Hx Diabetes, Hx Thyroid Disease, Other Endocrine/Hematological Disorders Cardiovascular History: Reports: Hx Aneurysm - 2012, Hx Angina, Hx Coronary Artery Disease, Hx Hypercholesterolemia, Hx Hypertension Denies: Hx Congestive Heart Failure, Hx Pacemaker/ICD, Other Cardiovascular Problems/Disorders Respiratory History: Denies: Hx Asthma, Hx Chronic Obstructive Pulmonary Disease (COPD), Other Respiratory Problems/Disorders GI History: Reports: Hx Diverticulosis Denies: Other GI Disorders History: Denies: Hx Renal Disease, Other Problems/Disorders Musculoskeletal History: Denies: Other Musculoskeletal History Sensory History: Reports: Hx Contacts or Glasses Denies: Hx Hearing Aid, Other Sensory Impairments Opthamlomology History: Reports: Hx Contacts or Glasses Denies: Other Sensory Impairments Neurological History: Denies: Hx Dementia, Hx Seizures, Other Neuro Impairments/Disorders Psychiatric History: Reports: Hx Anxiety, Hx Post Traumatic Stress Disorder, Hx Inpatient Treatment, Hx Community Mental Health Tx, Hx Schizophrenia, Hx of Violent Episodes Against Others, Other Psychiatric Issues/Disorders - pt states strong claustrophobia, OCD Denies: Hx Eating Disorder, Hx Substance Abuse - Cancer History Cancer Type, Location and Year: None reported - Surgical History Surgery Procedure, Year, and Place: right forearm/ wrist break, pins placed - Immunization History Date of Tetanus Vaccine: UTD Date of Influenza Vaccine: NONE Hx Pertussis Vaccination: No Immunizations Up to Date: Yes Infectious Disease History: No Infectious Disease History: Denies: Hx Hepatitis, Hx Human Immunodeficiency Virus (HIV), Traveled Outside the [place] in Last 30 Days - Family History Known Family History: Negative: Diabetes, Seizure Disorder - Social History Occupation: Employed Full-time Lives: Assisted Living - [facility] Alcohol Use: Occasionally Alcohol Amount: 3 beers a week Hx Substance Use: Yes Substance Use Type: Reports: None Substance Use Comment - Amount & Last Used: states occassional marijuana use Hx Tobacco Use: Yes Smoking Status (MU): Current Every Day Smoker Type: Cigarettes Amount Used/How Often: 1/2 pack or less daily Length of Time of Smoking/Using Tobacco: states he quit in the '70's Have You Smoked in the Last Year: Yes Review of Systems Constitutional: Negative Negative: Chills, Fatigue, Skin Diaphoresis Negative: Dental Pain, Sore Throat Negative: Palpitations, Chest Pain Negative: Shortness Of Breath, Cough Negative: Abdominal Pain, Vomiting Negative: Arthralgia, Myalgia Negative: Headache, Weakness, Paresthesia, Numbness Positive: Other - psychosis All Other Systems Reviewed And Are Negative: Yes Physical Exam Triage Information Reviewed: Yes Vital Signs On Initial Exam: Initial Vitals Temp Pulse Resp BP Pulse Ox 98.8 F 78 20 163/81 97 05/22/18 12:51 05/22/18 12:51 05/22/18 12:51 05/22/18 12:51 05/22/18 12:51 Vital Signs Reviewed: Yes Appearance: Positive: Well-Appearing, Well-Nourished Skin: Positive: Warm, Skin Color Reflects Adequate Perfusion Head/Face: Positive: Normal Head/Face Inspection Eyes: Positive: EOMI, Conjunctiva Clear Neck: Positive: Supple, No Lymphadenopathy Respiratory/Lung Sounds: Positive: Clear to Auscultation, Breath Sounds Present Cardiovascular: Positive: RRR, Pulses are Symmetrical in both Upper and Lower Extremities Musculoskeletal: Positive: Strength/ROM Intact Neurological: Positive: Other - patient is mumbling (as his baseline when off meds) and tangential thoughts Psychiatric: Positive: Patient Uncooperative for Exam AVPU Assessment: Alert Diagnostics - Vital Signs Vital Signs Temp Pulse Resp BP Pulse Ox 05/22/18 12:51 98.8 F 78 20 163/81 97 - Laboratory Lab Results: Lab Results 05/22/18 05/22/18 05/22/18 Range/Units 14:30 14:30 14:45 WBC 6.6 (3.5-10.8) 10^3/uL RBC 4.55 (4.18-5.48) 10^6 /uL Hgb 14.1 (14.0-18.0) g/dL Hct 42 (36-46) % MCV 92 (80-94) fL MCH 31 (27-31) pg MCHC 34 (31-36) g/dL RDW 14 (10.5-15) % Plt Count 265 (150-450) 10^3/uL MPV 6.6 L (7.4-10.4) fL Neut % (Auto) 73.8 % Lymph % (Auto) 16.6 % Barry % (Auto) 7.5 % Eos % (Auto) 1.4 % Baso % (Auto) 0.7 % Absolute Neuts (auto) 4.9 (1.5-7.7) 10^3/ul Absolute Lymphs (auto) 1.1 (1.0-4.8) 10^3/ul Absolute Monos (auto) 0.5 (0-0.8) 10^3/ul Absolute Eos (auto) 0.1 (0-0.6) 10^3/ul Absolute Basos (auto) 0 (0-0.2) 10^3/ul Absolute Nucleated RBC 0 10^3/ul Nucleated RBC % 0 Sodium (135-145) mmol/L Potassium (3.5-5.0) mmol/L Chloride (101-111) mmol/L Carbon Dioxide (22-32) mmol/L Anion Gap (2-11) mmol/L BUN (6-24) mg/dL Creatinine (0.67-1.17) mg/dL Est GFR ( Amer) (>60) Est GFR (Non-Af Amer) (>60) BUN/Creatinine Ratio (8-20) Glucose (70-100) mg/dL Calcium (8.6-10.3) mg/dL Total Bilirubin (0.2-1.0) mg/dL AST (13-39) U/L ALT (7-52) U/L Alkaline Phosphatase (34-104) U/L Total Protein (6.4-8.9) g/dL Albumin (3.2-5.2) g/dL Globulin (2-4) g/dL Albumin/Globulin Ratio (1-3) TSH Urine Color Yellow Urine Appearance Clear Urine pH 6.0 (5-9) Ur Specific [place] 1.015 (1.010-1.030) Urine Protein Negative (Negative) Urine Ketones Negative (Negative) Urine Blood Negative (Negative) Urine Nitrate Negative (Negative) Urine Bilirubin Negative (Negative) Urine Urobilinogen Negative (Negative) Ur Leukocyte Esterase Negative (Negative) Urine Glucose Negative (Negative) Salicylates (<30) mg/dL Urine Opiates Screen None detected (None Detect) Acetaminophen mcg/mL Ur Barbiturates Screen None detected (None Detect) Ur Phencyclidine Scrn None detected (None Detect) Ur Amphetamines Screen None detected (None Detect) U Benzodiazepines Scrn None detected (None Detect) Urine Cocaine Screen None detected (None Detect) U Cannabinoids Screen None detected (None Detect) Serum Alcohol (<10) mg/dL 05/22/18 Range/Units 14:45 WBC (3.5-10.8) 10^3/uL RBC (4.18-5.48) 10^6 /uL Hgb (14.0-18.0) g/dL Hct (36-46) % MCV (80-94) fL MCH (27-31) pg MCHC (31-36) g/dL RDW (10.5-15) % Plt Count (150-450) 10^3/uL MPV (7.4-10.4) fL Neut % (Auto) % Lymph % (Auto) % Barry % (Auto) % Eos % (Auto) % Baso % (Auto) % Absolute Neuts (auto) (1.5-7.7) 10^3/ul Absolute Lymphs (auto) (1.0-4.8) 10^3/ul Absolute Monos (auto) (0-0.8) 10^3/ul Absolute Eos (auto) (0-0.6) 10^3/ul Absolute Basos (auto) (0-0.2) 10^3/ul Absolute Nucleated RBC 10^3/ul Nucleated RBC % Sodium 138 (135-145) mmol/L Potassium 4.0 (3.5-5.0) mmol/L Chloride 101 (101-111) mmol/L Carbon Dioxide 30 (22-32) mmol/L Anion Gap 7 (2-11) mmol/L BUN 25 H (6-24) mg/dL Creatinine 0.88 (0.67-1.17) mg/dL Est GFR ( Amer) 104.8 (>60) Est GFR (Non-Af Amer) 86.6 (>60) BUN/Creatinine Ratio 28.4 H (8-20) Glucose 108 H (70-100) mg/dL Calcium 9.5 (8.6-10.3) mg/dL Total Bilirubin 0.60 (0.2-1.0) mg/dL AST 44 H (13-39) U/L ALT 32 (7-52) U/L Alkaline Phosphatase 61 (34-104) U/L Total Protein 7.5 (6.4-8.9) g/dL Albumin 4.6 (3.2-5.2) g/dL Globulin 2.9 (2-4) g/dL Albumin/Globulin Ratio 1.6 (1-3) TSH Pending Urine Color Urine Appearance Urine pH (5-9) Ur Specific [place] (1.010-1.030) Urine Protein (Negative) Urine Ketones (Negative) Urine Blood (Negative) Urine Nitrate (Negative) Urine Bilirubin (Negative) Urine Urobilinogen (Negative) Ur Leukocyte Esterase (Negative) Urine Glucose (Negative) Salicylates < 2.50 (<30) mg/dL Urine Opiates Screen (None Detect) Acetaminophen < 15 mcg/mL Ur Barbiturates Screen (None Detect) Ur Phencyclidine Scrn (None Detect) Ur Amphetamines Screen (None Detect) U Benzodiazepines Scrn (None Detect) Urine Cocaine Screen (None Detect) U Cannabinoids Screen (None Detect) Serum Alcohol < 10 (<10) mg/dL Result Diagrams: 05/22/18 14:45 05/22/18 14:45 Lab Statement: Any lab studies that have been ordered have been reviewed, and results considered in the medical decision making process. Course/Dx - Course Course Of Treatment: Patient is a 67-year-old male presenting to the ED with police with concern for manic episodes. Patient was outside at school banging on windows and acting abnormally. On arrival, patient is mumbling, with no obvious other neuro deficits. On arrival, I had called Dorene Calderon, who is the act senior stereo compiler team lead for him and states she was on her way to see him today to restart his Abilify, a medication he is done with well in the past, however patient was not there. It appears the patient is declining with his psychosis and does not have accurate medications on board. He was previously on several antipsychotics, Abilify was the medication that had worked in the past. 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 He denies any SI or HI. Denies any self-harm. Denies any drug or alcohol use. Dorene Calderon: [facility] management for patient: [phone]. Patient is given hydroxyzine 50mg for agitation and made a constant observation and is OK for MHU at this time. - Differential Dx/Clinical Impression Differential Diagnosis/HQI/PQRI: Positive: Schizophrenia, Other - psychosis Provider Diagnosis: Psychosis Discharge - Sign-Out/Discharge Documenting (check all that apply): Sign-Out Patient Signing out patient TO: Flavia Garcia - Discharge Plan Condition: Good Referrals: Cristopher Gardner MD [Primary Care Provider] - - Billing Disposition and Condition Condition: GOOD
[2018-05-22 16:17] VITALS: BP 151/71
== END 2018-05-22 16:15 | disposition home or self-care (01) ==
LOC: ED 12:46
DX: F29 Unspecified psychosis not due to a substance or known physiological condition (principal); R41.0 Disorientation, unspecified; I25.10 Atherosclerotic heart disease of native coronary artery without angina pectoris; Z86.79 Personal history of other diseases of the circulatory system; F17.210 Nicotine dependence, cigarettes, uncomplicated; Z79.899 Other long term (current) drug therapy
CPT/HCPCS: 36415; 80053; 80307; 80320; 80329; 81003; 84443; 85025; 99283; A9270-GY; G0480

== ENCOUNTER 2019-05-16 11:33 | Inpatient (IN) | payer MEDICARE ==
--- NOTE | 2019-05-16 11:47 | ED ---
Psychiatric Complaint - HPI Summary HPI Summary: 68 y/o M with psychiatric hx presenting to [facility] after threatening others, opening windows, acting hysterically, making nonsensical statements. Patient is a resident at [facility]. Patient has not been taking his medications. He has a court order to take his medications. Per the court order, when patient does not take his medications, he is to be brought to the hospital. Medications reviewed. On Depakote. Allergies noted. LEVEL 5 CAVEAT hx limited due to patient's tangential thoughts - History Of Current Complaint Chief Complaint: EDMentalHealth Time Seen by Provider: 05/16/19 11:42 Hx Obtained From: Other: - triage note Onset/Duration: Still Present Timing: Constant - Allergies/Home Medications Allergies/Adverse Reactions: Allergies Allergy/AdvReac Type Severity Reaction Status Date / Time bacitracin Allergy Unknown Verified 05/22/18 15:45 Reaction Details clozapine Allergy Unknown Verified 05/22/18 15:45 Reaction Details dicloxacillin Allergy Unknown Verified 05/22/18 15:45 Reaction Details neomycin Allergy Unknown Verified 05/22/18 15:45 [From Triple Antibiotic] Reaction Details polymyxin B Allergy Unknown Verified 05/22/18 15:45 [From Triple Antibiotic] Reaction Details sertraline [From Zoloft] Allergy Unknown Verified 05/22/18 15:45 Reaction Details thiothixene Allergy Unknown Verified 05/22/18 15:45 Reaction Details trifluoperazine Allergy Unknown Verified 05/22/18 15:45 [From Stelazine] Reaction Details trifluridine Allergy Unknown Verified 05/22/18 15:45 Reaction Details venlafaxine Allergy Unknown Verified 05/22/18 15:45 Reaction Details Home Medications: Home Medications Hydrochlorothiazide TAB* [Hydrodiuril TAB*] 25 mg PO QAM 10/02/17 [History Confirmed 05/16/19] Aspirin EC TAB* [Ecotrin EC Low Dose 81 MG*] 81 mg PO DAILY 10/08/17 [History Confirmed 05/16/19] Atorvastatin* [Lipitor 20 MG*] 20 mg PO BEDTIME 01/02/18 [History Confirmed ] Divalproex DR TAB(*) [Depakote DR TAB(*)] 500 mg PO BID 05/22/18 [History Confirmed 05/16/19] Magnesium Oxide TAB* [MagOx 400 TAB*] 400 mg PO BEDTIME 05/22/18 [History Confirmed 05/16/19] Sodium Fluoride/Potassium Nit [Prevident 5000 Sensitive] 1 pst PO BID 05/22/18 [ History Confirmed 05/16/19] Vitamin E CAP* 400 unit PO DAILY 05/22/18 [History Confirmed 05/16/19] ARIPiprazole TAB* [Abilify 20 MG TAB*] 20 mg PO DAILY 05/16/19 [History Confirmed 05/16/19] Benztropine TAB* [Cogentin TAB*] 0.5 mg PO BID 05/16/19 [History Confirmed 05/15] Diclofenac Sodium 1 % TOPICAL TID 05/16/19 [History Confirmed 05/16/19] LORazepam TAB(*) [Ativan 0.5 MG TAB (*)] 0.5 mg PO Q8H PRN 05/16/19 [History Confirmed 05/16/19] Tamsulosin CAP* [Flomax CAP*] 0.4 mg PO DAILY 05/16/19 [History Confirmed ] traZODone TAB* [Desyrel TAB*] 50 mg PO BEDTIME 05/16/19 [History Confirmed 05/15] PMH/Surg Hx/FS Hx/Imm Hx Endocrine/Hematology History: Denies: Hx Anticoagulant Therapy, Hx Diabetes, Hx Thyroid Disease, Other Endocrine/Hematological Disorders Cardiovascular History: Reports: Hx Aneurysm - 2011, Hx Angina, Hx Coronary Artery Disease, Hx Hypercholesterolemia, Hx Hypertension Denies: Hx Congestive Heart Failure, Other Cardiovascular Problems/Disorders Respiratory History: Denies: Hx Asthma, Hx Chronic Obstructive Pulmonary Disease (COPD), Other Respiratory Problems/Disorders GI History: Reports: Hx Diverticulosis Denies: Other GI Disorders History: Denies: Other Problems/Disorders Musculoskeletal History: Denies: Other Musculoskeletal History Sensory History: Reports: Hx Contacts or Glasses Denies: Other Sensory Impairments Opthamlomology History: Reports: Hx Contacts or Glasses Denies: Other Sensory Impairments Psychiatric History: Reports: Hx Anxiety, Hx Post Traumatic Stress Disorder, Hx Inpatient Treatment, Hx Community Mental Health Tx, Hx Schizophrenia, Hx of Violent Episodes Against Others, Other Psychiatric Issues/Disorders - pt states strong claustrophobia, OCD Denies: Hx Substance Abuse - Cancer History Cancer Type, Location and Year: None reported - Surgical History Surgical History: Yes Surgery Procedure, Year, and Place: right forearm/ wrist break, pins placed - Immunization History Date of Tetanus Vaccine: UTD Date of Influenza Vaccine: NONE Infectious Disease History: No Infectious Disease History: Denies: Hx Hepatitis, Hx Human Immunodeficiency Virus (HIV), Traveled Outside the [place] in Last 30 Days - Family History Known Family History: Negative: Diabetes, Seizure Disorder - Social History Alcohol Use: Occasionally Alcohol Amount: 3 beers a week Hx Substance Use: Yes Substance Use Type: Reports: Marijuana Substance Use Comment - Amount & Last Used: states occassional marijuana use Hx Tobacco Use: Yes Smoking Status (MU): Current Every Day Smoker Type: Cigarettes Amount Used/How Often: 1/2 pack or less daily Length of Time of Smoking/Using Tobacco: states he quit in the '70's Have You Smoked in the Last Year: Yes Review of Systems - ROS Summary Review of Systems Summary: LEVEL 5 CAVEAT ROS limited d/t patient's tangential thoughts Positive: Other - tangential thoughts All Other Systems Reviewed And Are Negative: No Physical Exam - Summary Physical Exam Summary: General: Well appearing, no distress HEENT: PERRL Cardiovascular: Skin is well perfused Pulmonary: No respiratory distress, no tachypnea Abdomen: Non-distended Skin: Warm, pink, dry MSK: No edema Psych: Tangential, hyperverbal, disorganized Neuro: A&Ox3 Triage Information Reviewed: Yes Vital Signs On Initial Exam: Initial Vitals Temp Pulse Resp BP Pulse Ox 99.4 F 94 16 150/97 96 05/16/19 11:37 05/16/19 11:37 05/16/19 11:37 05/16/19 11:37 05/16/19 11:37 Vital Signs Reviewed: Yes Procedures - Sedation Patient Received Moderate/Deep Sedation with Procedure: No Diagnostics - Vital Signs Vital Signs Temp Pulse Resp BP Pulse Ox 05/16/19 11:37 99.4 F 94 16 150/97 96 - Laboratory Lab Statement: Any lab studies that have been ordered have been reviewed, and results considered in the medical decision making process. Re-Evaluation - Re-Evaluation First Eval Re-Evaluation Time: 11:52 Change: Unchanged - Patient is medically cleared for psychiatric evaluation Course/Dx - Course Course Of Treatment: Patient presenting for mental health clearance. Patient has no active medical conditions warrantly further w/u, vital signs are stable. Patient placed in mental health gown and placed on observation. We'll obtain mental health evaluation. - Differential Dx/Clinical Impression Provider Diagnosis: Schizophrenia - Physician Notifications Discussed Care Of Patient With: Ray Cho Time Discussed With Above Provider: 14:27 Instructed by Provider To: Other - Psychiatric breakdown man reviewed case with Dr. Cho. Patient to be admitted. Discharge ED - Sign-Out/Discharge Documenting (check all that apply): Patient Departure - Discharge Plan Condition: Stable Disposition: PSYCHIATRIC FACILITY-[facility] - Billing Disposition and Condition Condition: STABLE Disposition: Psychiatric Facility [facility] - Attestation Statements Document Initiated by Scribe: Yes Documenting Scribe: Shilpi Kenny Provider For Whom Scribe is Documenting (Include Credential): Reuben Dailey MD Scribe Attestation: Shilpi Anderson, scribed for Reuben Dailey MD on 05/16/19 at 1624. Scribe Documentation Reviewed: Yes Provider Attestation: The documentation as recorded by the scribShilpi marshall accurately reflects the service I personally performed and the decisions made by Reuben jeffrey MD Status of Scribe Document: Viewed
[2019-05-16] MEDS ORDERED: Al Hydrox/Mg Hydrox/Simet LIQ* 30 ML UDC PO PRN (14:22)
[2019-05-16] MEDS ORDERED: Acetaminophen TAB* 325 MG PO PRN (14:22)
[2019-05-16] MEDS ORDERED: Nicotine* 4MG (FRUIT FLAVOR) GUM PO PRN (14:22)
[2019-05-16] MEDS ORDERED: LORazepam TAB(*) 0.5 MG PO PRN (14:24)
--- NOTE | 2019-05-16 18:14 | HP ---
HISTORY AND PHYSICAL: DATE OF ADMISSION: 05/16/19 SUPERVISING PSYCHIATRIST: Dr. Ray Cho.* (DICTATED BY ALTAF BORJAS NP ) JUSTIFICATION FOR ADMISSION: The patient presented to the emergency department with the furniture lumber production worker of the fpc where he resides due to aggressive, destructive , threatening behavior. The patient merits hospitalization for immediate safety and stabilization. CHIEF COMPLAINT: "Well, they are accusing me of starting World War III." HISTORY OF PRESENT ILLNESS: Gutierrez who goes by George is a 68-year-old white male, domiciled at the [facility] in [place] with a history of schizoaffective disorder, bipolar type. He is a [place] , but is no longer service connected per family wishes. This is his seventh lifetime hospitalization at [facility] since 2010. His most recent hospitalization was in January 2018. According to collateral obtained in the emergency room, the patient's brother has been very upset due to current pandemic and CDC precautions including being locked down. According to the patient's brother, he has a court order to take medications, but has not been taking them. We since found out through the [facility] team that his AOT last month. Upon presentation, the patient recalls contract technical writer by name. He is pleasant and cooperative. He reports that he had arguments at the home this morning. Most of his conversation has loose associations. He speaks of the [facility] team taking him to court in a circumstantial manner. He also reports that Depakote does not do anything for him and jokingly asks for a placebo. His speech is mumbled , difficult to understand at times, which is his usual. He has fixed delusions about air conditioning units and goes on into great detail about the need for a proper ventilation. This has historically been a concern for him in various admissions to the [facility] and even on the telemetry floor. The patient reports desire to return to the [facility]. He states that "Aliza Pinzon is my only friend in the world and now we are at war." It is uncertain if the patient has been medication compliant. He denies recent substance use. He states it has been over a year since he smoked crack or marijuana. He states his last beer was approximately a month ago. He is wearing a soft neck collar that he reports needing after having nightmare and falling out of bed. He denies other symptoms of akathisia or dystonia. Per history, the patient is periodically nonadherent to medications, during those times he is hypersexual, intrusive and makes dangerous choices including not being dressed appropriately for cold weather. PAST PSYCHIATRIC HISTORY: The patient has been hospitalized at [facility] multiple times since 2010. He resides at [facility] in [place]. He has a diagnosis of schizoaffective bipolar type. His last hospitalization was in January 2018. Earlier that year, he was transferred from [facility] to [facility] for longer term stabilization. While there, he was court mandated for treatment including AOT. Since then, his family advocated that he be removed from [place] service connection and he is now a client of [facility]. CURRENT MEDICATIONS: 1. Tamsulosin 0.4 mg p.o. daily. 2. Diclofenac sodium 1% topical t.i.d. 3. Lorazepam 0.5 mg p.o. q.8 hours p.r.n. anxiety/agitation. 4. Aripiprazole 20 mg p.o. daily. 5. Benztropine 0.5 mg p.o. b.i.d. 6. Vitamin E capsules 400 units p.o. daily. 7. Depakote DR 500 mg p.o. b.i.d. 8. PreviDent Sensitive Paste 1 paste p.o. b.i.d. 9. Magnesium oxide 400 mg p.o. q.h.s. 10. Hydrochlorothiazide 25 mg p.o. q.a.m. 11. Atorvastatin 20 mg p.o. q.h.s. 12. Trazodone 50 mg p.o. q.h.s. 13. Aspirin EC 81 mg p.o. daily. Previous medications include: 1. Artane. 2. Stelazine. 3. Olanzapine. 4. Risperidone. 5. Risperidone Consta. 6. Haldol decanoate. 7. Mirtazapine. 8. Aripiprazole including aripiprazole Maintena. 9. Paliperidone including Invega Sustenna. 10. Quetiapine. ALLERGIES: BACITRACIN, CLOZAPINE, DICLOXACILLIN, NEOMYCIN from triple antibiotics, POLYMYXIN B from triple antibiotics, SERTRALINE, THIOTHIXENE, STELAZINE, TRIFLURIDINE, VENLAFAXINE. TRAUMA/ABUSE HISTORY: The patient is a from the [employer] and was active during the [place] conflict. SUICIDE OR SELF-HARM BEHAVIORS: There is no known documentation of attempts. MEDICAL HISTORY: CAD with potential history of [place], hyperlipidemia, hypertension , diverticulitis, history of aneurysm in 2012. SURGICAL HISTORY: Right forearm wrist break with pins placed. FAMILY PSYCHIATRIC HISTORY: Sister with bipolar disorder, maternal aunt and uncle both completed suicide. SOCIAL HISTORY: The patient was born and raised in [place], [place]. He is one of 9 siblings. He was in foster care as a child. He graduated high school. 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 He had onset of psychosis at age 20 and was discharged with 100% service connection. The patient never and does not have children. He was incarcerated in a forensic unit for about 1 year at the age of 50 for assaulting a police office during which episode he was delusional and not taking medications. The patient denies current alcohol or other drug use. REVIEW OF SYSTEMS: Constitutional: Negative. No fever, chills, or fatigue. ENT: Negative. Cardiovascular: Negative. Denies chest pain or palpitations. Respiratory: Negative. Denies shortness of breath or cough. Genitourinary: Negative. Musculoskeletal: Negative. Neurological: Negative. PHYSICAL EXAMINATION GENERAL: The patient is well appearing and well nourished. VITAL SIGNS: Height 5 feet 10 inches, weight 175 pounds. T 99.4, P 94, respiration rate 16, O2 sat 96% on room air. BP 150/97. HEENT: Head and Face: Normal head and face inspection. Eyes: Positive, EOMI , PERRLA. NECK: Supple. Full ROM. Trachea midline. RESPIRATORY: Lung sounds clear to auscultation. Breath sounds present. CARDIOVASCULAR: Heart RRR. Pulses are symmetrical in both upper and lower extremities. MUSCULOSKELETAL: Normal strength. ROM intact. NEUROLOGICAL: Normal sensory and motor intact. Alert and oriented x3. Cerebellar function intact. SKIN: Warm and dry. Color reflects adequate perfusion. No breakdown noted on visible areas. LABORATORY DATA: There is none at this time. We are pending urinalysis, urine drug screen, hemoglobin A1c, lipid panel and valproic acid level. MENTAL STATUS EXAM: The patient is a 68-year-old white male with disheveled salt and pepper hair. He appears stated age. He is adequately groomed, wearing hospital blue scrubs. He is alert and oriented x3. Eye contact is fair. Speech is soft, mumbled at times. Mood is euthymic with bright affect. No abnormal psychomotor activity noted. Thought process is disorganized and tangential. Thought content is negative for SI, HI, or SIB. He denies auditory or visual hallucinations and does not appear to respond to internal stimuli. His insight and judgment are impaired. Fund of knowledge is limited. DIAGNOSES: 1. Schizoaffective disorder, bipolar type. 2. Posttraumatic stress disorder by history. [place] III: Coronary artery disease, hyperlipidemia, hypertension, history of diverticulosis. ASSESSMENT: Mr. 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 He has lived at the [facility] for at least 8 or 9 years. He is often intermittently adherent with medications. He was under AOT, which last month. The patient was agitated, aggressive and threatening in the home this morning. We will monitor for med compliant and hopefully, the patient will be able to return to his home without problems after a brief admission. PLAN: The patient will be admitted to adult behavioral services unit on involuntary status. His code status is full. He is placed on 15-minute checks for safety. We will reinstate the outpatient medications as stated above and obtain a valproic acid level on 05/19/19. The patient will be encouraged to participate in supportive milieu, individual sessions with staff and psychoeducational group. Estimated length of stay is 3 to 5 days. Discharge planning will include family, outpatient providers and [facility]. ALTAF BORJAS, JAS [id number]/CPS #: [id number] LEAH
[2019-05-16] MEDS: Nicotine Patch Removal NOTE FOLLOW UP SCH (19:13)
[2019-05-16] MEDS: Atorvastatin* 20 MG TAB PO SCH (20:47)
[2019-05-16] MEDS: Benztropine TAB* 1 MG PO SCH ×2 (20:48→21:48)
[2019-05-16] MEDS: Divalproex DR TAB(*) 500 MG PO SCH (20:49)
[2019-05-16] MEDS: Magnesium Oxide TAB* 400 MG PO SCH (20:50)
[2019-05-16] MEDS: traZODone TAB* 50 MG TAB PO SCH (20:51)
[2019-05-16] MEDS: [UNRECOGNIZED DRUG - OTHER] TOPICAL SCH (21:48)
[2019-05-16] MEDS: Diclofenac 1% GEL (NF) 100 GM TUBE TOPICAL SCH (21:48)
[2019-05-16] MEDS: POTASSIUM NITRATE TOPICAL SCH (21:48)
[2019-05-16] MEDS: SODIUM FLUORIDE TOPICAL SCH (21:48)
[2019-05-17] MEDS: Hydrochlorothiazide TAB* 25 MG PO SCH (09:43)
[2019-05-17] MEDS: Aspirin EC TAB* 81 MG TAB.EC PO SCH (09:44)
[2019-05-17] MEDS: Tamsulosin CAP* 0.4 MG PO SCH (09:44)
[2019-05-17] MEDS: Vitamin E CAP* 400 UNIT PO SCH (09:44)
[2019-05-17] MEDS: Vitamin THERAPEUTIC TAB PO SCH (09:44)
[2019-05-17] MEDS: ARIPiprazole TAB* 20 MG PO SCH (09:44)
[2019-05-17] MEDS: Divalproex DR TAB(*) 500 MG PO SCH ×2 (09:44→21:21)
[2019-05-17] MEDS: Benztropine TAB* 1 MG PO SCH ×2 (09:51→21:31)
[2019-05-17] MEDS: Nicotine PATCH 14 MG/24 HR* PATCH TRANSDERM SCH (10:51)
[2019-05-17] MEDS: Diclofenac 1% GEL (NF) 100 GM TUBE TOPICAL SCH ×3 (10:51→21:32)
[2019-05-17] MEDS: [UNRECOGNIZED DRUG - OTHER] TOPICAL SCH ×2 (10:51→21:32)
[2019-05-17] MEDS: SODIUM FLUORIDE TOPICAL SCH ×2 (10:51→21:32)
[2019-05-17] MEDS: POTASSIUM NITRATE TOPICAL SCH ×2 (10:51→21:32)
--- NOTE | 2019-05-17 15:49 | PN ---
Subjective - Subjective Date of Service: 05/17/19 Subjective: George reports that he slept well, he denies any bothersome psychiatric complaints, avidly denies SI/HI or A/VH or side effects from prescribed medications. He minimizes concerns that led to his admission. Per staff, he has been mostly seclusive to his room. Objective - General Observations Appearance: Unkempt Appears Stated Age: Yes Stature: WNL Posture: Other (See Comment) - neck brace and head tilted to one side. Eye Contact: Average Behavior/Activity: Peculiar - Interaction Observations Attitude Towards Examiner: Defensive Stated Mood: Irritable Affect: Restricted Speech Pattern/Tone: Clear Thought Process: Disorganized, Circumstantial Thought Content: WNL Hallucination Type: None Delusion Type: None - Cognitive Function Orientation: A&O x 4 Level of Consciousness: Alert Cognition: WNL Estimated Intelligence: Normal Judgment Within Normal Limits: No Ability to Make Reasonable Decisions: Moderately Impaired - Medication Compliance Cooperative with Inpatient Medication Regimen: Yes - Group Participation Participates in Group Activities: Yes Assessment - Assessment Merits Inpatient Hospitalization: Consolidate Improvements, For Discharge Planning Clinical Impression: Safe in checks, adherent to routines, compliant with meds. Plan - Plan Treatment Plan: Name: DEYANIRA BOYD Birthdate: 1950 [id number] Continued Medication Management: Continue Outpt Medication Medications: Current Medications Acetaminophen (Tylenol Tab*) 650 mg PO Q4H PRN PRN Reason: for pain; or Temp >101 F Al Hydrox/Mg Hydrox/Simethicone (Maalox Plus*) 30 ml PO Q4H PRN PRN Reason: INDIGESTION Aripiprazole (Abilify Tab*) 20 mg PO DAILY [facility] Last Admin: 05/17/19 09:44 Dose: Not Given Aspirin (Aspirin Ec Tab*) 81 mg PO DAILY [facility] Last Admin: 05/17/19 09:44 Dose: 81 mg Atorvastatin Calcium (Lipitor*) 20 mg PO BEDTIME [facility] Last Admin: 05/16/19 20:47 Dose: 20 mg Benztropine Mesylate (Cogentin Tab*) 0.5 mg PO BID [facility] Last Admin: 05/17/19 09:51 Dose: Not Given Diclofenac Sodium (Voltaren 1% Gel (Nf)) 1 applic TOPICAL TID [facility]; Protocol Last Admin: 05/17/19 13:34 Dose: Not Given Divalproex Sodium (Depakote Dr Tab(*)) 500 mg PO BID [facility] Last Admin: 05/17/19 09:44 Dose: 500 mg Hydrochlorothiazide (Hydrodiuril Tab*) 25 mg PO QAM [facility] Last Admin: 05/17/19 09:43 Dose: 25 mg Lorazepam (Ativan Tab(*)) 0.5 mg PO Q8H PRN PRN Reason: ANXIETY Magnesium Oxide (Magox 400 Tab*) 400 mg PO BEDTIME [facility] Last Admin: 05/16/19 20:50 Dose: 400 mg Multivitamins (Theragran Tab*) 1 tab PO DAILY [facility] Last Admin: 05/17/19 09:44 Dose: 1 tab Nicotine (Nicotine Patch 14 Mg/24 Hr*) 1 patch TRANSDERM DAILY [facility] Last Admin: 05/17/19 10:51 Dose: Not Given Nicotine Polacrilex (Nicotine Gum*) 4 mg PO Q2H PRN PRN Reason: CRAVINGS Non-Formulary Medication (Sodium Fluoride/Potassium Nit [Prevident 5000 Sensitive Paste]) 1 pst TOPICAL BID [facility] Last Admin: 05/17/19 10:51 Dose: Not Given Pharmacy Profile Note (Nicotine Patch Removal Note*) 1 note FOLLOW UP 2100 [facility] Last Admin: 05/16/19 19:13 Dose: Not Given Tamsulosin HCl (Flomax Cap*) 0.4 mg PO DAILY [facility] Last Admin: 05/17/19 09:44 Dose: Not Given Trazodone HCl (Desyrel Tab*) 50 mg PO BEDTIME [facility] Last Admin: 05/16/19 20:51 Dose: 50 mg Vitamin E (Vitamin E Cap*) 400 unit PO DAILY [facility] Last Admin: 05/17/19 09:44 Dose: 400 unit - Discharge Plan Discharge Plan: Outpatient Follow Up Outpatient Program: TBD
[2019-05-17] MEDS: Atorvastatin* 20 MG TAB PO SCH (21:21)
[2019-05-17] MEDS: Magnesium Oxide TAB* 400 MG PO SCH (21:22)
[2019-05-17] MEDS: traZODone TAB* 50 MG TAB PO SCH (21:22)
[2019-05-17] MEDS: Nicotine Patch Removal NOTE FOLLOW UP SCH (21:31)
[2019-05-18] MEDS: ARIPiprazole TAB* 20 MG PO SCH (10:24)
[2019-05-18] MEDS: Divalproex DR TAB(*) 500 MG PO SCH ×2 (10:25→21:11)
[2019-05-18] MEDS: Vitamin THERAPEUTIC TAB PO SCH (10:25)
[2019-05-18] MEDS: Hydrochlorothiazide TAB* 25 MG PO SCH (10:25)
[2019-05-18] MEDS: Aspirin EC TAB* 81 MG TAB.EC PO SCH (10:25)
[2019-05-18] MEDS: SODIUM FLUORIDE TOPICAL SCH ×2 (10:26→21:33)
[2019-05-18] MEDS: POTASSIUM NITRATE TOPICAL SCH ×2 (10:26→21:33)
[2019-05-18] MEDS: Benztropine TAB* 1 MG PO SCH ×2 (10:26→21:09)
[2019-05-18] MEDS: Diclofenac 1% GEL (NF) 100 GM TUBE TOPICAL SCH ×3 (10:26→21:33)
[2019-05-18] MEDS: Nicotine PATCH 14 MG/24 HR* PATCH TRANSDERM SCH (10:26)
[2019-05-18] MEDS: [UNRECOGNIZED DRUG - OTHER] TOPICAL SCH ×2 (10:26→21:33)
[2019-05-18] MEDS: Tamsulosin CAP* 0.4 MG PO SCH (10:27)
[2019-05-18] MEDS: Vitamin E CAP* 400 UNIT PO SCH (10:27)
[2019-05-18] MEDS: Atorvastatin* 20 MG TAB PO SCH (21:08)
[2019-05-18] MEDS: traZODone TAB* 50 MG TAB PO SCH (21:09)
[2019-05-18] MEDS: Magnesium Oxide TAB* 400 MG PO SCH (21:09)
[2019-05-18] MEDS: Nicotine Patch Removal NOTE FOLLOW UP SCH (21:33)
[2019-05-19 07:00] LABS: HDL Cholesterol 49.2 mg/dL
[2019-05-19 09:10] VITALS: BP 133/54
[2019-05-19] MEDS: Aspirin EC TAB* 81 MG TAB.EC PO SCH (09:36)
[2019-05-19] MEDS: Vitamin E CAP* 400 UNIT PO SCH (09:36)
[2019-05-19] MEDS: ARIPiprazole TAB* 20 MG PO SCH (09:37)
[2019-05-19] MEDS: Tamsulosin CAP* 0.4 MG PO SCH (09:37)
[2019-05-19] MEDS: Hydrochlorothiazide TAB* 25 MG PO SCH (09:37)
[2019-05-19] MEDS: Vitamin THERAPEUTIC TAB PO SCH (09:37)
[2019-05-19] MEDS: Divalproex DR TAB(*) 500 MG PO SCH (09:38)
[2019-05-19] MEDS: Benztropine TAB* 1 MG PO SCH (09:38)
[2019-05-19] MEDS: SODIUM FLUORIDE TOPICAL SCH (09:39)
[2019-05-19] MEDS: Diclofenac 1% GEL (NF) 100 GM TUBE TOPICAL SCH (09:39)
[2019-05-19] MEDS: Nicotine PATCH 14 MG/24 HR* PATCH TRANSDERM SCH (09:39)
[2019-05-19] MEDS: POTASSIUM NITRATE TOPICAL SCH (09:39)
[2019-05-19] MEDS: [UNRECOGNIZED DRUG - OTHER] TOPICAL SCH (09:39)
--- NOTE | 2019-05-20 16:51 | DS ---
CC: [facility] team; Dr. Cristopher Gardner* DISCHARGE SUMMARY: DATE OF ADMISSION: 05/16/19 DATE OF DISCHARGE: 05/19/19 SUPERVISING PSYCHIATRIST: Dr. Ray Cho* (dictated by SANGITA Zarate) . DISCHARGE DIAGNOSES: 1. Schizoaffective disorder, bipolar type. 2. Posttraumatic stress disorder. CONDITION AT THE TIME OF DISCHARGE: Improved. The patient is euthymic, well related, and generally pleasant to be around. He has been safe on all checks and in behavioral control. There have not been any behavioral concerns throughout his admission. He was offered aripiprazole and Cogentin but declined these throughout the admission. He was compliant with Depakote and trazodone along with medicines for other medical diagnoses such as coronary artery disease. The patient reports desire to return to [facility]. We discussed the importance of current CDC pandemic recommendations to remain home and minimize exposure to others. The patient states understanding. package worker collaborated with ACT team who will meet with him at the home but outside of the home. The patient denies SI, passive wish, HI, or . The patient is discharged to home. MENTAL STATUS EXAM: George is a 68-year-old white male with disheveled salt and pepper colored hair. He appears stated age. He is adequately groomed and casually dressed in his own clothing. He is alert and oriented x3. Eye contact is good. Speech is soft, mumbled at times. Mood is euthymic with bright affect. No abnormal psychomotor activity noted. Thought process is logical, goal directed, and coherent. Memory is 3/3. Concentration is good. Thought content negative for SI, HI, , or SIB. He denies auditory or visual hallucinations and does not appear to respond to internal stimuli. His insight and judgment are good. Fund of knowledge is adequate. INSTRUCTIONS GIVEN TO PATIENT: A. Medications: No changes were made during this hospitalization. He will continue on: 1. Tamsulosin 0.4 mg p.o. daily. 2. Diclofenac 1% topical t.i.d. 3. Lorazepam 0.5 mg p.o. t.i.d. p.r.n. anxiety/agitation. 4. Vitamin E capsules 400 units p.o. daily. 5. Depakote DR 500 mg p.o. b.i.d. 6. Magnesium oxide 400 mg p.o. q.h.s. 7. Hydrochlorothiazide 25 mg p.o. q.a.m. 8. Atorvastatin 20 mg p.o. q.h.s. 9. Trazodone 50 mg p.o. q.h.s. 10. Aspirin EC 81 mg p.o. daily. B. Diet: Regular. C. Activity: Ambulation as tolerated. Tobacco cessation was declined by the patient. There are no pending labs or diagnostic studies. His most recent valproic acid level on the morning of discharge was 60, within normal limits. Lipid panel was normal. Hemoglobin A1c normal at 5.7. D. Followup care: The patient will follow up with [facility] team and he is encouraged to return to primary care provider Dr. Gardner as needed and per CDC recommendations. E. substance use followup is not applicable. HOSPITAL COURSE: Part A: Reason for admission: The patient presented to the emergency department with the jet pilot of the [facility] where resides due to aggressive destructive and threatening behavior. HPI: Mr. Whitley, who goes by George, is a 68-year-old white male, domiciled at the [facility] in [place] with a history of schizoaffective disorder, bipolar type. He is a [place] but is no longer service connected. Per family's wishes, we have since found out that this may not be the case. This is his 7th lifetime hospitalization at [facility] since 2010. His most recent hospitalization was in January 2018. According to collateral obtained in the emergency room from the patient's brother, the patient has been very upset due to current pandemic and CDC precautions including being locked down. According to the patient's brother, he has a court order to take medications but has not been taking them. We since found out through the ACT team that his AOT last month. Upon presentation, the patient recalls designer/writer by name. He is pleasant and cooperative. He reports that he had arguments at the home this morning. Most of his conversation had loose associations. He speaks of the ETC team taking him to court in a circumstantial manner. He also reports that Depakote does not do anything for him and he jokingly asks for a placebo. His speech is mumbled, difficult to understand at times which is his usual. He has fixed delusions about air conditioning units and goes on into great detail about the need for proper ventilation. This has historically been a concern for him in various admissions to the [facility] and even on the telemetry floor. The patient reports desire to return to the [facility]. He states that "Aliza Pinzon is my only friend in the world and now we are at war." It is uncertain if the patient has been medication compliant. He denies recent substance use. He states it has been over a year since he smoked crack or marijuana. He states his last beer was approximately a month ago. He is wearing a soft neck collar that he reports needing after having a nightmare and falling out of bed. He denies other symptoms of akathisia or dystonia. Per history, the patient is periodically nonadherent to medications. During those times, he is hypersexual , intrusive, and makes dangerous choices including not being dressed appropriately for cold weather. Part B: Psychiatric treatment rendered: The patient was admitted to adult behavioral services unit on involuntary status. His code status was full. He was placed on 15-minute checks for safety. We reinstated outpatient medications including aripiprazole and Cogentin. The patient declined to take these medicines throughout the hospitalization. He was compliant with valproic acid level, trazodone, and medicine for physical diseases. He was pleasant and cooperative. He participated somewhat in unit programming. Per staff, he was one of the best behaved patients on the unit for an entire weekend. He slept well. There were no incidences of aggression or verbal threatening. On the day of discharge, the patient was calm and cooperative, jovial per his usual. He reported desire to be discharged. package worker, as stated above coordinate with [facility] and ACT for transition of care. ALTAF BORJAS NP [id number]/CPS #: [id number] LEAH
== END 2019-05-19 12:50 | disposition home or self-care (01) | DRG 885 ==
LOC: ED 11:33 → BSU 14:22
PROVIDERS: ADMIT Psychiatry & Neurology Psychiatry; ATTEND Psychiatry & Neurology Psychiatry
DX: F25.0 Schizoaffective disorder, bipolar type (principal); F43.10 Post-traumatic stress disorder, unspecified; I25.10 Atherosclerotic heart disease of native coronary artery without angina pectoris; I10 Essential (primary) hypertension; E78.5 Hyperlipidemia, unspecified; K57.90 Diverticulosis of intestine, part unspecified, without perforation or abscess without bleeding; Z79.82 Long term (current) use of aspirin; Z79.899 Other long term (current) drug therapy; Z88.1 Allergy status to other antibiotic agents; Z88.8 Allergy status to other drugs, medicaments and biological substances; I25.2 Old myocardial infarction; Z81.8 Family history of other mental and behavioral disorders
CPT/HCPCS: 36415; 80061; 80164; 83036; 99222; 99231; 99238; 99284; A9270-GY

== ENCOUNTER 2019-09-22 21:18 | Inpatient (IN) ==
[2019-09-22 22:05] LABS: Urine Benzodiazepine Screen None Detected (None Detect); Urine Cannabinoids Screen Presumptive Positive (None Detect); Urine Opiates Screen None Detected (None Detect)
[2019-09-22 23:08] LABS: ABS Basophils 0.1 10^3/ul (0-0.2); ABS Eosinophils 0.1 10^3/ul (0-0.6); ABS Lymphocytes 1.3 10^3/ul (1.0-4.8); ABS Monocytes 0.6 10^3/ul (0-0.8); ABS Neutrophils 5.1 10^3/ul (1.5-7.7); Eosinophil % 1.7 %; Hematocrit 39 % (42-52); Hemoglobin 13.2 g/dL (14.0-18.0); Lymphocyte % 18.3 %; Mean Corpuscular HGB Conc 34 g/dL (31-36); Mean Corpuscular Hemoglobin 31 pg (27-31); Mean Corpuscular Volume 91 fL (80-94); Mean Platelet Volume 6.5 fL (7.4-10.4); Platelet Count 239 10^3/uL (150-450); Red Cell Distribution Width 15 % (10-15); White Blood Count 7.3 10^3/uL (3.5-10.8)
[2019-09-22 23:27] LABS: Anion Gap 6 mmol/L (2-11); Blood Urea Nitrogen 31 mg/dL (6-24); CO2 Carbon Dioxide 28 mmol/L (22-32); Calcium 9.3 mg/dL (8.6-10.3); Chloride 106 mmol/L (101-111); EGFR African American 83.2 (>60); EGFR Non-African American 68.7 (>60); Glucose 118 mg/dL (70-100); Potassium 3.8 mmol/L (3.5-5.0); Sodium 140 mmol/L (135-145)
[2019-09-22 23:34] LABS: Acetaminophen < 15 mcg/mL; Alcohol, S < 10 mg/dL (<10); Salicylate < 2.50 mg/dL (<30)
[2019-09-22 23:49] LABS: TSH Ultra Thyroid Stim Horm 1.64 mcIU/mL (0.34-5.60)
[2019-09-22 23:53] LABS: Free T4 1.03 ng/dL (0.61-1.12)
[2019-09-23] MEDS ORDERED: Nicotine Lozenge mini 2 MG LOZNG.MINI MT PRN (09:53)
[2019-09-23] MEDS ORDERED: Nicotine GUM 2MG FRUIT FLAVOR PO PRN (09:53)
[2019-09-23] MEDS ORDERED: DICLOFENAC SODIUM 1% TOPICAL PRN (09:57)
[2019-09-23] MEDS ORDERED: Diclofenac 1% GEL (NF) 100 GM TUBE TOPICAL PRN (11:33)
[2019-09-23] MEDS: Aspirin EC 81 mg TAB.EC (enteric coated) PO SCH (12:00)
[2019-09-23] MEDS: Nicotine PATCH 14 MG/24 HR PATCH TRANSDERM SCH (12:00)
[2019-09-23] MEDS: Vitamin THERAPEUTIC TAB PO SCH (12:00)
[2019-09-24] MEDS ORDERED: VITAMIN E 400 UNIT PO SCH (09:00)
[2019-09-24] MEDS: Vitamin THERAPEUTIC TAB PO SCH (09:10)
[2019-09-24] MEDS: Nicotine PATCH 14 MG/24 HR PATCH TRANSDERM SCH (09:14)
[2019-09-24] MEDS: Aspirin EC 81 mg TAB.EC (enteric coated) PO SCH (09:14)
[2019-09-25] MEDS: Vitamin THERAPEUTIC TAB PO SCH (09:43)
[2019-09-25] MEDS: Nicotine PATCH 14 MG/24 HR PATCH TRANSDERM SCH (09:43)
[2019-09-25] MEDS: Aspirin EC 81 mg TAB.EC (enteric coated) PO SCH (09:43)
[2019-09-25] MEDS: Al Hydrox/Mg Hydrox/Simet LIQ 30 ML UDC PO PRN (16:11)
[2019-09-26] MEDS: Nicotine PATCH 14 MG/24 HR PATCH TRANSDERM SCH (09:13)
[2019-09-26] MEDS: Vitamin THERAPEUTIC TAB PO SCH (09:13)
[2019-09-26] MEDS: Aspirin EC 81 mg TAB.EC (enteric coated) PO SCH (09:14)
[2019-09-27] MEDS: Nicotine PATCH 14 MG/24 HR PATCH TRANSDERM SCH (07:50)
[2019-09-27] MEDS: Aspirin EC 81 mg TAB.EC (enteric coated) PO SCH (07:50)
[2019-09-27] MEDS: Vitamin THERAPEUTIC TAB PO SCH (07:50)
[2019-09-27] MEDS: Saline NASAL SPRAY 0.65% BTL BOTH NARES PRN ×2 (13:15→16:58)
[2019-09-28] MEDS: Saline NASAL SPRAY 0.65% BTL BOTH NARES PRN ×2 (00:01→07:47)
[2019-09-28] MEDS: Nicotine PATCH 14 MG/24 HR PATCH TRANSDERM SCH (07:44)
[2019-09-28] MEDS: Aspirin EC 81 mg TAB.EC (enteric coated) PO SCH (07:44)
[2019-09-28] MEDS: Vitamin THERAPEUTIC TAB PO SCH (07:44)
[2019-09-29] MEDS: Vitamin THERAPEUTIC TAB PO SCH (09:23)
[2019-09-29] MEDS: Nicotine PATCH 14 MG/24 HR PATCH TRANSDERM SCH (09:23)
[2019-09-29] MEDS: Aspirin EC 81 mg TAB.EC (enteric coated) PO SCH (09:23)
[2019-09-30] MEDS: Nicotine PATCH 14 MG/24 HR PATCH TRANSDERM SCH (08:31)
[2019-09-30] MEDS: Aspirin EC 81 mg TAB.EC (enteric coated) PO SCH (08:31)
[2019-09-30] MEDS: Vitamin THERAPEUTIC TAB PO SCH (08:32)
[2019-10-01] MEDS: Aspirin EC 81 mg TAB.EC (enteric coated) PO SCH (09:19)
[2019-10-01] MEDS: Nicotine PATCH 14 MG/24 HR PATCH TRANSDERM SCH (09:19)
[2019-10-01] MEDS: Vitamin THERAPEUTIC TAB PO SCH (09:20)
[2019-10-01] MEDS: Saline NASAL SPRAY 0.65% BTL BOTH NARES PRN (22:13)
[2019-10-02] MEDS: Nicotine PATCH 14 MG/24 HR PATCH TRANSDERM SCH (09:14)
[2019-10-02] MEDS: Vitamin THERAPEUTIC TAB PO SCH (09:14)
[2019-10-02] MEDS: Aspirin EC 81 mg TAB.EC (enteric coated) PO SCH (09:14)
[2019-10-02] MEDS: Saline NASAL SPRAY 0.65% BTL BOTH NARES PRN (21:08)
[2019-10-03] MEDS: Nicotine PATCH 14 MG/24 HR PATCH TRANSDERM SCH (09:39)
[2019-10-03] MEDS: Aspirin EC 81 mg TAB.EC (enteric coated) PO SCH (09:39)
[2019-10-03] MEDS: Vitamin THERAPEUTIC TAB PO SCH (09:41)
[2019-10-03] MEDS ORDERED: Magic MouthWash1-BEN/MAAL/LIDO 180 ML BTL SWISH SPIT PRN (16:25)
[2019-10-04] MEDS: Vitamin THERAPEUTIC TAB PO SCH (10:31)
[2019-10-04] MEDS: Aspirin EC 81 mg TAB.EC (enteric coated) PO SCH (10:31)
[2019-10-05] MEDS: Aspirin EC 81 mg TAB.EC (enteric coated) PO SCH (10:16)
[2019-10-05] MEDS: Vitamin THERAPEUTIC TAB PO SCH (10:17)
[2019-10-05] MEDS: Al Hydrox/Mg Hydrox/Simet LIQ 30 ML UDC PO PRN (21:38)
[2019-10-05] MEDS: Saline NASAL SPRAY 0.65% BTL BOTH NARES PRN (23:37)
[2019-10-06] MEDS: Aspirin EC 81 mg TAB.EC (enteric coated) PO SCH (08:43)
[2019-10-06] MEDS: Vitamin THERAPEUTIC TAB PO SCH (08:43)
[2019-10-07] MEDS: Aspirin EC 81 mg TAB.EC (enteric coated) PO SCH (09:19)
[2019-10-07] MEDS: Vitamin THERAPEUTIC TAB PO SCH (09:20)
[2019-10-08] MEDS: Aspirin EC 81 mg TAB.EC (enteric coated) PO SCH (11:08)
[2019-10-08] MEDS: Vitamin THERAPEUTIC TAB PO SCH (11:09)
[2019-10-09] MEDS: Aspirin EC 81 mg TAB.EC (enteric coated) PO SCH (10:09)
[2019-10-09] MEDS: Vitamin THERAPEUTIC TAB PO SCH (10:10)
[2019-10-10] MEDS: Aspirin EC 81 mg TAB.EC (enteric coated) PO SCH (09:41)
[2019-10-10] MEDS: Vitamin THERAPEUTIC TAB PO SCH (09:42)
[2019-10-10 11:15] LABS: Valproic Acid < 13.0 mcg/mL (50-100)
[2019-10-10 11:18] LABS: ALT 18 U/L (7-52); AST 27 U/L (13-39); Albumin 4.8 g/dL (3.2-5.2); Albumin/Globulin Ratio 1.4 (1-3); Alkaline Phosphatase 81 U/L (34-104); Anion Gap 9 mmol/L (2-11); BUN/Creatinine Ratio 30.5 (8-20); Blood Urea Nitrogen 29 mg/dL (6-24); CO2 Carbon Dioxide 25 mmol/L (22-32); Calcium 9.9 mg/dL (8.6-10.3); Chloride 102 mmol/L (101-111); EGFR African American 95.4 (>60); EGFR Non-African American 78.8 (>60); Globulin 3.5 g/dL (2-4); Glucose 124 mg/dL (70-100); Potassium 4.2 mmol/L (3.5-5.0); Sodium 136 mmol/L (135-145); Total Protein 8.3 g/dL (6.4-8.9)
[2019-10-11] MEDS: Vitamin THERAPEUTIC TAB PO SCH (09:26)
[2019-10-11] MEDS: Aspirin EC 81 mg TAB.EC (enteric coated) PO SCH (09:26)
[2019-10-12] MEDS: Vitamin THERAPEUTIC TAB PO SCH (09:17)
[2019-10-12] MEDS: Aspirin EC 81 mg TAB.EC (enteric coated) PO SCH (09:17)
[2019-10-13] MEDS: Aspirin EC 81 mg TAB.EC (enteric coated) PO SCH (09:45)
[2019-10-13] MEDS: Vitamin THERAPEUTIC TAB PO SCH (09:46)
[2019-10-14] MEDS: Aspirin EC 81 mg TAB.EC (enteric coated) PO SCH (10:22)
[2019-10-14] MEDS: Vitamin THERAPEUTIC TAB PO SCH (10:22)
[2019-10-15 09:33] LABS: Cholesterol 180 mg/dL; LDL Cholesterol 104 mg/dL; Triglycerides 115 mg/dL
[2019-10-15 09:49] LABS: Valproic Acid < 13.0 mcg/mL (50-100)
[2019-10-15] MEDS: Vitamin THERAPEUTIC TAB PO SCH (11:32)
[2019-10-15] MEDS: Aspirin EC 81 mg TAB.EC (enteric coated) PO SCH (11:32)
[2019-10-16] MEDS: Aspirin EC 81 mg TAB.EC (enteric coated) PO SCH (09:36)
[2019-10-16] MEDS: Vitamin THERAPEUTIC TAB PO SCH (09:37)
[2019-10-16] MEDS: Al Hydrox/Mg Hydrox/Simet LIQ 30 ML UDC PO PRN (22:03)
[2019-10-17] MEDS: Aspirin EC 81 mg TAB.EC (enteric coated) PO SCH (09:51)
[2019-10-17] MEDS: Vitamin THERAPEUTIC TAB PO SCH (09:53)
[2019-10-18] MEDS: Vitamin THERAPEUTIC TAB PO SCH (10:06)
[2019-10-18] MEDS: Aspirin EC 81 mg TAB.EC (enteric coated) PO SCH (10:06)
[2019-10-19] MEDS: Aspirin EC 81 mg TAB.EC (enteric coated) PO SCH (09:26)
[2019-10-19] MEDS: Vitamin THERAPEUTIC TAB PO SCH (09:26)
[2019-10-20 08:19] VITALS: BP 152/64
[2019-10-20] MEDS: Vitamin THERAPEUTIC TAB PO SCH (08:23)
[2019-10-20] MEDS: Aspirin EC 81 mg TAB.EC (enteric coated) PO SCH (08:23)
== END 2019-10-20 09:04 | DRG 885 ==
LOC: ED 21:18 → BSU 09-23 11:31
PROVIDERS: ADMIT Psychiatry & Neurology Psychiatry; ATTEND Psychiatry & Neurology Psychiatry